=== PATIENT | male | born 1930 | race Two or more races ===

== ENCOUNTER → 2020-03-06 | Outpatient (REF) | payer MEDICARE, OTHER ==
[~2020-03-06] MED LIST: ALFU10TA3 PO; AMLO1TAB24 PO; ATOR1TAB21 PO; CLOP75TA2 PO; COQ1200C PO; DUTA1CAP2 PO; ECOT81TA5 PO; LISI40TA PO; METF10004 PO; METO37.5 PO; MONT5TAB2 PO; OMEP-221 PO
== END ==
LOC: M LAB REF 17:05
PROVIDERS: ATTEND Urology
DX: Z01.818 Encounter for other preprocedural examination (principal); N40.1 Benign prostatic hyperplasia with lower urinary tract symptoms; N39.0 Urinary tract infection, site not specified

== ENCOUNTER → 2020-03-07 | Outpatient (CLI) | payer OTHER, MEDICARE | LOC: M LABSMTC 09:56 | PROVIDERS: ATTEND Anesthesiology | DX: Z01.812 Encounter for preprocedural laboratory examination (principal); Z20.822 Contact with and (suspected) exposure to COVID-19 ==

== ENCOUNTER 2020-03-12 06:56 | Day surgery (SDC) | payer MEDICARE ==
[~2020-03-12] VITALS: Ht 160 cm; Wt 61.9 kg
[~2020-03-12 06:56] MED LIST changes: +LR 1,000 ML IV ONE; +ceFAZolin SOD 2 GM in IV 1 EA IV ONE
--- OUTSIDE RECORDS SUMMARY | 2020-03-12 07:02 | CCD ---
Author Author [facility] Organization [facility] Address Unknown Phone Unavailable Care Team Providers Care Tub Puller Name Role Phone ValerioJaein Unavailable PROBLEMS Type Condition ICD9-CM Code [id number] Code Onset Dates Condition S tatus SNOMED Code Notes Problem Microscopic hematuria 599.72 Active 545131175 Problem Hypertrophy (benign) of pros krueger without urinary obstruction and other lower urinary tract symptoms [LUTS] 600.00 Active 301163489 Problem Preop testing Z01.818 Active 806427590 Problem UTI (urinary tract infection) N39.0 Active 68 623002 Problem Elevated PSA (prostate specific antigen) 790.93 Active 799131538 Problem Elevated prostate specific antigen [PSA] R97.20 Active 351544115 Problem Benign prostatic hyperplasia without lower urina ry tract symptoms N40.0 Active 684361926 Problem 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 Active 036955215 ALLERGIES No Known Allergies ENCOUNTERS from 1930 to 2020-03-11 Encounter Location Date Provider Diagnosis [facility] Urology [address] [address] Feb Marlon Luo IMMUNIZATIONS Vaccine Route Administration Date Status Influenza (6mo & up) Fluzone Unknown July 18, 2014 Ref used SOCIAL HISTORY Sex Assigned At : Social History Observation Description Sex Assigned At Unknown REASON FOR REFERRAL No Information VITAL SIGNS No information MEDICATIONS Medication SIG (Take, Route, Frequency, Duration) Notes Start Da te End Date Status Dutasteride 0.5 MG 1 capsule Orally Once a day for 30 day(s) Active Aspir-81 81 MG 1 tablet Orally Once a day for 30 day(s) Active Lipitor 20 MG 1 tablet Orally Once a day for 30 day(s) Active CoQ-10 120 mg 1 tab(s) Orally daily Active Erythromycin 500 MG 1 tab Orally every 6 hours for 10 day(s) Feb, Active Lisinopril 30 MG 1 tablet Orally Once a day Active Plavix 75 MG 1 tablet Orally Once a day Active Cipro 250 MG 1 tablet Orally every 12 hrs for 10 day(s) Jan, Active Glucophage 1000 MG 1 tablet with meals Orally Twice a day Active Alfuzosin HCl Active Omeprazole 20 MG 1 capsule Orally Once a day Active Amoxicillin 500 MG 1 capsule Orally every 12 hrs for 10 day(s) Feb, Active Flomax 0.4 MG 1 capsule 30 minutes after t he same meal each day Orally Once a day for 90 day(s) Not-Taking Singulair 10 MG 1 tablet in the evening Orally Once a day for 30 day( s) Active PROCEDURES No Information RESULTS No Results REASON FOR VISIT adverse med MEDICAL (GENERAL) HISTORY Type Description Date Medical History high blood pressure Medical History high cholesterol Medical History GERD Medical History Microhematuria Medical History Disorder of prostate Medical History diverticular disease of colon Medical History psoriasis Medical History hernia of anterior abdominal wall 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 Medical History diabetes Surgical History cataract lens implanted, bilateral 2009 Surgical History colonoscopy 2005 Hospitalization History No Hospitalization history informati on Goals Section No Information Health Concerns No Information MEDICAL EQUIPMENT No Information MENTAL STATUS No Information FUNCTIONAL STATUS No Information ASSESSMENTS No Information PLAN OF TREATMENT Medication Medication Name Sig Start Date Stop Date Erythromycin 500 MG 1 tab Orally every 6 hours for 10 day(s) Feb, Amoxicillin 500 MG 1 capsule Orally every 12 hrs for 10 day(s) Feb, Next Appt Details Provider Name:Ruma Aparicio, 2020-02-29 8 08:30:00 AM, [address], [place], [address], Insurance Providers Payer Name Payer Address Payer Phone Insured Name Patient Relati onship to Insured Coverage Start Date Coverage End Date [employer]AN [address] [address] [place] [facility] [place] [phone] BRENDA HDZ [facility] [employer] [address] [address] [facility] [phone] BRENDA HDZ self
--- OUTSIDE RECORDS SUMMARY | 2020-03-12 07:02 | CCD ---
Author Author [facility] Organization [facility] Address Unknown Phone Unavailable Care Team Providers Care Mortgage Loan Officer Name Role Phone ValerioJaein Unavailable PROBLEMS Type Condition ICD9-CM Code [id number] Code Onset Dates Condition S tatus SNOMED Code Notes Problem Microscopic hematuria 599.72 Active 090702159 Problem Hypertrophy (benign) of pros krueger without urinary obstruction and other lower urinary tract symptoms [LUTS] 600.00 Active 920463365 Problem Preop testing Z01.818 Active 353978927 Problem UTI (urinary tract infection) N39.0 Active 68 921118 Problem Elevated PSA (prostate specific antigen) 790.93 Active 473979122 Problem Elevated prostate specific antigen [PSA] R97.20 Active 689462395 Problem Benign prostatic hyperplasia without lower urina ry tract symptoms N40.0 Active 245325372 Problem 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 Active 150048840 ALLERGIES No Known Allergies ENCOUNTERS from 1931 to 2020-03-10 Encounter Location Date Provider Diagnosis [facility] Urology [address] [place] [address] Feb Marlon Luo IMMUNIZATIONS Vaccine Route Administration [...] Information RESULTS No Results REASON FOR VISIT UTI MEDICAL (GENERAL) HISTORY Type Description Date Medical [...] Provider Name:Ruma Aparicio, 2020-02-29 8 08:30:00 AM, [address], [place], [address], Insurance Providers Payer Name Payer Address Payer Phone Insured Name Patient Relati onship to Insured Coverage Start Date Coverage End Date [facility] HEALTH PLANS [address] [address] [facility] [phone] BRENDA HDZ self [employer] INS[employer] PLAN [address] [address] [facility] [phone] BRENDA HDZ self
--- OUTSIDE RECORDS SUMMARY | 2020-03-12 07:02 | CCD ---
Author Author [facility] Organization [facility] Address Unknown Phone Unavailable Care Team Providers Care Application Dba Name Role Phone Marlon Luo Unavailable PROBLEMS Type Condition ICD9-CM Code [id number] Code Onset Dates Condition S tatus SNOMED Code Notes Problem Microscopic hematuria 599.72 Active 057983141 Problem Hypertrophy (benign) of pros krueger without urinary obstruction and other lower urinary tract symptoms [LUTS] 600.00 Active 685307453 Problem Preop testing Z01.818 Active 037001930 Problem UTI (urinary tract infection) N39.0 Active 68 620842 Problem Elevated PSA (prostate specific antigen) 790.93 Active 682603856 Problem Elevated prostate specific antigen [PSA] R97.20 Active 315297437 Problem Benign prostatic hyperplasia without lower urina ry tract symptoms N40.0 Active 265232681 Problem 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 Active 629978299 ALLERGIES No Known Allergies ENCOUNTERS from 1931 to 2020-03-07 Encounter Location Date Provider Diagnosis [facility] Urology [address] [place] [address] Feb Marlon Luo 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 IMMUNIZATIONS Vaccine Route Administration Date Status Influenza (6mo & up) Fluzone Unknown July 18, 2014 Ref used SOCIAL HISTORY Sex Assigned At : Social History Observation Description Sex Assigned At Unknown REASON FOR REFERRAL No Information VITAL SIGNS Weight 133 lbs Feb, Height 63 in Feb, BMI 23.56 kg/m2 Feb, Heart Rate 95 /min Feb, Respiratory Rate 18 /min Feb, Temperature 97.1 degrees Fahrenheit Feb, Oximetry 100% Feb, Blood pressure systolic 118 mm Hg Feb, Blood pressure diastolic 74 mm Hg Feb, MEDICATIONS Medication SIG (Take, Route, Frequency, Duration) Notes Start Da te End Date Status CoQ-10 120 mg 1 tab(s) Orally daily Active Lisinopril 30 MG 1 tablet Orally Once a day Active Glucophage 1000 MG 1 tablet with meals Orally Twice a day Active Omeprazole 20 MG 1 capsule Orally Once a day Active Alfuzosin HCl Active Flomax 0.4 MG 1 capsule 30 minutes after t he same meal each day Orally Once a day for 90 day(s) Not-Taking Plavix 75 MG 1 tablet Orally Once a day Active Aspir-81 81 MG 1 tablet Orally Once a day for 30 day(s) Active Singulair 10 MG 1 tablet in the evening Orally Once a day for 30 day( s) Active Lipitor 20 MG 1 tablet Orally Once a day for 30 day(s) Active Cipro 250 MG 1 tablet Orally every 12 hrs for 10 day(s) Jan, Active Dutasteride 0.5 MG 1 capsule Orally Once a day for 30 day(s) Active PROCEDURES from 1931 to 2020-03-07 Procedure Date Ordered Result Body Site Medication: Lidocaine HCl 2% Jelly 5mL Intravesically 2020-03-06 N/A Grigsby Catheter Coude Insertion 18F 2020-03-06 N/A RESULTS No Results REASON FOR VISIT Cath change w/ Urine culture MEDICAL (GENERAL) HISTORY Type Description Date Medical [...] No Information FUNCTIONAL STATUS No Information ASSESSMENTS Encounter Date Diagnosis Assessment Notes Treatment Notes Treatm ent Clinical Notes Feb, BPH (benign prostatic hypert rophy) with urinary retention (ICD-10 - N40.1) Feb, Other Caring for your grigsby cathet er material was printed PLAN OF TREATMENT Next Appt Details Provider Name:Ruma Aparicio, 2020-02-29 8 08:30:00 AM, [address], [place], [address], Insurance Providers Payer Name Payer Address Payer Phone Insured Name Patient Relati onship to Insured Coverage Start Date Coverage End Date [employer] PLAN [address] [address] [facility] [phone] BRENDA CARRINGTON [employer] [address] [address] [facility] [address] BRENDA CARRINGTON self
--- OUTSIDE RECORDS SUMMARY | 2020-03-12 07:02 | CCD ---
Author Author [facility] Organization [facility] Address Unknown Phone Unavailable Care Team Providers Care Publications Sales Representative Name Role Phone ValerioJaein Unavailable PROBLEMS Type Condition ICD9-CM Code [id number] Code Onset Dates Condition S tatus SNOMED Code Notes Problem Microscopic hematuria 599.72 Active 059312677 Problem Hypertrophy (benign) of pros krueger without urinary obstruction and other lower urinary tract symptoms [LUTS] 600.00 Active 823903242 Problem Preop testing Z01.818 Active 717992722 Problem UTI (urinary tract infection) N39.0 Active 68 265010 Problem Elevated PSA (prostate specific antigen) 790.93 Active 935101470 Problem Elevated prostate specific antigen [PSA] R97.20 Active 644968036 Problem Benign prostatic hyperplasia without lower urina ry tract symptoms N40.0 Active 852706839 Problem 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 Active 290050024 ALLERGIES No Known Allergies ENCOUNTERS from 1931 to 2020-03-07 Encounter Location Date Provider Diagnosis [facility] Urology [address] [place] [address] Feb Marlon Luo IMMUNIZATIONS Vaccine Route Administration [...] a day for 30 day(s) Active PROCEDURES No Information RESULTS No Results REASON FOR VISIT cath /urojey orders MEDICAL (GENERAL) HISTORY Type Description Date Medical [...] Information ASSESSMENTS No Information PLAN OF TREATMENT Next Appt Details Provider Name:Ruma Acevedo Alessandra, 2020-02-29 8 08:30:00 AM, [address], [place], [address], Insurance Providers Payer Name Payer Address Payer Phone Insured Name Patient Relati onship to Insured Coverage Start Date Coverage End Date [facility] PLANS [address] [address] [facility] [phone] BRENDA CARRINGTON self [employer] PLAN [address] [address] [facility] [phone] BRENDA CARRINGTON self
--- OUTSIDE RECORDS SUMMARY | 2020-03-12 07:03 | CCD ---
Author Author [facility] Organization [facility] Address Unknown Phone Unavailable Care Team Providers Care Assistant Superintendent For Curriculum Name Role Phone Recore, Ruma Unavailable PROBLEMS Type Condition ICD9-CM Code [id number] Code Onset Dates Condition S tatus SNOMED Code Notes Problem Elevated prostate specific antigen [PSA] R97.20 Active 755713415 Problem Benign prostatic hyperplasia without lower urina ry tract symptoms N40.0 Active 844449421 Problem Microscopic hematuria 599.72 Active 756415138 Problem Hypertrophy (benign) of pros krueger without urinary obstruction and other lower urinary tract symptoms [LUTS] 600.00 Active 992511790 Problem Elevated PSA (prostate specific antigen) 790.93 Active 671192170 ALLERGIES No Known Allergies ENCOUNTERS from 1930 to 2020-02-06 Encounter Location Date Provider Diagnosis [facility] Urology [address] [place] [address] [place] [address] Jan Ruma Aparicio Retention of urine, unspecified R33.9 IMMUNIZATIONS Vaccine Route Administration Date Status Influenza (6mo & up) Fluzone Unknown July 18, 2014 Ref used SOCIAL HISTORY Sex Assigned At : Social History Observation Description Sex Assigned At Unknown REASON FOR REFERRAL No Information VITAL SIGNS Weight 137 lbs Jan, Height 63 in Jan, BMI 24.27 kg/m2 Jan, Heart Rate 109 /min Jan, Respiratory Rate 18 /min Jan, Temperature 96.2 degrees Fahrenheit Jan, Oximetry 100% Jan, Blood pressure systolic 128 mm Hg Jan, Blood pressure diastolic 72 mm Hg Jan, MEDICATIONS Medication SIG (Take, Route, Frequency, Duration) Notes Start Da te End Date Status Singulair 10 MG 1 tablet in the evening Orally Once a day for 30 day( s) Active Lisinopril 30 MG 1 tablet Orally Once a day Active Plavix 75 MG 1 tablet Orally Once a day Active Cipro 250 MG 1 tablet Orally every 12 hrs for 10 day(s) Jan, Active Aspir-81 81 MG 1 tablet Orally Once a day for 30 day(s) Active Alfuzosin HCl Active Omeprazole 20 MG 1 capsule Orally Once a day Active Glucophage 1000 MG 1 tablet with meals Orally Twice a day Active Flomax 0.4 MG 1 capsule 30 minutes after t he same meal each day Orally Once a day for 90 day(s) Not-Taking Lipitor 20 MG 1 tablet Orally Once a day for 30 day(s) Active Dutasteride 0.5 MG 1 capsule Orally Once a day for 30 day(s) Active CoQ-10 120 mg 1 tab(s) Orally daily Active PROCEDURES from 1931 to 2020-02-06 Procedure Date Ordered Result Body Site Grigsby Catheter Insertion 16F 2020-02-04 N/A Medication: Lidocaine HCl 2% Jelly 5mL Intravesically 2020-02-04 N/A Voiding Trial 2020-02-04 N/A RESULTS No Results REASON FOR VISIT dora white grigsby in retention MEDICAL (GENERAL) HISTORY Type Description Date Medical [...] Surgical History colonoscopy 2005 Hospitalization History No know Hospitalization history Goals Section No Information Health Concerns No Information MEDICAL EQUIPMENT No Information MENTAL STATUS No Information FUNCTIONAL STATUS No Information ASSESSMENTS Encounter Date Diagnosis Assessment Notes Treatment Notes Treatm ent Clinical Notes Jan, Retention of urine, unspecified (ICD-10 - R33.9) Jan, Other Caring for your grigsby catheter material was printed Patient Educated with: Cystoscopy (In-Office) Procedure and Instructions.pdf (Cystoscopy (In-Office) Procedure and Instructions.pdf) PLAN OF TREATMENT Medication Medication Name Sig Start Date Stop Date Cipro 250 MG 1 tablet Orally every 12 hrs for 10 day(s) 2019 Next Appt Details cysto Reason: Provider Name:Marlon Luo, 09:00:00 AM, [address], [place], [address], Insurance Providers Payer Name Payer Address Payer Phone Insured Name Patient Relati onship to Insured Coverage Start Date Coverage End Date [facility] HEALTH PLANS [address] [address] [facility] [phone] BRENDA CARRINGTON [employer] PLAN [address] [address] [facility] [place] [phone] BRENDA CARRINGTON self
--- OUTSIDE RECORDS SUMMARY | 2020-03-12 07:03 | CCD | Continuity of Care Document ---
Author Author Saman SABA M.D. Organization Unknown Address [address] [place] [address] Phone [phone] Care Team Providers Care Stone Circular Sawyer Name Role Phone ProsperNitin Rambo AUTM [phone] Problems Active Problems Provider Date Malaise and fatigue Keven Saba M.D. Onset: 12/08/2017 Abnormal gait Keven Saba M.D. Onset: 12/08/2017 Carotid artery occlusion Keven Saba M.D. 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 Onset: 12/08/2017 Social History Type Date Description Comments Sex Unknown Tobacco Use Start: Unknown End: Unknown Patient is a former smoker Allergies, Adverse Reactions, Alerts Description No Known Drug Allergies Medications Active Medications SIG Qnty Indications Ordering Provide r Date Clopidogrel Bisulfate 75mg Tablets Take One Tablet By Mouth Every Day 30tabs Keven Saba M.D. 0 05/12/2018 Immunizations Description No Information Available Vital Signs Date Vital Result Comment 12/08/2017 9:22am BP Systolic 155 mmHg BP Diastolic 85 mmHg Heart Rate 70 /min Respiratory Rate 14 /min Height 62 inches 5'2" Weight 140.00 lb BMI (Body Mass Index) 25.6 kg/m2 [place] Body Weight 118 lb Results Description No Information Available Procedures Date Code Description Status 09/22/2019 49601 Magnetic Resonance Angiography N ankit W/O Contrast Materials Completed 09/22/2019 27057 Magnetic Resonance Angiography N ankit W/O Contrast Materials Completed 09/22/2019 24275 Magnetic Resonance Angiogtaphy H ead W/O Contrast Material(S) Completed 09/22/2019 45668 Magnetic Resonance Angiogtaphy H ead W/O Contrast Material(S) Completed Medical Devices Description No Information Available Encounters Description No Information Available Assessments Date Code Description Provider 09/22/2019 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 09/18/2019 R53.1 Weakness Keven Saba M.D. 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 09/18/2019 I65.23 Occlusion and stenosis of bilate ral carotid arteries Keven Saba M.D. Plan of Treatment No Information Available Functional Status Description No Information Available Mental Status Description No Information Available Referrals Description No Information Available
--- OUTSIDE RECORDS SUMMARY | 2020-03-12 07:03 | CCD ---
Author Author [facility] Organization [facility] Address Unknown Phone Unavailable Care Team Providers Care Press Assistant Name Role Phone Catrachore, Ruma Unavailable PROBLEMS Type Condition ICD9-CM Code [id number] Code Onset Dates Condition S tatus SNOMED Code Notes Problem Elevated prostate specific antigen [PSA] R97.20 Active 549209764 Problem Benign prostatic hyperplasia without lower urina ry tract symptoms N40.0 Active 165390897 Problem Microscopic hematuria 599.72 Active 866541637 Problem Hypertrophy (benign) of pros krueger without urinary obstruction and other lower urinary tract symptoms [LUTS] 600.00 Active 062718407 Problem Elevated PSA (prostate specific antigen) 790.93 Active 777737589 ALLERGIES No Known Allergies ENCOUNTERS from 1931 to 2020-02-07 Encounter Location Date Provider Diagnosis [facility] Urology [id number] [place] [address] [place] [address] Jan Ruma Aparicio Retention of urine, unspecified [...] mg 1 tab(s) Orally daily Active PROCEDURES No Information RESULTS No Results REASON FOR VISIT med clarification MEDICAL (GENERAL) HISTORY Type Description Date Medical [...] Retention of urine, unspecified (ICD-10 - R33.9) PLAN OF TREATMENT Medication Medication Name Sig Start Date Stop Date Cipro 250 MG 1 tablet Orally every 12 hrs for 10 day(s) 2019 Next Appt Details Provider Name:Marlon Luo, 09:00:00 AM, [address], [place], [address], Insurance Providers Payer Name Payer Address Payer Phone Insured Name Patient Relati onship to Insured Coverage Start Date Coverage End Date [employer] PLAN [address] [address] [place] [phone] BRENDA CARRINGTON self [employer] [address] [address] [facility] [phone] MOROMGIOVANNA,SHINTEROSETTEU self
--- OUTSIDE RECORDS SUMMARY | 2020-03-12 07:03 | CCD ---
Author Author [facility] Organization [facility] Address Unknown Phone Unavailable Care Team Providers Care Molding Utility Worker Name Role Phone Marlon Luo Unavailable PROBLEMS Type Condition ICD9-CM Code ZVZ29-LA Code Onset Dates Condition S tatus SNOMED Code Notes Problem Microscopic hematuria 599.72 Active 758733533 Problem Hypertrophy (benign) of pros [place] without urinary obstruction and other lower urinary tract symptoms [LUTS] 600.00 Active 991639774 Problem Preop testing Z01.818 Active 968569738 Problem UTI (urinary tract infection) N39.0 Active 68 626960 Problem Elevated PSA (prostate specific antigen) 790.93 Active 346206910 Problem Elevated prostate specific antigen [PSA] R97.20 Active 107606741 Problem Benign prostatic hyperplasia without lower urina ry tract symptoms N40.0 Active 798869816 Problem 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 Active 747281449 ALLERGIES No Known Allergies ENCOUNTERS from 1930 to 2020-02-14 Encounter Location Date Provider Diagnosis [facility] [address] [place] [address] Jan Marlon Valerio 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 ; Preop testing Z01.818 and UTI (urinary tract infection) N39.0 IMMUNIZATIONS Vaccine Route Administration Date Status Influenza (6mo & up) Fluzone Unknown July 18, 2014 Ref used SOCIAL HISTORY Sex Assigned At : Social History Observation Description Sex Assigned At Unknown REASON FOR REFERRAL No Information VITAL SIGNS Weight 136.5 lbs Jan, Height 63 in Jan, BMI 24.18 kg/m2 Jan, Heart Rate 91 /min Jan, Respiratory Rate 18 /min Jan, Temperature 97.1 degrees Fahrenheit Jan, Oximetry 98% Jan, Blood pressure systolic 145 mm Hg Jan, Blood pressure diastolic 78 mm Hg Jan, MEDICATIONS Medication SIG (Take, Route, Frequency, Duration) Notes Start Da te End Date Status Alfuzosin HCl Active Flomax 0.4 MG 1 capsule 30 minutes after t he same meal each day Orally Once a day for 90 day(s) Not-Taking Glucophage 1000 MG 1 tablet with meals Orally Twice a day Active Omeprazole 20 MG 1 capsule Orally Once a day Active Lipitor 20 MG 1 tablet Orally Once a day for 30 day(s) Active Lisinopril 30 MG 1 tablet Orally Once a day Active Aspir-81 81 MG 1 tablet Orally Once a day for 30 day(s) Active Dutasteride 0.5 MG 1 capsule Orally Once a day for 30 day(s) Active Singulair 10 MG 1 tablet in the evening Orally Once a day for 30 day( s) Active Cipro 250 MG 1 tablet Orally every 12 hrs for 10 day(s) Jan, Active Plavix 75 MG 1 tablet Orally Once a day Active CoQ-10 120 mg 1 tab(s) Orally daily Active PROCEDURES No Information RESULTS No Results REASON FOR VISIT retention MEDICAL (GENERAL) HISTORY Type Description Date [...] Treatment Notes Treatm ent Clinical Notes Jan, BPH (benign prostatic hypert rophy) with urinary retention (ICD-10 - N40.1) Transurethral resection of the prostate material was printed Jan, Preop testing (ICD-10 - Z01.818) Jan, UTI (urinary tract infection) (ICD-10 - N39.0) PLAN OF TREATMENT Treatment Notes Assessment Notes Clinical Notes BPH (benign prostatic hypertrophy) with urinary retent ion Transurethral resection of the prostate material was printed Treatment Notes Test Name Order Date Medication: Lidocaine HCl 2% Jelly 5mL Intravesically 2020-02-14 CBC - Complete Blood Count 2020-02-14 PT & APTT 2020-02-14 URINE CULTURE 2020-02-14 Basic Metabolic Profile (BMP) 2020-02-14 [facility] Chest, 2 view (PA\Lat) 2020-02-14 Electrocardiogram (EKG) 2020-02-14 De Guzman Catheter Coude Insertion 18F 2020-02-14 Next Appt Details surgery Reason: Insurance Providers Payer Name Payer Address Payer Phone Insured Name Patient Relati onship to Insured Coverage Start Date Coverage End Date [employer] [address] [address] [facility] [place] [phone] BRENDA CARRINGTON [employer] [address] [address] [facility] [address] BRENDA CARRINGTON self
--- OUTSIDE RECORDS SUMMARY | 2020-03-12 07:03 | CCD | Continuity of Care Document ---
Author Author Saman ARDON D.O. Organization Unknown Address 3 [facility] [address] [place] [address] Phone [phone] Care Team Providers Care Student Services Rep Name Role Phone Ramón Parr M.D. AUTM [phone] Problems Active Problems Provider Date Type 2 diabetes mellitus Nitin Ardon D.O., BENYFP Onset: 01/09/2001 Benign essential hypertension Nitin Ardon D.O., TEVIN O nset: 01/09/2001 Hyperlipidemia Nitin Ardon D.O., BENYFP Onset: 12/29 Hernia of anterior abdominal wall Nitin Ardon D.O., FAA FP Onset: 01/09/2001 Blood in urine Onset: 01/23/2001 Psoriasis Nitin Ardon D.O., BENYFP Onset: 02/2001 Allergic rhinitis Nitin Ardon D.O., BENYFP Onset: 10/30 Diverticular disease of colon Nitin Ardon D.O., FAAFP O nset: 10/11/2005 Disorder of prostate Nitin Ardon D.O., BENYFP Onset: Nonproliferative retinopathy due to diabetes mellitus Nitin Ardon D.O., FAAFP Onset: 05/06/2008 Nonexudative age-related macular degeneration Nitin marquez D.O., FAAFP Onset: 09/08/2016 Note: OU Proliferative diabetic retinopathy Nitin Ardon D.O., FA AFP Onset: 11/11/2017 Note: OU Decreased hearing Nitin Ardon D.O., [facility] Onset: 06/28 Note: BOTH EARS Type 2 diabetes mellitus Nitin Ardon D.O., [facility] Onset: 02/05/2020 Social History Type Date Description Comments Sex Unknown Tobacco Use Start: Unknown former cigarette smoker- quit in 1969. ETOH Use alcohol use: never used Tobacco Use Start: Unknown End: Unknown Patient is a former smoker Quit 08/03/69 Recreational Drug Use Never Used Drugs Smoking Status Reviewed: 01/22/20 Patient is a former smoker Qu it 08/03/69 Allergies, Adverse Reactions, Alerts Description No Known Drug Allergies Medications Active Medications SIG Qnty Indications Ordering Provide r Date Amlodipine Besylate 5mg Tablets Take One Tablet By Mouth Every Day 30tabs Nitin Ardon D.O., [facility] 06/14/2018 Lisinopril 40mg Tablets Take One Tablet By Mouth Every Day 30tabs Nitin Ardon D.O., [facility] 09/2018 Atorvastatin Calcium 20mg Tablets Take One Tablet By Mouth Every Day 90tabs Nitin Ardon D.O., [facility] 04/29/2018 Montelukast Sodium 10mg Tablets Take One Tablet By Mouth Every Day 30tabs Nitin Ardon D.O., [facility] 04/29/2018 Clopidogrel Bisulfate 75mg Tablets One Daily 90tabs Nitin Ardon D.O., [facility] Metformin HCL 1000mg Tablets Take One Tablet By Mouth Twice A Day 180tabs Yolanda Chatterjee, [facility] 03/10/2018 Complex B-50 Prolonged Release Tablets ER One PO qd 90tabs Nitin Ardon D.O., [facility] 08/05/2017 Metoprolol Succinate ER 25mg Tablets ER 24HR Take One Tablet By Mouth Every Day 90tabs Kacey Ardon D.O., [facility] 09/08/[address] Take One Capsule By Mouth Every Day 30caps Nitin Ardon D.O. , [facility] 05/28/2014 [facility] To Check Blood Sugar daily DX: DM 100units E11.9 Taz Sparks M.D. 10/12/19 08 Co Q-10 120mg Capsules 1 ever y day Unknown Aspirin Ec 81mg Tablets DR 0NE by mouth every day Unknown Ciprofloxacin HCL 250mg Tablets 1 by mouth twice a day x 10 days Unknown Immunizations CPT Code Status Date Vaccine Lot # [id number] Given 01/22/2020 Influenza Virus Vaccine, Quadrivalent, Slit Virus, Im Use 3Y & Up [id number] 67960 Given 12/22/2018 Influenza Virus Vaccine, Quadrivalent, Slit Virus, Im Use 3Y & Up [id number] 45896 Given 06/06/2018 Tdap Tetanus,Dip htheria Toxoids/Acellular Pertussis 7Yrs Or Older [id number] 26275 Given 11/11/2017 Influenza Virus Vaccine, Quadrivalent, Slit Virus, Im Use 3Y & Up [id number] 22939 Given 01/19/2017 Influenza Virus Vaccine, Quadrivalent, Slit Virus, Im Use 3Y & Up [id number] 83864 Given 12/05/2015 Influenza Virus Vaccine, Quadrivalent, Slit Virus, Im Use 3Y & Up [id number] 41507 Given 11/29/2014 Influenza Vaccin e (Fluzone) 3Yrs Of Age Or Older Medicare Plans [id number] Q2037 Given 11/07/2013 Influenza Vaccin e (Fluvirin) 3Yrs Of Age Or Older Medicare Plans [id number] 97127 Given 12/14/2011 Pneumococcal Immunization [id number] 86392 Given 11/24/2011 Influenza Vaccin e (Fluzone) 3Yrs Of Age Or Older Medicare Plans 77619 Given 11/24/2011 Influenza Virus Vac. Split Virus Individuals 3 Years And Above [id number] 95610 Given 01/11/2006 Pneumococcal Immunization 06 [id number] 55289 Given 01/11/2006 Influenza Virus Vac. Split Virus Individuals 3 Years And Above 78720 61353 Given 01/06/2005 Influenza Virus Vac. Split Virus Individuals 3 Years And Above 01121 Given 01/29/2004 Influenza Virus Vac. Split Virus Individuals 3 Years And Above 98484 Given 01/11/2001 Pneumococcal Immunization Vital Signs Date Vital Result Comment 02/27/2020 9:49am BP Systolic 140 mmHg BP Diastolic 80 mmHg Body Temperature 97.8 F Heart Rate 75 /min Respiratory Rate 18 /min Height 63.5 inches 5'3.50" Weight 134.00 lb [place] Body Weight 124 lb BMI (Body Mass Index) 23.4 kg/m2 O2 % BldC Oximetry 98 % 02/05/2020 2:08pm BP Systolic 138 mmHg BP Diastolic 62 mmHg Body Temperature 97.1 F Heart Rate 85 /min Height 63.5 inches 5'3.50" Weight 138.00 lb [place] Body Weight 124 lb BMI (Body Mass Index) 24.1 kg/m2 O2 % BldC Oximetry 98 % (AT Rest), (Room Air ) Results Test Acquired Date Facility Test Result H/L Range Note Urinalysis [address] [place], [place] [id number] [phone] Urinalysis (SEE NOTE) 1, 2 Source R Color yellow Normal: Yellow Clarity clear Normal: Clear Spec [place] 1.020 1.001 - 1.030 pH 5 5 - 9 Glucose NORM Normal: Negative Bilirubin NEG Normal: Negative Ketone 5 Abnormal Normal: Negative Protein 100 Abnormal Normal: Negative Nitrite NEG Normal: Negative Blood 250 Abnormal Normal: Negative Leuk Est 25 Normal: Negative Urobilinogen NOR less than 1.0 mg/dL Microscopic See Below WBC 1 - 3 Normal: None Seen RBC 20 - 30 Abnormal Normal: None Seen Epithelial FEW Normal: None Seen Laboratory test finding [address] [place] [id number] [phone] Culture Urine (SEE NOTE) 3, 4 Urinalysis 01/27/2020 [place] [id number] [phone] Urinalysis (SEE NOTE) 5, 6 Source R Color yellow Normal: Yellow Clarity Clear Normal: Clear Spec [place] 1.020 1.001 - 1.030 pH 5 5 - 9 Glucose NORM Normal: Negative Bilirubin NEG Normal: Negative Ketone NEG Normal: Negative Protein 15 Normal: Negative Nitrite NEG Normal: Negative Blood NEG Normal: Negative Leuk Est NEG Normal: Negative Urobilinogen NOR less than 1.0 mg/dL Microscopic See Below WBC 0 - 1 Normal: None Seen RBC 0 - 1 Normal: None Seen Epithelial FEW Normal: None Seen Bacteria Trace Normal: None Seen CBC 01/16/2020 [facility] WBC 6.0 10E3/uL 4.1 - 10.9 7 RBC 3.78 10E6/uL Low 4.20 - 6.30 HGB 12.4 g/dL 12.0 - 18.0 HCT 35.6 % Low 37.0 - 51.0 MCV 94.2 fL 80.0 - 97.0 MCH 32.8 pg High 26.0 - 32.0 MCHC 34.8 g/dL 31.0 - 36.0 PLT 346 10E3/uL 140 - 440 RDW-CV 14.2 % 11.5 - 14.5 Lym% 27.0 % 10.0 - 58.5 Neut% 66.6 % 37.0 - 92.0 MXD% 6.4 % 0.1 - 24.0 Lym# 1.6 10E3/uL 0.6 - 4.1 Neut# 4.0 % 2.0 - 7.8 MXD# 0.4 10E3/uL 0.0 - 1.8 MPV 8.0 fL Low 9.0 - 13.0 CMP 01/16/2020 [facility] Glu 130 mg/dL High 70 - 110 BUN 19 mg/dL 8 - 23 Creat 1.0 mg/dL 0.7 - 1.2 BUN/Creatinine Ratio 20.1 CALC Na 133 mmol/L Low 136 - 145 K 5.4 mmol/L High 3.5 - 5.1 CL 96.5 mmol/L Low 98.0 - 107.0 Co2 24.7 mmol/L 22.0 - 29.0 CA 10.2 mg/dL 8.6 - 10.2 TP 6.7 g/dL 6.6 - 8.7 Alb 4.6 g/dL 3.5 - 5.2 A/G Ratio 2.3 CALC Globulin 2.0 CALC Alp 68.1 U/L 40 - 129 Alt (SGPT) 16 U/L 0 - 41 Ast (Sgot) 18 U/L 0 - 40 Tbili 0.36 mg/dL 0.0 - 1.2 Osmolality-Calculated 269.6 CALC Anion Gap 17 mmol/L eGFR 77 # Calc 8 eGFR Non-Afr. Egyptian 66 # Calc 9 Lipid Panel 01/16/2020 [facility] Chol 146 mg/dL 0 - 200 Trig 181 mg/dL 35 - 200 HDL 47 mg/dL 35 - 55 LDL_C 63 Calc Low 75 - 129 Cho/HDL Ratio 3.1 CALC Laboratory test finding 01/16/2020 [facility] CK 62 U/L 39 - 308 Hemoglobin A1c 5.9 % 4.40 - 6.10 U/A DIP 01/16/2020 [facility] Color yellow QUAL Clarity clear QUAL Glucose-Ua Negative g/dL Negative Bilirubin,Urine Negative QUAL Negative Ketone Negative mg/dL Negative Blood - Ua Negative QUAL Negative pH 5.5 # 5.0 - 8.0 Protein Negative mg/dL Negative Urobilinogen 0.2 NA 0.2 - 1.0 Nitrite Negative QUAL Negative Leukocyte Negative QUAL Negative Microalb/Creat Ratio 01/16/2020 [facility] Alb 30 mg/L 1 - 30 Creatinine, Urine 100 mg/dL 10 - 300 A/C Ratio <30 mg/g % U/A DIP 10/09/2019 [facility] Color yellow QUAL Clarity clear QUAL Glucose-Ua Negative g/dL Negative Bilirubin,Urine Negative QUAL Negative Ketone Trace mg/dL Abnormal Negative Specific [place] >=1.030 # Abnormal 1.000 - 1.030 Blood - Ua Negative QUAL Negative pH 5.0 # 5.0 - 8.0 Protein Trace mg/dL Abnormal Negative Urobilinogen 0.2 NA 0.2 - 1.0 Nitrite Negative QUAL Negative Leukocyte Negative QUAL Negative CBC 10/09/2019 A/Inhouse WBC 5.7 10E3/uL 4.1 - 10.9 RBC 3.89 10E6/uL Low 4.20 - 6.30 HGB 12.8 g/dL 12.0 - 18.0 HCT 36.8 % Low 37.0 - 51.0 MCV 94.6 fL 80.0 - 97.0 MCH 32.9 pg High 26.0 - 32.0 MCHC 34.8 g/dL 31.0 - 36.0 PLT 367 10E3/uL 140 - 440 RDW-CV 13.9 % 11.5 - 14.5 Lym% 22.5 % 10.0 - 58.5 Neut% 68.3 % 37.0 - 92.0 MXD% 9.2 % 0.1 - 24.0 Lym# 1.3 10E3/uL 0.6 - 4.1 Neut# 3.9 % 2.0 - 7.8 MXD# 0.5 10E3/uL 0.0 - 1.8 MPV 8.1 fL Low 9.0 - 13.0 CMP 10/09/2019 [facility] Glu 143 mg/dL High 70 - 110 BUN 18 mg/dL 8 - 23 Creat 1.0 mg/dL 0.7 - 1.2 BUN/Creatinine Ratio 17.9 CALC Na 134 mmol/L Low 136 - 145 K 4.8 mmol/L 3.5 - 5.1 CL 99.1 mmol/L 98.0 - 107.0 Co2 26.3 mmol/L 22.0 - 29.0 CA 9.9 mg/dL 8.6 - 10.2 TP 6.8 g/dL 6.6 - 8.7 Alb 4.8 g/dL 3.5 - 5.2 A/G Ratio 2.3 CALC Globulin 2.0 CALC Alp 66.0 U/L 40 - 129 Alt (SGPT) 20 U/L 0 - 41 Ast (Sgot) 20 U/L 0 - 40 Tbili 0.49 mg/dL 0.0 - 1.2 Osmolality-Calculated 273.3 CALC Anion Gap 14 mmol/L eGFR 77 # Calc 10 eGFR Non-Afr. Egyptian 66 # Calc 11 Lipid Panel 10/09/2019 [facility] Chol 156 mg/dL 0 - 200 Trig 181 mg/dL 35 - 200 HDL 49 mg/dL 35 - 55 LDL_C 71 Calc Low 75 - 129 Cho/HDL Ratio 3.2 CALC Laboratory test finding 10/09/2019 [facility] CK 76 U/L 39 - 308 Hemoglobin A1c 6.5 % High 4.40 - 6.10 1 SOURCE: Clean Catch 2 URINALYSIS 3 SOURCE: Urine, Catheter 4 _CULTURE URINE_ ^$[id number] ^^[id number] $$[id number] ^^[id number] $$842809 $$932433 $$875407 $$936545 $$666620 $$945182 $$752994 $$097871 $$736383 $$481157 $$574053 $$073440 $$345133 $$508042 $$753734 $$089891 $$901934 $$941552 $$868579 $$828918 $$590803 $$342980 $$725441 ^^483687 $$460189 $$143428 $$[id number] -- Continued on next page -- Patient: CHARISSA GUTIERREZ Order: [id number] Page 2 Culture: CULTURE URINE Status: Final -- Continued on next page -- Patient: CHARISSA GUTIERREZ Order: [id number] Page 2 Culture: CULTURE URINE Status: Prelim $$[id number] $$[id number] REPORTED DATE/TIME: 02/04/2020 16:06 Culture: CULTURE URINE Status: Final Urine Culture,Comprehensive: P1 No growth in 36 - 48 hours. Previous result entered on 02/03/2020 06:45 ET No growth after 18-24 hours. P1 Test performed by: [facility] Fernando VERNON #: [id number] [address] [place] [address] [id number] [facility] [address] Chief Service Dispatcher : Omkar Park MD NPI #: Chaplain : 02/04/[email or web address] REF 02/05/[id number] REF 5 SOURCE: Clean Catch 6 URINALYSIS 7 NORMAL RANGES Age WBC RBC HGB HCT MCV PLT Adult M 4.1-10.9 4.20-6.30 12.0-18.0 37.0-51.0 80-97 140-440 Adult F 4.1-10.9 4.04-5.48 12.0-18.0 37.0-51.0 80-97 140-440 0 -1 Yr 5.0-20.0 3.9-5.9 15-18 MV: 44 MV: 91 MV: 277 2-9 Yr. 6.0-17.0 3.8-5.4 11-13 MV: 37 MV: 78 MV: 300 10 Yrs. 5.0-13.0 3.8-5.4 12-15 MV: 39 MV: 80 MV: 250 NOTE: * FOR ADULT BLACK MALES AND FEMALES, NORMAL WBC IS 2.9-7.7 K/ML * FOR ADULT BLACK MALES AND FEMALES, NORMAL RBC,HGB, AND HCT IS 5% LESS SOURCE FOR DATA: [employer] 1800 OPERATION MANUAL( AUTOMATED BLOOD COUNTS AND DIFF.) APPENDIX B-3 CHRONIC KIDNEY DISEASE STAGING PER NKF: MALE GFR INTERPRETATION: 20-49 YRS: >60 mL/min Normal 50-59 YRS: >56 mL/min Normal 60-69 YRS: >49 mL/min Normal 70-79 YRS: >42 mL/min Normal 80 and above >35 mL/min Normal FEMALE GRF INTERPRETATION: 20-39 YRS: >60 mL/min Normal 40-49 YRS: >58 mL/min Normal 50-59 YRS: >51 mL/min Normal 60-69 YRS: >45 mL/min Normal 70-79 YRS: >39 mL/min Normal 80 and above >32 mL/min NormalCLASSIFICATION CHOLESTEROL FOR ADULTS CHILDREN/ADOLESCENTS* DESIRABLE: <200 MG/DL <170 MG/DL BORDER-LINE HIGH RISK: 200-239 MG/DL 170-199 MG/DL HIGH RISK: >240 MG/DL >200 MG/DL CLASS. FOR PRIMARY LDL CHOL PREVENTION: LDL CHOL-CHILD/ADOLESCENTS* DESIRABLE: <130 MG/DL <110 MG/DL BORDERLINE-HIGH RISK: 130-159 MG/DL 110-129 MG/DL HIGH RISK: >160 MG/DL >130 MG/DL *CHILDREN AND ADOLESCENTS REPRESENTS INDIVIDUALA AGED 2-19 YEARS EXCLUSIVE. 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 E11.9 Type 2 diabetes mellitus wit hout complications E78.5 Hyperlipidemia, unspecified K21.9 Gastro-esophageal reflux dis ease without esophagitis I10 Essential (primary) hyperten jose Z23 Encounter for immunization Office Visit 10/22/2019 10:15a [facility] Yolanda Chatterjee, FAAFP 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 E11.9 Type 2 diabetes mellitus wit hout complications E78.5 Hyperlipidemia, unspecified I10 Essential (primary) hyperten jose K21.9 Gastro-esophageal reflux dis ease without esophagitis Assessments Date Code Description Provider 02/05/2020 R33.9 Retention of urine, unspecified Nitin Ardon D.O., FAAFP 01/22/2020 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 Nitin Ardon D.O., FAAFP 01/22/2020 E11.9 Type 2 diabetes mellitus without complications Nitin Ardon D.O., FAAFP 01/22/2020 E78.5 Hyperlipidemia, unspecified Jules Ardon D.O., FAAFP 01/22/2020 K21.9 Gastro-esophageal reflux disease without esophagitis Nitin Ardon D.O., FAAFP 01/22/2020 I10 Essential (primary) hypertension Nitin Ardon D.O., FAAFP 01/22/2020 Z23 Encounter for immunization John Ardon D.O., FAAFP 01/16/2020 E11.9 Type 2 diabetes mellitus without complications Nitin Ardon D.O., [facility] 01/16/2020 E78.5 Hyperlipidemia, unspecified Jules Ardon D.O., [facility] 01/16/2020 I10 Essential (primary) hypertension Nitin Ardon D.O., [facility] 10/22/2019 Z79.84 senior living (current) use of oral hypoglycemic drugs Nitin Ardon D.O., [facility] 10/22/2019 E11.9 Type 2 diabetes mellitus without complications [facility] 10/22/2019 E78.5 Hyperlipidemia, unspecified [facility] 10/22/2019 I10 Essential (primary) hypertension Nitin Ardon D.O., [facility] 10/22/2019 K21.9 Gastro-esophageal reflux disease without esophagitis Nitin Ardon D.O., [facility] 10/09/2019 E11.9 Type 2 diabetes mellitus without complications Nitin Ardon D.O., [facility] 10/09/2019 E78.5 Hyperlipidemia, unspecified Jules Ardon D.O., [facility] 10/09/2019 E87.1 Hypo-osmolality and hyponatremia Nitin Ardon D.O., FAAFP Plan of Treatment Future Appointment(s):* 04/21/2020 9:00 am - [place] Schedule at [facility] * 04/29/2020 10:30 am - Nitin Ardon D.O., FAAFP at [facility] Functional Status Description No Information Available Mental Status Description No Information Available Referrals Description No Information Available
--- OUTSIDE RECORDS SUMMARY | 2020-03-12 07:03 | CCD | Continuity of Care Document ---
Author Author Saman ARDON D.O. Organization Unknown Address 3 [facility] 3 [place] [address] Phone [phone] Care Team Providers Care Hospital Administrative Assistant Name Role Phone Ramón Parr M.D. AUTM [phone] Problems Active Problems Provider Date Type 2 [...] Note: OU Decreased hearing Nitin Ardon D.O., [facility] Onset: 06/28 Note: BOTH EARS Type 2 diabetes mellitus Nitin Ardon D.O., [facility] Onset: 02/05/2020 Social History Type Date Description [...] Mouth Every Day 30tabs Nitin Ardon D.O., [facility] 06/14/2018 Lisinopril 40mg Tablets Take One Tablet By Mouth Every Day 30tabs Nitin Ardon D.O., [facility] 09/2018 Atorvastatin Calcium 20mg Tablets Take One Tablet By Mouth Every Day 90tabs Nitin Ardon D.O., [facility] 04/29/2018 Montelukast Sodium 10mg Tablets Take One Tablet By Mouth Every Day 30tabs Nitin Ardon D.O., [facility] 04/29/2018 Clopidogrel Bisulfate 75mg Tablets One Daily 90tabs Nitin Ardon D.O., [facility] Metformin HCL 1000mg Tablets Take One Tablet By Mouth Twice A Day 180tabs Yolanda Chatterjee, [facility] 03/10/2018 Complex B-50 Prolonged Release Tablets ER One PO qd 90tabs Nitin Ardon D.O., [facility] 08/05/2017 Metoprolol Succinate ER 25mg Tablets ER 24HR Take One Tablet By Mouth Every Day 90tabs Kacey Ardon D.O., [facility] 09/08/[address] Take One Capsule By Mouth Every Day 30caps Nitin Ardon D.O. , [facility] 05/28/2014 [facility] To Check Blood Sugar daily DX: DM 100units E11.9 Taz Sparks M.D. 10/12/19 08 Co Q-10 120mg Capsules 1 ever y day Unknown Aspirin Ec 81mg Tablets DR 0NE by mouth every day Unknown Immunizations CPT Code Status Date Vaccine Lot # [id number] Given 01/22/2020 Influenza Virus Vaccine, Quadrivalent, Slit Virus, Im Use 3Y & Up [id number] 25102 Given 12/22/2018 Influenza Virus Vaccine, Quadrivalent, Slit Virus, Im Use 3Y & Up [id number] 23912 Given 06/06/2018 Tdap Tetanus,Dip htheria Toxoids/Acellular Pertussis 7Yrs Or Older [id number] 91880 Given 11/11/2017 Influenza Virus Vaccine, Quadrivalent, Slit Virus, Im Use 3Y & Up [id number] 19206 Given 01/19/2017 Influenza Virus Vaccine, Quadrivalent, Slit Virus, Im Use 3Y & Up [id number] 53704 Given 12/05/2015 Influenza Virus Vaccine, Quadrivalent, Slit Virus, Im Use 3Y & Up [id number] 14185 Given 11/29/2014 Influenza Vaccin e (Fluzone) 3Yrs Of Age Or Older Medicare Plans [id number] Q2037 Given 11/07/2013 Influenza Vaccin e (Fluvirin) 3Yrs Of Age Or Older Medicare Plans [id number] 37140 Given 12/14/2011 Pneumococcal Immunization 80586 25558 Given 11/24/2011 Influenza Vaccin e (Fluzone) 3Yrs Of Age Or Older Medicare Plans 22853 Given 11/24/2011 Influenza Virus Vac. Split Virus Individuals 3 Years And Above [id number] 78747 Given 01/11/2006 Pneumococcal Immunization 06 75F 15764 Given 01/11/2006 Influenza Virus Vac. Split Virus Individuals 3 Years And Above 32637 01462 Given 01/06/2005 Influenza Virus Vac. Split Virus Individuals 3 Years And Above 08302 Given 01/29/2004 Influenza Virus Vac. Split Virus Individuals 3 Years And Above 45477 Given 01/11/2001 Pneumococcal Immunization Vital Signs Date Vital Result Comment 02/27/2020 9:49am BP Systolic 140 mmHg BP Diastolic 80 mmHg Body Temperature 97.8 F Heart Rate 75 /min Respiratory Rate 18 /min Height 63.5 inches 5'3.50" Weight 134.00 lb [place] Body Weight 124 lb BMI (Body Mass Index) 23.4 kg/m2 O2 % BldC Oximetry 98 % 02/05/2020 2:08pm BP Systolic 138 mmHg BP Diastolic 62 mmHg Body Temperature 97.1 F Heart Rate 85 /min Height 63.5 inches 5'3.50" Weight 138.00 lb [place] Body Weight 124 lb BMI (Body Mass Index) 24.1 kg/m2 O2 % BldC Oximetry 98 % (AT Rest), (Room Air ) Results Test Acquired Date Facility Test Result H/L Range Note CBC 02/27/2020 [facility] WBC 5.8 10E3/uL 4.1 - 10.9 1 RBC 3.51 10E6/uL Low 4.20 - 6.30 HGB 11.6 g/dL Low 12.0 - 18.0 HCT 33.9 % Low 37.0 - 51.0 MCV 96.6 fL 80.0 - 97.0 MCH 33.0 pg High 26.0 - 32.0 MCHC 34.2 g/dL 31.0 - 36.0 PLT 374 10E3/uL 140 - 440 RDW-CV 14.8 % High 11.5 - 14.5 Lym% 18.9 % 10.0 - 58.5 Neut% 69.6 % 37.0 - 92.0 MXD% 11.5 % 0.1 - 24.0 Lym# 1.1 10E3/uL 0.6 - 4.1 Neut# 4.0 % 2.0 - 7.8 MXD# 0.7 10E3/uL 0.0 - 1.8 MPV 8.0 fL Low 9.0 - 13.0 Urinalysis 2020 [place] [address] [phone] Urinalysis (SEE NOTE) 2, 3 Source R Color yellow Normal: Yellow Clarity clear Normal: Clear Spec [place] 1.020 1.001 - 1.030 pH 5 5 [...] Normal: None Seen Laboratory test finding 2020 [facility] [address] [phone] Culture Urine (SEE NOTE) 4, 5 Urinalysis 01/27/2020 [facility] [address] [phone] Urinalysis (SEE NOTE) 6, 7 Source R Color yellow Normal: Yellow Clarity Clear Normal: Clear Spec [place] 1.020 1.001 - 1.030 pH 5 5 [...] None Seen Bacteria Trace Normal: None Seen Microalb/Creat Ratio 01/16/2020 [facility] Alb 30 mg/L 1 - 30 Creatinine, Urine 100 mg/dL 10 - 300 A/C Ratio <30 mg/g % U/A DIP 01/16/2020 [facility] Color yellow QUAL 8 Clarity clear QUAL Glucose-Ua Negative g/dL Negative Bilirubin,Urine Negative QUAL Negative Ketone Negative mg/dL Negative Blood - Ua Negative QUAL Negative pH 5.5 # 5.0 - 8.0 Protein Negative mg/dL Negative Urobilinogen 0.2 NA 0.2 - 1.0 Nitrite Negative QUAL Negative Leukocyte Negative QUAL Negative Laboratory test finding 01/16/2020 [facility] CK 62 U/L 39 - 308 Hemoglobin A1c 5.9 % 4.40 - 6.10 Lipid Panel 01/16/2020 [facility] Chol 146 mg/dL 0 - 200 Trig 181 mg/dL 35 - 200 HDL 47 mg/dL 35 - 55 LDL_C 63 Calc Low 75 - 129 Cho/HDL Ratio 3.1 CALC CMP 01/16/2020 [facility] Glu 130 mg/dL High [...] Gap 17 mmol/L eGFR 77 # Calc 9 eGFR Non-Afr. Polish 66 # Calc 10 CBC 01/16/2020 [facility] WBC 6.0 10E3/uL 4.1 - 10.9 RBC 3.78 10E6/uL Low 4.20 - 6.30 [...] MPV 8.0 fL Low 9.0 - 13.0 U/A DIP 10/09/2019 [facility] Color yellow QUAL Clarity clear QUAL Glucose-Ua Negative g/dL Negative Bilirubin,Urine Negative QUAL Negative Ketone Trace mg/dL Abnormal Negative Specific [place] >=1.030 # Abnormal 1.000 - 1.030 Blood - Ua Negative QUAL Negative pH 5.0 # 5.0 - 8.0 Protein Trace mg/dL Abnormal Negative Urobilinogen 0.2 NA 0.2 - 1.0 Nitrite Negative QUAL Negative Leukocyte Negative QUAL Negative CBC 10/09/2019 [facility] WBC 5.7 10E3/uL 4.1 - 10.9 RBC [...] Gap 14 mmol/L eGFR 77 # Calc 11 eGFR Non-Afr. Polish 66 # Calc 12 Lipid Panel 10/09/2019 [facility] Chol 156 mg/dL 0 - 200 Trig 181 mg/dL 35 - 200 HDL 49 mg/dL 35 - 55 LDL_C 71 Calc Low 75 - 129 Cho/HDL Ratio 3.2 CALC Laboratory test finding 10/09/2019 [facility] CK 76 U/L 39 - 308 Hemoglobin A1c 6.5 % High 4.40 - 6.10 1 NORMAL RANGES Age WBC RBC HGB HCT [...] HCT IS 5% LESS SOURCE FOR DATA: [employer] 1800 OPERATION MANUAL( AUTOMATED BLOOD COUNTS AND DIFF.) APPENDIX B-3 2 SOURCE: Clean Catch 3 URINALYSIS 4 SOURCE: Urine, Catheter 5 _CULTURE URINE_ ^$[id number] ^^[id number] $$[id number] ^^[id number] $$767810 $$829578 $$433286 $$154232 $$278434 $$954119 $$802705 $$727616 $$714276 $$659863 $$855483 $$923035 $$267412 $$401189 $$735312 $$188639 $$554329 $$994406 $$015792 $$853595 $$084260 $$125201 $$900815 ^^661811 $$459224 $$880830 $$227037 -- Continued on next page -- Patient: CHARISSA GUTIERREZ Order: [id number] Page 2 Culture: CULTURE URINE Status: Final -- Continued on next page -- Patient: CHARISSA GUTIERREZ Order: [id number] Page 2 Culture: CULTURE URINE Status: Prelim $$[id number] $$[id number] REPORTED DATE/TIME: 02/04/2020 16:06 Culture: CULTURE URINE Status: Final Urine Culture,Comprehensive: P1 No growth in 36 - 48 hours. Previous result entered on 02/03/2020 06:45 ET No growth after 18-24 hours. P1 Test performed by: [facility] Fernando VERNON #: [id number] [address] [place] [address] [id number] [facility] [id number] Baking Powder Mixer : Omkar Park MD NPI #: Manufacturing Engineering Professor : 02/04/20.0709.XMT.SENT REF 02/05/20.0735.XMT.SENT REF 6 SOURCE: Clean Catch 7 URINALYSIS 8 NORMAL RANGES Age WBC RBC HGB HCT [...] HCT IS 5% LESS SOURCE FOR DATA: [employer] 1800 OPERATION MANUAL( AUTOMATED BLOOD COUNTS AND [...] ADOLESCENTS REPRESENTS INDIVIDUALA AGED 2-19 YEARS EXCLUSIVE. 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) use of o ral hypoglycemic drugs I10 Essential (primary) hyperten jose R05 Cough Office Visit 02/05/2020 2:00p [facility] Nitin Ardon D.O ., FAAFP R33.9 Retention of urine, unspecified Office Visit 01/22/2020 10:30a [facility] Nitin Ardon D.O ., FAAFP Z79.84 insurance follow up specialist (current) use of oral hypoglyc emic drugs E11.9 Type 2 diabetes mellitus wit hout complications E78.5 Hyperlipidemia, unspecified K21.9 Gastro-esophageal reflux dis ease without esophagitis I10 Essential (primary) hyperten jose Z23 Encounter for immunization Office Visit 10/22/2019 10:15a [facility] Nitin Ardon D.O ., FAAFP Z79.84 senior care (current) use of oral hypoglyc emic drugs E11.9 Type 2 diabetes mellitus wit hout complications E78.5 Hyperlipidemia, unspecified I10 Essential (primary) hyperten jose K21.9 Gastro-esophageal reflux dis ease without esophagitis Assessments Date Code Description Provider 02/27/2020 Z01.818 Encounter for other preprocedura l examination Nitin Ardon D.O., [facility] 02/27/2020 E11.9 Type 2 diabetes mellitus without complications Nitin Ardon D.O., [facility] 02/27/2020 Z79.84 senior care (current) use of oral hypoglycemic drugs Nitin Ardon D.O., [facility] 02/27/2020 I10 Essential (primary) hypertension Nitin Ardon D.O., [facility] 02/27/2020 R05 Cough Nitin Ardon D.O., [facility] 02/05/2020 R33.9 Retention of urine, unspecified Nitin Ardon D.O., [facility] 01/22/2020 Z79.84 insurance follow up specialist (current) use of oral hypoglycemic drugs Nitin Ardon D.O., [facility] 01/22/2020 E11.9 Type 2 diabetes mellitus without complications Nitin Ardon D.O., [facility] 01/22/2020 E78.5 Hyperlipidemia, unspecified Jules Ardon D.O., [facility] 01/22/2020 K21.9 Gastro-esophageal reflux disease without esophagitis Nitin Ardon D.O., [facility] 01/22/2020 I10 Essential (primary) hypertension Nitin Ardon D.O., [facility] 01/22/2020 Z23 Encounter for immunization John Ardon D.O., [facility] 01/16/2020 E11.9 Type 2 diabetes mellitus without complications Nitin Ardon D.O., [facility] 01/16/2020 E78.5 Hyperlipidemia, unspecified Jules Ardon D.O., [facility] 01/16/2020 I10 Essential (primary) hypertension Nitin Ardon D.O., [facility] 10/22/2019 Z79.84 senior care (current) use of oral hypoglycemic drugs Nitin Ardon D.O., [facility] 10/22/2019 E11.9 Type 2 diabetes mellitus without complications Nitin Ardon D.O., [facility] 10/22/2019 E78.5 Hyperlipidemia, unspecified Jules Ardon D.O., [facility] 10/22/2019 I10 Essential (primary) hypertension Nitin Ardon D.O., [facility] 10/22/2019 K21.9 Gastro-esophageal reflux disease without esophagitis [facility]., [facility] 10/09/2019 E11.9 Type 2 diabetes mellitus without complications [facility].O., [facility] 10/09/2019 E78.5 Hyperlipidemia, unspecified Jules peyton Ardon D.O., [facility] 10/09/2019 E87.1 Hypo-osmolality and hyponatremia Nitin Ardon D.O., [facility] Plan of Treatment Future Appointment(s):* 03/03/2020 9:30 am - Nurses Schedule at [facility] * 04/21/2020 9:00 am - Laboratory [place] Schedule at [facility] * 04/29/2020 10:30 am - Nitin Ardon D.O., FAAFP at [facility] Functional Status Description No Information Available Mental Status Description No Information Available Referrals Description No Information Available
--- OUTSIDE RECORDS SUMMARY | 2020-03-12 07:03 | CCD | Continuity of Care Document ---
Author Author Saman ARDON D.O. Organization Unknown Address 3 [facility] 3 [place] [address] Phone [phone] Care Team Providers Care Rehabilitation Services Manager Name Role Phone Ramón Parr M.D. AUTM [phone] Problems Active Problems Provider Date Type 2 diabetes mellitus Nitin Ardon D.O., [facility] Onset: 01/09/2001 Benign essential hypertension Nitin Ardon D.O., TEVIN O nset: 01/09/2001 Hyperlipidemia Nitin Ardon D.O., B[facility]YFP Onset: 12/29 Hernia of anterior abdominal wall Nitin Ardon D.O., [facility] Onset: 01/09/2001 Blood in urine Onset: 01/23/2001 Psoriasis Nitin Adron D.O., [facility]YFP Onset: 02/2001 Allergic rhinitis Nitin [...] Note: OU Decreased hearing Nitin Ardon D.O., [facility] Onset: 06/28 Note: BOTH EARS Type 2 diabetes mellitus Nitin Ardon D.O., [facility] Onset: 02/05/2020 Social History Type Date [...] Mouth Every Day 30tabs Nitin Ardon D.O., [facility] 06/14/2018 Lisinopril 40mg Tablets Take One Tablet By Mouth Every Day 30tabs Nitin Ardon D.O., [facility] 09/2018 Atorvastatin Calcium 20mg Tablets Take One Tablet By Mouth Every Day 90tabs Nitin Ardon D.O., [facility] 04/29/2018 Montelukast Sodium 10mg Tablets Take One Tablet By Mouth Every Day 30tabs Nitin Ardon D.O., [facility] 04/29/2018 Clopidogrel Bisulfate 75mg Tablets One Daily 90tabs Nitin Ardon D.O., [facility] Metformin HCL 1000mg Tablets Take One Tablet By Mouth Twice A Day 180tabs Yolanda Chatterjee, [facility] 03/10/2018 Complex B-50 Prolonged Release Tablets ER One PO qd 90tabs Nitin Ardon D.O., [facility] 08/05/2017 Metoprolol Succinate ER 25mg Tablets ER 24HR Take One Tablet By Mouth Every Day 90tabs Kacey Ardon D.O., [facility] 09/08/[address] Take One Capsule By Mouth Every Day 30caps Nitin Ardon D.O. , [facility] 05/28/2014 [facility] To Check Blood Sugar daily DX: DM 100units E11.9 Taz Sparks M.D. 10/12/19 08 Co Q-10 120mg Capsules 1 ever y day Unknown Aspirin Ec 81mg Tablets DR 0NE by mouth every day Unknown Immunizations CPT Code Status Date Vaccine Lot # [id number] Given 01/22/2020 Influenza Virus Vaccine, Quadrivalent, Slit Virus, Im Use 3Y & Up [id number] 90000 Given 12/22/2018 Influenza Virus Vaccine, Quadrivalent, Slit Virus, Im Use 3Y & Up [id number] 88284 Given 06/06/2018 Tdap Tetanus,Dip htheria Toxoids/Acellular Pertussis 7Yrs Or Older [id number] 09125 Given 11/11/2017 Influenza Virus Vaccine, Quadrivalent, Slit Virus, Im Use 3Y & Up [id number] 95547 Given 01/19/2017 Influenza Virus Vaccine, Quadrivalent, Slit Virus, Im Use 3Y & Up [id number] 79912 Given 12/05/2015 Influenza Virus Vaccine, Quadrivalent, Slit Virus, Im Use 3Y & Up [id number] 10227 Given 11/29/2014 Influenza Vaccin e (Fluzone) 3Yrs Of Age Or Older Medicare Plans [id number] Q2037 Given 11/07/2013 Influenza Vaccin e (Fluvirin) 3Yrs Of Age Or Older Medicare Plans [id number] 28457 Given 12/14/2011 Pneumococcal Immunization 65022 74023 Given 11/24/2011 Influenza Vaccin e (Fluzone) 3Yrs Of Age Or Older Medicare Plans 08043 Given 11/24/2011 Influenza Virus Vac. Split Virus Individuals 3 Years And Above [id number] 89789 Given 01/11/2006 Pneumococcal Immunization 06 75F 01543 Given 01/11/2006 Influenza Virus Vac. Split Virus Individuals 3 Years And Above 12174 98909 Given 01/06/2005 Influenza Virus Vac. Split Virus Individuals 3 Years And Above 38906 Given 01/29/2004 Influenza Virus Vac. Split Virus Individuals 3 Years And Above 41856 Given 01/11/2001 Pneumococcal Immunization Vital Signs Date Vital Result Comment 02/27/2020 9:49am BP Systolic 140 mmHg BP Diastolic 80 mmHg Body Temperature 97.8 F Heart Rate 75 /min Respiratory Rate 18 /min Height 63.5 inches 5'3.50" Weight 134.00 lb [place] Body Weight 124 lb BMI (Body Mass Index) 23.4 kg/m2 O2 % BldC Oximetry 98 % 02/05/2020 2:08pm BP Systolic 138 mmHg BP Diastolic 62 mmHg Body Temperature 97.1 F Heart Rate 85 /min Height 63.5 inches 5'3.50" Weight 138.00 lb [place] Body Weight 124 lb BMI (Body Mass Index) 24.1 kg/m2 O2 % BldC Oximetry 98 % (AT Rest), (Room Air ) Results Test Acquired Date Facility Test Result H/L Range Note Urinalysis 2020 [place] [address] [phone] Urinalysis (SEE NOTE) 1, 2 Source R Color yellow Normal: Yellow Clarity clear Normal: Clear Spec [place] 1.020 1.001 - 1.030 pH 5 5 [...] Normal: None Seen Laboratory test finding 2020 [place], [place] [address] [phone] Culture Urine (SEE NOTE) 3, 4 Urinalysis 01/27/2020 [place] [id number] [phone] Urinalysis (SEE NOTE) 5, 6 Source R Color yellow Normal: Yellow Clarity Clear Normal: Clear Spec [place] 1.020 1.001 - 1.030 pH 5 5 [...] U/A DIP 01/16/2020 [facility] Color yellow QUAL 7 Clarity clear QUAL Glucose-Ua Negative g/dL Negative [...] eGFR 77 # Calc 8 eGFR Non-Afr. Bhutanese 66 # Calc 9 CBC 01/16/2020 [facility] WBC 6.0 10E3/uL 4.1 [...] Negative Ketone Trace mg/dL Abnormal Negative Specific [place] >=1.030 # Abnormal 1.000 - 1.030 Blood [...] eGFR 77 # Calc 10 eGFR Non-Afr. Bhutanese 66 # Calc 11 Lipid Panel 10/09/2019 [...] 3 SOURCE: Urine, Catheter 4 _CULTURE URINE_ ^$[id number] ^^930326 $$997863 ^^748386 $$129063 $$592018 $$257639 $$787998 $$999838 $$415722 $$704495 $$953934 $$825363 $$531471 $$977611 $$626222 $$628653 $$306361 $$665700 $$308582 $$105895 $$955075 $$537477 $$321797 $$101586 $$521469 $$190269 ^^417416 $$030358 $$385413 $$707418 -- Continued on next page -- Patient: CHARISSA GUTIERREZ Order: [id number] Page 2 Culture: CULTURE URINE Status: Final -- Continued on next page -- Patient: CHARISSA GUTIERREZ Order: [id number] Page 2 Culture: CULTURE URINE Status: Prelim $$[id number] $$[id number] REPORTED DATE/TIME: 02/04/2020 16:06 Culture: CULTURE URINE Status: Final Urine Culture,Comprehensive: P1 No growth in 36 - 48 hours. Previous result entered on 02/03/2020 06:45 ET No growth after 18-24 hours. P1 [facility] #: [id number] [address] [place] [address] [id number] [facility] [address] Solutions Developer : Omkar Park MD NPI #: Stock Clipper : 02/04/[email or web address].SENT REF 02/05/20.0735.XMT.SENT REF 5 SOURCE: [...] HCT IS 5% LESS SOURCE FOR DATA: [employer] 1800 OPERATION MANUAL( AUTOMATED BLOOD COUNTS AND [...] 9 CKD-EPI 10 CKD-EPI 11 CKD-EPI Procedures Date Code Description Status 02/27/2020 03675 Electrocardiogram Complete Compl eted Medical Devices Description No Information Available Encounters Type Date Location Provider Dx Diagnosis Office Visit 02/27/2020 10:00a [place] [facility] Yolanda Chatterjee, FAAFP Z01.818 Encounter for other preprocedural examin ation E11.9 Type 2 diabetes mellitus wit hout complications Z79.84 superintendent terminal (current) use of o ral hypoglycemic drugs I10 Essential (primary) hyperten jose R05 Cough Office Visit 02/05/2020 2:00p [place] [facility] Yolanda Chatterjee, FAAFP R33.9 Retention of urine, unspecified Office Visit 01/22/2020 10:30a [place] [facility] Yolanda Chatterjee, FAAFP Z79.84 superintendent terminal (current) use of oral hypoglyc emic drugs E11.9 Type 2 diabetes mellitus wit hout complications E78.5 Hyperlipidemia, unspecified K21.9 Gastro-esophageal reflux dis ease without esophagitis I10 Essential (primary) hyperten jose Z23 Encounter for immunization Office Visit 10/22/2019 10:15a [place] [facility] Yolanda Chatterjee, FAAFP Z79.84 nursing home (current) use of oral hypoglyc emic drugs E11.9 Type 2 diabetes mellitus wit hout complications E78.5 Hyperlipidemia, unspecified I10 Essential (primary) hyperten jose K21.9 Gastro-esophageal reflux dis ease without esophagitis Assessments Date Code Description Provider 02/27/2020 Z01.818 Encounter for other preprocedura l examination Nitin Ardon D.O., FAAFP 02/27/2020 E11.9 Type 2 diabetes mellitus without complications Nitin Ardon D.O., FAAFP 02/27/2020 Z79.84 nursing home (current) use of oral hypoglycemic drugs Nitin Ardon D.O., FAAFP 02/27/2020 I10 Essential (primary) hypertension Nitin Ardon D.O., FAAFP 02/27/2020 R05 Cough Nitin Ardon D.O., FAAFP 02/05/2020 R33.9 Retention of urine, unspecified Nitin Ardon D.O., FAAFP 01/22/2020 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 Nitin Ardon D.O., FAAFP 01/22/2020 E11.9 Type 2 diabetes mellitus without complications Nitin Ardon D.O., FAAFP 01/22/2020 E78.5 Hyperlipidemia, unspecified Jules Ardon D.O., FAAFP 01/22/2020 K21.9 Gastro-esophageal reflux disease without esophagitis Nitin Ardon D.O., FAAFP 01/22/2020 I10 Essential (primary) hypertension [facility]., [facility] 01/22/2020 Z23 Encounter for immunization John [facility]don D.O., [facility] 01/16/2020 E11.9 Type 2 diabetes mellitus without complications Nitin Ardon D.O., FAAFP 01/16/2020 E78.5 Hyperlipidemia, unspecified Jules Ardon D.O., FAAFP 01/16/2020 I10 Essential (primary) hypertension [facility]., [facility] 10/22/2019 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 Nitin Ardon D.O., FAAFP 10/22/2019 E11.9 Type 2 diabetes mellitus without complications Nitin Ardon D.O., FAAFP 10/22/2019 E78.5 Hyperlipidemia, unspecified Jules Ardon D.O., FAAFP 10/22/2019 I10 Essential (primary) hypertension Nitin Ardon D.O., FAAFP 10/22/2019 K21.9 Gastro-esophageal reflux disease without esophagitis Nitin Ardon D.O., FAAFP 10/09/2019 E11.9 Type 2 diabetes mellitus without complications Nitin Ardon D.O., [facility]FP 10/09/2019 E78.5 Hyperlipidemia, unspecified Jules Ardon D.O., [facility] 10/09/2019 E87.1 Hypo-osmolality and hyponatremia Nitin Ardon D.O., [facility] Plan of Treatment Future Appointment(s):* 04/21/2020 9:00 am - Laboratory [place] Schedule at [place] [facility] * 04/29/2020 10:30 am - Nitin Ardon D.O., TEVIN at [facility] Functional Status Description No Information Available Mental Status Description No Information Available Referrals Description No Information Available
--- OUTSIDE RECORDS SUMMARY | 2020-03-12 07:04 | CCD | Continuity of Care Document ---
Author Author Saman ARDON D.O. Organization Unknown Address 3 [facility] 3 [place] [address] Phone [phone] Care Team Providers Care Dermatology Nurse Practitioner Name Role Phone Ramón Parr M.D. AUTM [phone] Problems Active Problems Provider Date Type 2 [...] Note: OU Decreased hearing Nitin Ardon D.O., [facility] Onset: 06/28 Note: BOTH EARS Social History Type Date Description Comments Sex [...] Mouth Every Day 30tabs Nitin Ardon D.O., [facility] 06/14/2018 Lisinopril 40mg Tablets Take One Tablet By Mouth Every Day 30tabs Nitin Ardon D.O., [facility] 09/2018 Atorvastatin Calcium 20mg Tablets Take One Tablet By Mouth Every Day 90tabs Nitin Ardon D.O., [facility] 04/29/2018 Montelukast Sodium 10mg Tablets Take One Tablet By Mouth Every Day 30tabs Nitin Ardon D.O., [facility] 04/29/2018 Clopidogrel Bisulfate 75mg Tablets One Daily 90tabs Nitin Ardon D.O., [facility] Metformin HCL 1000mg Tablets Take One Tablet By Mouth Twice A Day 180tabs Yolanda Chatterjee, [facility] 03/10/2018 Complex B-50 Prolonged Release Tablets ER One PO qd 90tabs Nitin Ardon D.O., [facility] 08/05/2017 Metoprolol Succinate ER 25mg Tablets ER 24HR Take One Tablet By Mouth Every Day 90tabs Kacey Ardon D.O., [facility] 09/08/[address] Take One Capsule By Mouth Every Day 30caps Nitin Ardon D.O. , [facility] 05/28/2014 [facility] To Check Blood Sugar daily DX: DM 100units E11.9 Taz Sparks M.D. 10/12/19 08 Co Q-10 120mg Capsules 1 ever y day Unknown Aspirin Ec 81mg Tablets DR 0NE by mouth every day Unknown Immunizations CPT Code Status Date Vaccine Lot # [id number] Given 01/22/2020 Influenza Virus Vaccine, Quadrivalent, Slit Virus, Im Use 3Y & Up 27543 Given 12/22/2018 Influenza Virus Vaccine, Quadrivalent, Slit Virus, Im Use 3Y & Up [id number] 95394 Given 06/06/2018 Tdap Tetanus,Dip htheria Toxoids/Acellular Pertussis 7Yrs Or Older [id number] 34545 Given 11/11/2017 Influenza Virus Vaccine, Quadrivalent, Slit Virus, Im Use 3Y & Up [id number] 69178 Given 01/19/2017 Influenza Virus Vaccine, Quadrivalent, Slit Virus, Im Use 3Y & Up [id number] 37565 Given 12/05/2015 Influenza Virus Vaccine, Quadrivalent, Slit Virus, Im Use 3Y & Up [id number] 42216 Given 11/29/2014 Influenza Vaccin e (Fluzone) 3Yrs Of Age Or Older Medicare Plans [id number] Q2037 Given 11/07/2013 Influenza Vaccin e (Fluvirin) 3Yrs Of Age Or Older Medicare Plans [id number] 32903 Given 12/14/2011 Pneumococcal Immunization 59348 15137 Given 11/24/2011 Influenza Vaccin e (Fluzone) 3Yrs Of Age Or Older Medicare Plans 55461 Given 11/24/2011 Influenza Virus Vac. Split Virus Individuals 3 Years And Above [id number] 56619 Given 01/11/2006 Pneumococcal Immunization 06 [id number] 57832 Given 01/11/2006 Influenza Virus Vac. Split Virus Individuals 3 Years And Above 02960 84217 Given 01/06/2005 Influenza Virus Vac. Split Virus Individuals 3 Years And Above 63455 Given 01/29/2004 Influenza Virus Vac. Split Virus Individuals 3 Years And Above 39203 Given 01/11/2001 Pneumococcal Immunization Vital Signs Date Vital Result Comment 01/22/2020 10:31am BP Systolic 116 mmHg BP Diastolic 74 mmHg Body Temperature 97.9 F Heart Rate 58 /min Respiratory Rate 16 /min Height 63.5 inches 5'3.50" Weight 139.00 lb [place] Body Weight 124 lb BMI (Body Mass Index) 24.2 kg/m2 O2 % BldC Oximetry 98 % 10/22/2019 10:28am BP Systolic 108 mmHg BP Diastolic 78 mmHg Body Temperature 97.6 F Heart Rate 82 /min Respiratory Rate 16 /min Height 63.5 inches 5'3.50" Weight 141.00 lb [place] Body Weight 124 lb BMI (Body Mass Index) 24.6 kg/m2 O2 % BldC Oximetry 99 % Results Test Acquired Date Facility Test Result H/L Range Note CBC 01/16/2020 [facility] WBC 6.0 10E3/uL 4.1 - 10.9 1 RBC 3.78 10E6/uL Low 4.20 - 6.30 [...] Gap 17 mmol/L eGFR 77 # Calc 2 eGFR Non-Afr. Bangladeshi 66 # Calc 3 Lipid Panel 01/16/2020 [facility] Chol 146 mg/dL 0 - 200 Trig 181 mg/dL 35 - 200 HDL 47 mg/dL 35 - 55 LDL_C 63 Calc Low 75 - 129 Cho/HDL Ratio 3.1 CALC Laboratory test finding 01/16/2020 [facility] CK 62 U/L 39 - 308 Hemoglobin A1c 5.9 % 4.40 - 6.10 U/A DIP 01/16/2020 [facility] Color yellow QUAL Clarity clear QUAL Glucose-Ua Negative g/dL Negative Bilirubin,Urine Negative QUAL Negative Ketone Negative mg/dL Negative Blood - Ua Negative QUAL Negative pH 5.5 # 5.0 - 8.0 Protein Negative mg/dL Negative Urobilinogen 0.2 NA 0.2 - 1.0 Nitrite Negative QUAL Negative Leukocyte Negative QUAL Negative U/A DIP 10/09/2019 [facility] Color yellow QUAL Clarity clear QUAL Glucose-Ua Negative g/dL Negative Bilirubin,Urine Negative QUAL Negative Ketone Trace mg/dL Abnormal Negative Specific [place] >=1.030 # Abnormal 1.000 - 1.030 Blood - Ua Negative QUAL Negative pH 5.0 # 5.0 - 8.0 Protein Trace mg/dL Abnormal Negative Urobilinogen 0.2 NA 0.2 - 1.0 Nitrite Negative QUAL Negative Leukocyte Negative QUAL Negative CBC 10/09/2019 [facility] WBC 5.7 10E3/uL 4.1 - 10.9 RBC [...] Gap 14 mmol/L eGFR 77 # Calc 4 eGFR Non-Afr. Bangladeshi 66 # Calc 5 Lipid Panel 10/09/2019 [facility] Chol 156 mg/dL [...] HCT IS 5% LESS SOURCE FOR DATA: [employer] DYN 1800 OPERATION MANUAL( AUTOMATED BLOOD COUNTS AND [...] ADOLESCENTS REPRESENTS INDIVIDUALA AGED 2-19 YEARS EXCLUSIVE. 2 CKD-EPI 3 CKD-EPI 4 CKD-EPI 5 CKD-EPI Procedures Description No Information Available Medical Devices Description No Information Available Encounters Type Date Location Provider Dx Diagnosis Office Visit 10/22/2019 10:15a [place] [facility] Yolanda Chatterjee, [facility] Z79.84 senior living (current) use of oral hypoglyc emic drugs E11.9 Type 2 diabetes mellitus wit hout complications E78.5 Hyperlipidemia, unspecified I10 Essential (primary) hyperten jose K21.9 Gastro-esophageal reflux dis ease without esophagitis Assessments Date Code Description Provider 01/22/2020 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5 Hyperlipidemia, unspecified Jules Ardon D.O., [facility] 01/16/2020 I10 Essential (primary) hypertension Nitin Ardon D.O., [facility] 10/22/2019 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 [facility] 10/22/2019 E11.9 Type 2 diabetes mellitus without complications Nitin Ardon D.O., [facility] 10/22/2019 E78.5 Hyperlipidemia, unspecified [facility] 10/22/2019 I10 Essential (primary) hypertension Nitin Ardon D.O., [facility] 10/22/2019 K21.9 Gastro-esophageal reflux disease without esophagitis Nitin Ardon D.O., [facility] 10/09/2019 E11.9 Type 2 diabetes mellitus without complications Nitin Ardon D.O., [facility] 10/09/2019 E78.5 Hyperlipidemia, unspecified Jules Ardon D.O., [facility] 10/09/2019 E87.1 Hypo-osmolality and hyponatremia Nitin Ardon D.O., [facility] Plan of Treatment No Information Available Functional Status Description No Information Available Mental Status Description No Information Available Referrals Description No Information Available
--- OUTSIDE RECORDS SUMMARY | 2020-03-12 07:04 | CCD | Continuity of Care Document ---
Author Author Saman ARDON D.O. Organization Unknown Address 3 [facility] 3 [place] [address] Phone [phone] Care Team Providers Care Ranch Manager Name Role Phone Ramón Parr M.D. AUTM [phone] Problems Active Problems Provider Date Type 2 diabetes mellitus Nitin Ardon D.O., [facility] Onset: 01/09/2001 Benign essential hypertension Nitin Ardon D.O., [facility] O nset: 01/09/2001 Hyperlipidemia Nitin Ardon D.O., [facility] Onset: 12/29 Hernia of anterior abdominal wall Nitni Ardon D.O., [facility] Onset: 01/09/2001 Blood in urine Onset: 01/23/2001 Psoriasis Nitin Ardon D.O., [facility] Onset: 02/2001 Allergic rhinitis Nitin Ardon D.O., [facility] Onset: 10/30 Diverticular disease of colon Nitin Ardon D.O., [facility] O nset: 10/11/2005 Disorder of prostate Ntiin Ardon D.O., [facility] Onset: Nonproliferative retinopathy due to diabetes mellitus Nitin Ardon D.O., [facility] Onset: 05/06/2008 Nonexudative age-related macular degeneration Nitin marquez D.O., [facility] Onset: 09/08/2016 Note: OU Proliferative diabetic retinopathy Nitin Ardon D.O., [facility] Onset: 11/11/2017 Note: OU Decreased hearing Nitin Ardon D.O., [facility] Onset: 06/28 Note: BOTH EARS Social History Type Date Description Comments Sex Unknown Tobacco Use Start: Unknown former cigarette smoker- quit in 1969. ETOH Use alcohol use: never used Tobacco Use Start: Unknown End: Unknown Patient is a former smoker Quit 08/03/69 Recreational Drug Use Never Used Drugs Smoking Status Reviewed: 10/22/19 Patient is a former smoker Qu it 08/03/69 Allergies, Adverse Reactions, Alerts Description No Known Drug Allergies Medications Active Medications SIG Qnty Indications Ordering Provide r Date Amlodipine Besylate 5mg Tablets Take One Tablet By Mouth Every Day 30tabs Nitin Ardon D.O., [facility] 06/14/2018 Lisinopril 40mg Tablets Take One Tablet By Mouth Every Day 30tabs Nitin Ardon D.O., [facility] 09/2018 Atorvastatin Calcium 20mg Tablets Take One Tablet By Mouth Every Day 90tabs Nitin Ardon D.O., [facility] 04/29/2018 Montelukast Sodium 10mg Tablets Take One Tablet By Mouth Every Day 30tabs Nitin Ardon D.O., [facility] 04/29/2018 Clopidogrel Bisulfate 75mg Tablets One Daily 90tabs Nitin Ardon D.O., [facility] Metformin HCL 1000mg Tablets Take One Tablet By Mouth Twice A Day 180tabs Yolanda Chatterjee, [facility] 03/10/2018 Complex B-50 Prolonged Release Tablets ER One PO qd 90tabs Nitin Ardon D.O., [facility] 08/05/2017 Metoprolol Succinate ER 25mg Tablets ER 24HR Take One Tablet By Mouth Every Day 90tabs Kacey Ardon D.O., [facility] 09/08/[address] Take One Capsule By Mouth Every Day 30caps Nitin Ardon D.O. , [facility] Blood Sugar daily DX: DM 100units E11.9 Taz Sparks M.D. 10/12/19 08 Co Q-10 120mg Capsules 1 ever y day Unknown Aspirin Ec 81mg Tablets DR 0NE by mouth every day Unknown Immunizations CPT Code Status Date Vaccine Lot # [id number] Given 01/22/2020 Influenza Virus Vaccine, Quadrivalent, Slit Virus, Im Use 3Y & Up [id number] 71331 Given 12/22/2018 Influenza Virus Vaccine, Quadrivalent, Slit Virus, Im Use 3Y & Up [id number] 56356 Given 06/06/2018 Tdap Tetanus,Dip htheria Toxoids/Acellular Pertussis 7Yrs Or Older [id number] 21878 Given 11/11/2017 Influenza Virus Vaccine, Quadrivalent, Slit Virus, Im Use 3Y & Up [id number] 99803 Given 01/19/2017 Influenza Virus Vaccine, Quadrivalent, Slit Virus, Im Use 3Y & Up [id number] 24822 Given 12/05/2015 Influenza Virus Vaccine, Quadrivalent, Slit Virus, Im Use 3Y & Up [id number] 68380 Given 11/29/2014 Influenza Vaccin e (Fluzone) 3Yrs Of Age Or Older Medicare Plans [id number] Q2037 Given 11/07/2013 Influenza Vaccin e (Fluvirin) 3Yrs Of Age Or Older Medicare Plans [id number] 99420 Given 12/14/2011 Pneumococcal Immunization 35013 91303 Given 11/24/2011 Influenza Vaccin e (Fluzone) 3Yrs Of Age Or Older Medicare Plans 73737 Given 11/24/2011 Influenza Virus Vac. Split Virus Individuals 3 Years And Above [id number] 52434 Given 01/11/2006 Pneumococcal Immunization 06 [id number] 29875 Given 01/11/2006 Influenza Virus Vac. Split Virus Individuals 3 Years And Above 54849 79656 Given 01/06/2005 Influenza Virus Vac. Split Virus Individuals 3 Years And Above 29820 Given 01/29/2004 Influenza Virus Vac. Split Virus Individuals 3 Years And Above 49688 Given 01/11/2001 Pneumococcal Immunization Vital Signs Date Vital Result Comment 01/22/2020 10:31am BP Systolic 116 mmHg BP Diastolic 74 mmHg Body Temperature 97.9 F Heart Rate 58 /min Respiratory Rate 16 /min Height 63.5 inches 5'3.50" Weight 139.00 lb [place] Body Weight 124 lb BMI (Body Mass Index) 24.2 kg/m2 O2 % BldC Oximetry 98 % 10/22/2019 10:28am BP Systolic 108 mmHg BP Diastolic 78 mmHg Body Temperature 97.6 F Heart Rate 82 /min Respiratory Rate 16 /min Height 63.5 inches 5'3.50" Weight 141.00 lb [place] Body Weight 124 lb BMI (Body Mass Index) 24.6 kg/m2 O2 % BldC Oximetry 99 % Results Test Acquired Date Facility Test Result H/L Range Note Urinalysis 01/27/2020 [place] [address] [phone] Urinalysis (SEE NOTE) 1, 2 Source R Color yellow Normal: Yellow Clarity Clear Normal: Clear Spec [place] 1.020 1.001 - 1.030 pH 5 5 [...] [facility] WBC 6.0 10E3/uL 4.1 - 10.9 3 RBC 3.78 10E6/uL Low 4.20 - 6.30 [...] Gap 17 mmol/L eGFR 77 # Calc 4 eGFR Non-Afr. Togolese 66 # Calc 5 Lipid Panel 01/16/2020 [facility] Chol 146 mg/dL [...] Negative Ketone Trace mg/dL Abnormal Negative Specific [place] >=1.030 # Abnormal 1.000 - 1.030 Blood [...] Gap 14 mmol/L eGFR 77 # Calc 6 eGFR Non-Afr. Togolese 66 # Calc 7 Lipid Panel 10/09/2019 [facility] Chol 156 mg/dL 0 - 200 Trig 181 mg/dL 35 - 200 HDL 49 mg/dL 35 - 55 LDL_C 71 Calc Low 75 - 129 Cho/HDL Ratio 3.2 CALC Laboratory test finding 10/09/2019 [facility] CK 76 U/L 39 - 308 Hemoglobin A1c 6.5 % High 4.40 - 6.10 1 SOURCE: Clean Catch 2 URINALYSIS 3 NORMAL RANGES Age WBC RBC HGB HCT [...] HCT IS 5% LESS SOURCE FOR DATA: [employer] 1800 OPERATION MANUAL( AUTOMATED BLOOD COUNTS AND [...] ADOLESCENTS REPRESENTS INDIVIDUALA AGED 2-19 YEARS EXCLUSIVE. 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 E11.9 Type 2 diabetes mellitus wit hout complications E78.5 Hyperlipidemia, unspecified K21.9 Gastro-esophageal reflux dis ease without esophagitis I10 Essential (primary) hyperten jose Z23 Encounter for immunization Office Visit 10/22/2019 10:15a [place] [facility] Yolanda Chatterjee, [facility] Z79.84 [place] (current) use of oral hypoglyc emic drugs E11.9 Type 2 diabetes mellitus wit hout complications E78.5 Hyperlipidemia, unspecified I10 Essential (primary) hyperten jose K21.9 Gastro-esophageal reflux dis ease without esophagitis Assessments Date Code Description Provider 01/22/2020 Z79.84 [facility] (current) use of oral hypoglycemic drugs Nitin Ardon D.O., [facility] 01/22/2020 E11.9 Type 2 diabetes mellitus without complications [facility] 01/22/2020 E78.5 Hyperlipidemia, unspecified [facility] 01/22/2020 K21.9 Gastro-esophageal reflux disease without esophagitis Nitin Ardon D.O., [facility] 01/22/2020 I10 Essential (primary) hypertension Nitin Ardon D.O., [facility] 01/22/2020 Z23 Encounter for immunization John Ardon D.O., [facility] 01/16/2020 E11.9 Type 2 diabetes mellitus without complications Nitin Ardon D.O., [facility] 01/16/2020 E78.5 Hyperlipidemia, unspecified [facility] 01/16/2020 I10 Essential (primary) hypertension Nitin Ardon D.O., [facility] 10/22/2019 Z79.84 lob[place]erman (current) use of oral hypoglycemic drugs Nitin Ardon D.O., [facility] 10/22/2019 E11.9 Type 2 diabetes mellitus without complications Nitin Ardon D.O., [facility] 10/22/2019 E78.5 Hyperlipidemia, unspecified [facility]ules Arodn D.O., [facility] 10/22/2019 I10 Essential (primary) hypertension Nitin Ardon D.O., [facility] 10/22/2019 K21.9 Gastro-esophageal reflux disease without esophagitis [facility].O., [facility] 10/09/2019 E11.9 Type 2 diabetes mellitus without complications Nitin Ardon D.O., [facility] 10/09/2019 E78.5 Hyperlipidemia, unspecified [facility]., [facility] 10/09/2019 E87.1 Hypo-osmolality and hyponatremia Nitin Ardon D.O., [facility] Plan of Treatment Future Appointment(s):* 04/21/2020 9:00 am - Laboratory [place] Schedule at [place] [facility] * 04/29/2020 10:30 am - Nitin Ardon D.O., [facility] at [facility] Functional Status Description No Information Available Mental Status Description No Information Available Referrals Description No Information Available
--- OUTSIDE RECORDS SUMMARY | 2020-03-12 07:04 | CCD | Continuity of Care Document ---
Author Author Saman ARDON D.O. Organization Unknown Address 3 [facility] 3 [place] [address] Phone [phone] Care Team Providers Care Diamond Sizer Name Role Phone Ramón Parr M.D. AUTM [phone] Problems Active Problems Provider Date Type 2 [...] Note: OU Decreased hearing Nitin Ardon D.O., [facility] Onset: 06/28 Note: BOTH EARS Type 2 diabetes mellitus Nitin Ardon D.O., [facility] Onset: 02/05/2020 Social History Type Date Description [...] Mouth Every Day 30tabs Nitin Ardon D.O., [facility] 06/14/2018 Lisinopril 40mg Tablets Take One Tablet By Mouth Every Day 30tabs Nitin Ardon D.O., [facility] 09/2018 Atorvastatin Calcium 20mg Tablets Take One Tablet By Mouth Every Day 90tabs Nitin Ardon D.O., [facility] 04/29/2018 Montelukast Sodium 10mg Tablets Take One Tablet By Mouth Every Day 30tabs Nitin Ardon D.O., [facility] 04/29/2018 Clopidogrel Bisulfate 75mg Tablets One Daily 90tabs Nitin Ardon D.O., [facility] Metformin HCL 1000mg Tablets Take One Tablet By Mouth Twice A Day 180tabs Yolanda Chatterjee, [facility] 03/10/2018 Complex B-50 Prolonged Release Tablets ER One PO qd 90tabs Nitin Ardon D.O., [facility] 08/05/2017 Metoprolol Succinate ER 25mg Tablets ER 24HR Take One Tablet By Mouth Every Day 90tabs Kacey rAdon D.O., [facility] 09/08/[address] Take One Capsule By Mouth Every Day 30caps Nitin Ardon D.O. , [facility] 05/28/2014 [facility] To Check Blood Sugar daily DX: DM 100units E11.9 Taz Sparks M.D. 10/12/19 08 Co Q-10 120mg Capsules 1 ever y day Unknown Aspirin Ec 81mg Tablets DR 0NE by mouth every day Unknown Immunizations CPT Code Status Date Vaccine Lot # [id number] Given 01/22/2020 Influenza Virus Vaccine, Quadrivalent, Slit Virus, Im Use 3Y & Up [id number] 67933 Given 12/22/2018 Influenza Virus Vaccine, Quadrivalent, Slit Virus, Im Use 3Y & Up [id number] 49240 Given 06/06/2018 Tdap Tetanus,Dip htheria Toxoids/Acellular Pertussis 7Yrs Or Older [id number] 48424 Given 11/11/2017 Influenza Virus Vaccine, Quadrivalent, Slit Virus, Im Use 3Y & Up [id number] 20914 Given 01/19/2017 Influenza Virus Vaccine, Quadrivalent, Slit Virus, Im Use 3Y & Up [id number] 13259 Given 12/05/2015 Influenza Virus Vaccine, Quadrivalent, Slit Virus, Im Use 3Y & Up [id number] 02407 Given 11/29/2014 Influenza Vaccin e (Fluzone) 3Yrs Of Age Or Older Medicare Plans [id number] Q2037 Given 11/07/2013 Influenza Vaccin e (Fluvirin) 3Yrs Of Age Or Older Medicare Plans [id number] 70147 Given 12/14/2011 Pneumococcal Immunization 46484 54241 Given 11/24/2011 Influenza Vaccin e (Fluzone) 3Yrs Of Age Or Older Medicare Plans 76430 Given 11/24/2011 Influenza Virus Vac. Split Virus Individuals 3 Years And Above [id number] 51562 Given 01/11/2006 Pneumococcal Immunization 06 75F 50365 Given 01/11/2006 Influenza Virus Vac. Split Virus Individuals 3 Years And Above 92044 69718 Given 01/06/2005 Influenza Virus Vac. Split Virus Individuals 3 Years And Above 41212 Given 01/29/2004 Influenza Virus Vac. Split Virus Individuals 3 Years And Above 30038 Given 01/11/2001 Pneumococcal Immunization Vital Signs Date Vital Result Comment 02/05/2020 2:08pm BP Systolic 138 mmHg BP Diastolic 62 mmHg Body Temperature 97.1 F Heart Rate 85 /min Height 63.5 inches 5'3.50" Weight 138.00 lb [place] Body Weight 124 lb BMI (Body Mass Index) 24.1 kg/m2 O2 % BldC Oximetry 98 % (AT Rest), (Room Air ) 01/22/2020 10:31am BP Systolic 116 mmHg BP Diastolic 74 mmHg Body Temperature 97.9 F Heart Rate 58 /min Respiratory Rate 16 /min Height 63.5 inches 5'3.50" Weight 139.00 lb [place] Body Weight 124 lb BMI (Body Mass Index) 24.2 kg/m2 O2 % BldC Oximetry 98 % Results Test Acquired Date Facility Test Result H/L Range Note Urinalysis 2020 [place] [id number] [phone] Urinalysis (SEE NOTE) 1, 2 Source R Color yellow Normal: Yellow Clarity clear Normal: Clear Spec [place] 1.020 1.001 - 1.030 pH 5 5 [...] Normal: None Seen Laboratory test finding 2020 [place] [address] [phone] Culture Urine (SEE NOTE) 3, 4 Urinalysis 01/27/2020 [place], [place] [id number] [phone] Urinalysis (SEE NOTE) 5, 6 Source R Color yellow Normal: Yellow Clarity Clear Normal: Clear Spec [place] 1.020 1.001 - 1.030 pH 5 5 [...] eGFR 77 # Calc 8 eGFR Non-Afr. Romanian 66 # Calc 9 Lipid Panel 01/16/2020 [...] Negative Ketone Trace mg/dL Abnormal Negative Specific [place] >=1.030 # Abnormal 1.000 - 1.030 Blood [...] eGFR 77 # Calc 10 eGFR Non-Afr. [place] 66 # Calc 11 Lipid Panel 10/09/2019 [...] 3 SOURCE: Urine, Catheter 4 _CULTURE URINE_ ^$[id number] ^^[id number] $$217759 ^^113734 $$182576 $$784266 $$838962 $$589658 $$992457 $$385503 $$188796 $$664774 $$253011 $$642061 $$579706 $$275640 $$418727 $$423540 $$915334 $$530093 $$060677 $$973265 $$411787 $$836089 $$539725 $$472750 $$559741 ^^761012 $$554782 $$393309 $$002626 -- Continued on next page -- Patient: CHARISSA GUTIERREZ Order: [id number] Page 2 Culture: CULTURE URINE Status: Final -- Continued on next page -- Patient: CHARISSA GUTIERREZ Order: [id number] Page 2 Culture: CULTURE URINE Status: Prelim $$[id number] $$[id number] REPORTED DATE/TIME: 02/04/2020 16:06 Culture: CULTURE URINE Status: Final Urine Culture,Comprehensive: P1 No growth in 36 - 48 hours. Previous result entered on 02/03/2020 06:45 ET No growth after 18-24 hours. P1 [facility] #: [id number] [address] [place] [address] [id number] [facility] [id number] Statement Services Representative : Omkar Park MD NPI #: Chairman Emeritus : 02/04/[email or web address].SENT REF 02/05/[email or web address].SENT REF 5 SOURCE: [...] HCT IS 5% LESS SOURCE FOR DATA: [employer] 1800 OPERATION MANUAL( AUTOMATED BLOOD COUNTS AND [...] Provider Dx Diagnosis Office Visit 02/05/2020 2:00p [facility] Yolanda Chatterjee, FAAFP R33.9 Retention of urine, unspecified Office Visit 01/22/2020 10:30a [facility] Yolanda Chatterjee, FAAFP Z79.84 care home (current) use of oral hypoglyc emic drugs E11.9 Type 2 diabetes mellitus wit hout complications E78.5 Hyperlipidemia, unspecified K21.9 Gastro-esophageal reflux dis ease without esophagitis I10 Essential (primary) hyperten jose Z23 Encounter for immunization Office Visit 10/22/2019 10:15a [facility] Yolanda Chatterjee, FAAFP Z79.84 care home (current) use of oral hypoglyc emic drugs E11.9 Type 2 diabetes mellitus wit hout complications E78.5 Hyperlipidemia, unspecified I10 Essential (primary) hyperten jose K21.9 Gastro-esophageal reflux dis ease without esophagitis Assessments Date Code Description Provider 02/05/2020 R33.9 Retention of urine, unspecified Nitin Ardon D.O., FAAFP 01/22/2020 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 01/16/2020 I10 Essential (primary) hypertension Nitin [facility] D.O., [facility] 10/22/2019 Z79.84 [employer] (current) use of oral hypoglycemic drugs Nitin Ardon D.O., [facility] 10/22/2019 E11.9 Type 2 diabetes mellitus without complications Nitin Ardon D.O., [facility] 10/22/2019 E78.5 Hyperlipidemia, unspecified Jules Ardon D.O., [facility] 10/22/2019 I10 Essential (primary) hypertension Nitin Ardon D.O., [facility] 10/22/2019 K21.9 Gastro-esophageal reflux disease without esophagitis Nitin Ardon D.O., [facility] 10/09/2019 E11.9 Type 2 diabetes mellitus without complications Nitin [facility] D.O., [facility] 10/09/2019 E78.5 Hyperlipidemia, unspecified Jules Ardon D.O., [facility] 10/09/2019 E87.1 Hypo-osmolality and hyponatremia Nitin Ardon D.O., FAAFP Plan of Treatment Future Appointment(s):* 04/21/2020 9:00 am - Laboratory [place] Schedule at [facility] * 04/29/2020 10:30 am - Nitin Ardon D.O., [facility] at [facility] Functional Status Description No Information Available Mental Status Description No Information Available Referrals Description No Information Available
--- OUTSIDE RECORDS SUMMARY | 2020-03-12 07:04 | CCD | Continuity of Care Document ---
Author Author Saman ARDON D.O. Organization Unknown Address 3 [facility] 3 [place] [address] Phone [phone] Care Team Providers Care Emergency Generator Mechanic Name Role Phone Ramón Parr M.D. AUTM [phone] Problems Active Problems Provider Date Type 2 [...] OU Decreased hearing Nitin Ardon D.O., [facility] Onset: 06/28 Note: BOTH EARS Social History [...] Every Day 30tabs Nitin Ardon D.O., [facility] 06/14/2018 Lisinopril 40mg Tablets Take One Tablet By Mouth Every Day 30tabs Nitin Ardon D.O., [facility] 09/2018 Atorvastatin Calcium 20mg Tablets Take One Tablet By Mouth Every Day 90tabs Nitin Ardon D.O., [facility] 04/29/2018 Montelukast Sodium 10mg Tablets Take One Tablet By Mouth Every Day 30tabs iNtin Ardon D.O., [facility] 04/29/2018 Clopidogrel Bisulfate 75mg Tablets One Daily 90tabs Nitin Ardon D.O., [facility] Metformin HCL 1000mg Tablets Take One Tablet By Mouth Twice A Day 180tabs Yolanda Chatterjee, [facility] 03/10/2018 Complex B-50 Prolonged Release Tablets ER One PO qd 90tabs Nitin Ardon D.O., [facility] 08/05/2017 Metoprolol Succinate ER 25mg Tablets ER 24HR Take One Tablet By Mouth Every Day 90tabs Kacey Ardon D.O., [facility] 09/08/[address] Take One Capsule By Mouth Every Day 30caps Nitin Ardon D.O. , [facility]28[facility] Blood Sugar daily DX: DM 100units E11.9 Taz Sparks M.D. 10/12/19 08 Co Q-10 120mg Capsules 1 ever y day Unknown Aspirin Ec 81mg Tablets DR 0NE by mouth every day Unknown Immunizations CPT Code Status Date Vaccine Lot # [id number] Given 01/22/2020 Influenza Virus Vaccine, Quadrivalent, Slit Virus, Im Use 3Y & Up 97009 Given 12/22/2018 Influenza Virus Vaccine, Quadrivalent, Slit Virus, Im Use 3Y & Up [id number] 88333 Given 06/06/2018 Tdap Tetanus,Dip htheria Toxoids/Acellular Pertussis 7Yrs Or Older [id number] 25459 Given 11/11/2017 Influenza Virus Vaccine, Quadrivalent, Slit Virus, Im Use 3Y & Up [id number] 81351 Given 01/19/2017 Influenza Virus Vaccine, Quadrivalent, Slit Virus, Im Use 3Y & Up [id number] 01239 Given 12/05/2015 Influenza Virus Vaccine, Quadrivalent, Slit Virus, Im Use 3Y & Up [id number] 56206 Given 11/29/2014 Influenza Vaccin e (Fluzone) 3Yrs Of Age Or Older Medicare Plans [id number] Q2037 Given 11/07/2013 Influenza Vaccin e (Fluvirin) 3Yrs Of Age Or Older Medicare Plans 426556 39106 Given 12/14/2011 Pneumococcal Immunization 47185 25506 Given 11/24/2011 Influenza Vaccin e (Fluzone) 3Yrs Of Age Or Older Medicare Plans 53724 Given 11/24/2011 Influenza Virus Vac. Split Virus Individuals 3 Years And Above [id number] 97804 Given 01/11/2006 Pneumococcal Immunization 06 75F 22842 Given 01/11/2006 Influenza Virus Vac. Split Virus Individuals 3 Years And Above 42155 53114 Given 01/06/2005 Influenza Virus Vac. Split Virus Individuals 3 Years And Above 92770 Given 01/29/2004 Influenza Virus Vac. Split Virus Individuals 3 Years And Above 31292 Given 01/11/2001 Pneumococcal Immunization Vital Signs Date Vital Result Comment 01/22/2020 10:31am BP Systolic 116 mmHg BP Diastolic 74 mmHg Body Temperature 97.9 F Heart Rate 58 /min Respiratory Rate 16 /min Height 63.5 inches 5'3.50" Weight 139.00 lb [place] Body Weight 124 lb BMI (Body Mass Index) 24.2 kg/m2 O2 % BldC Oximetry 98 % 10/22/2019 10:28am BP Systolic 108 mmHg BP Diastolic 78 mmHg Body Temperature 97.6 F Heart Rate 82 /min Respiratory Rate 16 /min Height 63.5 inches 5'3.50" Weight 141.00 lb [place] Body Weight 124 lb BMI (Body Mass [...] eGFR 77 # Calc 2 eGFR Non-Afr. [place]ican 66 # Calc 3 Lipid Panel 01/16/[address] [facility] Chol 146 mg/dL 0 - 200 Trig 181 mg/dL 35 - 200 HDL 47 mg/dL 35 - 55 LDL_C 63 Calc Low 75 - 129 Cho/HDL Ratio 3.1 CALC Laboratory test finding 01/16/[address] [facility] CK 62 U/L 39 - 308 Hemoglobin A1c 5.9 % 4.40 - 6.10 U/A DIP 01/16/[address] [facility] Color yellow QUAL Clarity clear QUAL Glucose-Ua Negative g/dL Negative Bilirubin,Urine Negative QUAL Negative Ketone Negative mg/dL Negative Blood - Ua Negative QUAL Negative pH 5.5 # 5.0 - 8.0 Protein Negative mg/dL Negative Urobilinogen 0.2 NA 0.2 - 1.0 Nitrite Negative QUAL Negative Leukocyte Negative QUAL Negative U/A DIP 10/09/[address] [facility] Color yellow QUAL Clarity clear QUAL Glucose-Ua Negative g/dL Negative Bilirubin,Urine Negative QUAL Negative Ketone Trace mg/dL Abnormal Negative Specific [place] >=1.030 # Abnormal 1.000 - 1.030 Blood - Ua Negative QUAL Negative pH 5.0 # 5.0 - 8.0 Protein Trace mg/dL Abnormal Negative Urobilinogen 0.2 NA 0.2 - 1.0 Nitrite Negative QUAL Negative Leukocyte Negative QUAL Negative CBC 10/09/[address] [facility] WBC 5.7 10E3/uL 4.1 - 10.9 [...] eGFR 77 # Calc 4 eGFR Non-Afr. 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 01/22/2020 E11.9 Type 2 diabetes mellitus without complications Nitin Ardon D.O., [facility] 01/22/2020 E78.5 Hyperlipidemia, unspecified Jules Ardon D.O., [facility] 01/22/2020 K21.9 Gastro-esophageal reflux disease without esophagitis Nitin Ardon D.O., [facility] 01/22/2020 I10 Essential (primary) hypertension Nitin Ardon D.O., [facility] 01/16/2020 E11.9 Type 2 diabetes mellitus without complications Nitin Ardon D.O., [facility] 01/16/2020 E78.5 Hyperlipidemia, unspecified [facility] D.O., [facility] 01/16/2020 I10 Essential (primary) hypertension Nitin Ardon D.O., [facility] 10/22/2019 Z79.84 [facility] (current) use of oral hypoglycemic drugs Nitin Ardon D.O., [facility] 10/22/2019 E11.9 Type 2 diabetes mellitus without complications [facility] D.O., [facility] 10/22/2019 E78.5 Hyperlipidemia, unspecified Jules Ardon D.O., [facility] 10/22/2019 I10 Essential (primary) hypertension Nitin Ardon D.O., [facility] 10/22/2019 K21.9 Gastro-esophageal reflux disease without esophagitis Nitin Ardon D.O., [facility] 10/09/2019 E11.9 Type 2 diabetes mellitus without complications Nitin Ardon D.O., [facility] 10/09/2019 E78.5 Hyperlipidemia, unspecified [facility]ules [facility] D.O., [facility] 10/09/2019 E87.1 Hypo-osmolality and hyponatremia Nitin Ardon D.O., [facility] Plan of Treatment Future Appointment(s):* 04/21/2020 9:00 am - Laboratory [place] Schedule at [facility] * 04/29/2020 10:30 am - Nitin Ardon D.O., [facility] at [facility] Functional Status Description No Information Available Mental Status Description No Information Available Referrals Description No Information Available
--- OUTSIDE RECORDS SUMMARY | 2020-03-12 07:04 | CCD | Continuity of Care Document ---
Author Author Blank Lucia Saman Hartmann Organization Unknown Address 3 [facility] [address] [place] [address] Phone [phone] Care Team Providers Care Drafter Tool Design Name Role Phone Ramón Parr M.D. [facility] [phone] Problems Active Problems Provider Date Type 2 diabetes mellitus Nitin Cheng D.O., [facility] Onset: 01/09/2001 Benign essential hypertension Nitin Cheng D.O., [facility] O nset: 01/09/2001 Hyperlipidemia Nitin Cheng D.O., [facility] Onset: 12/29 Hernia of anterior abdominal wall Nitin Cheng D.O., [facility] Onset: 01/09/2001 Blood in urine Onset: 01/23/2001 Psoriasis Nitin Cheng D.O., [facility] Onset: 02/2001 Allergic rhinitis Nitin Cheng D.O., [facility] Onset: 10/30 Diverticular disease of colon Nitin Cheng D.O., [facility] O nset: 10/11/2005 Disorder of prostate Nitin Cheng D.O., [facility] Onset: Nonproliferative retinopathy due to diabetes mellitus Nitin Cheng D.O., [facility] Onset: 05/06/2008 Nonexudative age-related macular degeneration Nitin marquez D.O., [facility] Onset: 09/08/2016 Note: OU Proliferative diabetic retinopathy Nitin Cheng D.O., FA AFP Onset: 11/11/2017 Note: OU Decreased hearing Nitin Cheng D.O., [facility] Onset: 06/28 Note: BOTH EARS Social History [...] Tablet By Mouth Every Day 30tabs Nitin Cheng D.O., [facility] 06/14/2018 Lisinopril 40mg Tablets Take One Tablet By Mouth Every Day 30tabs Nitin Cheng D.O., [facility] 09/2018 Atorvastatin Calcium 20mg Tablets Take One Tablet By Mouth Every Day 90tabs Nitin Cheng D.O., [facility] 04/29/2018 Montelukast Sodium 10mg Tablets Take One Tablet By Mouth Every Day 30tabs Nitin Cheng D.O., [facility] 04/29/2018 Clopidogrel Bisulfate 75mg Tablets One Daily 90tabs Nitin Cheng D.O., [facility] Metformin HCL 1000mg Tablets Take One Tablet By Mouth Twice A Day 180tabs Yolanda Chatterjee, [facility] 03/10/2018 Complex B-50 Prolonged Release Tablets ER One PO qd 90tabs Nitin Cheng D.O., [facility] 08/05/2017 Metoprolol Succinate ER 25mg Tablets ER 24HR Take One Tablet By Mouth Every Day 90tabs Kacey Cheng D.O., [facility] 09/08/[address] Take One Capsule By Mouth Every Day 30caps Nitin Cheng D.O. , [facility] 05/28/2014 [facility] Blood Sugar daily DX: DM 100units E11.9 Taz Sparks M.D. 10/12/19 08 Co Q-10 120mg Capsules 1 ever y day Unknown Aspirin Ec 81mg Tablets DR 0NE by mouth every day Unknown Immunizations CPT Code Status Date Vaccine Lot # [id number] Given 12/22/2018 Influenza Virus Vaccine, Quadrivalent, Slit Virus, Im Use 3Y & Up [id number] 71166 Given 06/06/2018 Tdap Tetanus,Dip htheria Toxoids/Acellular Pertussis 7Yrs Or Older [id number] 18015 Given 11/11/2017 Influenza Virus Vaccine, Quadrivalent, Slit Virus, Im Use 3Y & Up [id number] 64260 Given 01/19/2017 Influenza Virus Vaccine, Quadrivalent, Slit Virus, Im Use 3Y & Up [id number] 28130 Given 12/05/2015 Influenza Virus Vaccine, Quadrivalent, Slit Virus, Im Use 3Y & Up [id number] 93387 Given 11/29/2014 Influenza Vaccin e (Fluzone) 3Yrs Of Age Or Older Medicare Plans [id number] Q2037 Given 11/07/2013 Influenza Vaccin e (Fluvirin) 3Yrs Of Age Or Older Medicare Plans 447686 52280 Given 12/14/2011 Pneumococcal Immunization 68901 94379 Given 11/24/2011 Influenza Vaccin e (Fluzone) 3Yrs Of Age Or Older Medicare Plans 63075 Given 11/24/2011 Influenza Virus Vac. Split Virus Individuals 3 Years And Above [id number] 17412 Given 01/11/2006 Pneumococcal Immunization 06 75F 42980 Given 01/11/2006 Influenza Virus Vac. Split Virus Individuals 3 Years And Above 42845 72643 Given 01/06/2005 Influenza Virus Vac. Split Virus Individuals 3 Years And Above 60533 Given 01/29/2004 Influenza Virus Vac. Split Virus Individuals 3 Years And Above 74926 Given 01/11/2001 Pneumococcal Immunization Vital Signs Date Vital Result Comment 10/22/2019 10:28am BP Systolic 108 mmHg BP Diastolic 78 mmHg Body Temperature 97.6 F Heart Rate 82 /min Respiratory Rate 16 /min Height 63.5 inches 5'3.50" Weight 141.00 lb [place] Body Weight 124 lb BMI (Body Mass Index) 24.6 kg/m2 O2 % BldC Oximetry 99 % 07/09/2019 9:18am BP Systolic 130 mmHg BP Diastolic 78 mmHg Body Temperature 97.1 F Heart Rate 93 /min Respiratory Rate 16 /min Height 63.5 inches 5'3.50" Weight 143.00 lb [place] Body Weight 124 lb BMI (Body Mass Index) 24.9 kg/m2 O2 % BldC Oximetry 98 % [...] eGFR 77 # Calc 2 eGFR Non-Afr. Dominican 66 # Calc 3 Lipid Panel 01/16/2020 [facility] Chol 146 mg/dL 0 - 200 Trig 181 mg/dL 35 - 200 HDL 47 mg/dL 35 - 55 LDL_C 63 Calc Low 75 - 129 Cho/HDL Ratio 3.1 CALC Laboratory test finding [facility] CK 62 U/L 39 - 308 Hemoglobin A1c 5.9 % 4.40 - 6.10 U/A DIP 01/16/2020 [facility] Color yellow QUAL Clarity clear QUAL Glucose-Ua Negative g/dL Negative Bilirubin,Urine Negative QUAL Negative Ketone Negative mg/dL Negative Blood - Ua Negative QUAL Negative pH 5.5 # 5.0 - 8.0 Protein Negative mg/dL Negative Urobilinogen 0.2 NA 0.2 - 1.0 Nitrite Negative QUAL Negative Leukocyte Negative QUAL Negative U/A DIP 10/09/2019 [facility] Color yellow QUAL Clarity clear QUAL Glucose-Ua Negative g/dL Negative Bilirubin,Urine Negative QUAL Negative Ketone Trace mg/dL Abnormal Negative Specific [place] >=1.030 # Abnormal 1.000 - 1.030 Blood - Ua Negative QUAL Negative pH 5.0 # 5.0 - 8.0 Protein Trace mg/dL Abnormal Negative Urobilinogen 0.2 NA 0.2 - 1.0 Nitrite Negative QUAL Negative Leukocyte Negative QUAL Negative CBC 10/09/2019 [facility]Inhouse WBC 5.7 10E3/uL 4.1 - 10.9 RBC [...] eGFR 77 # Calc 4 eGFR Non-Afr. Dominican 66 # Calc 5 Lipid Panel 10/09/2019 [...] HCT IS 5% LESS SOURCE FOR DATA: [address] 1800 OPERATION MANUAL( AUTOMATED BLOOD COUNTS AND [...] Provider Dx Diagnosis Office Visit 10/22/2019 10:15a [facility] (current) use of oral hypoglyc emic drugs E11.9 Type 2 diabetes mellitus wit hout complications E78.5 Hyperlipidemia, unspecified I10 Essential (primary) hyperten jose K21.9 Gastro-esophageal reflux dis ease without esophagitis Assessments Date Code Description Provider 01/16/2020 E11.9 Type 2 diabetes mellitus without complications [facility] 01/16/2020 E78.5 Hyperlipidemia, unspecified Jules Cheng D.O., [facility] 01/16/2020 I10 Essential (primary) hypertension [facility] 10/22/2019 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 Nitin Cheng D.O., [facility] 10/22/2019 E11.9 Type 2 diabetes mellitus without complications Nitin Cheng D.O., [facility] 10/22/2019 E78.5 Hyperlipidemia, unspecified Jules Cheng D.O., [facility] 10/22/2019 I10 Essential (primary) hypertension Nitin Cheng D.O., [facility] 10/22/2019 K21.9 Gastro-esophageal reflux disease without esophagitis Nitin Cheng D.O., [facility] 10/09/2019 E11.9 Type 2 diabetes mellitus without complications Nitin Cheng D.O., [facility] 10/09/2019 E78.5 Hyperlipidemia, unspecified Jules Cheng D.O., [facility] 10/09/2019 E87.1 Hypo-osmolality and hyponatremia Nitin Cheng D.O., [facility] Plan of Treatment Future Appointment(s):* 01/22/2020 10:30 am - Nitin Cheng D.O., FAAFP at [facility] Functional Status Description No Information Available Mental Status Description No Information Available Referrals Description No Information Available
--- OUTSIDE RECORDS SUMMARY | 2020-03-12 07:04 | CCD | Continuity of Care Document ---
Author Author Saman ARDON D.O. Organization Unknown Address 3 [facility] 3 [place] [address] Phone [phone] Care Team Providers Care Tunnel Kiln Firer Name Role Phone Ramón Parr M.D. AUTM [phone] Problems Active Problems Provider Date Type 2 [...] Note: OU Decreased hearing Nitin Ardon D.O., [facility] Onset: 06/28 Note: BOTH EARS Type 2 diabetes mellitus Nitin Ardon D.O., [facility] Onset: 02/05/2020 Social History Type Date [...] Mouth Every Day 30tabs Nitin Ardon D.O., [facility] 06/14/2018 Lisinopril 40mg Tablets Take One Tablet By Mouth Every Day 30tabs Nitin Ardon D.O., [facility] 09/2018 Atorvastatin Calcium 20mg Tablets Take One Tablet By Mouth Every Day 90tabs Nitin Ardon D.O., [facility] 04/29/2018 Montelukast Sodium 10mg Tablets Take One Tablet By Mouth Every Day 30tabs Nitin Ardon D.O., [facility] 04/29/2018 Clopidogrel Bisulfate 75mg Tablets One Daily 90tabs Nitin Ardon D.O., [facility] Metformin HCL 1000mg Tablets Take One Tablet By Mouth Twice A Day 180tabs Yolanda Chatterjee, [facility] 03/10/2018 Complex B-50 Prolonged Release Tablets ER One PO qd 90tabs Nitin Ardon D.O., [facility] 08/05/2017 Metoprolol Succinate ER 25mg Tablets ER 24HR Take One Tablet By Mouth Every Day 90tabs Kacey Ardon D.O., [facility] 09/08/[address] Take One Capsule By Mouth Every Day 30caps Nitin Ardon D.O. , [facility] 05/28/2014 [facility] To Check Blood Sugar daily DX: DM 100units E11.9 Taz Sparks M.D. 10/12/19 08 Co Q-10 120mg Capsules 1 ever y day Unknown Aspirin Ec 81mg Tablets DR 0NE by mouth every day Unknown Ciprofloxacin HCL 250mg Tablets 1 by mouth twice a day x 10 days Unknown Immunizations CPT Code Status Date Vaccine Lot # [id number] Given 01/22/2020 Influenza Virus Vaccine, Quadrivalent, Slit Virus, Im Use 3Y & Up [id number] 38898 Given 12/22/2018 Influenza Virus Vaccine, Quadrivalent, Slit Virus, Im Use 3Y & Up [id number] 68994 Given 06/06/2018 Tdap Tetanus,Dip htheria Toxoids/Acellular Pertussis 7Yrs Or Older [id number] 34453 Given 11/11/2017 Influenza Virus Vaccine, Quadrivalent, Slit Virus, Im Use 3Y & Up [id number] 10582 Given 01/19/2017 Influenza Virus Vaccine, Quadrivalent, Slit Virus, Im Use 3Y & Up [id number] 90753 Given 12/05/2015 Influenza Virus Vaccine, Quadrivalent, Slit Virus, Im Use 3Y & Up [id number] 89623 Given 11/29/2014 Influenza Vaccin e (Fluzone) 3Yrs Of Age Or Older Medicare Plans [id number] Q2037 Given 11/07/2013 Influenza Vaccin e (Fluvirin) 3Yrs Of Age Or Older Medicare Plans [id number] 43111 Given 12/14/2011 Pneumococcal Immunization [id number] 53017 Given 11/24/2011 Influenza Vaccin e (Fluzone) 3Yrs Of Age Or Older Medicare Plans 99777 Given 11/24/2011 Influenza Virus Vac. Split Virus Individuals 3 Years And Above [id number] 53795 Given 01/11/2006 Pneumococcal Immunization [id number] 07369 Given 01/11/2006 Influenza Virus Vac. Split Virus Individuals 3 Years And Above 28095 52950 Given 01/06/2005 Influenza Virus Vac. Split Virus Individuals 3 Years And Above 04704 Given 01/29/2004 Influenza Virus Vac. Split Virus Individuals 3 Years And Above 79600 Given 01/11/2001 Pneumococcal Immunization Vital Signs Date Vital Result Comment 02/05/2020 2:08pm BP Systolic 138 mmHg BP Diastolic 62 mmHg Body Temperature 97.1 F Heart Rate 85 /min Height 63.5 inches 5'3.50" Weight 138.00 lb [place] Body Weight 124 lb BMI (Body Mass Index) 24.1 kg/m2 O2 % BldC Oximetry 98 % (AT Rest), (Room Air ) 01/22/2020 10:31am BP Systolic 116 mmHg BP Diastolic 74 mmHg Body Temperature 97.9 F Heart Rate 58 /min Respiratory Rate 16 /min Height 63.5 inches 5'3.50" Weight 139.00 lb [place] Body Weight 124 lb BMI (Body Mass Index) 24.2 kg/m2 O2 % BldC Oximetry 98 % Results Test Acquired Date Facility Test Result H/L Range Note Urinalysis 2020 [place], [place] [id number] [phone] Urinalysis (SEE NOTE) 1, 2 Source R Color yellow Normal: Yellow Clarity clear Normal: Clear Spec [place] 1.020 1.001 - 1.030 pH 5 5 [...] Normal: None Seen Laboratory test finding 2020 [place] [id number] [phone] Culture Urine (SEE NOTE) 3, 4 Urinalysis 01/27/2020 [place] [id number] [phone] Urinalysis (SEE NOTE) 5, 6 Source R Color yellow Normal: Yellow Clarity Clear Normal: Clear Spec [place] 1.020 1.001 - 1.030 pH 5 5 [...] eGFR 77 # Calc 8 eGFR Non-Afr. Moldovan 66 # Calc 9 Lipid Panel 01/16/2020 [...] Negative Ketone Trace mg/dL Abnormal Negative Specific [place] >=1.030 # Abnormal 1.000 - 1.030 Blood [...] eGFR 77 # Calc 10 eGFR Non-Afr. [place] 66 # Calc 11 Lipid Panel 10/09/2019 [...] 3 SOURCE: Urine, Catheter 4 _CULTURE URINE_ ^$[id number] ^^[id number] $$941406 ^^334190 $$845527 $$441296 $$635156 $$066522 $$747593 $$249733 $$032052 $$720405 $$913785 $$333283 $$241646 $$437292 $$022936 $$892939 $$967378 $$812755 $$347729 $$313644 $$315957 $$988509 $$577796 $$197261 $$405079 ^^154669 $$357110 $$927880 $$035931 -- Continued on next page -- Patient: CHARISSA GUTIERREZ Order: [id number] Page 2 Culture: CULTURE URINE Status: Final -- Continued on next page -- Patient: CHARISSA GUTIERREZ Order: [id number] Page 2 Culture: CULTURE URINE Status: Prelim $$[id number] $$[id number] REPORTED DATE/TIME: 02/04/2020 16:06 Culture: CULTURE URINE Status: Final Urine Culture,Comprehensive: P1 No growth in 36 - 48 hours. Previous result entered on 02/03/2020 06:45 ET No growth after 18-24 hours. P1 Test performed by: [facility] Fernando VERNON #: [id number] [address] [place] [address] [id number] [facility] [address] Risk Specialist : Omkar Park MD NPI #: Phone Technician : 02/04/[email or web address] REF 02/05/[email or web address] REF 5 SOURCE: [...] HCT IS 5% LESS SOURCE FOR DATA: [employer] 1800 OPERATION MANUAL( AUTOMATED BLOOD COUNTS AND [...] Provider Dx Diagnosis Office Visit 02/05/2020 2:00p [facility] Yolanda Chatterjee, FAAFP R33.9 Retention of urine, unspecified Office Visit 01/22/2020 10:30a [facility] Yolanda Chatterjee, FAAFP Z79.84 [facility] (current) use of oral hypoglyc emic drugs E11.9 Type 2 diabetes mellitus wit hout complications E78.5 Hyperlipidemia, unspecified K21.9 Gastro-esophageal reflux dis ease without esophagitis I10 Essential (primary) hyperten jose Z23 Encounter for immunization Office Visit 10/22/2019 10:15a [facility] Yolanda Chatterjee, FAAFP Z79.84 [facility] (current) use of oral hypoglyc emic drugs E11.9 Type 2 diabetes mellitus wit hout complications E78.5 Hyperlipidemia, unspecified I10 Essential (primary) hyperten jose K21.9 Gastro-esophageal reflux dis ease without esophagitis Assessments Date Code Description Provider 02/05/2020 R33.9 Retention of urine, unspecified Nitin Ardon D.O., [facility] 01/22/2020 Z79.84 [facility] (current) use of oral hypoglycemic drugs Nitin [...] diabetes mellitus without complications Nitin Ardon D.O., [facility] 01/16/2020 E78.5 Hyperlipidemia, unspecified Jules Ardon D.O., [facility] 01/16/2020 I10 Essential (primary) hypertension Nitin Ardon D.O., [facility] 10/22/2019 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 Nitin Ardon D.O., [facility] 10/22/2019 E11.9 Type 2 diabetes mellitus without complications [facility] 10/22/2019 E78.5 Hyperlipidemia, unspecified [facility] 10/22/2019 I10 Essential (primary) hypertension Nitin Ardon D.O., [facility] 10/22/2019 K21.9 Gastro-esophageal reflux disease without esophagitis Nitin Ardon D.O., [facility] 10/09/2019 E11.9 Type 2 diabetes mellitus without complications Nitin Ardon D.O., [facility] 10/09/2019 E78.5 Hyperlipidemia, unspecified Jules Ardon D.O., [facility] 10/09/2019 E87.1 Hypo-osmolality and hyponatremia Nitin Ardon D.O., [facility] Plan of Treatment Future Appointment(s):* 04/21/2020 9:00 am - Laboratory [place] [facility] at [facility] * 04/29/2020 10:30 am - Nitin Ardon D.O., [facility] at [facility] Functional Status Description No Information Available Mental Status Description No Information Available Referrals Description No Information Available
--- OUTSIDE RECORDS SUMMARY | 2020-03-12 07:05 | CCD | Continuity of Care Document ---
Author Author Blank Lucia Saman Hartmann Organization Unknown Address 3 [facility] [address] [place] [address] Phone [phone] Care Team Providers Care Ios Programmer Name Role Phone Ramón Parr M.D. [facility] [phone] Problems Active Problems Provider Date Type 2 [...] Note: OU Decreased hearing Nitin Cheng D.O., [facility] Onset: 06/28 Note: BOTH EARS Social [...] Mouth Every Day 30tabs Nitin Cheng D.O., [facility] 06/14/2018 Lisinopril 40mg Tablets Take One Tablet By Mouth Every Day 30tabs Nitin Cheng D.O., [facility] 09/2018 Atorvastatin Calcium 20mg Tablets Take One Tablet By Mouth Every Day 90tabs Nitin Cheng D.O., [facility] 04/29/2018 Montelukast Sodium 10mg Tablets Take One Tablet By Mouth Every Day 30tabs Nitin Cheng D.O., [facility] 04/29/2018 Clopidogrel Bisulfate 75mg Tablets One Daily 90tabs Nitin Cheng D.O., [facility] Metformin HCL 1000mg Tablets Take One Tablet By Mouth Twice A Day 180tabs Yolanda Chatterjee, [facility] 03/10/2018 Complex B-50 Prolonged Release Tablets ER One PO qd 90tabs Nitin Cheng D.O., [facility] 08/05/2017 Metoprolol Succinate ER 25mg Tablets ER 24HR Take One Tablet By Mouth Every Day 90tabs Kacey Cheng D.O., [facility] 09/08/[address] Take One Capsule By Mouth Every Day 30caps Nitin Cheng D.O. , [facility] 05/28/2014 [facility] Sugar daily DX: DM 100units E11.9 Taz Sparks M.D. 10/12/19 08 Co Q-10 120mg Capsules 1 ever y day Unknown Aspirin Ec 81mg Tablets DR 0NE by mouth every day Unknown Immunizations CPT Code Status Date Vaccine Lot # [id number] Given 12/22/2018 Influenza Virus Vaccine, Quadrivalent, Slit Virus, Im Use 3Y & Up [id number] 93719 Given 06/06/2018 Tdap Tetanus,Dip htheria Toxoids/Acellular Pertussis 7Yrs Or Older [id number] 44568 Given 11/11/2017 Influenza Virus Vaccine, Quadrivalent, Slit Virus, Im Use 3Y & Up [id number] 93806 Given 01/19/2017 Influenza Virus Vaccine, Quadrivalent, Slit Virus, Im Use 3Y & Up [id number] 07044 Given 12/05/2015 Influenza Virus Vaccine, Quadrivalent, Slit Virus, Im Use 3Y & Up [id number] 99625 Given 11/29/2014 Influenza Vaccin e (Fluzone) 3Yrs Of Age Or Older Medicare Plans [id number] Q2037 Given 11/07/2013 Influenza Vaccin e (Fluvirin) 3Yrs Of Age Or Older Medicare Plans [id number] 08833 Given 12/14/2011 Pneumococcal Immunization [id number] 51568 Given 11/24/2011 Influenza Vaccin e (Fluzone) 3Yrs Of Age Or Older Medicare Plans 81988 Given 11/24/2011 Influenza Virus Vac. Split Virus Individuals 3 Years And Above [id number] 39801 Given 01/11/2006 Pneumococcal Immunization 06 [id number] 40582 Given 01/11/2006 Influenza Virus Vac. Split Virus Individuals 3 Years And Above 28642 72128 Given 01/06/2005 Influenza Virus Vac. Split Virus Individuals 3 Years And Above 54623 Given 01/29/2004 Influenza Virus Vac. Split Virus Individuals 3 Years And Above 26304 Given 01/11/2001 Pneumococcal Immunization Vital Signs Date Vital Result Comment 10/22/2019 10:28am BP Systolic 108 mmHg BP Diastolic 78 mmHg Body Temperature 97.6 F Heart Rate 82 /min Respiratory Rate 16 /min Height 63.5 inches 5'3.50" Weight 141.00 lb [place] Body Weight 124 lb BMI (Body Mass Index) 24.6 kg/m2 O2 % BldC Oximetry 99 % 07/09/2019 9:18am BP Systolic 130 mmHg BP Diastolic 78 mmHg Body Temperature 97.1 F Heart Rate 93 /min Respiratory Rate 16 /min Height 63.5 inches 5'3.50" Weight 143.00 lb [place] Body Weight 124 lb BMI (Body Mass Index) 24.9 kg/m2 O2 % BldC Oximetry 98 % (AT Rest), (Room Air ) Results Test Acquired Date Facility Test Result H/L Range Note Laboratory test finding 01/16/2020 [facility] CK <pending> 1 Hemoglobin A1c <pending> U/A DIP 10/09/2019 [facility] Color yellow QUAL Clarity clear QUAL Glucose-Ua Negative g/dL Negative Bilirubin,Urine Negative QUAL Negative Ketone Trace mg/dL Abnormal Negative Specific [place] >=1.030 # Abnormal 1.000 - 1.030 Blood [...] Gap 14 mmol/L eGFR 77 # Calc 2 eGFR Non-Afr. [place]ian 66 # Calc 3 Lipid Panel 10/09/2019 [facility] Chol 156 mg/dL [...] 140-440 Adult F 4.1-10.9 4.04-5.48 12.0-18.0 37.0-51.0 80- 140-440 0 -1 Yr 5.0-20.0 3.9-5.9 15-18 [...] HCT IS 5% LESS SOURCE FOR DATA: [employer] 1800 OPERATION MANUAL( AUTOMATED BLOOD COUNTS [...] 2-19 YEARS EXCLUSIVE. 2 CKD-EPI 3 CKD-EPI Procedures Description No Information Available Medical Devices Description No Information Available Encounters Type Date Location Provider Dx Diagnosis Office Visit 10/22/2019 10:15a [place] [facility] Yolanda Chatterjee, FAAFP Z79.84 skilled nursing (current) use of oral hypoglyc emic drugs E11.9 Type 2 diabetes mellitus wit hout complications E78.5 Hyperlipidemia, unspecified I10 Essential (primary) hyperten jose K21.9 Gastro-esophageal reflux dis ease without esophagitis Assessments Date Code Description Provider 10/22/2019 Z79.84 skilled nursing (current) use of oral hypoglycemic drugs Nitin Cheng D.O., [facility] 10/22/2019 E11.9 Type 2 diabetes mellitus without complications Nitin Cheng D.O., [facility] 10/22/2019 E78.5 Hyperlipidemia, unspecified Jules Cheng D.O., [facility] 10/22/2019 I10 Essential (primary) hypertension Nitin Cheng D.O., [facility] 10/22/2019 K21.9 Gastro-esophageal reflux disease without esophagitis Nitin Cheng D.O., [facility] 10/09/2019 E11.9 Type 2 diabetes mellitus without complications Nitin Cheng D.O., [facility] 10/09/2019 E78.5 Hyperlipidemia, unspecified Jules Cheng D.O., [facility] 10/09/2019 E87.1 Hypo-osmolality and hyponatremia Nitin Cheng D.O., [facility] Plan of Treatment Future Appointment(s):* 01/22/2020 10:30 am - Nitin Cheng D.O., [facility] at [facility] Functional Status Description No Information Available Mental Status Description No Information Available Referrals Description No Information Available
--- OUTSIDE RECORDS SUMMARY | 2020-03-12 07:06 | CCD ---
Author Author [facility] Organization [facility] Address Unknown Phone Unavailable Care Team Providers Care Sterile Processing Tech Name Role Phone Fish, J Nitin Unavailable Unavailable Fish, J Nitin Unavailable Unavailable Fish, J Nitin Unavailable Unavailable Fish, J Nitin Unavailable Unavailable Fish, J Nitin Unavailable Unavailable Fish, J Nitin Unavailable Unavailable Fish, J Nitin Unavailable Unavailable Fish, J Nitin Unavailable Unavailable Fish, J Nitin Unavailable Unavailable Fish, J Nitin Unavailable Unavailable Fish, J Nitin Unavailable Unavailable Fish, J Nitin Unavailable Unavailable Fish, J Nitin Unavailable Unavailable Fish, J Nitin Unavailable Unavailable Fish, J Nitin Unavailable Unavailable Fish, J Nitin Unavailable Unavailable Fish, J Nitin Unavailable Unavailable Fish, J Nitin Unavailable Unavailable Fish, J Nitin Unavailable Unavailable Fish, J Nitin Unavailable Unavailable Fish, J Nitin Unavailable Unavailable Fish, J Nitin Unavailable Unavailable Fish, J Nitin Unavailable Unavailable Fish, J Nitin Unavailable Unavailable Fish, J Nitin Unavailable Unavailable Fish, J Nitin Unavailable Unavailable Fish, J Nitin Unavailable Unavailable Fish, J Nitin Unavailable Unavailable Fish, J Nitin Unavailable Unavailable Fish, J Nitin Unavailable Unavailable Fish, J Nitin Unavailable Unavailable Fish, J Nitin Unavailable Unavailable Fish, J Nitin Unavailable Unavailable Fish, J Nitin Unavailable Unavailable Fish, J Nitin Unavailable Unavailable Fish, J Nitin Unavailable Unavailable Fish, J Nitin Unavailable Unavailable Fish, J Nitin Unavailable Unavailable Fish, J Nitin Unavailable Unavailable Fish, J Nitin Unavailable Unavailable Fish, J Nitin Unavailable Unavailable Fish, J Nitin Unavailable Unavailable Fish, J Nitin Unavailable Unavailable Fish, J Nitin Unavailable Unavailable Fish, J Nitin Unavailable Unavailable Fish, J Nitin Unavailable Unavailable Fish, J Nitin Unavailable Unavailable Fish, J Nitin Unavailable Unavailable Fish, J Nitin Unavailable Unavailable Fish, J Nitin Unavailable Unavailable Fish, J Nitin Unavailable Unavailable Fish, J Nitin Unavailable Unavailable Fish, J Nitin Unavailable Unavailable Fish, J Nitin Unavailable Unavailable Fish, J Nitin Unavailable Unavailable Fish, J Nitin Unavailable Unavailable Fish, J Nitin Unavailable Unavailable Fish, J Nitin Unavailable Unavailable Fish, J Nitin Unavailable Unavailable Fish, J Nitin Unavailable Unavailable Fish, J Nitin Unavailable Unavailable Fish, J Nitin Unavailable Unavailable Fish, J Nitin Unavailable Unavailable Fish, J Nitin Unavailable Unavailable Fish, J Nitin Unavailable Unavailable Fish, J Nitin Unavailable Unavailable Fish, J Nitin Unavailable Unavailable Fish, J Nitin Unavailable Unavailable Fish, J Nitin Unavailable Unavailable Fish, J Nitin Unavailable Unavailable Fish, J Nitin Unavailable Unavailable Fish, J Nitin Unavailable Unavailable Fish, J Nitin Unavailable Unavailable Fish, J Nitin Unavailable Unavailable Fish, J Nitin Unavailable Unavailable Fish, J Nitin Unavailable Unavailable Fish, J Nitin Unavailable Unavailable Fish, J Nitin Unavailable Unavailable Fish, J Nitin Unavailable Unavailable Fish, J Nitin Unavailable Unavailable Fish, J Nitin Unavailable Unavailable Fish, J Nitin Unavailable Unavailable Fish, J Nitin Unavailable Unavailable Fish, J Nitin Unavailable Unavailable NORRIS, F SHRUTHI DO Unavailable NORRIS, F SHRUTHI DO Unavailable NORRIS, F SHRUTHI DO Unavailable NORRIS, F SHRUTHI DO Unavailable NORRIS, F SHRUTHI DO Unavailable NORRIS, F SHRUTHI DO Unavailable NORRIS, F SHRUTHI DO Unavailable NORRIS, F SHRUTHI DO Unavailable NORRIS, F SHRUTHI DO Unavailable NORRIS, F SHRUTHI DO Unavailable NORRIS, F SHRUTHI DO Unavailable NORRIS, F SHRUTHI DO Unavailable NORRIS, F SHRUTHI DO Unavailable NORRIS, F SHRUTHI DO Unavailable NORRIS, F SHRUTHI DO Unavailable NORRIS, F SHRUTHI DO Unavailable NORRIS, F SHRUTHI DO Unavailable NORRIS, F SHRUTHI DO Unavailable NORRIS, F SHRUTHI DO Unavailable NORRIS, F SHRUTHI DO Unavailable NORRIS, F SHRUTHI DO Unavailable NORRIS, F SHRUTHI DO Unavailable NORRIS, F SHRUTHI DO Unavailable NORRIS, F SHRUTHI DO Unavailable NORRIS, F SHRUTHI DO Unavailable NORRIS, F SHRUTHI DO Unavailable NORRIS, F SHRUTHI DO Unavailable NORRIS, F SHRUTHI DO Unavailable NORRIS, F SHRUTHI DO Unavailable Fish, J Nitin Unavailable Unavailable Fish, J Nitin Unavailable Unavailable Fish, J Nitin Unavailable Unavailable Fish, J Nitin Unavailable Unavailable Fish, J Nitin Unavailable Unavailable Fish, J Nitin Unavailable Unavailable Fish, J Nitin Unavailable Unavailable Fish, J Nitin Unavailable Unavailable Fish, J Nitin Unavailable Unavailable Fish, J Nitin Unavailable Unavailable Fish, J Nitin Unavailable Unavailable Fish, J Nitin Unavailable Unavailable Fish, J Nitin Unavailable Unavailable Fish, J Nitin Unavailable Unavailable Fish, J Nitin Unavailable Unavailable Fish, J Nitin Unavailable Unavailable Fish, J Nitin Unavailable Unavailable Fish, J Nitin Unavailable Unavailable Fish, J Nitin Unavailable Unavailable Fish, J Nitin Unavailable Unavailable Fish, J Nitin Unavailable Unavailable Fish, J Nitin Unavailable Unavailable Fish, J Nitni Unavailable Unavailable Fish, J Nitin Unavailable Unavailable Fish, J Nitin Unavailable Unavailable Fish, J Nitin Unavailable Unavailable Fish, J Nitin Unavailable Unavailable Fish, J Nitin Unavailable Unavailable Fish, J Nitin Unavailable Unavailable Fish, J Nitin Unavailable Unavailable Fish, J Nitin Unavailable Unavailable Fish, J Nitin Unavailable Unavailable Fish, J Nitin Unavailable Unavailable Fish, J Nitin Unavailable Unavailable Fish, J Nitin Unavailable Unavailable Fish, J Nitin Unavailable Unavailable Fish, J Nitin Unavailable Unavailable Fish, J Nitin Unavailable Unavailable Fish, J Nitin Unavailable Unavailable Fish, J Nitin Unavailable Unavailable Fish, J Nitin Unavailable Unavailable Fish, J Nitin Unavailable Unavailable Fish, J Nitin Unavailable Unavailable Fish, J Nitin Unavailable Unavailable Fish, J Nitin Unavailable Unavailable Fish, J Nitin Unavailable Unavailable Fish, J Nitin Unavailable Unavailable Fish, J Nitin Unavailable Unavailable Fish, J Nitin Unavailable Unavailable Fish, J Nitin Unavailable Unavailable Fish, J Nitin Unavailable Unavailable Fish, J Nitin Unavailable Unavailable Fish, J Nitin Unavailable Unavailable Fish, J Nitin Unavailable Unavailable Fish, J Nitin Unavailable Unavailable Fish, J Nitin Unavailable Unavailable Fish, J Nitin Unavailable Unavailable Fish, J Nitin Unavailable Unavailable Fish, J Nitin Unavailable Unavailable Fish, J Nitin Unavailable Unavailable Fish, J Nitin Unavailable Unavailable Fish, J Nitin Unavailable Unavailable Fish, J Nitin Unavailable Unavailable Fish, J Nitin Unavailable Unavailable Fish, J Nitin Unavailable Unavailable Fish, J Nitin Unavailable Unavailable Fish, J Nitin Unavailable Unavailable Fish, J Nitin Unavailable Unavailable Fish, J Nitin Unavailable Unavailable Fish, J Nitin Unavailable Unavailable Fish, J Nitin Unavailable Unavailable Fish, J Nitin Unavailable Unavailable Fish, J Nitin Unavailable Unavailable Fish, J Nitin Unavailable Unavailable Fish, J Nitin Unavailable Unavailable Fish, J Nitin Unavailable Unavailable Fish, J Nitin Unavailable Unavailable Fish, J Nitin Unavailable Unavailable Fish, J Nitin Unavailable Unavailable Fish, J Nitin Unavailable Unavailable Fish, J Nitin Unavailable Unavailable Fish, J Nitin Unavailable Unavailable Fish, J Nitin Unavailable Unavailable Fish, J Nitin Unavailable Unavailable VENERUS, Jessica VALENCIA MD Unavailable Unavailable VENERUS, Jessica VALENCIA MD Unavailable Unavailable VENERUS, Jessica VALENCIA MD Unavailable Unavailable VENERUS, Jessica VALENCIA MD Unavailable Unavailable VENERUS, Jessica VALENCIA MD Unavailable Unavailable VENERUS, Jessica VALENCIA MD Unavailable Unavailable VENERUS, Jessica VALENCIA MD Unavailable Unavailable VENERUS, Jessica VALENCIA MD Unavailable Unavailable VENERUS, Jessica VALENCIA MD Unavailable Unavailable Re-disclosure Warning The records that you are about to access may contain information from federally-assisted alcohol or drug abuse programs. If such information is present, then the following federally mandated warning applies: This information has been disclosed to you from records protected by federal confidentiality rules (42 CFR part 2). The federal rules prohibit you from making any further disclosure of this information unless further disclosure is expressly permitted by the written consent of the person to whom it pertains or as otherwise permitted by 42 CFR part 2. A general authorization for the release of medical or other information is NOT sufficient for this purpose. The Federal rules restrict any use of the information to criminally investigate or prosecute any alcohol or drug abuse patient.The records that you are about to access may contain highly sensitive health information, the redisclosure of which is protected by Article 27-F of the [place] State Public Health law. If you continue you may have access to information: Regarding HIV / AIDS; Provided by facilities licensed or operated by the [facility] Office of Mental Health; or Provided by the [facility] Office for People With Developmental Disabilities. If such information is present, then the following [facility] mandated warning applies: This information has been disclosed to you from confidential records which are protected by state law. State law prohibits you from making any further disclosure of this information without the specific written consent of the person to whom it pertains, or as otherwise permitted by law. Any unauthorized further disclosure in violation of state law may result in a fine or mcfp sentence or both. A general authorization for the release of medical or other information is NOT sufficient authorization for further disc losure. Allergies and Adverse Reactions Type Description Substance Reaction Status Data Source(s ) No Known Allergies No Known Allergies [facility] Family History Family Member Name Family Member Gender Family Member Status Date o f Status Description Data Source(s) Unknown Male Problem [facility] ([facility] Encounters Encounter Providers Location Date Indications Data Source(s ) Unknown [address] [facility] [id number] 03/10/2020 12:00:00 AM EST eCW1 ([facility]) Unknown [address] [facility] [id number] 03/10/2020 12:00:00 AM EST eCW1 ([facility]) Outpatient [address] [facility] [id number] 03/06/2020 12:00:00 AM EST eCW1 ([facility]) Unknown [address] [facility] [id number] 03/05/2020 12:00:00 AM EST eCW1 ([facility]) Outpatient Attender: Nitin ChengConsultant: Nitin Cheng 03/03/2020 09:18:00 AM EST - 03/03/2020 10:18:00 AM EST [facility] Outpatient Attender: Nitin Cheng [place] [facility] 02/27/2020 09:00:0 0 AM EST [facility] ([facility] (Cysto1) Urology [address] [place] [address] 02/11/2020 12:00:00 AM EST eCW1 ([facility]) Outpatient Attender: Nitin Cheng [place] [facility] 02/05/2020 01:00:0 0 PM EST [facility] ([facility] Unknown [address] [facility] [id number] 02/05/2020 12:00:00 AM EST eCW1 ([facility]) [place] [address] [facility] [place] [id number] 02/04/2020 12:00:00 AM EST eCW1 ([facility]) Emergency Attender: SHAILESH LÓPEZ MDConsultant: Nitin sh 2020 09:37:00 PM EST - 2020 10:29:00 PM [facility] Patient discharged. Emergency Attender: SHRUTHI PISANO DOConsultant: Nitin Fis h 01/27/2020 06:37:00 AM EST - 01/27/2020 09:10:00 AM [facility] Patient discharged. Outpatient Attender: [facility] Office 01/22/2020 09:30:0 0 AM EST [facility] ([facility] Outpatient Attender: [facility] 10/22/2019 10:15:0 0 AM EDT [facility] ([facility] Unknown [address] [place] [id number] 09/12/2019 12:00:00 AM EDT eCW1 ([facility] 09:20:0 0 AM EDT [facility] ([facility] Outpatient Attender: [facility] 04/03/2019 08:00:0 0 AM EST [facility] ([facility] U[facility] Center [address] [place] [phone] 02/14/2019 12:00:00 AM EST eCW1 ([facility]) Immunizations Vaccine Date Status Description Data Source(s) New in 2012. IIV4 01/22/2020 09:37:00 AM EST completed [facility] ([facility] Medications Medication Brand Name Start Date Product Form Dose Route Admi nistrative Instructions Pharmacy Instructions Status Indications Reaction Description Data Source(s) Amoxicillin 500 MG Oral Capsule Amoxicillin 500 MG 03/10/2020 12:00 :00 AM EST 1.0 {capsule} active Amoxicillin 500 MG eCW1 ([facility]) Amoxicillin 500 MG Oral Capsule Amoxicillin 500 MG 03/10/2020 12:00 :00 AM EST 1.0 {capsule} active Amoxicillin 500 MG eCW1 ([facility]) Erythromycin 500 MG Delayed Release Oral Tablet Erythromycin 500 MG 03/10/2020 12:00:00 AM EST active Erythrom ycin 500 MG eCW1 ([facility]) 500 mg 03/10/2020 12:00:00 AM EST capsule 20 TAKE ONE CAPSULE BY MOUTH EVERY 12 HOURS FOR 10 DAYS TAKE ONE CAPSULE BY MOUTH EVERY 12 HOURS FOR 10 DAYS S OLD: 03/10/2020 [facility] Erythromycin 500 MG Delayed Release Oral Tablet Erythromycin 500 MG 03/10/2020 12:00:00 AM EST active Erythrom ycin 500 MG eCW1 ([facility]) Ciprofloxacin 250 MG Oral Tablet [Cipro] Cipro 250 MG Cipro 250 MG 02/04/2020 12:00:00 AM EST 1.0 {tablet} active Ci pro 250 MG eCW1 ([facility]) Ciprofloxacin 250 MG Oral Tablet [Cipro] Cipro 250 MG Cipro 250 MG 02/04/2020 12:00:00 AM EST 1.0 {tablet} active Ci pro 250 MG eCW1 ([facility]) Ciprofloxacin 250 MG Oral Tablet [Cipro] Cipro 250 MG Cipro 250 MG 02/04/2020 12:00:00 AM EST 1.0 {tablet} active Ci pro 250 MG eCW1 ([facility]) Ciprofloxacin 250 MG Oral Tablet [Cipro] Cipro 250 MG Cipro 250 MG 02/04/2020 12:00:00 AM EST 1.0 {tablet} active Ci pro 250 MG eCW1 ([facility]) Ciprofloxacin 250 MG Oral Tablet [Cipro] Cipro 250 MG Cipro 250 MG 02/04/2020 12:00:00 AM EST 1.0 {tablet} active Ci pro 250 MG eCW1 ([facility]) 250 mg 02/04/2020 12:00:00 AM EST tablet 20 TAKE ONE TABLET BY MOUTH EVERY 12 HOURS FOR 10 DAYS TAKE ONE TABLET BY MOUTH EVERY 12 HOURS FOR 10 DAYS SO LD: 02/04/2020 [facility] Ciprofloxacin 250 MG Oral Tablet [Cipro] Cipro 250 MG Cipro 250 MG 02/04/2020 12:00:00 AM EST 1.0 {tablet} active Ci pro 250 MG eCW1 ([facility]) Ciprofloxacin 250 MG Oral Tablet [Cipro] Cipro 250 MG Cipro 250 MG 02/04/2020 12:00:00 AM EST 1.0 {tablet} active Ci pro 250 MG eCW1 ([facility]) montelukast 10 MG Oral Tablet MONTELUKAST SODIUM 01/14/2020 12:0 0:00 AM EST tablet 30 TAKE ONE TABLET BY MOUTH EVERY D AY TAKE ONE TABLET BY MOUTH EVERY DAY SOLD: 02/13/2020 [facility] montelukast 10 MG Oral Tablet MONTELUKAST SODIUM 01/14/2020 12:0 0:00 AM EST tablet 30 TAKE ONE TABLET BY MOUTH EVERY D AY TAKE ONE TABLET BY MOUTH EVERY DAY SOLD: 01/19/2020 [facility] 40 mg 12/13/2019 12:00:00 AM EDT tablet 30 TAKE ONE TABLET BY MOUTH EVERY DAY TAKE ONE TABLET BY MOUTH EVERY DAY SOLD: 12/15/2019 [facility] 40 mg 12/13/2019 12:00:00 AM EDT tablet 30 TAKE ONE TABLET BY MOUTH EVERY DAY TAKE ONE TABLET BY MOUTH EVERY DAY SOLD: 02/13/2020 [facility] 25 mg 12/13/2019 12:00:00 AM EDT tablet extended release 24 hr 90 TAKE ONE TABLET BY MOUTH EVERY DAY TAKE ONE TABLET BY MOUTH EVERY DAY SOLD: 12/15/2019 [facility] 5 mg 12/13/2019 12:00:00 AM EDT tablet 30 TAKE ONE TABLET BY MOUTH EVERY DAY TAKE ONE TABLET BY MOUTH EVERY DAY SOLD: 01/19/2020 [facility] atorvastatin 20 MG Oral Tablet ATORVASTATIN CALCIUM 12/13/2019 1 2:00:00 AM EDT tablet 90 TAKE ONE TABLET BY MOUTH EVERY D AY TAKE ONE TABLET BY MOUTH EVERY DAY SOLD: 12/15/2019 [facility] 40 mg 12/13/2019 12:00:00 AM EDT tablet 30 TAKE ONE TABLET BY MOUTH EVERY DAY TAKE ONE TABLET BY MOUTH EVERY DAY SOLD: 01/19/2020 [facility] 5 mg 12/13/2019 12:00:00 AM EDT tablet 30 TAKE ONE TABLET BY MOUTH EVERY DAY TAKE ONE TABLET BY MOUTH EVERY DAY SOLD: 12/15/2019 [facility] 5 mg 12/13/2019 12:00:00 AM EDT tablet 30 TAKE ONE TABLET BY MOUTH EVERY DAY TAKE ONE TABLET BY MOUTH EVERY DAY SOLD: 02/13/2020 [facility] 40 mg 10/12/2019 12:00:00 AM EDT capsule,delayed release (DR/EC) 30 TAKE ONE CAPSULE BY MOUTH EVERY DAY TAKE ONE CAPSULE BY MOUTH EVERY DAY SOLD: 10/18/2019 [facility] 40 mg 10/12/2019 12:00:00 AM EDT capsule,delayed release (DR/EC) 30 TAKE ONE CAPSULE BY MOUTH EVERY DAY TAKE ONE CAPSULE BY MOUTH EVERY DAY SOLD: 01/19/2020 [facility] 0.4 mg 10/12/2019 12:00:00 AM EDT capsule 30 TAKE 1 CAPSULE BY MOUTH 30 MINUTES AFTER THE SAME MEAL ONCE DAILY TAKE 1 CAPSULE BY MOUTH 30 MINUTES AFTER THE SAME MEAL ONCE DAILY SOLD: 01/19/2020 [facility] montelukast 10 MG Oral Tablet MONTELUKAST SODIUM 10/12/2019 12:0 0:00 AM EDT tablet 30 TAKE ONE TABLET BY MOUTH EVERY D AY TAKE ONE TABLET BY MOUTH EVERY DAY SOLD: 11/16/2019 [facility] 0.4 mg 10/12/2019 12:00:00 AM EDT capsule 30 TAKE 1 CAPSULE BY MOUTH 30 MINUTES AFTER THE SAME MEAL ONCE DAILY TAKE 1 CAPSULE BY MOUTH 30 MINUTES AFTER THE SAME MEAL ONCE DAILY SOLD: 10/18/2019 [facility] montelukast 10 MG Oral Tablet MONTELUKAST SODIUM 10/12/2019 12:0 0:00 AM EDT tablet 30 TAKE ONE TABLET BY MOUTH EVERY D AY TAKE ONE TABLET BY MOUTH EVERY DAY SOLD: 12/15/2019 [facility] 40 mg 10/12/2019 12:00:00 AM EDT capsule,delayed release (DR/EC) 30 TAKE ONE CAPSULE BY MOUTH EVERY DAY TAKE ONE CAPSULE BY MOUTH EVERY DAY SOLD: 12/15/2019 [facility] 40 mg 10/12/2019 12:00:00 AM EDT capsule,delayed release (DR/EC) 30 TAKE ONE CAPSULE BY MOUTH EVERY DAY TAKE ONE CAPSULE BY MOUTH EVERY DAY SOLD: 02/13/2020 [facility] montelukast 10 MG Oral Tablet MONTELUKAST SODIUM 10/12/2019 12:0 0:00 AM EDT tablet 30 TAKE ONE TABLET BY MOUTH EVERY D AY TAKE ONE TABLET BY MOUTH EVERY DAY SOLD: 10/18/2019 [facility] 0.4 mg 10/12/2019 12:00:00 AM EDT capsule 30 TAKE 1 CAPSULE BY MOUTH 30 MINUTES AFTER THE SAME MEAL ONCE DAILY TAKE 1 CAPSULE BY MOUTH 30 MINUTES AFTER THE SAME MEAL ONCE DAILY SOLD: 12/15/2019 [facility] 0.4 mg 10/12/2019 12:00:00 AM EDT capsule 30 TAKE 1 CAPSULE BY MOUTH 30 MINUTES AFTER THE SAME MEAL ONCE DAILY TAKE 1 CAPSULE BY MOUTH 30 MINUTES AFTER THE SAME MEAL ONCE DAILY SOLD: 11/16/2019 [facility] 40 mg 10/12/2019 12:00:00 AM EDT capsule,delayed release (DR/EC) 30 TAKE ONE CAPSULE BY MOUTH EVERY DAY TAKE ONE CAPSULE BY MOUTH EVERY DAY SOLD: 11/16/2019 [facility] 10 mg 10/03/2019 12:00:00 AM EDT tablet extended release 24 hr 15 TAKE ONE TABLET BY MOUTH ONCE DAILY TAKE ONE TABLET BY MOUTH ONCE DAILY SOLD: 02/06/2020 [facility] 10 mg 10/03/2019 12:00:00 AM EDT tablet extended release 24 hr 90 TAKE ONE TABLET BY MOUTH ONCE DAILY TAKE ONE TABLET BY MOUTH ONCE DAILY SOLD: 10/04/2019 [facility] 10 mg 10/03/2019 12:00:00 AM EDT tablet extended release 24 hr 30 TAKE ONE TABLET BY MOUTH ONCE DAILY TAKE ONE TABLET BY MOUTH ONCE DAILY SOLD: 12/15/2019 [facility] 10 mg 10/03/2019 12:00:00 AM EDT tablet extended release 24 hr 32 TAKE ONE TABLET BY MOUTH ONCE DAILY TAKE ONE TABLET BY MOUTH ONCE DAILY SOLD: 02/17/2020 [facility] Metformin hydrochloride 1000 MG Oral Tablet 1,000 mg METFORM IN HCL 09/19/2019 12:00:00 AM EDT tablet 60 TAKE ONE TABLET BY MOUTH TWICE A DAY TAKE ONE TABLET BY MOUTH TWICE A DAY SOLD: 01/19/2020 [facility] 1,000 mg 09/19/2019 12:00:00 AM EDT tablet 60 TAKE ONE TABLET BY MOUTH TWICE A DAY TAKE ONE TABLET BY MOUTH TWICE A DAY SOLD: 10/18/2019 [facility] Metformin hydrochloride 1000 MG Oral Tablet 1,000 mg METFORM IN HCL 09/19/2019 12:00:00 AM EDT tablet 60 TAKE ONE TABLET BY MOUTH TWICE A DAY TAKE ONE TABLET BY MOUTH TWICE A DAY SOLD: 12/15/2019 [facility] Metformin hydrochloride 1000 MG Oral Tablet 1,000 mg METFORM IN HCL 09/19/2019 12:00:00 AM EDT tablet 60 TAKE ONE TABLET BY MOUTH TWICE A DAY TAKE ONE TABLET BY MOUTH TWICE A DAY SOLD: 02/13/2020 [facility] 1,000 mg 09/19/2019 12:00:00 AM EDT tablet 60 TAKE ONE TABLET BY MOUTH TWICE A DAY TAKE ONE TABLET BY MOUTH TWICE A DAY SOLD: 09/21/2019 [facility] Metformin hydrochloride 1000 MG Oral Tablet 1,000 mg METFORM IN HCL 09/19/2019 12:00:00 AM EDT tablet 60 TAKE ONE TABLET BY MOUTH TWICE A DAY TAKE ONE TABLET BY MOUTH TWICE A DAY SOLD: 11/16/2019 [facility] 75 mg 09/18/2019 12:00:00 AM EDT tablet 30 TAKE ONE TABLET BY MOUTH EVERY DAY TAKE ONE TABLET BY MOUTH EVERY DAY SOLD: 09/21/2019 [facility] 5 mg 09/18/2019 12:00:00 AM EDT tablet 30 TAKE ONE TABLET BY MOUTH EVERY DAY TAKE ONE TABLET BY MOUTH EVERY DAY SOLD: 09/21/2019 [facility] 5 mg 09/18/2019 12:00:00 AM EDT tablet 30 TAKE ONE TABLET BY MOUTH EVERY DAY TAKE ONE TABLET BY MOUTH EVERY DAY SOLD: 11/16/2019 [facility] 5 mg 09/18/2019 12:00:00 AM EDT tablet 30 TAKE ONE TABLET BY MOUTH EVERY DAY TAKE ONE TABLET BY MOUTH EVERY DAY SOLD: 10/18/2019 [facility] 75 mg 09/18/2019 12:00:00 AM EDT tablet 30 TAKE ONE TABLET BY MOUTH EVERY DAY TAKE ONE TABLET BY MOUTH EVERY DAY SOLD: 10/18/2019 [facility] 75 mg 09/18/2019 12:00:00 AM EDT tablet 30 TAKE ONE TABLET BY MOUTH EVERY DAY TAKE ONE TABLET BY MOUTH EVERY DAY SOLD: 11/16/2019 [facility] 75 mg 09/18/2019 12:00:00 AM EDT tablet 30 TAKE ONE TABLET BY MOUTH EVERY DAY TAKE ONE TABLET BY MOUTH EVERY DAY SOLD: 12/15/2019 [facility] 75 mg 09/18/2019 12:00:00 AM EDT tablet 30 TAKE ONE TABLET BY MOUTH EVERY DAY TAKE ONE TABLET BY MOUTH EVERY DAY SOLD: 02/13/2020 [facility] 75 mg 09/18/2019 12:00:00 AM EDT tablet 30 TAKE ONE TABLET BY MOUTH EVERY DAY TAKE ONE TABLET BY MOUTH EVERY DAY SOLD: 01/19/2020 [facility] 40 mg 09/17/2019 12:00:00 AM EDT tablet 30 TAKE ONE TABLET BY MOUTH EVERY DAY TAKE ONE TABLET BY MOUTH EVERY DAY SOLD: 11/16/2019 [facility] 40 mg 09/17/2019 12:00:00 AM EDT tablet 30 TAKE ONE TABLET BY MOUTH EVERY DAY TAKE ONE TABLET BY MOUTH EVERY DAY SOLD: 09/17/2019 [facility] 40 mg 09/17/2019 12:00:00 AM EDT tablet 30 TAKE ONE TABLET BY MOUTH EVERY DAY TAKE ONE TABLET BY MOUTH EVERY DAY SOLD: 10/18/2019 [facility] 0.5 mg 09/13/2019 12:00:00 AM EDT capsule 14 TAKE ONE CAPSULE BY MOUTH EVERY DAY TAKE ONE CAPSULE BY MOUTH EVERY DAY SOLD: 01/01/2020 [facility] 0.5 mg 09/13/2019 12:00:00 AM EDT capsule 90 TAKE ONE CAPSULE BY MOUTH EVERY DAY TAKE ONE CAPSULE BY MOUTH EVERY DAY SOLD: 09/16/2019 [facility] 0.5 mg 09/13/2019 12:00:00 AM EDT capsule 30 TAKE ONE CAPSULE BY MOUTH EVERY DAY TAKE ONE CAPSULE BY MOUTH EVERY DAY SOLD: 02/13/2020 [facility] 0.5 mg 09/13/2019 12:00:00 AM EDT capsule 27 TAKE ONE CAPSULE BY MOUTH EVERY DAY TAKE ONE CAPSULE BY MOUTH EVERY DAY SOLD: 01/19/2020 [facility] 0.5 mg 08/19/2019 12:00:00 AM EDT capsule 30 TAKE ONE CAPSULE BY MOUTH EVERY DAY TAKE ONE CAPSULE BY MOUTH EVERY DAY SOLD: 08/24/2019 [facility] montelukast 10 MG Oral Tablet MONTELUKAST SODIUM 07/21/2019 12:0 0:00 AM EDT tablet 30 TAKE ONE TABLET BY MOUTH EVERY D AY TAKE ONE TABLET BY MOUTH EVERY DAY SOLD: 08/24/2019 [facility] 0.5 mg 07/21/2019 12:00:00 AM EDT capsule 30 TAKE ONE CAPSULE BY MOUTH EVERY DAY TAKE ONE CAPSULE BY MOUTH EVERY DAY SOLD: 07/24/2019 [facility] montelukast 10 MG Oral Tablet MONTELUKAST SODIUM 07/21/2019 12:0 0:00 AM EDT tablet 30 TAKE ONE TABLET BY MOUTH EVERY D AY TAKE ONE TABLET BY MOUTH EVERY DAY SOLD: 07/24/2019 [facility] montelukast 10 MG Oral Tablet MONTELUKAST SODIUM 07/21/2019 12:0 0:00 AM EDT tablet 30 TAKE ONE TABLET BY MOUTH EVERY D AY TAKE ONE TABLET BY MOUTH EVERY DAY SOLD: 09/21/2019 [facility] 25 mg 06/24/2019 12:00:00 AM EDT tablet extended release 24 hr 30 TAKE ONE TABLET BY MOUTH EVERY DAY TAKE ONE TABLET BY MOUTH EVERY DAY SOLD: 11/16/2019 [facility] atorvastatin 20 MG Oral Tablet ATORVASTATIN CALCIUM 06/24/2019 1 2:00:00 AM EDT tablet 30 TAKE ONE TABLET BY MOUTH EVERY D AY TAKE ONE TABLET BY MOUTH EVERY DAY SOLD: 09/21/2019 [facility] atorvastatin 20 MG Oral Tablet ATORVASTATIN CALCIUM 06/24/2019 1 2:00:00 AM EDT tablet 30 TAKE ONE TABLET BY MOUTH EVERY D AY TAKE ONE TABLET BY MOUTH EVERY DAY SOLD: 07/24/2019 [facility] atorvastatin 20 MG Oral Tablet ATORVASTATIN CALCIUM 06/24/2019 1 2:00:00 AM EDT tablet 30 TAKE ONE TABLET BY MOUTH EVERY D AY TAKE ONE TABLET BY MOUTH EVERY DAY SOLD: 11/16/2019 [facility] 25 mg 06/24/2019 12:00:00 AM EDT tablet extended release 24 hr 30 TAKE ONE TABLET BY MOUTH EVERY DAY TAKE ONE TABLET BY MOUTH EVERY DAY SOLD: 09/21/2019 [facility] 25 mg 06/24/2019 12:00:00 AM EDT tablet extended release 24 hr 30 TAKE ONE TABLET BY MOUTH EVERY DAY TAKE ONE TABLET BY MOUTH EVERY DAY SOLD: 07/24/2019 [facility] 25 mg 06/24/2019 12:00:00 AM EDT tablet extended release 24 hr 30 TAKE ONE TABLET BY MOUTH EVERY DAY TAKE ONE TABLET BY MOUTH EVERY DAY SOLD: 06/28/2019 [facility] atorvastatin 20 MG Oral Tablet ATORVASTATIN CALCIUM 06/24/2019 1 2:00:00 AM EDT tablet 30 TAKE ONE TABLET BY MOUTH EVERY D AY TAKE ONE TABLET BY MOUTH EVERY DAY SOLD: 10/18/2019 [facility] atorvastatin 20 MG Oral Tablet ATORVASTATIN CALCIUM 06/24/2019 1 2:00:00 AM EDT tablet 30 TAKE ONE TABLET BY MOUTH EVERY D AY TAKE ONE TABLET BY MOUTH EVERY DAY SOLD: 08/24/2019 [facility] 25 mg 06/24/2019 12:00:00 AM EDT tablet extended release 24 hr 30 TAKE ONE TABLET BY MOUTH EVERY DAY TAKE ONE TABLET BY MOUTH EVERY DAY SOLD: 08/24/2019 [facility] atorvastatin 20 MG Oral Tablet ATORVASTATIN CALCIUM 06/24/2019 1 2:00:00 AM EDT tablet 30 TAKE ONE TABLET BY MOUTH EVERY D AY TAKE ONE TABLET BY MOUTH EVERY DAY SOLD: 06/28/2019 [facility] 25 mg 06/24/2019 12:00:00 AM EDT tablet extended release 24 hr 30 TAKE ONE TABLET BY MOUTH EVERY DAY TAKE ONE TABLET BY MOUTH EVERY DAY SOLD: 10/18/2019 [facility] 5 mg 05/24/2019 12:00:00 AM EDT tablet 30 TAKE ONE TABLET BY MOUTH EVERY DAY TAKE ONE TABLET BY MOUTH EVERY DAY SOLD: 06/28/2019 [facility] 5 mg 05/24/2019 12:00:00 AM EDT tablet 30 TAKE ONE TABLET BY MOUTH EVERY DAY TAKE ONE TABLET BY MOUTH EVERY DAY SOLD: 05/30/2019 [facility] 5 mg 05/24/2019 12:00:00 AM EDT tablet 30 TAKE ONE TABLET BY MOUTH EVERY DAY TAKE ONE TABLET BY MOUTH EVERY DAY SOLD: 07/24/2019 [facility] 40 mg 05/24/2019 12:00:00 AM EDT tablet 30 TAKE ONE TABLET BY MOUTH EVERY DAY TAKE ONE TABLET BY MOUTH EVERY DAY SOLD: 07/24/2019 [facility] 40 mg 05/24/2019 12:00:00 AM EDT tablet 30 TAKE ONE TABLET BY MOUTH EVERY DAY TAKE ONE TABLET BY MOUTH EVERY DAY SOLD: 05/30/2019 [facility] 40 mg 05/24/2019 12:00:00 AM EDT tablet 30 TAKE ONE TABLET BY MOUTH EVERY DAY TAKE ONE TABLET BY MOUTH EVERY DAY SOLD: 06/28/2019 [facility] montelukast 10 MG Oral Tablet MONTELUKAST SODIUM 04/23/2019 12:0 0:00 AM EST tablet 30 TAKE ONE TABLET BY MOUTH EVERY D AY TAKE ONE TABLET BY MOUTH EVERY DAY SOLD: 06/28/2019 [facility] montelukast 10 MG Oral Tablet MONTELUKAST SODIUM 04/23/2019 12:0 0:00 AM EST tablet 30 TAKE ONE TABLET BY MOUTH EVERY D AY TAKE ONE TABLET BY MOUTH EVERY DAY SOLD: 04/30/2019 [facility] 40 mg 04/23/2019 12:00:00 AM EST capsule,delayed release (DR/EC) 30 TAKE ONE CAPSULE BY MOUTH EVERY DAY TAKE ONE CAPSULE BY MOUTH EVERY DAY SOLD: 05/30/2019 [facility] 40 mg 04/23/2019 12:00:00 AM EST capsule,delayed release (DR/EC) 30 TAKE ONE CAPSULE BY MOUTH EVERY DAY TAKE ONE CAPSULE BY MOUTH EVERY DAY SOLD: 09/21/2019 [facility] 40 mg 04/23/2019 12:00:00 AM EST capsule,delayed release (DR/EC) 30 TAKE ONE CAPSULE BY MOUTH EVERY DAY TAKE ONE CAPSULE BY MOUTH EVERY DAY SOLD: 07/24/2019 [facility] 40 mg 04/23/2019 12:00:00 AM EST capsule,delayed release (DR/EC) 30 TAKE ONE CAPSULE BY MOUTH EVERY DAY TAKE ONE CAPSULE BY MOUTH EVERY DAY SOLD: 08/24/2019 [facility] 40 mg 04/23/2019 12:00:00 AM EST capsule,delayed release (DR/EC) 30 TAKE ONE CAPSULE BY MOUTH EVERY DAY TAKE ONE CAPSULE BY MOUTH EVERY DAY SOLD: 06/28/2019 [facility] montelukast 10 MG Oral Tablet MONTELUKAST SODIUM 04/23/2019 12:0 0:00 AM EST tablet 30 TAKE ONE TABLET BY MOUTH EVERY D AY TAKE ONE TABLET BY MOUTH EVERY DAY SOLD: 05/30/2019 [facility] 40 mg 04/23/2019 12:00:00 AM EST capsule,delayed release (DR/EC) 30 TAKE ONE CAPSULE BY MOUTH EVERY DAY TAKE ONE CAPSULE BY MOUTH EVERY DAY SOLD: 04/30/2019 [facility] 1,000 mg 03/29/2019 12:00:00 AM EST tablet 60 TAKE ONE TABLET BY MOUTH TWICE A DAY TAKE ONE TABLET BY MOUTH TWICE A DAY SOLD: 07/24/2019 [facility] 1,000 mg 03/29/2019 12:00:00 AM EST tablet 60 TAKE ONE TABLET BY MOUTH TWICE A DAY TAKE ONE TABLET BY MOUTH TWICE A DAY SOLD: 06/28/2019 [facility] 1,000 mg 03/29/2019 12:00:00 AM EST tablet 180 TAKE ONE TABLET BY MOUTH TWICE A DAY TAKE ONE TABLET BY MOUTH TWICE A DAY SOLD: 03/29/2019 [facility] 1,000 mg 03/29/2019 12:00:00 AM EST tablet 60 TAKE ONE TABLET BY MOUTH TWICE A DAY TAKE ONE TABLET BY MOUTH TWICE A DAY SOLD: 05/30/2019 [facility] 75 mg 03/27/2019 12:00:00 AM EST tablet 30 TAKE ONE TABLET BY MOUTH EVERY DAY TAKE ONE TABLET BY MOUTH EVERY DAY SOLD: 03/29/2019 [facility] 75 mg 03/27/2019 12:00:00 AM EST tablet 30 TAKE ONE TABLET BY MOUTH EVERY DAY TAKE ONE TABLET BY MOUTH EVERY DAY SOLD: 05/30/2019 [facility] 75 mg 03/27/2019 12:00:00 AM EST tablet 30 TAKE ONE TABLET BY MOUTH EVERY DAY TAKE ONE TABLET BY MOUTH EVERY DAY SOLD: 08/24/2019 [facility] 75 mg 03/27/2019 12:00:00 AM EST tablet 30 TAKE ONE TABLET BY MOUTH EVERY DAY TAKE ONE TABLET BY MOUTH EVERY DAY SOLD: 06/28/2019 [facility] 75 mg 03/27/2019 12:00:00 AM EST tablet 30 TAKE ONE TABLET BY MOUTH EVERY DAY TAKE ONE TABLET BY MOUTH EVERY DAY SOLD: 04/30/2019 [facility] 75 mg 03/27/2019 12:00:00 AM EST tablet 30 TAKE ONE TABLET BY MOUTH EVERY DAY TAKE ONE TABLET BY MOUTH EVERY DAY SOLD: 07/24/2019 [facility] 5 mg 02/26/2019 12:00:00 AM EST tablet 30 TAKE ONE TABLET BY MOUTH EVERY DAY TAKE ONE TABLET BY MOUTH EVERY DAY SOLD: 04/30/2019 [facility] 40 mg 02/26/2019 12:00:00 AM EST tablet 30 TAKE ONE TABLET BY MOUTH EVERY DAY TAKE ONE TABLET BY MOUTH EVERY DAY SOLD: 04/30/2019 [facility] 5 mg 02/26/2019 12:00:00 AM EST tablet 30 TAKE ONE TABLET BY MOUTH EVERY DAY TAKE ONE TABLET BY MOUTH EVERY DAY SOLD: 03/29/2019 [facility] 5 mg 02/26/2019 12:00:00 AM EST tablet 30 TAKE ONE TABLET BY MOUTH EVERY DAY TAKE ONE TABLET BY MOUTH EVERY DAY SOLD: 03/01/2019 [facility] 40 mg 02/26/2019 12:00:00 AM EST tablet 30 TAKE ONE TABLET BY MOUTH EVERY DAY TAKE ONE TABLET BY MOUTH EVERY DAY SOLD: 03/01/2019 [facility] 40 mg 02/26/2019 12:00:00 AM EST tablet 30 TAKE ONE TABLET BY MOUTH EVERY DAY TAKE ONE TABLET BY MOUTH EVERY DAY SOLD: 03/29/2019 [facility] montelukast 10 MG Oral Tablet MONTELUKAST SODIUM 02/06/2019 12:0 0:00 AM EST tablet 30 TAKE ONE TABLET BY MOUTH EVERY D AY TAKE ONE TABLET BY MOUTH EVERY DAY SOLD: 02/07/2019 [facility] montelukast 10 MG Oral Tablet MONTELUKAST SODIUM 02/06/2019 12:0 0:00 AM EST tablet 30 TAKE ONE TABLET BY MOUTH EVERY D AY TAKE ONE TABLET BY MOUTH EVERY DAY SOLD: 03/29/2019 [facility] montelukast 10 MG Oral Tablet MONTELUKAST SODIUM 02/06/2019 12:0 0:00 AM EST tablet 30 TAKE ONE TABLET BY MOUTH EVERY D AY TAKE ONE TABLET BY MOUTH EVERY DAY SOLD: 03/01/2019 [facility] 25 mg 01/04/2019 12:00:00 AM EST tablet extended release 24 hr 30 TAKE ONE TABLET BY MOUTH EVERY DAY TAKE ONE TABLET BY MOUTH EVERY DAY SOLD: 04/30/2019 [facility] 25 mg 01/04/2019 12:00:00 AM EST tablet extended release 24 hr 30 TAKE ONE TABLET BY MOUTH EVERY DAY TAKE ONE TABLET BY MOUTH EVERY DAY SOLD: 05/30/2019 [facility] 25 mg 01/04/2019 12:00:00 AM EST tablet extended release 24 hr 30 TAKE ONE TABLET BY MOUTH EVERY DAY TAKE ONE TABLET BY MOUTH EVERY DAY SOLD: 03/29/2019 [facility] atorvastatin 20 MG Oral Tablet ATORVASTATIN CALCIUM 01/04/2019 1 2:00:00 AM EST tablet 30 TAKE ONE TABLET BY MOUTH EVERY D AY TAKE ONE TABLET BY MOUTH EVERY DAY SOLD: 04/30/2019 [facility] atorvastatin 20 MG Oral Tablet ATORVASTATIN CALCIUM 01/04/2019 1 2:00:00 AM EST tablet 30 TAKE ONE TABLET BY MOUTH EVERY D AY TAKE ONE TABLET BY MOUTH EVERY DAY SOLD: 05/30/2019 [facility] 25 mg 01/04/2019 12:00:00 AM EST tablet extended release 24 hr 30 TAKE ONE TABLET BY MOUTH EVERY DAY TAKE ONE TABLET BY MOUTH EVERY DAY SOLD: 03/01/2019 [facility] atorvastatin 20 MG Oral Tablet ATORVASTATIN CALCIUM 01/04/2019 1 2:00:00 AM EST tablet 30 TAKE ONE TABLET BY MOUTH EVERY D AY TAKE ONE TABLET BY MOUTH EVERY DAY SOLD: 01/31/2019 [facility] atorvastatin 20 MG Oral Tablet ATORVASTATIN CALCIUM 01/04/2019 1 2:00:00 AM EST tablet 30 TAKE ONE TABLET BY MOUTH EVERY D AY TAKE ONE TABLET BY MOUTH EVERY DAY SOLD: 03/01/2019 [facility] atorvastatin 20 MG Oral Tablet ATORVASTATIN CALCIUM 01/04/2019 1 2:00:00 AM EST tablet 30 TAKE ONE TABLET BY MOUTH EVERY D AY TAKE ONE TABLET BY MOUTH EVERY DAY SOLD: 03/29/2019 [facility] 25 mg 01/04/2019 12:00:00 AM EST tablet extended release 24 hr 30 TAKE ONE TABLET BY MOUTH EVERY DAY TAKE ONE TABLET BY MOUTH EVERY DAY SOLD: 01/31/2019 [facility] 5 mg 11/25/2018 12:00:00 AM EDT tablet 30 TAKE ONE TABLET BY MOUTH EVERY DAY TAKE ONE TABLET BY MOUTH EVERY DAY SOLD: 01/31/2019 [facility] 40 mg 11/24/2018 12:00:00 AM EDT tablet 30 TAKE ONE TABLET BY MOUTH EVERY DAY TAKE ONE TABLET BY MOUTH EVERY DAY SOLD: 01/31/2019 [facility] 75 mg 11/23/2018 12:00:00 AM EDT tablet 30 TAKE ONE TABLET BY MOUTH EVERY DAY TAKE ONE TABLET BY MOUTH EVERY DAY SOLD: 03/15/2019 [facility] 75 mg 11/23/2018 12:00:00 AM EDT tablet 30 TAKE ONE TABLET BY MOUTH EVERY DAY TAKE ONE TABLET BY MOUTH EVERY DAY SOLD: 01/31/2019 [facility] 40 mg 10/24/2018 12:00:00 AM EDT capsule,delayed release (DR/EC) 30 TAKE ONE CAPSULE BY MOUTH EVERY DAY TAKE ONE CAPSULE BY MOUTH EVERY DAY SOLD: 03/29/2019 [facility] 40 mg 10/24/2018 12:00:00 AM EDT capsule,delayed release (DR/EC) 30 TAKE ONE CAPSULE BY MOUTH EVERY DAY TAKE ONE CAPSULE BY MOUTH EVERY DAY SOLD: 03/01/2019 [facility] 40 mg 10/24/2018 12:00:00 AM EDT capsule,delayed release (DR/EC) 30 TAKE ONE CAPSULE BY MOUTH EVERY DAY TAKE ONE CAPSULE BY MOUTH EVERY DAY SOLD: 01/31/2019 [facility] 0.4 mg 10/23/2018 12:00:00 AM EDT capsule 30 TAKE 1 CAPSULE BY MOUTH 30 MINUTES AFTER THE SAME MEAL EACH DAY TAKE 1 CAPSULE BY MOUTH 30 MINUTES AFTER THE SAME MEAL EACH DAY SOLD: 04/30/2019 [facility] 0.4 mg 10/23/2018 12:00:00 AM EDT capsule 30 TAKE 1 CAPSULE BY MOUTH 30 MINUTES AFTER THE SAME MEAL EACH DAY TAKE 1 CAPSULE BY MOUTH 30 MINUTES AFTER THE SAME MEAL EACH DAY SOLD: 03/01/2019 [facility] 0.4 mg 10/23/2018 12:00:00 AM EDT capsule 30 TAKE 1 CAPSULE BY MOUTH 30 MINUTES AFTER THE SAME MEAL EACH DAY TAKE 1 CAPSULE BY MOUTH 30 MINUTES AFTER THE SAME MEAL EACH DAY SOLD: 05/30/2019 [facility] 0.4 mg 10/23/2018 12:00:00 AM EDT capsule 30 TAKE 1 CAPSULE BY MOUTH 30 MINUTES AFTER THE SAME MEAL EACH DAY TAKE 1 CAPSULE BY MOUTH 30 MINUTES AFTER THE SAME MEAL EACH DAY SOLD: 06/28/2019 [facility] 0.4 mg 10/23/2018 12:00:00 AM EDT capsule 30 TAKE 1 CAPSULE BY MOUTH 30 MINUTES AFTER THE SAME MEAL EACH DAY TAKE 1 CAPSULE BY MOUTH 30 MINUTES AFTER THE SAME MEAL EACH DAY SOLD: 01/31/2019 [facility] 0.4 mg 10/23/2018 12:00:00 AM EDT capsule 30 TAKE 1 CAPSULE BY MOUTH 30 MINUTES AFTER THE SAME MEAL EACH DAY TAKE 1 CAPSULE BY MOUTH 30 MINUTES AFTER THE SAME MEAL EACH DAY SOLD: 03/29/2019 [facility] 1,000 mg 09/21/2018 12:00:00 AM EDT tablet 60 TAKE ONE TABLET BY MOUTH TWICE A DAY TAKE ONE TABLET BY MOUTH TWICE A DAY SOLD: 01/31/2019 [facility] 1,000 mg 09/21/2018 12:00:00 AM EDT tablet 60 TAKE ONE TABLET BY MOUTH TWICE A DAY TAKE ONE TABLET BY MOUTH TWICE A DAY SOLD: 03/01/2019 [facility] 0.1 % 07/27/2018 12:00:00 AM EDT cream 15 APPLY A SMALL AMOUNT TOPICALLY TO RASH ON ARM AND LOWER BACK TWO TIMES A DAY APPLY A SMALL AMOUNT TOPICALLY TO RASH ON ARM AND LOWER BACK TWO TIMES A DAY SOLD: 07/25/2019 [facility] 0.5 mg 07/25/2018 12:00:00 AM EDT capsule 30 TAKE ONE CAPSULE BY MOUTH EVERY DAY TAKE ONE CAPSULE BY MOUTH EVERY DAY SOLD: 06/28/2019 [facility] 0.5 mg 07/25/2018 12:00:00 AM EDT capsule 30 TAKE ONE CAPSULE BY MOUTH EVERY DAY TAKE ONE CAPSULE BY MOUTH EVERY DAY SOLD: 04/30/2019 [facility] 0.5 mg 07/25/2018 12:00:00 AM EDT capsule 30 TAKE ONE CAPSULE BY MOUTH EVERY DAY TAKE ONE CAPSULE BY MOUTH EVERY DAY SOLD: 01/31/2019 [facility] 0.5 mg 07/25/2018 12:00:00 AM EDT capsule 30 TAKE ONE CAPSULE BY MOUTH EVERY DAY TAKE ONE CAPSULE BY MOUTH EVERY DAY SOLD: 03/01/2019 [facility] 0.5 mg 07/25/2018 12:00:00 AM EDT capsule 30 TAKE ONE CAPSULE BY MOUTH EVERY DAY TAKE ONE CAPSULE BY MOUTH EVERY DAY SOLD: 03/29/2019 [facility] 0.5 mg 07/25/2018 12:00:00 AM EDT capsule 30 TAKE ONE CAPSULE BY MOUTH EVERY DAY TAKE ONE CAPSULE BY MOUTH EVERY DAY SOLD: 05/30/2019 [facility] 0.4 mg 07/25/2018 12:00:00 AM EDT capsule 90 TAKE 1 CAPSULE BY MOUTH 30 MINUTES AFTER THE SAME MEAL EACH DAY ONCE DAILY TAKE 1 CAPSULE BY MOUTH 30 MINUTES AFTER THE SAME MEAL EACH DAY ONCE DAILY SOLD: 07/24/2019 [facility] Insurance Providers Payer name Policy type / Coverage type Policy ID Covered alliance party ID Covered alliance party's relationship to reed Policy Reed Plan Information WELLCARE [id number] SP [id number] WELLCARE -O/P [id number] 18 [id number] WELLCARE [id number] SP [id number] TODAYS OPTIONSDO NOT USE [id number] SP [id number] [employer] INSURANCE PLAN [id number] SP [id number] MEDICARE PART A -O/P [id number] 18 [id number] Today's Options/Wellcare Commercial [id number] Self [id number] Today's Options/Wellcare Commercial [id number] Self [id number] Today's Options/Wellcare Commercial [id number] Self [id number] ANSI-Commercial [id number] ANS-Medicare Part B [id number] ANSI-Health Maintenance Organization ( O) [id number] ANSI-Medicare Part B [id number] ANSI-Commercial [id number] Today's Options Commercial [id number] Self [id number] Today's Options Commercial [id number] Self [id number] TODAYS OPTION -O/P [id number] 18 [id number] Today's Options Commercial [id number] Self [id number] ANSI-Medicare Part B [id number] ANSI-Commercial [id number] Today's Options Commercial [id number] Self [id number] Today's Options Commercial [id number] Self [id number] TODAYS OPTIONS [id number] SP [id number] MEDICARE [id number] SP [id number] A MEDICARE -O/P [id number] 18 [id number] MEDICARE -O/P [id number] 18 [id number] Problems, Conditions, and Diagnoses Code Display Name Description Problem Type Effective Dates Data Source(s) 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 ) [id number] Decreased hearing Decreased hearing Problem 07/08 12:00:00 AM EDT [facility] ([facility] 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 N401 Benign prostatic hyperplasia with lower urinary tract symptoms Benign prostatic hyperplasia with lower urinary tract symptoms Diagnosis 2020 09:37:00 PM [facility] R339 Retention of urine, unspecified Retention of urine, un specified Diagnosis 2020 09:37:00 PM [facility] Z7902 FDC (current) use of antithromboti cs/antiplatelets intermodal dispatcher (current) use of antithrombotics/antiplatelets Diagnosis 020 06:37:00 AM [facility] R338 Other retention of urine Other retention of urine Diag nosis 01/27/2020 06:37:00 AM EST [facility] Surgeries/Procedures Procedure Description Date Indications Data Source(s) Medication: Lidocaine HCl 2% Jelly 5mL Intravesically 03/06/2020 12:00:00 AM EST eCW1 ([facility]) Electrocardiogram Complete 02/27/2020 12:00:00 AM EST [facility] ([facility] Villalba Catheter Insertion 16F 02/04/2020 12:00:00 AM ES T eCW1 ([facility]) Magnetic Resonance Angiogtaphy Head W/O Contrast Material(S) 09/22/2019 12:00:00 AM EDT [facility] ([facility]) Magnetic Resonance Angiogtaphy Head W/O Contrast Material(S) 09/22/2019 12:00:00 AM EDT [facility] ([facility]) Magnetic Resonance Angiography Neck W/O Contrast Materials 09/22/2019 12:00:00 AM EDT [facility] ([facility]) Magnetic Resonance Angiography Neck W/O Contrast Materials 09/22/2019 12:00:00 AM EDT [facility] ([facility]) Results ID Date Data Source [id number] 03/07/2020 11:00:00 AM EST [facility] Name Value Range Interpretation Code Description Data Esperanza rce(s) Supporting Document(s) SARS coronavirus 2 RNA Not Detected [facility] [place] This lab was ordered by [facility] and reported by [facility]. ID Date Data Source [id number] 03/06/2020 10:42:00 [place] [address] PHONE: [phone] FAX: [phone] Name .................. : CHARISSA GUTIERREZ Acct Number.................. : [id number] ROOM. ................. : MR Number ................... : [id number] Stay type ............. : O/P Discharge Date......... ... : 03/03/20 Admit Date ......... : 03/03/20 Admit Phys .................... : REVA WRIGHT Date of ....... : 1930 Family Phys ................... : REVA WRIGHT Phone .................. : [phone] Age ................................ : 89 Film# .................. .:[id number] Sex ................................. : M Unsigned transcriptions are preliminary reports and do not represent a medical or legal document CHEST 2 VIEWS [id number] COMPLETE:03/03/20 09:31 BEM 1391 (REASON FOR CHEST: COUGH TWO VIEW CHEST, 03/03/20: INDICATION: Cough. Comparison is made to a prior study from 11/11/2017. FINDINGS: Lung gautam are clear. No focal infiltrate or consolidation is identified. Cardiac silhouette appears unremarkable. Osseous structures show degenerative changes. IMPRESSION: No acute pulmonary findings and no significant change. Examination dictated by ROBLES Gaona. Examination was reviewed with Deirdre Gold MD, radiologist at the time of this dictation. Electronically Reviewed and Signed By Deirdre Gold MD , 03/06/20 10:42, KGG Transcribe Initials: AREN, Transcribe Date: 03/03/20 11:21, Dictation Date: Copy for: REVA FISH via fax Copy for: [address] [place] [address] REC Page 1 of 1 Name Value Range Interpretation Code Description Data Esperanza rce(s) Supporting Document(s) ID Date Data Source [id number] 02/27/2020 10:42:00 AM EST [facility] ([facility] Name Value Range Interpretation Code Description Data Esperanza rce(s) Supporting Document(s) WBC 5.8 10E3/uL 4.1-10.9 [facility] ([facility] NORMAL RANGES Age WBC RBC HGB HCT [...] HCT IS 5% LESS SOURCE FOR DATA: BigTip 1800 OPERATION MANUAL( AUTOMATED BLOOD COUNTS AND DIFF.) APPENDIX B-3 RBC 3.51 10E6/uL 4.20-6.30 Below low normal [facility] ([facility] NORMAL RANGES Age WBC RBC HGB HCT [...] HCT IS 5% LESS SOURCE FOR DATA: [employer] 1800 OPERATION MANUAL( AUTOMATED BLOOD COUNTS AND DIFF.) APPENDIX B-3 MCV 96.6 fL 80.0-97.0 [facility] ([facility] NORMAL RANGES Age WBC RBC HGB HCT [...] HCT IS 5% LESS SOURCE FOR DATA: [employer] 1800 OPERATION MANUAL( AUTOMATED BLOOD COUNTS AND DIFF.) APPENDIX B-3 HCT 33.9 % 37.0-51.0 Below low normal [facility] ( [facility] NORMAL RANGES Age WBC RBC HGB HCT MCV PLT Adult M 4.1-10.9 4.20-6.30 12.0-18.0 37.0-51.0 80- 140-440 Adult F 4.1-10.9 4.04-5.48 12.0-18.0 37.0-51.0 80 140-440 0 -1 Yr 5.0-20.0 3.9-5.9 15-18 [...] HCT IS 5% LESS SOURCE FOR DATA: [employer]Tip 1800 OPERATION MANUAL( AUTOMATED BLOOD COUNTS AND DIFF.) APPENDIX B-3 HGB 11.6 g/dL 12.0-18.0 Below low normal [facility] ( [facility] NORMAL RANGES Age WBC RBC HGB HCT MCV PLT Adult M 4.1-10.9 4.20-6.30 12.0-18.0 37.0-51.0 80 140-440 Adult F 4.1-10.9 4.04-5.48 12.0-18.0 37.0-51.0 80 140-440 0 -1 Yr 5.0-20.0 3.9-5.9 15-18 [...] HCT IS 5% LESS SOURCE FOR DATA: [employer] 1800 OPERATION MANUAL( AUTOMATED BLOOD COUNTS AND DIFF.) APPENDIX B-3 MCH 33.0 pg 26.0-32.0 Above high normal [facility] ([facility] NORMAL RANGES Age WBC RBC HGB HCT [...] HCT IS 5% LESS SOURCE FOR DATA: YARI DYN 1800 OPERATION MANUAL( AUTOMATED BLOOD COUNTS AND DIFF.) APPENDIX B-3 PLT 374 10E3/uL 140-440 [facility] ([facility] NORMAL RANGES Age WBC RBC HGB HCT [...] HCT IS 5% LESS SOURCE FOR DATA: YARI DYN 1800 OPERATION MANUAL( AUTOMATED BLOOD COUNTS AND DIFF.) APPENDIX B-3 MCHC 34.2 g/dL 31.0-36.0 [facility] ([facility] NORMAL RANGES Age WBC RBC HGB HCT [...] HCT IS 5% LESS SOURCE FOR DATA: [employer]Tip 1800 OPERATION MANUAL( AUTOMATED BLOOD COUNTS AND DIFF.) APPENDIX B-3 Neut% 69.6 % 37.0-92.0 [facility] ([facility] NORMAL RANGES Age WBC RBC HGB HCT [...] HCT IS 5% LESS SOURCE FOR DATA: [employer]Tip 1800 OPERATION MANUAL( AUTOMATED BLOOD COUNTS AND DIFF.) APPENDIX B-3 Lym% 18.9 % 10.0-58.5 [facility] ([facility] NORMAL RANGES Age WBC RBC HGB HCT MCV PLT Adult M 4.1-10.9 4.20-6.30 12.0-18.0 37.0-51.0 80 140-440 Adult F 4.1-10.9 4.04-5.48 12.0-18.0 37.0-51.0 80 140-440 0 -1 Yr 5.0-20.0 3.9-5.9 15-18 [...] HCT IS 5% LESS SOURCE FOR DATA: [employer]Tip 1800 OPERATION MANUAL( AUTOMATED BLOOD COUNTS AND DIFF.) APPENDIX B-3 RDW-CV 14.8 % 11.5-14.5 Above high normal [facility] ([facility] NORMAL RANGES Age WBC RBC HGB HCT MCV PLT Adult M 4.1-10.9 4.20-6.30 12.0-18.0 37.0-51.0 80 140-440 Adult F 4.1-10.9 4.04-5.48 12.0-18.0 37.0-51.0 [...] HCT IS 5% LESS SOURCE FOR DATA: [employer] 1800 OPERATION MANUAL( AUTOMATED BLOOD COUNTS AND DIFF.) APPENDIX B-3 Lym# 1.1 10E3/uL 0.6-4.1 TOM ([facility] NORMAL RANGES Age WBC RBC HGB HCT [...] HCT IS 5% LESS SOURCE FOR DATA: [employer] DYN 1800 OPERATION MANUAL( AUTOMATED BLOOD COUNTS AND DIFF.) APPENDIX B-3 MXD% 11.5 % 0.1-24.0 [facility] [facility] ([facility] NORMAL RANGES Age WBC RBC HGB HCT [...] HCT IS 5% LESS SOURCE FOR DATA: YARI DYN 1800 OPERATION MANUAL( AUTOMATED BLOOD COUNTS AND DIFF.) APPENDIX B-3 Neut# 4.0 % 2.0-7.8 [facility] ([facility] NORMAL RANGES Age WBC RBC HGB HCT [...] HCT IS 5% LESS SOURCE FOR DATA: [employer] DYN 1800 OPERATION MANUAL( AUTOMATED BLOOD COUNTS AND DIFF.) APPENDIX B-3 MPV 8.0 fL 9.0-13.0 Below low normal [facility] ( [facility] NORMAL RANGES Age WBC RBC HGB HCT [...] HCT IS 5% LESS SOURCE FOR DATA: [employer] 1800 OPERATION MANUAL( AUTOMATED BLOOD COUNTS AND DIFF.) APPENDIX B-3 MXD# 0.7 10E3/uL 0.0-1.8 [facility] ([facility] NORMAL RANGES Age WBC RBC HGB HCT [...] HCT IS 5% LESS SOURCE FOR DATA: [employer] DYN 1800 OPERATION MANUAL( AUTOMATED BLOOD COUNTS AND DIFF.) APPENDIX B-3 ID Date Data Source [id number] 2020 09:37:00 PM EST [facility] 1 OrderSheet [facility] Emergency Department [address] [place] [address] Phone #: ext- [phone] 21:35 Patient: BRENDA CARRINGTON Sex: M : 1930 Age: 89yWEIGHT:62.5 kg (S) HEIGHT:62 inches (S) BMI:25.2ALLERGIES: No Known Drug AllergyCHIEF COMPLAINT: urinary retention, Villalba problemDIAGNOSIS: Retention of urineLAB ORDERSOrder Description Priority Entered Acknowledged InitialedUrinalysis (Clean STAT 21:45 2020 22:01 Lacey Camilo) Shailesh Mckeon R.N. Physician;Culture, Urine STAT 22:19 2020 22:20 Lacey Pace(Urine, Catheter) Shailesh Mckeon R.N. Physician;DIAGNOSTIC STUDY ORDERSOrder Description Priority Entered Acknowledged InitialedMEDICATION/IV/DRIP/FLUID ORDERSOrder Description Priority Entered Acknowledged InitialedGENERAL ORDERSOrder Description Priority Entered Acknowledged Initialed[Electronically signed by Lacey Ron R.N. (22:55 2020)][Electronically signed by Shailesh López Physician (01:16 01/31/2020)][Electronically locked by Lacey Ron R.N. (22:55 2020)] Name Value Range Interpretation Code Description Data Esperanza rce(s) Supporting Document(s) ID Date Data Source [id number] 2020 09:37:00 PM [facility] 1 Medication Reconciliation Report [facility] Emergency Department [address] [place] [address] Phone #: ext- [phone] 21:35 Patient: BRENDA CARRINGTON Sex: M : 1930 Age: 89yWeight: 62.5 kgHeight/Length: 62 in.BMI: 25.2ALLERGIES: No Known Drug AllergyThe patient's Home Medications are listed below:THE FOLLOWING MEDICATIONS NEED TO BE RECONCILED: Alfuzosin HCl ER Oral, daily amLODIPine Besylate Oral, daily Atorvastatin Calcium Oral (20 mg), daily Clopidogrel Bisulfate Oral, daily Lisinopril Oral, daily MetFORMIN HCl Oral (1000 mg) 1 tablet, 2x a day Metoprolol Succinate ER Oral dose unknown, daily Montelukast Sodium Oral 10 mg, daily Omeprazole Oral, daily Tamsulosin HCl Oral, dailyThe source(s) of the original Home Medication information:Not obtained.The following Medications were given to the patient in the Emergency Department:None.The following Medications were prescribed to the patient:None. 2 Medication Reconciliation Report [facility] Emergency Department [address] [place] [address] Phone #: ext [phone] 21:35 Patient: BRENDA CARRINGTON Sex: M : 1930 Age: 89y Name Value Range Interpretation Code Description Data Esperanza e(s) Supporting Document(s) ID Date Data Source [id number] 2020 09:37:00 PM [place] [address] Medication Administration Record [facility] Emergency Department [address] [place] [address] Phone #: ext [phone] 03/2019 21:35 Patient: BRENDA CARRINGTON Sex: M : 1930 Age: 89yWeight: 62.5 kgHeight/Length: 62 inBMI: 25.2ALLERGIES: No Known Drug AllergyDate/Time Medication Administered Medication Ordered Name Value Range Interpretation Code Description Data Esperanza rce(s) Supporting Document(s) ID Date Data Source [id number] 2020 09:37:00 PM [facility] 1 General Instructions [facility] Emergency Department [address] [place] [address] Phone #: ext [phone] 21:35 Patient: BRENDA CARRINGTON Sex: M : 1930 Age: 89yUrinary retention with enlarged prostate.INSTRUCTIONSDrink plenty of fluids.(Continue prostate meds.).Warnings: Further evaluation is necessary.GENERAL WARNINGS: Return or contact your physician immediately if your condition worsens orchanges unexpectedly, if not improving as expected, or if other problems arise.Follow-up:Follow up with a urologist [facility] Urology - . Call for an appointment. Reason for referral:evaluation, treatment and Urinary retention / Villalba placement.Understanding of the discharge instructions verbalized by patient.Follow-up with: Leonard Moseley M.D., Urology, , [address] [place] [address], [facility] Follow up if not better. Call for an appointment. Reason for referral: evaluation, treatment and Urinaryretention / villalba catheter placement. ADDITIONAL INFORMATIONUrinary Retention (Male)Urinary retention is the medical term for difficulty or inability to pass urine, even though your bladderis full.CausesThe most common cause of urinary retention in men is the bladder outlet being blocked. This can bedue to an enlarged prostate gland or a bladder infection. Certain medicines can also cause thisproblem. This condition is more likely to occur as men get older. 2 General Instructions [facility] Emergency Department [address] [place] [address] Phone #: ext- [phone] 21:35 Patient: BRENDA CARRINGTON Sex: M : 1930 Age: 89ySymptomsCommon symptoms of urinary retention include: Pain (not experienced by everyone) Frequent urination Feeling that the bladder is still full after urinating Incontinence (not being able to control the release of urine) Swollen abdomenTreatmentThis condition is treated by inserting a tube (catheter) into the bladder to drain the urine. Thisprovides immediate relief. The catheter may need to stay in place for a few days. The catheter has aballoon on the tip, which is inflated after insertion. This prevents the catheter from falling out.Home care If you were given antibiotics, take them until they are used up, or your healthcare provider tells you to stop. It is important to finish the antibiotics even though you feel better. This is to make sure your infection has cleared. If a catheter was left in place, it is important to keep bacteria from getting into the collection bag. Don't disconnect the catheter from the collection bag. Use a leg band to secure the drainage tube, so it does not pull on the catheter. Drain the collection bag when it becomes full using the drain spout at the bottom of the bag. 3 General Instructions [facility] Emergency Department [address] [place] [address] Phone #: ext- [phone] 21:35 Patient: BRENDA CARRINGTON Sex: M : 1930 Age: 89y Don't pull on or try to remove your catheter. This will injure your urethra. The catheter must be removed by a healthcare provider.Follow-up careFollow up with your healthcare provider, or as advised.If a catheter was left in place, it can usually be removed within 3 to 7 days. Some conditions requirethe catheter to stay in longer. Your healthcare provider will tell you when to return to have thecatheter removed.When to seek medical adviceCall your healthcare provider right away if any of these occur: Fever of 100.4F (38C) or higher, or as directed by your healthcare provider Bladder or lower-abdominal pain or fullness Abdominal swelling, nausea, vomiting, or back pain Blood or urine leakage around the catheter Bloody urine coming from the catheter (if a new symptom) Weakness, dizziness, or fainting Confusion or change in usual level of alertness If a catheter was left in place, return if: o Catheter falls out o Catheter stops draining for 6 hours [id number] [employer] [place] [address], [place] [address]. All rights reserved. This information is not intended as asubstitute for professional medical care. Always follow your healthcare professional's instructions.BPH (Enlarged Prostate)The prostate is a gland at the base of the bladder. As some men get older, the prostate may getbigger in size. This problem is called benign prostatic hyperplasia (BPH). BPH puts pressure on theurethra. This is the tube that carries urine from the bladder to the penis. It may interfere with the flowof urine. It may also keep the bladder from emptying fully. 4 General Instructions [facility] Emergency Department [address] [place] [address] Phone #: ext- [phone] 21:35 Patient: BRENDA CARRINGTON Sex: M : 1930 Age: 89ySymptoms of BPH include trouble starting urination and feeling as though the bladder isn't emptyingall the way. It also includes a weak urine stream, dribbling and leaking of urine, and frequent andurgent urination (especially at night). BPH can increase the risk of urinary infections. It can also blockoff urine flow completely. If this occurs, a thin tube (catheter) may be passed into the bladder to helpdrain urine.If symptoms are mild, no treatment may be needed right now. If symptoms are more severe,treatment is likely needed. The goal of treatment is to improve urine flow and reduce symptoms.Treatments can include medicine and procedures. Your healthcare provider will discuss treatmentoptions with you as needed.Home careThe following guidelines will help you care for yourself at home: Urinate as soon as you feel the urge. Don't try to hold your urine. Don't limit your fluid intake during the day. Drink 6 to 8 glasses of water or liquids a day. This prevents bacteria from building up in the bladder. 5 General Instructions [facility] Emergency Department [address] [place] [address] Phone #: ext- [phone] 21:35 Patient: BRENDA CARRINGTON Sex: M : 1930 Age: 89y Avoid drinking fluids after dinner to help reduce urination during the night. Avoid medicines that can worsen your symptoms. These include certain cold and allergy medicines and antidepressants. Diuretics used for high blood pressure can also worsen symptoms. Talk to your doctor about the medicines you take. Other choices may work better for you.Prostate cancer screeningBPH does not increase the risk of prostate cancer. But because prostate cancer is a common cancerin men, screening is sometimes recommended. This may help detect the cancer in its early stageswhen treatment is most effective. Factors that can increase the risk of prostate cancer include beingAfrican-Malagasy or having a father or brother who had prostate cancer. A high-fat diet may alsoincrease the risk of prostate cancer. Talk to your healthcare provider to see whether you should bescreened for prostate cancer.Follow-up careFollow up with your healthcare provider, or as advisedTo learn more, go to: National Kidney Urologic Diseases Information Clearinghouse kidney.niddk.nih.gov, 340-8704360Estg to seek medical adviceCall your healthcare provider right away if any of these occur: Fever of 100.4F (38.0C) or higher, or as advised Unable to pass urine for 8 hours Increasing pressure or pain in your bladder (lower abdomen) Blood in the urine Increasing low back pain, not related to injury Symptoms of urinary infection (increased urge to urinate, burning when passing urine, foul-smelling urine) 5611-8650 [employer]. [address] [place] [address], [place] [address]. All rights reserved. This information is not intended as asubstitute for professional medical care. Always follow your healthcare professional's instructions. You have been given the following additional information: 6 General Instructions [facility] Emergency Department [address] [place] [address] Phone #: ext- [phone] 21:35 Patient: BRENDA CARRINGTON Sex: M : 1930 Age: 89yUrinary Retention, MaleBPH (Enlarged Prostate)(Electronically signed by Shailesh López, Physician 01/31/2020 01:16) Name Value Range Interpretation Code Description Data Esperanza rce(s) Supporting Document(s) ID Date Data Source [id number] 2020 09:37:00 PM EST [facility] 1 Clinical Report - Nurses [facility] Emergency Department [address] [place] [address] Phone #: ext- [phone] 21:35 Patient: BRENDA CARRINGTON Sex: M : 1930 Age: 89yTRIAGEArrived by private vehicle. Historian: patient.Acuity: LEVEL 4.Chief Complaint: VILLALBA PROBLEM.This started today. ( Pt states he was seen here this past Tuesday for the same issues, he voices aleaking catheter, was given a referral to Dr Moseley but states he could not get in to see him, pt catheterbegan leaking tonight).Treatment UX DEVELOPER:None.SEPSIS SCREEN: SIRS Screen negative. Sepsis Screen negative. No suspected or confirmed signs ofinfection present.MARIA T COMA SCORE: 15- eyes open- spontaneous (4); best verbal response- oriented (5); bestmotor response- obeys commands (6). --21:44 01/30/20 Giovanny Monroy RN21:36 01/30/20. BP: 137/72. MAP: 93. HR: 107. RR: 16. O2 satu ration: 100%. Temp: 98 F. Pain levelnow: 0/10. --21:44 01/30/20 Giovanny Monroy RN.Weight: 62.5 kg stated. Height/Length: 62 inches Per Patient. BMI: 25.2. --21:36 01/30/20 Giovanny Monroy RN.MedicationsAlfuzosin HCl ER Oral, daily. amLODIPine Besylate Oral, daily. Atorvastatin Calcium Oral (Tablet 20 mg), daily. Clopidogrel Bisulfate Oral, daily. Lisinopril Oral, daily. MetFORMIN HCl Oral (Tablet 1000 mg) 1 tablet, 2x a day. Metoprolol Succinate ER Oral dose unknown, daily. Montelukast Sodium Oral 10 mg, daily. Omeprazole Oral, daily. Tamsulosin HCl Oral, daily. --21:43 01/30/20 Giovanny Monroy RN.AllergiesNo Known Drug Allergy. --21:43 01/30/20 Giovanny Monroy RN.ADDITIONAL SURGERIES: 2 Clinical Report - Nurses [facility] Emergency Department [address] [place] [address] Phone #: [phone]- [phone] 21:35 Patient: BRENDA CARRINGTON Sex: M : 1930 Age: 89y no known surgeries. History PAST MEDICAL HX: Immunizations: up-to-date. SOCIAL HX: Never smoker. No alcohol use or drug use. He was offered HIV testing but declined and hepatitis C testing but declined. He has not traveled outside the [place] Infectious disease exposure: No infectious disease exposure. The patient was not exposed to Coronavirus. SELF HARM ASSESSMENT: Self harm assessment was performed. The patient answered "no" to the question(s) "Have you recently felt down, depressed, or hopeless?", "Do you have thoughts of harming or killing yourself?", "Do you have a plan for harming or killing yourself?", "Have you recently had thoughts about harming or killing others?", "Do you have any dangerous items in your possession?", "Have you noticed less interest or pleasure in doing things?", "Are you here because you tried to hurt yourself?" and "Have you ever tried to hurt yourself before today?". ABUSE ASSESSMENT: No report of abuse. NUTRITIONAL RISK ASSESSMENT: The nutritional risk assessment revealed no deficiencies. FUNCTIONAL ASSESSMENT: Functional assessment: no impairments noted. LEARNING NEEDS ASSESSMENT: The learning needs assessment revealed no barriers. FALL RISK ASSESSMENT: Fall risk assessment completed. No risk factors identified. SKIN INTEGRITY ASSESSMENT: Skin integrity risk assessment completed. No skin integrity risk identified. --:44 01/30/20 Giovanny Monroy RN. Interventions To treatment room. --21:44 01/30/20 Giovanny Monroy RN.PHYSICAL [id number]:45 01/30/20. Ambulatory to room.GENERAL / NEURO / PSYCH: Alert. Oriented X 4. Appears in no acute distress.HEENT: Mucous membranes are pink.RESPIRATORY: Respirations not labored.CVS: Capillary refill less than 2 seconds.GI / : Abdomen soft and nontender. Normal genitalia. ( catheter in place, connected to leg bag. Noleaking noted. Urine sample obtained and sent to lab per order. Small quantity collected, lab aware.).SKIN: Skin is warm and dry. --22:19 01/30/20 Lacey Mckeon R.N.NURSING PROGRESS NOTES21:40 01/30/20. Patient gowned. Call light placed in reach. Side rails up x 1. Bed placed in lowestposition. Brakes of bed on. --22:28 01/30/20 Lacey Mcekon R.N. 3 Clinical Report - Nurses [facility] Emergency Department [address] [place] [address] Phone #: ext- [phone] 21:35 Patient: BRENDA CARRINGTON Sex: M : 1930 Age: 89yDISPOSITION / DISCHARGE Departure time: 22:28 2020. Condition at departure: stable. Follow up contact number Urology, Pt provided contact info for Both Dr Moseley and [facility] U[facility]. Patient verbalized understanding. Written instructions provided in Maldivian. The patient was discharged by the physician. He was discharged home. He left ambulatory and via private vehicle. --22:28 01/30/20 Lacey Mckeon R.N. 22:26 01/30/20. BP: 129/68. MAP: 88. HR: 99. RR: 16. O2 saturation: 97%. Temp: 98 F. Pain level now: 0/10. --22:28 01/30/20 Lacey Mckeon R.N.Locked/Released at 2020 22:55 by Lacey Mckeon R.N. Name Value Range Interpretation Code Description Data Esperanza rce(s) Supporting Document(s) ID Date Data Source [id number] 2020 09:37:00 PM [facility] 1 Clinical Report - Physicians/Mid Levels [facility] Emergency Department [address] [place] [address] Phone #: ext- [phone] 21:35 Patient: BRENDA CARRINGTON Sex: M : 1930 Age: 89y Time Seen: 21:38 2020. Arrived- By private vehicle. Historian- patient. RETURN VISIT: recently seen in this ED by another ED physician within past 72 hours. Seen now for the same problem as before (Leaking villalba cath / Urinary retention). Disposition decision: 22:14 2020.HISTORY OF PRESENT ILLNESS Chief Complaint: URINARY RETENTION and VILLALBA PROBLEM. This started 3 days ago and is still present. The problem is described as moderate. It was abru pt in onset. No penile discharge, discomfort with urination, urinary frequency, genital lesion or testicular pain. No urgency of urination or flank pain. He has been unable to void (Villalba placed 3 days ago), and voiding small amounts and had Villalba catheter problems (Leaking urine). Sexual history is noncontributory. Similar symptoms previously. Patient has had similar symptoms occasionally. Recent medical care: The patient was seen recently at this facility in the emergency department. ( Seen here in ED 3 days ago and villalba placed for urinary retention. Now villalba is leaking.).REVIEW OF SYSTEMSNo fever, chills, flank pain, hematuria or abdominal pain. No vomiting, diarrhea, black stools, headache orsore throat. No blurred vision, chest pain, difficulty breathing, cough or joint pain. No skin rash or backpain.PAST HISTORYPast history not negative. See nurses notes. Hypertension. Diabetes mellitus. Urinary retention. GIdisease. Other disease. ( HyperlipidemiaGERDBPH).SOCIAL HISTORYNever smoker. No alcohol use or drug use. No recent travel.ADDITIONAL NOTESThe nursing notes have been reviewed with agreement regarding the chief complaint, HPI, ROS, PMH andpatient medications and allergies.PHYSICAL EXAMVital Signs: 2020 21:36 BP: 137/72. MAP: 93. HR: 107. RR: 16. O2 saturation: 100%. Temp: 98 F.Pain level now: 0/10. Have been reviewed and appear to be correct. Hypertensive. Tachycardic.Respir atory rate normal. Temperature normal. Oxygen saturation normal.Appearance: Alert. Oriented X3. Anxious. Patient in mild distress. In distress.ENT: Normal external inspection. Pharynx normal. 2 Clinical Report - Physicians/Mid Levels [facility] Emergency Department [address] [place] [address] Phone #: ext- [phone] 21:35 Patient: BRENDA CARRINGTON [facility]#: [id number] Sex: M : 1930 Age: 89y Neck: Neck supple. CVS: Heart sounds normal. Respiratory: No respiratory distress. Painless inspiration. Breath sounds normal. Abdomen: Soft and nontender. Bowel sounds normal. No organomegaly. No mass. Back: Normal external inspection. : Villalba catheter returning normal appearing urine (Not leaking). Skin: Skin warm and dry. Normal skin color. No rash. Normal skin turgor. Extremities: Extremities exhibit normal ROM. No lower extremity edema. Neuro: Oriented X 3. No motor deficit. No sensory deficit.LABS, X-RAYS, AND EKGLaboratory Tests: Laboratory tests have been ordered, with results reviewed and considered in themedical decision making process. Urinalysis: (MARIETTA: 2020 21:58) ( MsgRcvd 2020 22:08) Final results Test Result Flag Units (Reference) URINALYSIS URINALYSIS SOURCE R COLOR yellow (NORMAL: Yello CLARITY clear (NORMAL: Clear SPEC GRAVITY 1.020 (1.001 - 1.030 pH 5 (5 - 9) GLUCOSE NORM (NORMAL: Negat BILIRUBIN NEG (NORMAL: Negat KETONE 5 A (NORMAL: Negat PROTEIN 100 A (NORMAL: Negat NITRITE NEG (NORMAL: Negat BLOOD 2 50 A (NORMAL: Negat LEUK EST 25 (NORMAL: Negat UROBILINOGEN NOR (less than 1.0 MICROSCOPIC See Below WBC 1 - 3 (MARSHA L: NONE RBC 20 - 30 A (NORMAL: NONE EPITHELIAL FEW (NORMAL: NONE.PROGRESS AND PROCEDURESCourse of Care: 22:12 2020. Patient is stable. Symptoms better. 22:13 2020. Villalba bag not leaking and was catheter not obviously leaking either. Will contin ue villalba in place. Disposition: Discharged home in good and improved condition (:14 2020). Condition: good.CLINICAL IMPRESSION Urinary retention with enlarged prostate. 3 Clinical Report - Physicians/Mid Levels [facility] Emergency Department [address] [place] [address] Phone #: ext- [phone] 21:35 Patient: BRENDA CARRINGTON Sex: M : 1930 Age: 89yINSTRUCTIONS Drink plenty of fluids. (Continue prostate meds.). Warnings: Fur ther evaluation is necessary. GENERAL WARNINGS: Return or contact your physician immediately if your condition worsens or changes unexpectedly, if not improving as expected, or if other problems arise. Follow-up: Follow up with a urologist [facility] U[facility] - . Call for an appointment. Reason for referral: evaluation, treatment and Urinary retention / Villalba placement. Understanding of the discharge instructions verbalized by patient. Follow-up with: Leonard Moseley M.D., Urology, , [address] [place] [address], [facility] Follow up if not better. Call for an appointment. Reason for referral: evaluation, treatment and Urinary retention / villalba catheter placement.(Electronically signed by Shailesh López, Physician 01/31/2020 01:16) Name Value Range Interpretation Code Description Data [facility](s) Supporting Document(s) ID Date Data Source [id number] 2020 09:58:00 PM EST [facility] ([facility] Name Value Range Interpretation Code Description Data [facility]) Supporting Document(s) Source Laboratory test result [facility] ([facility] SOURCE: Clean Catch Urinalysis Laboratory test result [facility] ([facility] SOURCE: Clean Catch Clarity Laboratory test result [facility] ([facility] SOURCE: Clean Catch Color Laboratory test result [facility] ([facility] SOURCE: Clean Catch Spec [place] 1.020 1.001-1.030 [facility] ([facility] SOURCE: Clean Catch Glucose Laboratory test result [facility] ([facility] SOURCE: Clean Catch pH 5 5-9 [facility] ([facility] SOURCE: Clean Catch Bilirubin Laboratory test result [place] [facility] ([facility] SOURCE: Clean Catch Protein 100 Abnormal (applies to non-numeric res ults) [facility] ([facility] SOURCE: Clean Catch Ketone 5 Abnormal (applies to non-numeric res ults) [facility] ([facility] SOURCE: Clean Catch Nitrite Laboratory test result [facility] ([facility] SOURCE: Clean Catch Leuk Est 25 [facility] ([facility] SOURCE: Clean Catch Urobilinogen Laboratory test result [facility] ([facility] SOURCE: Clean Catch Blood 250 Abnormal (applies to non-numeric res ults) [facility] ([facility] SOURCE: Clean Catch RBC Laboratory test result Abnormal (applies to non -numeric results) [facility] ([facility] SOURCE: Clean Catch Microscopic Laboratory test result M EDENT ([facility] SOURCE: Clean Catch WBC Laboratory test result [facility] ([facility] SOURCE: Clean Catch Epithelial Laboratory test result ME DENT ([facility] SOURCE: Clean Catch ID Date Data Source [id number] 2020 10:08:00 PM [facility] Name Value Range Interpretation Code Description Data Esperanza rce(s) Supporting Document(s) [facility] COL[facility] yellow NORMAL: Yellow [facility] CLARITY clear NORMAL: Clear [facility] Specific gravity of Urine by Test strip 1.020 1.001 - 1.030 [facility] pH 5 5 - 9 [facility] Glucose [Mass/volume] in Urine by Test strip NORM NORMAL: Negat jb [facility] Bilirubin.total [Presence] in Urine by Test strip NEG NORMAL: Negative [facility] Ketones [Presence] in Urine by Test strip 5 NORMAL: Negative A [facility] Protein [Mass/volume] in Urine by Test strip 100 NORMAL: Negat jb A [facility] Nitrite [Presence] in Urine by Test strip NEG NORMAL: Negative [facility] BLOOD 250 NORMAL: Negative [facility] Leukocyte esterase [Presence] in Urine by Test strip 25 MARSHA L: Negative [facility] Urobilinogen [Mass/volume] in Urine by Test strip NOR less steven n 1.0 mg/dL [facility] MICROSCOPIC See Below [facility] Hosp ital WBC 1 - 3 NORMAL: NONE SEEN [facility] Erythrocytes [#/volume] in Urine by Test strip 20 - 30 NORMAL: NON E SEEN A [facility] EPITHELIAL FEW NORMAL: NONE SEEN [facility] Hospital ID Date Data Source [id number] 2020 09:57:00 PM EST MEDENT ([facility] Name Value Range Interpretation Code Description Data Esperanza rce(s) Supporting Document(s) Bacteria identified in Urine by Culture Laboratory test result [facility] ([facility] SOURCE: Urine, Catheter ID Date Data Source [id number] 02/05/2020 07:35:00 AM EST [facility] Name Value Range Interpretation Code Description Data Esperanza rce(s) Supporting Document(s) CULTURE URINE [facility] _CULTURE URINE_$$[id number]$$[id number]$$[id number]$$097050$$[id number]$$086343$$154574$$570688$$076942$$ 790391$$798864$$725759$$920588$$144468$$280657$$506582$$232773$$723723$$202672$$ 922261$$970922$$775881$$683766$$606492$$452311$$[id number]$$[id number] -- Continued on next page --Patient: CHARISSA GUTIERREZ Order: [id number] Page 2Culture: CULTURE URINE Status: Final ==== -- Continued on next page --Patient: CHARISSA GUTIERREZ Order: [id number] Page 2Culture: CULTURE URINE Status: Prelim =====$$[id number] DATE/TIME: 02/04/2020 16:06Culture: CULTURE URINE Status: FinalUrine Culture,Comprehensive: P1No growth in 36 - 48 hours. Previous result entered on 02/03/2020 06:45 ET No growth after 18-24 hours.P1 Test performed by: [facility] JANEEN #: [id number] [address] [place] [address] [id number] [facility] [address]Medical Director : Omkar Park MD NPI #:Lab Nancy sameera : 02/04/20.0709.XMT.SENT REF 02/05/20.0735.XMT.SENT REF ID Date Data Source [id number] 2020 09:39:00 [place] [address] PHONE: [phone] FAX: [phone] Name .................. : CHARISSA GUTIERREZ Acct Number.................. : [id number] ROOM. ................. : TR-06 MR Number ................... : [id number] Stay type ............. : E/R Discharge Date......... ... : 01/27/20 Admit Date ......... : 01/27/20 Admit Phys .................... : NORRIS ARBOLEDA Date of ....... : 1930 Family Phys ................... : REVA WRGIHT Phone .................. : [phone] Age ................................ : 89 Film# .................. .:[id number] Sex ................................. : M Unsigned transcriptions are preliminary reports and do not represent a medical or legal document RENAL COMPLETE [id number] COMPLETE:01/27/20 08:38 [facility] [id number] Reason(s): urinary retention COMPLETE RENAL ULTRASOUND: HISTORY: Urinary retention. FINDINGS: The right kidney measures 10 cm. There is no evidence of hydronephrosis or nephrolithiasis. There is mild left-sided hydronephrosis noted. The left kidney measures 9.7 cm. The pre-void volume of the bladder is 880 mL. The post void volume of the bladder 787 mL. The right ureteral jet is visualized. The left ureteral jet is not visualized. IMPRESSION: Mild left- sided hydronephrosis. Nonvisualization of the left ureteral jet. Axial imaging may be performed for further evaluation. Electronically Reviewed and Signed By Darell Valdivia MD , 01/30/20 09:39, S Transcribe Initials: CRESCENCIO , Transcribe Date: 01/27/20 10:27, Dictation Date: Copy for: REVA FISH via fax Copy for: 710 MED REC DISCHARGED Page 1 of 1 Name Value Range Interpretation Code Description Data Esperanza rce(s) Supporting Document(s) ID Date Data Source [id number] 01/27/2020 06:37:00 AM EST [facility] 1 OrderSheet [facility] Emergency Department [address] [place] [address] Phone #: [phone]- [phone] 01/27/2020 06:30 Patient: BRENDA CARRINGTON Sex: M : 1930 Age: 89yWEIGHT:62.5 kg (S) HEIGHT:62 inches (S) BMI:25.2ALLERGIES: No Known Drug AllergyCHIEF COMPLAINT: urinary retentionDIAGNOSIS: Benign prostatic hyperplasia, Retention of urineLAB ORDERSOrder Description Priority Entered Acknowledged InitialedUrinalysis (Clean STAT 07:27 01/27/2020 07:47 Nessa Prasad) Marsha Persaud MD; RNDIAGNOSTIC STUDY ORDERSOrder Description Priority Entered Acknowledged InitialedUS RENAL LIMITED STAT 07:54 01/27/2020 Initialed: 07:57 Marsha Persaud MD(Oxygen?(No)) Marsha Persaud MD; Cancelled: Physician Order 07:57 Hung,(IV?(No)) Marsha TOBIN Reason for Study: post residual void bladder scanUS RENAL STAT 07:58 01/27/2020 Ack'd: 08:30 08:30 DANNI Jackson Norma MD; Delphine Jackson R.N.(Oxygen?(No)) Delphine Reeves(IV?(No)) Reason for Study: urinary retentionMEDICATION/IV/DRIP/FLUID ORDERSOrder Description Priority Entered Acknowledged InitialedGENERAL ORDERSOrder Description Priority Entered Acknowledged InitialedBladder Scan 07:52 01/27/2020 Cancelled: Physician Order 07:57 Hung Prasad Norma MD; Debbie RN[Electronically signed by Debbie Prasad RN (09:20 01/27/2020)][Electronically signed by Marsha Persaud MD (01:59 01/28/2020)][Electronically locked by Debbie Prasad RN (09:20 01/27/2020)] Name Value Range Interpretation Code Description Data Esperanza rce(s) Supporting Document(s) ID Date Data Source [id number] 01/27/2020 06:37:00 AM EST [facility] 1 Medication Reconciliation Report [facility] Emergency Department [address] [place] [address] Phone #: ext- [phone] 01/27/2020 06:30 Patient: BRENDA CARRINGTON Sex: M : 1930 Age: 89yWeight: 62.5 kgHeight/Length: 62 in.BMI: 25.2ALLERGIES: No Known Drug AllergyThe patient's Home Medications are listed below:CONTINUE TAKING THE FOLLOWING MEDICATIONS: Alfuzosin HCl ER Oral, daily amLODIPine Besylate Oral, daily Atorvastatin Calcium Oral (20 mg), daily Clopidogrel Bisulfate Oral, daily Lisinopril Oral, daily MetFORMIN HCl Oral (1000 mg) 1 tablet, 2x a day Metoprolol Succinate ER Oral dose unknown, daily Montelukast Sodium Oral 10 mg, daily Omeprazole Oral, daily Tamsulosin HCl Oral, dailyThe source(s) of the original Home Medication information:Not obtained.The following Medications were given to the patient in the Emergency Department:None.The following Medications were prescribed to the patient:None. 2 Medication Reconciliation Report [facility] Emergency Department [address] [place] [address] Phone #: ext- [phone] 01/27/2020 06:30 Patient: BRENDA CARRINGTON Sex: M : 1930 Age: 89y Name Value Range Interpretation Code Description Data Esperanza rce(s) Supporting Document(s) ID Date Data Source [id number] 01/27/2020 06:37:00 AM [facility] 1 Medication Administration Record [facility] Emergency Department [address] [place] [address] Phone #: ext- [phone] 06:30 Patient: BRENDA CARRINGTON Sex: M : 1930 Age: 89yWeight: 62.5 kgHeight/Length: 62 inBMI: 25.2ALLERGIES: No Known Drug AllergyDate/Time Medication Administered Medication Ordered Name Value Range Interpretation Code Description Data Esperanza rce(s) Supporting Document(s) ID Date Data Source [id number] 01/27/2020 06:37:00 AM [facility] 1 General Instructions [facility] Emergency Department [address] [place] [address] Phone #: ext [phone] 01/27/2020 06:30 Patient: BRENDA CARRINGTON Sex: M : 1930 Age: 89yUrinary retention with enlarged prostate.Benign prostatic hypertrophy with urinary retention. No prostatism.INSTRUCTIONS(Please call Dr. Moseley's office Tuesday morning for a f/u appt this week. Please be VERY CAREFUL withthe villalba. If it is pulled out accidentally, it will cause a lot of bleeding. please be careful. return if worseor any new problems. Take all medications as previously instructed.).Warnings: Further evaluation is necessary.GENERAL WARNINGS: Return or contact your physician immediately if your condition worsens orchanges unexpectedly, if not improving as expected, or if other problems arise.Your Current Medications: Your current home medications have been reviewed.CONTINUE TAKING THE FOLLOWING MEDICATIONS:Alfuzosin HCl ER Oral : daily.amLODIPine Besylate Oral : daily.Atorvastatin Calcium Oral : Tablet 20 mg, daily.Clopidogrel Bisulfate Oral : daily.Lisinopril Oral : daily.MetFORMIN HCl Oral : Tablet 1000 mg, 1 tablet 2x a day.Metoprolol Succinate ER Oral : dose unknown daily.Montelukast Sodium Oral : 10 mg daily.Omeprazole Oral : suleman y.Tamsulosin HCl Oral : daily.Follow-up:Follow up with your doctor Tuesday even if well. Call for an appointment. Reason for referral: evaluation.Summary of care provided to patient via paper.Understanding of the discharge instructions verbalized by patient.Follow-up with: Leonard Moseley M.D., Urology, , [address] [place] [address], [facility] Follow up Tuesday even if well. Call for an appointment. Reason for referral: evaluation. Summary ofcare provided to patient via paper. ADDITIONAL INFORMATION 2 General Instructions [facility] Emergency Department [address] [place] [address] Phone #: ext- [phone] 01/27/2020 06:30 Patient: BRENDA CARRINGTON Sex: M : 1930 Age: 89yUrinary Retention (Male)Urinary retention is the medical term for difficulty or inability to pass urine, even though your bladderis full.CausesThe most common cause of urinary retention in men is the bladder outlet being blocked. This can bedue to an enlarged prostate gland or a bladder infection. Certain medicines can also cause thisproblem. This condition is more likely to occur as men get older.SymptomsCommon symptoms of urinary retention include: Pain (not experienced by everyone) Frequent urination Feeling that the bladder is still full after urinating Incontinence (not being able to control the release of urine) Swollen abdomenTreatmentThis condition is treated by inserting a tube (catheter) into the bladder to drain the urine. Thisprovides immediate relief. The catheter may need to stay in place for a few days. The catheter has aballoon on the tip, which is inflated after insertion. This prevents the catheter from falling out. 3 General Instructions [facility] Emergency Department [address] [place] [address] Phone #: ext- [phone] 01/27/2020 06:30 Patient: BRENDA CARRINGTON Sex: M : 1930 Age: 89yHome care If you were given antibiotics, take them until they are used up, or your healthcare provider tells you to stop. It is important to finish the antibiotics even though you feel better. This is to make sure your infection has cleared. If a catheter was left in place, it is important to keep bacteria from getting into the collection bag. Don't disconnect the catheter from the collection bag. Use a leg band to secure the drainage tube, so it does not pull on the catheter. Drain the collection bag when it becomes full using the drain spout at the bottom of the bag. Don't pull on or try to remove your catheter. This will injure your urethra. The catheter must be removed by a healthcare provider.Follow-up careFollow up with your healthcare provider, or as advised.If a catheter was left in place, it can usually be removed within 3 to 7 days. Some conditions requirethe catheter to stay in longer. Your healthcare provider will tell you when to return to have thecatheter removed.When to seek medical adviceCall your healthcare provider right away if any of these occur: Fever of 100.4F (38C) or higher, or as directed by your healthcare provider Bladder or lower-abdominal pain or fullness Abdominal swelling, nausea, vomiting, or back pain Blood or urine leakage around the catheter Bloody urine coming from the catheter (if a new symptom) Weakness, dizziness, or fainting Confusion or change in usual level of alertness If a catheter was left in place, return if: o Catheter falls out o Catheter stops draining for 6 hours 5681-7775 [employer]. [address] [place] [address]. All rights reserved. 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 Always follow your healthcare professional's instructions.BPH (Enlarged Prostate)The prostate is a gland at the base of the bladder. As some men get older, the prostate may getbigger in size. This problem is called benign prostatic hyperplasia (BPH). BPH puts pressure on theurethra. This is the tube that carries urine from the bladder to the penis. It may interfere with the flowof urine. It may also keep the bladder from emptying fully.Symptoms of BPH include trouble starting urination and feeling as though the bladder isn't emptyingall the way. It also includes a weak urine stream, dribbling and leaking of urine, and frequent andurgent urination (especially at night). BPH can increase the risk of urinary infections. It can also blockoff urine flow completely. If this occurs, a thin tube (catheter) may be passed into the bladder to helpdrain urine.If symptoms are mild, no treatment may be needed right now. If symptoms are more severe,treatment is likely needed. The goal of treatment is to improve urine flow and reduce symptoms.Treatments can include medicine and procedures. Your healthcare provider will discuss treatment 5 General Instructions [facility] Emergency Department [address] [place] [address] Phone #: ext- [phone] 01/27/2020 06:30 Patient: BRENDA CARRINGTON Sex: M : 1930 Age: 89yoptions with you as needed.Home careThe following guidelines will help you care for yourself at home: Urinate as soon as you feel the urge. Don't try to hold your urine. Don't limit your fluid intake during the day. Drink 6 to 8 glasses of water or liquids a day. This prevents bacteria from building up in the bladder. Avoid drinking fluids after dinner to help reduce urination during the night. Avoid medicines that can worsen your symptoms. These include certain cold and allergy medicines and antidepressants. Diuretics used for high blood pressure can also worsen symptoms. Talk to your doctor about the medicines you take. Other choices may work better for you.Prostate cancer screeningBPH does not increase the risk of prostate cancer. But because prostate cancer is a common cancerin men, screening is sometimes recommended. This may help detect the cancer in its early stageswhen treatment is most effective. Factors that can increase the risk of prostate cancer include beingAfrican-Malagasy or having a father or brother who had prostate cancer. A high-fat diet may alsoincrease the risk of prostate cancer. Talk to your healthcare provider to see whether you should bescreened for prostate cancer.Follow-up careFollow up with your healthcare provider, or as advisedTo learn more, go to: National Kidney Urologic Diseases Information Clearinghouse kidney.niddk.nih.gov, 952-3090644When to seek medical a dviceCall your healthcare provider right away if any of these occur: Fever of 100.4F (38.0C) or higher, or as advised Unable to pass urine for 8 hours Increasing pressure or pain in your bladder (lower abdomen) Blood in the urine 6 General Instructions [facility] Emergency Department [address] [place] [address] Phone #: ext- [phone] 01/27/2020 06:30 Patient: BRENDA CARRINGTON Sex: M : 1930 Age: 89y Increasing low back pain, not related to injury Symptoms of urinary infection (increased urge to urinate, burning when passing urine, foul-smelling urine) [phone] [employer]. [address] [place] [address], [place] [address]. All rights reserved. This information is not intended as asubstitute for professional medical care. Always follow your healthcare professional's instructions. You have been given the following additional information: Urinary Retention, Male BPH (Enlarged Prostate)(El ectronically signed by Marsha Persaud MD 01/28/2020 01:59) Name Value Range Interpretation Code Description Data Esperanza rce(s) Supporting Document(s) ID Date Data Source [id number] 01/27/2020 06:37:00 AM EST [facility] 1 Clinical Report - Nurses [facility] Emergency Department [address] [place] [address] Phone #: ext- [phone] 01/27/2020 06:30 Patient: BERNDA CARRINGTON Sex: M : 1930 Age: 89yTRIAGEArrived by private vehicle. Historian: patient.Triage time: 06:34 01/27/2020. Acuity: LEVEL 4.Chief Complaint: (unable to control urine).This started yesterday. ( States has been dribbling urine since yesterday and has been wearing a diaperor using paper towel).Treatment UX DEVELOPER:None.SEPSIS SCREEN: SIRS Screen negative. Sepsis Screen negative. No suspected or confirmed signs ofinfection present. --06:42 01/27/20 Joseph Mckeon RN06:34 01/27/20. BP: 178/79. MAP: 112. HR: 116 (regular and tachycardic). RR: 18 (regular, unlaboredand normal). O2 saturation: 99%. Temp: 97.2 F (oral). Pain level now: 0/10. --06:42 01/27/20 TONY Givens.Weight: 62.5 kg stated. Height/Length: 62 inches Per Patient. BMI: 25.2. --06:38 01/27/20 Joseph Mckeon RN.MedicationsAtorvastatin Calcium Oral (Tablet 20 mg), daily. MetFORMIN HCl Oral (Tablet 1000 mg) 1 tablet, 2x a day. --07:14 01/27/20 Delphine Jackson R.N. Tamsulosin HCl Oral, daily. --07:14 01/27/20 Delphine Jackson R.N. Omeprazole Oral, daily. --07:15 01/27/20 Delphine Jackson R.N. Montelukast Sodium Oral 10 mg, daily. --07:15 01/27/20 Delphine Jackson R.N. Metoprolol Succinate ER Oral dose unknown, daily. --07:15 01/27/20 Delphine Jackson R.N. Lisinopril Oral, daily. --07:16 01/27/20 Delphine Jackson R.N. amLODIPine Besylate Oral, daily. --07:16 01/27/20 Delphine Jackson R.N. Alfuzosin HCl ER Oral, daily. --07:17 01/27/20 Delphine Jackson R.N. Clopidogrel Bisulfate Oral, daily. --07:17 01/27/20 Delphine Jackson R.N.The following entry was struck by Delphine Jackson R.N., 07:14 (01/27/20) Reason - other. Unable to Obtain. --06:44 01/27/20 Joseph Mckeon RN .AllergiesNo Known Drug Allergy. --06:44 01/27/20 Joseph Mckeon RN.PROBLEMS: 2 Clinical Report - Nurses [facility] Emergency Department [address] [place] [address] Phone #: ext- [phone] 01/27/2020 06:30 Patient: BRENDA CARRINGTON Sex: M : 1930 Age: 89y Enlarged prostate. --06:38 01/27/20 Joseph Mckeon RN. History SOCIAL HX: Never smoker. No alcohol use or drug use. The patient was offered HIV testing but declined and hepatitis C testing but declined. The patient has not traveled outside the [place] Infectious disease exposure: No infectious disease exposure. SELF HARM ASSESSMENT: Self harm assessment was performed. The patient answered "no" to the question(s) "Have you recently felt down, depressed, or hopeless?", "Do you have thoughts of harming or killing yourself?", "Do you have a plan for harming or killing yourself?", "Have you recently had thoughts about harming or killing others?", "Do you have any dangerous items in your possession?", "Have you noticed less interest or pleasure in doing things?", "Are you here because you tried to hurt yourself?" and "Have you ever tried to hurt yourself before today?". ABUSE ASSESSMENT: No report of abuse. FALL RISK ASSESSMENT: Fall risk assessment completed. No risk factors identified. --06:42 01/27/20 Joseph Mckeon RN PAST MEDICAL HX: Immunizations: up-to-date. ( Patient states he takes" quite a bit of medications and doesn't know them and doesn't have a list. Unable to state medical problems). --06:47 01/27/20 Joseph Mckeon RN. Assessment The patient states feels the same. --06:42 01/27/20 Joseph Mckeon RN.PHYSICAL ASSESSMENTAmbulatory to room.GENERAL / NEURO / PSYCH: Alert. Oriented X 4. Appears in no acute distress.HEENT: Mucous membranes are pink.RESPIRATORY: Respirations not labored. Breath sounds within normal limits.CVS: Capillary refill less than 2 seconds.GI / : Abdomen soft and nontender. Bowel sounds within normal limits. The patient has hadfrequency of urination.SKIN: Skin is warm and dry. --06:43 01/27/20 Joseph Mckeon RN.NURSING PROGRESS NOTESPatient gowned. Reassurance given to the patient. Call light placed in reach of patient. Bed placed inlowest position. Brakes of bed on. Patient ready for evaluation- ED physician notified. --06:43 01/27/20leigh Mckeon RN 08:32 01/27/20. Reassurance given to the patient. ( us at bedside). --08:32 01/27/20 Delphine Jackson R.N. 3 Clinical Report - Nurses [facility] Emergency Department [address] [place] [address] Phone #: ext- [phone] 01/27/2020 06:30 Patient: BRENDA CARRINGTON Sex: M : 1930 Age: 89y 08:35 01/27/20. Two patient identifiers checked. Patient ID band checked for patient name and birthdate: patient confirmed. Side rails up x 1. Bed placed in lowest position. Brakes of bed on. ( us tech reports pt has 800 ml in bladder post void, provider made aware). --08:35 01/27/20 Delphine Jackson R.N. 08:33 01/27/20. BP: 166/89. MAP: 114. HR: 100. RR: 18. O2 saturation: 99%. Temp: 98.3 F (oral). Pain level now: 0/10. --08:35 01/27/20 Delphine Jackson R.N. 08:40 01/27/20. Patient transported to sonogram by wheelchair with echocardiography radiology technologist. --09:12 01/27/20 Debbie Prasad RN Charted On Wrong Patient --09:13 01/27/20 Debbie Prasad RN 08:45 01/27/20. 16 fr villalba catheter placed in ED. Reason for indwelling catheter: retention. During procedure hand hygiene observed and sterile equipment and aseptic technique used. Return of 1000 mL bucky-colored clear urine; attached to bedside drainage bag positioned below the bladder and secured with stabilization device. He tolerated procedure well. Patient returned from sonogram by wheelchair with echocardiography radiology technologist. --09:14 01/27/20 Debbie Prasad RN 09:00 01/27/20. ( MD aware of villalba output. after it drained, leg bag applied to R leg, instructions given to pt. verbalizes understanding.). --09:16 01/27/20 Debbie Prasad RN.DISPOSITION / DISCHARGE Departure time: 09:01/27/2020. --09:11 01/27/20 Debbie Prasad RN Condition at departure: improved and stable. Discharge instructions provided and reviewed with the patient. Reviewed catheter care instructions (reviewed villalba care). Reviewed referral to a urologist. Patient verbalized understanding. Written instructions provided in Maldivian. The patient was discharged by the physician. He was discharged home and unaccompanied at time of discharge. He left ambulatory and via private vehicle. Patient driving. --09:19 01/27/20 Debbie Prasad RN 09:00 01/27/20. BP: 155/89. MAP: 111. HR: 89. RR: 16. O2 saturation: 99%. Temp: 98.5 F. Pain level now: 0. --09:20 01/27/20 Debbie Prasad RN.Locked/Released at 01/27/2020 09:20 by Debbie Prasad RN Name Value Range Interpretation Code Description Data Esperanza rce(s) Supporting Document(s) ID Date Data Source [id number] 01/27/2020 06:37:00 AM [facility] 1 Clinical Report - Physicians/Mid Levels [facility] Emergency Department [address] [place] [address] Phone #: [phone]- [phone] 01/27/2020 06:30 Patient: BRENDA CARRINGTON Sex: M : 1930 Age: 89y Arrived- By private vehicle. Historian- patient. Disposition decision: 08:54 01/27/2020.HISTORY OF PRESENT ILLNESS Chief Complaint: URINARY RETENTION. This started yesterday and is still present. The problem is described as mild. No penile discharge, discomfort with urination, genital lesion, testicular pain or flank pain. No inguinal swelling or problem with the foreskin. The patient has had urinary frequency. The patient has had urgency of urination and Villalba catheter problems (n/a), and been voiding small amounts. Able to void. Sexual history is noncontributory. (his started yesterday. ( States has been dribbling urine since yesterday and has been wearing a diaper or using paper towel. pt states he use to see a urologist but it has been over 5 years. he denies any abdominal pain, n/v/diarreha/f/chills.). Similar symptoms previously. (long time ago). Recent medical care: Not recently seen/assessed.REVIEW OF SYSTEMSNo fever, chills, flank pain or hematuria. No abdominal pain or pain, vomiting, diarrhea or black stools.No bloody stools, headache, sore throat or throat or blurred vision. No chest pain or pain, difficultybreathing, cough or joint pain. No back pain or pain, chills, fever or double vision. No ear pain, epistaxis,cough, difficulty breathing or constipation. No diarrhea, nausea, vomiting, skin rash or headache. Noeasy bruising. The patient has had urinary hesitancy.PAST HISTORYSee nurses notes. Problems: Diabetes Mellitus. Hypercholesterolemia. Weakness. Hypertension. Enlarged prostate. Medications: Clopidogrel Bisulfate Oral, daily. Alfuzosin HCl ER Oral, daily. amLODIPine Besylate Oral, daily. Lisinopril Oral, daily. Metoprolol Succinate ER Oral dose unknown, daily. 2 Clinical Report - Physicians/Mid Levels [facility] Emergency Department [address] [place] [address] Phone #: [phone] 01/27/2020 06:30 Patient: BRENDA CARRINGTON Sex: M : 1930 Age: 89y Montelukast Sodium Oral 10 mg, daily. Omeprazole Oral, daily. Tamsulosin HCl Oral, daily. Atorvastatin Calcium Oral (Tablet 20 mg), daily. MetFORMIN HCl Oral (Tablet 1000 mg) 1 tablet, 2x a day. Allergies: No Known Drug Allergy.SOCIAL HISTORYNo drug use.ADDITIONAL NOTESThe nursing notes have been reviewed.PHYSICAL EXAMVital Signs: 01/27/2020 09:00 BP: 155/89. MAP: 111. HR: 89. RR: 16. O2 saturation: 99%. Temp: 98.5 F.Pain level now: 0/10.01/27/2020 08:33 BP: 166/89. MAP: 114. HR: 100. RR: 18. O2 saturation: 99%. Temp: 98.3 F. Pain levelnow: 0/10.01/27/2020 06:34 BP: 178/79. MAP: 112. HR: 116. RR: 18. O2 saturation: 99%. Temp: 97.2 F. Pain levelnow: 0/10. Have been reviewed and appear to be correct. Hypertensive. Mean arterial pressure- high.Heart rate normal. Respiratory rate normal. Temperature normal. Oxygen satu ration normal.Appearance: Alert. Oriented X3. No acute distress.ENT: Normal external inspection. Pharynx normal.Neck: Neck supple.CVS: Heart sounds normal.Respiratory: No respiratory distress. Painless inspiration. Breath sounds normal.Abdomen: Soft and nontender. Bowel sounds normal.Back: Normal external inspection.: Normal genitalia. Testes descended. No scrotal swelling.Skin: Skin warm and dry. Normal skin color. No rash. Normal skin turgor.Extremities: Extremities exhibit normal ROM. No lower extremity edema.Neuro: Oriented X 3.LABS, X-RAYS, AND EKGLaboratory Tests: US RENAL COMPLETE: (MARIETTA: 01/27/2020 07:58) ( MsgRcvd 01/27/2020 08:38) In Progress US RENAL COMPLETE Reason(s): urinary retention TRANSPORTATION: IV? IV?(No) O2? Oxygen?(No) Kayla US RENAL LIMITED: ([place]: 01/27/2020 07:54) ( MsgRcvd 01/27/2020 07:58) Canceled Reason(s): post residual void bladder scan Reason(s): post residual void bladder scan 3 Clinical Report - Physicians/Mid Levels [facility] Emergency Department [address] [place] [address] Phone #: [phone] 01/27/2020 06:30 Patient: BRENDA CARRINGTON Sex: M : 1930 Age: 89y TRANSPORTATION: IV? IV?(No) O2? Oxygen?(No) Kayla Urinalysis: ([place]: 01/27/2020 07:10) ( MsgRcvd 01/27/2020 07:43) Final results Test Result Flag Units (Reference) URINALYSIS URINALYSIS SOURCE R COLOR yellow (NORMAL: Yello CLARITY Clear (NORMAL: Clear SPEC GRAVITY 1.020 (1.001 - 1.030 pH 5 (5 - 9) GLUCOSE NORM (NORMAL: Negat BILIRUBIN NEG (NORMAL: Negat KETONE NEG (NORMAL: Negat PROTEIN 15 (NORMAL: Negat NITRITE NEG (NORMAL: Negat BLOOD NEG (NORMAL: Negat LEUK EST NEG (NORMAL: Negat UROBILINOGEN NOR (less than 1.0 MICROSCOPIC See Below WBC 0 - 1 (NORMAL: NONE RBC 0 - 1 (NORMAL: NONE EPITHELIAL FEW (NORMAL: NONE BACTERIA Trace (NORMAL: NONE.PROGRESS AND PROCEDURESCourse of Care: pt is a 89 year old male who presents for evaluation of his urinary retention. his urineshows no evidence of a uti. an us showed significant post void residual. a villalba was placed and he hadapprox 800cc come out in the villalba. I gave pt a referral to Dr. Moseley's office. I instructed him to return ifany concerns, problems. pt voiced understanding of all instructions. Patient/family counseled. Disposition: Discharged. Condition: good and stable.CLINICAL IMPRESSION Urinary retention with enlarged prostate. Benign prostatic hypertrophy with urinary retention. No prostatism.INSTRUCTIONS (Please call Dr. Moseley's office Tuesday morning for a f/u appt this week. Please be VERY CAREFUL with the villalba. If it is pulled out accidentally, it will cause a lot of bleeding. please be careful. return if worse or any new problems. Take all medications as previously instructed.). 4 Clinical Report - Physicians/Mid [facility] Emergency Department [address] [place] [address] Phone #: [phone]- [phone] 01/27/2020 06:30 Patient: BRENDA CARRINGTON Sex: M : 1930 Age: 89y Warnings: Further evaluation is necessary. GENERAL WARNINGS: Return or contact your physician immediately if your condition worsens or changes unexpectedly, if not improving as expected, or if other problems arise. Your Current Medications: Your current home medications have been reviewed. CONTINUE TAKING THE FOLLOWING MEDICATIONS: Alfuzosin HCl ER Oral : daily. amLODIPine Besylate Oral : daily. Atorvastatin Calcium Oral : Tablet 20 mg, daily. Clopidogrel Bisulfate Oral : daily. Lisinopril Oral : daily. MetFORMIN HCl Oral : Tablet 1000 mg, 1 tablet 2x a day. Metoprolol Succinate ER Oral : dose unknown daily. Montelukast Sodium Oral : 10 mg daily. Omeprazole Oral : daily. Tamsulosin HCl Oral : daily. Follow-up: Follow up with your doctor Tuesday even if well. Call for an appointment. Reason for referral: evaluation. Summary of care provided to patient via paper. Understanding of the discharge instructions verbalized by patient. Follow-up with: Leonard Moseley M.D., Urology, , [address] [place] [address], [phone] Follow up Tuesday even if well. Call for an appointment. Reason for referral: evaluation. Summary of care provided to patient via paper.(Electronically signed by Marsha Persaud MD 01/28/2020 01:59) Name Value Range Interpretation Code Description Data Esperanza rce(s) Supporting Document(s) ID Date Data Source [id number] 01/27/2020 07:10:00 AM EST [facility] ([facility] Name Value Range Interpretation Code Description Data Esperanza rce(s) Supporting Document(s) Source Laboratory test result [facility] ([facility] SOURCE: Clean Catch Urinalysis Laboratory test result [place] [facility] ([facility] SOURCE: Clean Catch Spec [place] 1.020 1.001-1.030 [facility] ([facility] SOURCE: Clean Catch Color Laboratory test result [facility] ([facility] SOURCE: Clean Catch Clarity Laboratory test result [facility] ([facility] SOURCE: Clean Catch pH 5 5-9 [facility] ([facility] SOURCE: Clean Catch Bilirubin Laboratory test result [place] [facility] ([facility] SOURCE: Clean Catch Glucose Laboratory test result [facility] ([facility] SOURCE: Clean Catch Ketone Laboratory test result [facility] ([facility] SOURCE: Clean Catch Protein 15 [facility] ([facility] SOURCE: Clean Catch Nitrite Laboratory test result [facility] ([facility] SOURCE: Clean Catch Leuk Est Laboratory test result [facility] ([facility] SOURCE: Clean Catch Blood Laboratory test result [facility] ([facility] SOURCE: Clean Catch Urobilinogen Laboratory test result [facility] ([facility] SOURCE: Clean Catch Microscopic Laboratory test result M [facility] ([facility] SOURCE: Clean Catch WBC Laboratory test result [facility] ([facility] SOURCE: Clean Catch RBC Laboratory test result [facility] ([facility] SOURCE: Clean Catch Epithelial Laboratory test result [place] ([facility] SOURCE: Clean Catch Bacteria Laboratory test result [facility] ([facility] SOURCE: Clean Catch ID Date Data Source [id number] 01/27/2020 07:42:00 AM EST [facility] Name Value Range Interpretation Code Description Data Esperanza rce(s) Supporting Document(s) [facility] COL[facility] yellow NORMAL: Yellow [facility] CLARITY Clear NORMAL: Clear [facility] Specific gravity of Urine by Test strip 1.020 1.001 - 1.030 [facility] pH 5 5 - 9 [facility] Glucose [Mass/volume] in Urine by Test strip NORM NORMAL: Negat [facility] Bilirubin.total [Presence] in Urine by Test strip NEG NORMAL: Negative [facility] Ketones [Presence] in Urine by Test strip NEG NORMAL: Negative [facility] Protein [Mass/volume] in Urine by Test strip 15 NORMAL: Negat [facility] Nitrite [Presence] in Urine by Test strip NEG NORMAL: Negative [facility] BLOOD NEG NORMAL: Negative [facility] Leukocyte esterase [Presence] in Urine by Test strip NEG MARSHA L: Negative [facility] Urobilinogen [Mass/volume] in Urine by Test strip NOR less steven n 1.0 mg/dL [facility] MICROSCOPIC See Below [facility] ital WBC 0 - 1 NORMAL: NONE SEEN [facility] Erythrocytes [#/volume] in Urine by Test strip 0 - 1 NORMAL: NON E SEEN [facility] EPITHELIAL FEW NORMAL: NONE SEEN [facility] Bacteria [Presence] in Urine sediment by Light microscopy Tr mora NORMAL: NONE SEEN [facility] ID Date Data Source [id number] 01/16/2020 08:43:00 AM EST [facility] ([facility] Name Value Range Interpretation Code Description Data Esperanza rce(s) Supporting Document(s) WBC 6.0 10E3/uL 4.1-10.9 [facility] NORMAL RANGES Age WBC RBC HGB HCT [...] HCT IS 5% LESS SOURCE FOR DATA: BigTip 1800 OPERATION MANUAL( AUTOMATED BLOOD COUNTS AND [...] DESIRABLE: <130 MG/DL <110 MG/DL BORDERLINE-HIGH RISK: 130- 159 MG/DL 110-129 MG/DL HIGH RISK: >160 MG/DL >130 MG/DL *CHILDREN AND ADOLESCENTS REPRESENTS INDIVIDUALA AGED 2-19 YEARS EXCLUSIVE. HCT 35.6 % 37.0-51.0 Below low normal [facility] ( [facility] NORMAL RANGES Age WBC RBC HGB HCT [...] HCT IS 5% LESS SOURCE FOR DATA: [employer]Tip 1800 OPERATION MANUAL( AUTOMATED BLOOD COUNTS AND [...] DESIRABLE: <130 MG/DL <110 MG/DL BORDERLINE-HIGH RISK: 130- 159 MG/DL 110-129 MG/DL HIGH RISK: >160 MG/DL >130 MG/DL *CHILDREN AND ADOLESCENTS REPRESENTS INDIVIDUALA AGED 2-19 YEARS EXCLUSIVE. RBC 3.78 10E6/uL 4.20-6.30 Below low normal [facility] ([facility] NORMAL RANGES Age WBC RBC HGB HCT [...] HCT IS 5% LESS SOURCE FOR DATA: [employer]Tip 1800 OPERATION MANUAL( AUTOMATED BLOOD COUNTS AND [...] DESIRABLE: <130 MG/DL <110 MG/DL BORDERLINE-HIGH RISK: 130- 159 MG/DL 110-129 MG/DL HIGH RISK: >160 MG/DL >130 MG/DL *CHILDREN AND ADOLESCENTS REPRESENTS INDIVIDUALA AGED 2-19 YEARS EXCLUSIVE. HGB 12.4 g/dL 12.0-18.0 [facility] ([facility] NORMAL RANGES Age WBC RBC HGB HCT [...] HCT IS 5% LESS SOURCE FOR DATA: YARI Helpa 1800 OPERATION MANUAL( AUTOMATED BLOOD COUNTS AND [...] DESIRABLE: <130 MG/DL <110 MG/DL BORDERLINE-HIGH RISK: 130- 159 MG/DL 110-129 MG/DL HIGH RISK: >160 MG/DL >130 MG/DL *CHILDREN AND ADOLESCENTS REPRESENTS INDIVIDUALA AGED 2-19 YEARS EXCLUSIVE. MCHC 34.8 g/dL 31.0-36.0 [facility] ([facility] NORMAL RANGES Age WBC RBC HGB HCT [...] HCT IS 5% LESS SOURCE FOR DATA: [employer]Tip 1800 OPERATION MANUAL( AUTOMATED BLOOD COUNTS AND [...] DESIRABLE: <130 MG/DL <110 MG/DL BORDERLINE-HIGH RISK: 130- 159 MG/DL 110-129 MG/DL HIGH RISK: >160 MG/DL >130 MG/DL *CHILDREN AND ADOLESCENTS REPRESENTS INDIVIDUALA AGED 2-19 YEARS EXCLUSIVE. MCH 32.8 pg 26.0-32.0 Above high normal [facility] ([facility] NORMAL RANGES Age WBC RBC HGB HCT [...] HCT IS 5% LESS SOURCE FOR DATA: [employer]Tip 1800 OPERATION MANUAL( AUTOMATED BLOOD COUNTS AND [...] DESIRABLE: <130 MG/DL <110 MG/DL BORDERLINE-HIGH RISK: 130- 159 MG/DL 110-129 MG/DL HIGH RISK: >160 MG/DL >130 MG/DL *CHILDREN AND ADOLESCENTS REPRESENTS INDIVIDUALA AGED 2-19 YEARS EXCLUSIVE. MCV 94.2 fL 80.0-97.0 [facility] ([facility] NORMAL RANGES Age WBC RBC HGB HCT [...] HCT IS 5% LESS SOURCE FOR DATA: YARI DYN 1800 OPERATION MANUAL( AUTOMATED BLOOD COUNTS [...] DESIRABLE: <130 MG/DL <110 MG/DL BORDERLINE-HIGH RISK: 130- 159 MG/DL 110-129 MG/DL HIGH RISK: >160 MG/DL >130 MG/DL *CHILDREN AND ADOLESCENTS REPRESENTS INDIVIDUALA AGED 2-19 YEARS EXCLUSIVE. Lym% 27.0 % 10.0-58.5 [facility] ([facility] NORMAL RANGES Age WBC RBC HGB HCT [...] HCT IS 5% LESS SOURCE FOR DATA: BigTip 1800 OPERATION MANUAL( AUTOMATED BLOOD COUNTS AND [...] DESIRABLE: <130 MG/DL <110 MG/DL BORDERLINE-HIGH RISK: 130- 159 MG/DL 110-129 MG/DL HIGH RISK: >160 MG/DL >130 MG/DL *CHILDREN AND ADOLESCENTS REPRESENTS INDIVIDUALA AGED 2-19 YEARS EXCLUSIVE. PLT 346 10E3/uL 140-440 [facility] ([facility] NORMAL RANGES Age WBC RBC HGB HCT [...] HCT IS 5% LESS SOURCE FOR DATA: BigTip 1800 OPERATION MANUAL( AUTOMATED BLOOD COUNTS AND [...] DESIRABLE: <130 MG/DL <110 MG/DL BORDERLINE-HIGH RISK: 130- 159 MG/DL 110-129 MG/DL HIGH RISK: >160 MG/DL >130 MG/DL *CHILDREN AND ADOLESCENTS REPRESENTS INDIVIDUALA AGED 2-19 YEARS EXCLUSIVE. RDW-CV 14.2 % 11.5-14.5 [facility] ([facility] NORMAL RANGES Age WBC RBC HGB HCT [...] HCT IS 5% LESS SOURCE FOR DATA: [employer] DYN 1800 OPERATION MANUAL( AUTOMATED BLOOD COUNTS [...] DESIRABLE: <130 MG/DL <110 MG/DL BORDERLINE-HIGH RISK: 130- 159 MG/DL 110-129 MG/DL HIGH RISK: >160 MG/DL >130 MG/DL *CHILDREN AND ADOLESCENTS REPRESENTS INDIVIDUALA AGED 2-19 YEARS EXCLUSIVE. Neut% 66.6 % 37.0-92.0 [facility] ([facility] NORMAL RANGES Age WBC RBC HGB HCT [...] HCT IS 5% LESS SOURCE FOR DATA: BigTip 1800 OPERATION MANUAL( AUTOMATED BLOOD COUNTS AND [...] DESIRABLE: <130 MG/DL <110 MG/DL BORDERLINE-HIGH RISK: 130- 159 MG/DL 110-129 MG/DL HIGH RISK: >160 MG/DL >130 MG/DL *CHILDREN AND ADOLESCENTS REPRESENTS INDIVIDUALA AGED 2-19 YEARS EXCLUSIVE. MXD% 6.4 % 0.1-24.0 [facility] ([facility] NORMAL RANGES Age WBC RBC HGB HCT [...] HCT IS 5% LESS SOURCE FOR DATA: [employer]Tip 1800 OPERATION MANUAL( AUTOMATED BLOOD COUNTS AND [...] DESIRABLE: <130 MG/DL <110 MG/DL BORDERLINE-HIGH RISK: 130- 159 MG/DL 110-129 MG/DL HIGH RISK: >160 MG/DL >130 MG/DL *CHILDREN AND ADOLESCENTS REPRESENTS INDIVIDUALA AGED 2-19 YEARS EXCLUSIVE. Lym# 1.6 10E3/uL 0.6-4.1 [facility] ([facility] NORMAL RANGES Age WBC RBC HGB HCT [...] HCT IS 5% LESS SOURCE FOR DATA: [employer]Tip 1800 OPERATION MANUAL( AUTOMATED BLOOD COUNTS AND [...] DESIRABLE: <130 MG/DL <110 MG/DL BORDERLINE-HIGH RISK: 130- 159 MG/DL 110-129 MG/DL HIGH RISK: >160 MG/DL >130 MG/DL *CHILDREN AND ADOLESCENTS REPRESENTS INDIVIDUALA AGED 2-19 YEARS EXCLUSIVE. Neut# 4.0 % 2.0-7.8 [facility] ([facility] NORMAL RANGES Age WBC RBC HGB HCT [...] HCT IS 5% LESS SOURCE FOR DATA: [employer]Tip 1800 OPERATION MANUAL( AUTOMATED BLOOD COUNTS AND [...] DESIRABLE: <130 MG/DL <110 MG/DL BORDERLINE-HIGH RISK: 130- 159 MG/DL 110-129 MG/DL HIGH RISK: >160 MG/DL >130 MG/DL *CHILDREN AND ADOLESCENTS REPRESENTS INDIVIDUALA AGED 2-19 YEARS EXCLUSIVE. MXD# 0.4 10E3/uL 0.0-1.8 [facility] ([facility] NORMAL RANGES Age WBC RBC HGB HCT [...] HCT IS 5% LESS SOURCE FOR DATA: [employer]Tip 1800 OPERATION MANUAL( AUTOMATED BLOOD COUNTS AND [...] DESIRABLE: <130 MG/DL <110 MG/DL BORDERLINE-HIGH RISK: 130- 159 MG/DL 110-129 MG/DL HIGH RISK: >160 MG/DL >130 MG/DL *CHILDREN AND ADOLESCENTS REPRESENTS INDIVIDUALA AGED 2-19 YEARS EXCLUSIVE. MPV 8.0 fL 9.0-13.0 Below low normal [facility] ( [facility] NORMAL RANGES Age WBC RBC HGB HCT [...] HCT IS 5% LESS SOURCE FOR DATA: [employer]Tip 1800 OPERATION MANUAL( AUTOMATED BLOOD COUNTS AND [...] DESIRABLE: <130 MG/DL <110 MG/DL BORDERLINE-HIGH RISK: 130- 159 MG/DL 110-129 MG/DL HIGH RISK: >160 MG/DL >130 MG/DL *CHILDREN AND ADOLESCENTS REPRESENTS INDIVIDUALA AGED 2-19 YEARS EXCLUSIVE. ID Date Data Source [id number] 01/16/2020 08:43:00 AM EST [facility] ([facility] Name Value Range Interpretation Code Description Data Esperanza rce(s) Supporting Document(s) Glu 130 mg/dL 70-110 Above high normal [facility] ([facility] NORMAL RANGES Age WBC RBC HGB HCT [...] HCT IS 5% LESS SOURCE FOR DATA: [employer]Tip 1800 OPERATION MANUAL( AUTOMATED BLOOD COUNTS AND [...] DESIRABLE: <130 MG/DL <110 MG/DL BORDERLINE-HIGH RISK: 130- 159 MG/DL 110-129 MG/DL HIGH RISK: >160 MG/DL >130 MG/DL *CHILDREN AND ADOLESCENTS REPRESENTS INDIVIDUALA AGED 2-19 YEARS EXCLUSIVE. BUN 19 mg/dL 8-23 [facility] ([facility] NORMAL RANGES Age WBC RBC HGB HCT [...] HCT IS 5% LESS SOURCE FOR DATA: [employer]Tip 1800 OPERATION MANUAL( AUTOMATED BLOOD COUNTS AND [...] DESIRABLE: <130 MG/DL <110 MG/DL BORDERLINE-HIGH RISK: 130- 159 MG/DL 110-129 MG/DL HIGH RISK: >160 MG/DL >130 MG/DL *CHILDREN AND ADOLESCENTS REPRESENTS INDIVIDUALA AGED 2-19 YEARS EXCLUSIVE. Na 133 mmol/L 136-145 Below low normal [facility] ( [facility] NORMAL RANGES Age WBC RBC HGB HCT [...] HCT IS 5% LESS SOURCE FOR DATA: [employer]Tip 1800 OPERATION MANUAL( AUTOMATED BLOOD COUNTS AND [...] DESIRABLE: <130 MG/DL <110 MG/DL BORDERLINE-HIGH RISK: 130- 159 MG/DL 110-129 MG/DL HIGH RISK: >160 MG/DL >130 MG/DL *CHILDREN AND ADOLESCENTS REPRESENTS INDIVIDUALA AGED 2-19 YEARS EXCLUSIVE. Creat 1.0 mg/dL 0.7-1.2 [facility] ([facility] NORMAL RANGES Age WBC RBC HGB HCT [...] HCT IS 5% LESS SOURCE FOR DATA: [employer]Tip 1800 OPERATION MANUAL( AUTOMATED BLOOD COUNTS AND [...] DESIRABLE: <130 MG/DL <110 MG/DL BORDERLINE-HIGH RISK: 130- 159 MG/DL 110-129 MG/DL HIGH RISK: >160 MG/DL >130 MG/DL *CHILDREN AND ADOLESCENTS REPRESENTS INDIVIDUALA AGED 2-19 YEARS EXCLUSIVE. BUN/Creatinine Ratio 20.1 CALC [facility] ([facility] NORMAL RANGES Age WBC RBC HGB HCT [...] HCT IS 5% LESS SOURCE FOR DATA: [employer] DYN 1800 OPERATION MANUAL( AUTOMATED BLOOD COUNTS [...] DESIRABLE: <130 MG/DL <110 MG/DL BORDERLINE-HIGH RISK: 130- 159 MG/DL 110-129 MG/DL HIGH RISK: >160 MG/DL >130 MG/DL *CHILDREN AND ADOLESCENTS REPRESENTS INDIVIDUALA AGED 2-19 YEARS EXCLUSIVE. CA 10.2 mg/dL 8.6-10.2 [facility] ([facility] NORMAL RANGES Age WBC RBC HGB HCT [...] HCT IS 5% LESS SOURCE FOR DATA: [employer]Tip 1800 OPERATION MANUAL( AUTOMATED BLOOD COUNTS AND [...] DESIRABLE: <130 MG/DL <110 MG/DL BORDERLINE-HIGH RISK: 130- 159 MG/DL 110-129 MG/DL HIGH RISK: >160 MG/DL >130 MG/DL *CHILDREN AND ADOLESCENTS REPRESENTS INDIVIDUALA AGED 2-19 YEARS EXCLUSIVE. K 5.4 mmol/L 3.5-5.1 Above high normal [facility] ([facility] NORMAL RANGES Age WBC RBC HGB HCT [...] HCT IS 5% LESS SOURCE FOR DATA: [employer]Tip 1800 OPERATION MANUAL( AUTOMATED BLOOD COUNTS AND [...] DESIRABLE: <130 MG/DL <110 MG/DL BORDERLINE-HIGH RISK: 130- 159 MG/DL 110-129 MG/DL HIGH RISK: >160 MG/DL >130 MG/DL *CHILDREN AND ADOLESCENTS REPRESENTS INDIVIDUALA AGED 2-19 YEARS EXCLUSIVE. Co2 24.7 mmol/L 22.0-29.0 [place] ([facility] NORMAL RANGES Age WBC RBC HGB HCT [...] HCT IS 5% LESS SOURCE FOR DATA: [employer] DYN 1800 OPERATION MANUAL( AUTOMATED BLOOD COUNTS [...] DESIRABLE: <130 MG/DL <110 MG/DL BORDERLINE-HIGH RISK: 130- 159 MG/DL 110-129 MG/DL HIGH RISK: >160 MG/DL >130 MG/DL *CHILDREN AND ADOLESCENTS REPRESENTS INDIVIDUALA AGED 2-19 YEARS EXCLUSIVE. CL 96.5 mmol/L 98.0-107.0 Below low normal [facility] ([facility] NORMAL RANGES Age WBC RBC HGB HCT [...] HCT IS 5% LESS SOURCE FOR DATA: [employer]Tip 1800 OPERATION MANUAL( AUTOMATED BLOOD COUNTS AND [...] DESIRABLE: <130 MG/DL <110 MG/DL BORDERLINE-HIGH RISK: 130- 159 MG/DL 110-129 MG/DL HIGH RISK: >160 MG/DL >130 MG/DL *CHILDREN AND ADOLESCENTS REPRESENTS INDIVIDUALA AGED 2-19 YEARS EXCLUSIVE. TP 6.7 g/dL 6.6-8.7 [facility] ([facility] NORMAL RANGES Age WBC RBC HGB HCT [...] HCT IS 5% LESS SOURCE FOR DATA: [employer]Tip 1800 OPERATION MANUAL( AUTOMATED BLOOD COUNTS AND [...] DESIRABLE: <130 MG/DL <110 MG/DL BORDERLINE-HIGH RISK: 130- 159 MG/DL 110-129 MG/DL HIGH RISK: >160 MG/DL >130 MG/DL *CHILDREN AND ADOLESCENTS REPRESENTS INDIVIDUALA AGED 2-19 YEARS EXCLUSIVE. A/G Ratio 2.3 CALC [place] ([facility] NORMAL RANGES Age WBC RBC HGB HCT [...] HCT IS 5% LESS SOURCE FOR DATA: [employer]Tip 1800 OPERATION MANUAL( AUTOMATED BLOOD COUNTS AND [...] DESIRABLE: <130 MG/DL <110 MG/DL BORDERLINE-HIGH RISK: 130- 159 MG/DL 110-129 MG/DL HIGH RISK: >160 MG/DL >130 MG/DL *CHILDREN AND ADOLESCENTS REPRESENTS INDIVIDUALA AGED 2-19 YEARS EXCLUSIVE. Alb 4.6 g/dL 3.5-5.2 [facility] ([facility] NORMAL RANGES Age WBC RBC HGB HCT [...] HCT IS 5% LESS SOURCE FOR DATA: [employer]Tip 1800 OPERATION MANUAL( AUTOMATED BLOOD COUNTS AND [...] DESIRABLE: <130 MG/DL <110 MG/DL BORDERLINE-HIGH RISK: 130- 159 MG/DL 110-129 MG/DL HIGH RISK: >160 MG/DL >130 MG/DL *CHILDREN AND ADOLESCENTS REPRESENTS INDIVIDUALA AGED 2-19 YEARS EXCLUSIVE. Globulin 2.0 CALC [facility] ([facility] NORMAL RANGES Age WBC RBC HGB HCT [...] HCT IS 5% LESS SOURCE FOR DATA: BigTip 1800 OPERATION MANUAL( AUTOMATED BLOOD COUNTS AND [...] DESIRABLE: <130 MG/DL <110 MG/DL BORDERLINE-HIGH RISK: 130- 159 MG/DL 110-129 MG/DL HIGH RISK: >160 MG/DL >130 MG/DL *CHILDREN AND ADOLESCENTS REPRESENTS INDIVIDUALA AGED 2-19 YEARS EXCLUSIVE. Alt (SGPT) 16 U/L 0-41 [facility] ([facility] NORMAL RANGES Age WBC RBC HGB HCT [...] HCT IS 5% LESS SOURCE FOR DATA: [employer] DYN 1800 OPERATION MANUAL( AUTOMATED BLOOD COUNTS [...] DESIRABLE: <130 MG/DL <110 MG/DL BORDERLINE-HIGH RISK: 130- 159 MG/DL 110-129 MG/DL HIGH RISK: >160 MG/DL >130 MG/DL *CHILDREN AND ADOLESCENTS REPRESENTS INDIVIDUALA AGED 2-19 YEARS EXCLUSIVE. Alp 68.1 U/L 40-129 [facility] ([facility] NORMAL RANGES Age WBC RBC HGB HCT [...] HCT IS 5% LESS SOURCE FOR DATA: BigTip 1800 OPERATION MANUAL( AUTOMATED BLOOD COUNTS AND [...] DESIRABLE: <130 MG/DL <110 MG/DL BORDERLINE-HIGH RISK: 130- 159 MG/DL 110-129 MG/DL HIGH RISK: >160 MG/DL >130 MG/DL *CHILDREN AND ADOLESCENTS REPRESENTS INDIVIDUALA AGED 2-19 YEARS EXCLUSIVE. Ast (Sgot) 18 U/L 0-40 [facility] ([facility] NORMAL RANGES Age WBC RBC HGB HCT [...] HCT IS 5% LESS SOURCE FOR DATA: BigTip 1800 OPERATION MANUAL( AUTOMATED BLOOD COUNTS AND [...] DESIRABLE: <130 MG/DL <110 MG/DL BORDERLINE-HIGH RISK: 130- 159 MG/DL 110-129 MG/DL HIGH RISK: >160 MG/DL >130 MG/DL *CHILDREN AND ADOLESCENTS REPRESENTS INDIVIDUALA AGED 2-19 YEARS EXCLUSIVE. Tbili 0.36 mg/dL 0.0-1.2 [facility] ([facility] NORMAL RANGES Age WBC RBC HGB HCT [...] HCT IS 5% LESS SOURCE FOR DATA: [employer] DYN 1800 OPERATION MANUAL( AUTOMATED BLOOD COUNTS [...] DESIRABLE: <130 MG/DL <110 MG/DL BORDERLINE-HIGH RISK: 130- 159 MG/DL 110-129 MG/DL HIGH RISK: >160 MG/DL >130 MG/DL *CHILDREN AND ADOLESCENTS REPRESENTS INDIVIDUALA AGED 2-19 YEARS EXCLUSIVE. Osmolality-Calculated 269.6 CALC [facility] ([facility] NORMAL RANGES Age WBC RBC HGB HCT [...] HCT IS 5% LESS SOURCE FOR DATA: BigTip 1800 OPERATION MANUAL( AUTOMATED BLOOD COUNTS AND [...] DESIRABLE: <130 MG/DL <110 MG/DL BORDERLINE-HIGH RISK: 130- 159 MG/DL 110-129 MG/DL HIGH RISK: >160 MG/DL >130 MG/DL *CHILDREN AND ADOLESCENTS REPRESENTS INDIVIDUALA AGED 2-19 YEARS EXCLUSIVE. eGFR 77 # [facility] ( [facility] NORMAL RANGES Age WBC RBC HGB HCT [...] HCT IS 5% LESS SOURCE FOR DATA: BigTip 1800 OPERATION MANUAL( AUTOMATED BLOOD COUNTS AND [...] DESIRABLE: <130 MG/DL <110 MG/DL BORDERLINE-HIGH RISK: 130- 159 MG/DL 110-129 MG/DL HIGH RISK: >160 MG/DL >130 MG/DL *CHILDREN AND ADOLESCENTS REPRESENTS INDIVIDUALA AGED 2-19 YEARS EXCLUSIVE. eGFR Non-Afr. Malagasy 66 # [facility] ([facility] NORMAL RANGES Age WBC RBC HGB HCT [...] HCT IS 5% LESS SOURCE FOR DATA: [employer]Tip 1800 OPERATION MANUAL( AUTOMATED BLOOD COUNTS AND [...] DESIRABLE: <130 MG/DL <110 MG/DL BORDERLINE-HIGH RISK: 130- 159 MG/DL 110-129 MG/DL HIGH RISK: >160 MG/DL >130 MG/DL *CHILDREN AND ADOLESCENTS REPRESENTS INDIVIDUALA AGED 2-19 YEARS EXCLUSIVE. Anion Gap 17 mmol/L [facility] ([facility] NORMAL RANGES Age WBC RBC HGB HCT [...] HCT IS 5% LESS SOURCE FOR DATA: BigTip 1800 OPERATION MANUAL( AUTOMATED BLOOD COUNTS AND [...] DESIRABLE: <130 MG/DL <110 MG/DL BORDERLINE-HIGH RISK: 130- 159 MG/DL 110-129 MG/DL HIGH RISK: >160 MG/DL >130 MG/DL *CHILDREN AND ADOLESCENTS REPRESENTS INDIVIDUALA AGED 2-19 YEARS EXCLUSIVE. ID Date Data Source [id number] 01/16/2020 08:43:00 AM EST [facility] ([facility] Name Value Range Interpretation Code Description Data Esperanza rce(s) Supporting Document(s) Trig 181 mg/dL 35-200 [facility] ([facility] NORMAL RANGES Age WBC RBC HGB HCT [...] HCT IS 5% LESS SOURCE FOR DATA: [employer] DYN 1800 OPERATION MANUAL( AUTOMATED BLOOD COUNTS [...] DESIRABLE: <130 MG/DL <110 MG/DL BORDERLINE-HIGH RISK: 130- 159 MG/DL 110-129 MG/DL HIGH RISK: >160 MG/DL >130 MG/DL *CHILDREN AND ADOLESCENTS REPRESENTS INDIVIDUALA AGED 2-19 YEARS EXCLUSIVE. Chol 146 mg/dL 0-200 [facility] ([facility] NORMAL RANGES Age WBC RBC HGB HCT [...] HCT IS 5% LESS SOURCE FOR DATA: BigTip 1800 OPERATION MANUAL( AUTOMATED BLOOD COUNTS AND [...] DESIRABLE: <130 MG/DL <110 MG/DL BORDERLINE-HIGH RISK: 130- 159 MG/DL 110-129 MG/DL HIGH RISK: >160 MG/DL >130 MG/DL *CHILDREN AND ADOLESCENTS REPRESENTS INDIVIDUALA AGED 2-19 YEARS EXCLUSIVE. LDL_C 63 Calc 75-129 Below low normal [facility] ( [facility] NORMAL RANGES Age WBC RBC HGB HCT [...] HCT IS 5% LESS SOURCE FOR DATA: BigTip 1800 OPERATION MANUAL( AUTOMATED BLOOD COUNTS AND [...] DESIRABLE: <130 MG/DL <110 MG/DL BORDERLINE-HIGH RISK: 130- 159 MG/DL 110-129 MG/DL HIGH RISK: >160 MG/DL >130 MG/DL *CHILDREN AND ADOLESCENTS REPRESENTS INDIVIDUALA AGED 2-19 YEARS EXCLUSIVE. Cho/HDL Ratio 3.1 CALC [place] ([facility] NORMAL RANGES Age WBC RBC HGB HCT [...] HCT IS 5% LESS SOURCE FOR DATA: [employer] DYN 1800 OPERATION MANUAL( AUTOMATED BLOOD COUNTS [...] DESIRABLE: <130 MG/DL <110 MG/DL BORDERLINE-HIGH RISK: 130- 159 MG/DL 110-129 MG/DL HIGH RISK: >160 MG/DL >130 MG/DL *CHILDREN AND ADOLESCENTS REPRESENTS INDIVIDUALA AGED 2-19 YEARS EXCLUSIVE. Cholesterol in HDL [Mass/volume] in Serum or Plasma 47 mg/dL 35-55 [facility] ([facility] NORMAL RANGES Age WBC RBC HGB HCT [...] HCT IS 5% LESS SOURCE FOR DATA: BigTip 1800 OPERATION MANUAL( AUTOMATED BLOOD COUNTS AND [...] DESIRABLE: <130 MG/DL <110 MG/DL BORDERLINE-HIGH RISK: 130- 159 MG/DL 110-129 MG/DL HIGH RISK: >160 MG/DL >130 MG/DL *CHILDREN AND ADOLESCENTS REPRESENTS INDIVIDUALA AGED 2-19 YEARS EXCLUSIVE. ID Date Data Source [id number] 01/16/2020 08:43:00 AM EST TOM ([facility] Name Value Range Interpretation Code Description Data Esperanza rce(s) Supporting Document(s) Creatine kinase [Enzymatic activity/volume] in Serum or Plasma 62 U /L 39-308 [facility] ([facility] NORMAL RANGES Age WBC RBC HGB HCT [...] HCT IS 5% LESS SOURCE FOR DATA: BigTip 1800 OPERATION MANUAL( AUTOMATED BLOOD COUNTS AND [...] ADOLESCENTS REPRESENTS INDIVIDUALA AGED 2-19 YEARS EXCLUSIVE. Hemoglobin A1c/Hemoglobin.total in Blood 5.9 % 4.40-6.10 [facility] NORMAL RANGES Age WBC RBC HGB HCT [...] HCT IS 5% LESS SOURCE FOR DATA: BigTip 1800 OPERATION MANUAL( AUTOMATED BLOOD COUNTS AND [...] ADOLESCENTS REPRESENTS INDIVIDUALA AGED 2-19 YEARS EXCLUSIVE. ID Date Data Source [id number] 01/16/2020 08:43:00 AM EST [facility]MANFRED ([facility] Name Value Range Interpretation Code Description Data Esperanza rce(s) Supporting Document(s) Color Laboratory test result [facility]MANFRED ([facility] NORMAL RANGES Age WBC RBC HGB HCT [...] HCT IS 5% LESS SOURCE FOR DATA: BigTip 1800 OPERATION MANUAL( AUTOMATED BLOOD COUNTS AND [...] ADOLESCENTS REPRESENTS INDIVIDUALA AGED 2-19 YEARS EXCLUSIVE. Clarity Laboratory test result [facility] ([facility] NORMAL RANGES Age WBC RBC HGB HCT [...] HCT IS 5% LESS SOURCE FOR DATA: [employer] DYN 1800 OPERATION MANUAL( AUTOMATED BLOOD COUNTS [...] ADOLESCENTS REPRESENTS INDIVIDUALA AGED 2-19 YEARS EXCLUSIVE. Glucose-Ua Laboratory test result [place] ([facility] NORMAL RANGES Age WBC RBC HGB HCT [...] HCT IS 5% LESS SOURCE FOR DATA: BigTip 1800 OPERATION MANUAL( AUTOMATED BLOOD COUNTS AND [...] ADOLESCENTS REPRESENTS INDIVIDUALA AGED 2-19 YEARS EXCLUSIVE. Bilirubin,Urine Laboratory test result [facility] ([facility] NORMAL RANGES Age WBC RBC HGB HCT [...] HCT IS 5% LESS SOURCE FOR DATA: BigTip 1800 OPERATION MANUAL( AUTOMATED BLOOD COUNTS AND [...] ADOLESCENTS REPRESENTS INDIVIDUALA AGED 2-19 YEARS EXCLUSIVE. pH 5.5 # 5.0-8.0 [facility] ([facility] NORMAL RANGES Age WBC RBC HGB HCT [...] HCT IS 5% LESS SOURCE FOR DATA: [employer]AR[employer] DYN 1800 OPERATION MANUAL( AUTOMATED BLOOD COUNTS [...] ADOLESCENTS REPRESENTS INDIVIDUALA AGED 2-19 YEARS EXCLUSIVE. Blood - Ua Laboratory test result [facility] [place] ([facility] NORMAL RANGES Age WBC RBC HGB HCT [...] HCT IS 5% LESS SOURCE FOR DATA: BigTip 1800 OPERATION MANUAL( AUTOMATED BLOOD COUNTS AND [...] ADOLESCENTS REPRESENTS INDIVIDUALA AGED 2-19 YEARS EXCLUSIVE. Ketone Laboratory test result [facility] ([facility] NORMAL RANGES Age WBC RBC HGB HCT [...] HCT IS 5% LESS SOURCE FOR DATA: BigTip 1800 OPERATION MANUAL( AUTOMATED BLOOD COUNTS AND [...] ADOLESCENTS REPRESENTS INDIVIDUALA AGED 2-19 YEARS EXCLUSIVE. Urobilinogen 0.2 NA 0.2-1.0 [facility] NORMAL RANGES Age WBC RBC HGB HCT [...] HCT IS 5% LESS SOURCE FOR DATA: BigTip 1800 OPERATION MANUAL( AUTOMATED BLOOD COUNTS AND [...] ADOLESCENTS REPRESENTS INDIVIDUALA AGED 2-19 YEARS EXCLUSIVE. Protein Laboratory test result [facility] ([facility] NORMAL RANGES Age WBC RBC HGB HCT [...] HCT IS 5% LESS SOURCE FOR DATA: BigTip 1800 OPERATION MANUAL( AUTOMATED BLOOD COUNTS AND [...] ADOLESCENTS REPRESENTS INDIVIDUALA AGED 2-19 YEARS EXCLUSIVE. Nitrite Laboratory test result [facility] ([facility] NORMAL RANGES Age WBC RBC HGB HCT [...] HCT IS 5% LESS SOURCE FOR DATA: BigTip 1800 OPERATION MANUAL( AUTOMATED BLOOD COUNTS AND [...] ADOLESCENTS REPRESENTS INDIVIDUALA AGED 2-19 YEARS EXCLUSIVE. Leukocyte Laboratory test result [place] ([facility] NORMAL RANGES Age WBC RBC HGB HCT [...] HCT IS 5% LESS SOURCE FOR DATA: [employer] DYN 1800 OPERATION MANUAL( AUTOMATED BLOOD COUNTS [...] ADOLESCENTS REPRESENTS INDIVIDUALA AGED 2-19 YEARS EXCLUSIVE. ID Date Data Source [id number] 01/16/2020 08:43:00 AM EST [facility] ([facility] Name Value Range Interpretation Code Description Data Esperanza rce(s) Supporting Document(s) Alb 30 mg/L 1-30 [facility] ([facility] A/C Ratio Laboratory test result [facility] ([facility] Creatinine, Urine 100 mg/dL 10-300 [facility] ([facility] ID Date Data Source [id number] 10/09/2019 10:53:00 AM EDT [facility] ([facility] Name Value Range Interpretation Code Description Data Esperanza rce(s) Supporting Document(s) Color Laboratory test result [facility] ([facility] Glucose-Ua Laboratory test result [place] ([facility] Clarity Laboratory test result [facility] ([facility] Bilirubin,Urine Laboratory test result [facility] ([facility] Ketone Laboratory test result Abnormal (applies to non -numeric results) [facility] ([facility] Blood - Ua Laboratory test result [place] ([facility] Creatine kinase [Enzymatic activity/volume] in Serum o r Plasma Laboratory test result 1.000-1.030 Abnormal (applies to non-numeric results) [facility] ([facility] pH 5.0 # 5.0-8.0 [facility] ([facility] Urobilinogen 0.2 NA 0.2-1.0 [facility] ([facility] Nitrite Laboratory test result [facility] ([facility] Protein Laboratory test result Abnormal (applies to non -numeric results) [facility] ([facility] Leukocyte Laboratory test result [place] ([facility] ID Date Data Source [id number] 10/09/2019 08:41:00 AM EDT [facility] ([facility] Name Value Range Interpretation Code Description Data Esperanza rce(s) Supporting Document(s) Creatine kinase [Enzymatic activity/volume] in Serum or Plasma 76 U /L 39-308 [facility] ([facility] NORMAL RANGES Age WBC RBC HGB HCT [...] HCT IS 5% LESS SOURCE FOR DATA: BigTip 1800 OPERATION MANUAL( AUTOMATED BLOOD COUNTS AND [...] ADOLESCENTS REPRESENTS INDIVIDUALA AGED 2-19 YEARS EXCLUSIVE. Hemoglobin A1c/Hemoglobin.total in Blood 6.5 % 4.40-6.10 Above high normal [facility] ([facility] NORMAL RANGES Age WBC RBC HGB HCT [...] HCT IS 5% LESS SOURCE FOR DATA: [employer]Tip 1800 OPERATION MANUAL( AUTOMATED BLOOD COUNTS AND [...] ADOLESCENTS REPRESENTS INDIVIDUALA AGED 2-19 YEARS EXCLUSIVE. ID Date Data Source [id number] 10/09/2019 08:41:00 AM EDT [facility] ([facility] Name Value Range Interpretation Code Description Data Esperanza rce(s) Supporting Document(s) Trig 181 mg/dL 35-200 [facility] ([facility] NORMAL RANGES Age WBC RBC HGB HCT [...] HCT IS 5% LESS SOURCE FOR DATA: BigTip 1800 OPERATION MANUAL( AUTOMATED BLOOD COUNTS AND [...] ADOLESCENTS REPRESENTS INDIVIDUALA AGED 2-19 YEARS EXCLUSIVE. Chol 156 mg/dL 0-200 [facility] ([facility] NORMAL RANGES Age WBC RBC HGB HCT [...] HCT IS 5% LESS SOURCE FOR DATA: [employer] DYN 1800 OPERATION MANUAL( AUTOMATED BLOOD COUNTS [...] ADOLESCENTS REPRESENTS INDIVIDUALA AGED 2-19 YEARS EXCLUSIVE. Cholesterol in HDL [Mass/volume] in Serum or Plasma 49 mg/dL 35-55 [facility] ([facility] NORMAL RANGES Age WBC RBC HGB HCT [...] HCT IS 5% LESS SOURCE FOR DATA: [employer]Tip 1800 OPERATION MANUAL( AUTOMATED BLOOD COUNTS AND [...] DESIRABLE: <130 MG/DL <110 MG/DL BORDERLINE-HIGH RISK: 130- 159 MG/DL 110-129 MG/DL HIGH RISK: >160 MG/DL >130 MG/DL *CHILDREN AND ADOLESCENTS REPRESENTS INDIVIDUALA AGED 2-19 YEARS EXCLUSIVE. LDL_C 71 Calc 75-129 Below low normal [facility] ( [facility] NORMAL RANGES Age WBC RBC HGB HCT [...] HCT IS 5% LESS SOURCE FOR DATA: [employer]Tip 1800 OPERATION MANUAL( AUTOMATED BLOOD COUNTS AND [...] DESIRABLE: <130 MG/DL <110 MG/DL BORDERLINE-HIGH RISK: 130- 159 MG/DL 110-129 MG/DL HIGH RISK: >160 MG/DL >130 MG/DL *CHILDREN AND ADOLESCENTS REPRESENTS INDIVIDUALA AGED 2-19 YEARS EXCLUSIVE. Cho/HDL Ratio 3.2 CALC [facility] ([facility] NORMAL RANGES Age WBC RBC HGB HCT [...] HCT IS 5% LESS SOURCE FOR DATA: [employer]Tip 1800 OPERATION MANUAL( AUTOMATED BLOOD COUNTS AND [...] DESIRABLE: <130 MG/DL <110 MG/DL BORDERLINE-HIGH RISK: 130- 159 MG/DL 110-129 MG/DL HIGH RISK: >160 MG/DL >130 MG/DL *CHILDREN AND ADOLESCENTS REPRESENTS INDIVIDUALA AGED 2-19 YEARS EXCLUSIVE. ID Date Data Source [id number] 10/09/2019 08:41:00 AM EDT [facility] ([facility] Name Value Range Interpretation Code Description Data Esperanza rce(s) Supporting Document(s) Glu 143 mg/dL 70-110 Above high normal [facility] ([facility] NORMAL RANGES Age WBC RBC HGB HCT [...] HCT IS 5% LESS SOURCE FOR DATA: YARI DYN 1800 OPERATION MANUAL( AUTOMATED BLOOD COUNTS [...] DESIRABLE: <130 MG/DL <110 MG/DL BORDERLINE-HIGH RISK: 130- 159 MG/DL 110-129 MG/DL HIGH RISK: >160 MG/DL >130 MG/DL *CHILDREN AND ADOLESCENTS REPRESENTS INDIVIDUALA AGED 2-19 YEARS EXCLUSIVE. BUN 18 mg/dL 8-23 [facility] ([facility] NORMAL RANGES Age WBC RBC HGB HCT [...] HCT IS 5% LESS SOURCE FOR DATA: BigTip 1800 OPERATION MANUAL( AUTOMATED BLOOD COUNTS AND [...] DESIRABLE: <130 MG/DL <110 MG/DL BORDERLINE-HIGH RISK: 130- 159 MG/DL 110-129 MG/DL HIGH RISK: >160 MG/DL >130 MG/DL *CHILDREN AND ADOLESCENTS REPRESENTS INDIVIDUALA AGED 2-19 YEARS EXCLUSIVE. Creat 1.0 mg/dL 0.7-1.2 [facility] ([facility] NORMAL RANGES Age WBC RBC HGB HCT [...] HCT IS 5% LESS SOURCE FOR DATA: [employer]Tip 1800 OPERATION MANUAL( AUTOMATED BLOOD COUNTS AND [...] DESIRABLE: <130 MG/DL <110 MG/DL BORDERLINE-HIGH RISK: 130- 159 MG/DL 110-129 MG/DL HIGH RISK: >160 MG/DL >130 MG/DL *CHILDREN AND ADOLESCENTS REPRESENTS INDIVIDUALA AGED 2-19 YEARS EXCLUSIVE. BUN/Creatinine Ratio 17.9 CALC [facility] NORMAL RANGES Age WBC RBC HGB HCT [...] HCT IS 5% LESS SOURCE FOR DATA: [employer]Tip 1800 OPERATION MANUAL( AUTOMATED BLOOD COUNTS AND [...] DESIRABLE: <130 MG/DL <110 MG/DL BORDERLINE-HIGH RISK: 130- 159 MG/DL 110-129 MG/DL HIGH RISK: >160 MG/DL >130 MG/DL *CHILDREN AND ADOLESCENTS REPRESENTS INDIVIDUALA AGED 2-19 YEARS EXCLUSIVE. K 4.8 mmol/L 3.5-5.1 [facility] ([facility] NORMAL RANGES Age WBC RBC HGB HCT [...] HCT IS 5% LESS SOURCE FOR DATA: [employer]Tip 1800 OPERATION MANUAL( AUTOMATED BLOOD COUNTS AND [...] DESIRABLE: <130 MG/DL <110 MG/DL BORDERLINE-HIGH RISK: 130- 159 MG/DL 110-129 MG/DL HIGH RISK: >160 MG/DL >130 MG/DL *CHILDREN AND ADOLESCENTS REPRESENTS INDIVIDUALA AGED 2-19 YEARS EXCLUSIVE. Na 134 mmol/L 136-145 Below low normal [facility] ( [facility] NORMAL RANGES Age WBC RBC HGB HCT [...] HCT IS 5% LESS SOURCE FOR DATA: BigTip 1800 OPERATION MANUAL( AUTOMATED BLOOD COUNTS AND [...] DESIRABLE: <130 MG/DL <110 MG/DL BORDERLINE-HIGH RISK: 130- 159 MG/DL 110-129 MG/DL HIGH RISK: >160 MG/DL >130 MG/DL *CHILDREN AND ADOLESCENTS REPRESENTS INDIVIDUALA AGED 2-19 YEARS EXCLUSIVE. Co2 26.3 mmol/L 22.0-29.0 [facility] NORMAL RANGES Age WBC RBC HGB HCT [...] HCT IS 5% LESS SOURCE FOR DATA: [employer] DYN 1800 OPERATION MANUAL( AUTOMATED BLOOD COUNTS [...] DESIRABLE: <130 MG/DL <110 MG/DL BORDERLINE-HIGH RISK: 130- 159 MG/DL 110-129 MG/DL HIGH RISK: >160 MG/DL >130 MG/DL *CHILDREN AND ADOLESCENTS REPRESENTS INDIVIDUALA AGED 2-19 YEARS EXCLUSIVE. CL 99.1 mmol/L 98.0-107.0 [facility] ([facility] NORMAL RANGES Age WBC RBC HGB HCT [...] HCT IS 5% LESS SOURCE FOR DATA: BigTip 1800 OPERATION MANUAL( AUTOMATED BLOOD COUNTS AND [...] DESIRABLE: <130 MG/DL <110 MG/DL BORDERLINE-HIGH RISK: 130- 159 MG/DL 110-129 MG/DL HIGH RISK: >160 MG/DL >130 MG/DL *CHILDREN AND ADOLESCENTS REPRESENTS INDIVIDUALA AGED 2-19 YEARS EXCLUSIVE. TP 6.8 g/dL 6.6-8.7 [facility] NORMAL RANGES Age WBC RBC HGB HCT [...] HCT IS 5% LESS SOURCE FOR DATA: [employer]Tip 1800 OPERATION MANUAL( AUTOMATED BLOOD COUNTS AND [...] DESIRABLE: <130 MG/DL <110 MG/DL BORDERLINE-HIGH RISK: 130- 159 MG/DL 110-129 MG/DL HIGH RISK: >160 MG/DL >130 MG/DL *CHILDREN AND ADOLESCENTS REPRESENTS INDIVIDUALA AGED 2-19 YEARS EXCLUSIVE. CA 9.9 mg/dL 8.6-10.2 [facility] ([facility] NORMAL RANGES Age WBC RBC HGB HCT [...] HCT IS 5% LESS SOURCE FOR DATA: [employer]Tip 1800 OPERATION MANUAL( AUTOMATED BLOOD COUNTS AND [...] DESIRABLE: <130 MG/DL <110 MG/DL BORDERLINE-HIGH RISK: 130- 159 MG/DL 110-129 MG/DL HIGH RISK: >160 MG/DL >130 MG/DL *CHILDREN AND ADOLESCENTS REPRESENTS INDIVIDUALA AGED 2-19 YEARS EXCLUSIVE. Alb 4.8 g/dL 3.5-5.2 [facility] ([facility] NORMAL RANGES Age WBC RBC HGB HCT [...] HCT IS 5% LESS SOURCE FOR DATA: [employer]Tip 1800 OPERATION MANUAL( AUTOMATED BLOOD COUNTS AND [...] DESIRABLE: <130 MG/DL <110 MG/DL BORDERLINE-HIGH RISK: 130- 159 MG/DL 110-129 MG/DL HIGH RISK: >160 MG/DL >130 MG/DL *CHILDREN AND ADOLESCENTS REPRESENTS INDIVIDUALA AGED 2-19 YEARS EXCLUSIVE. A/G Ratio 2.3 CALC TOM ([facility] NORMAL RANGES Age WBC RBC HGB HCT [...] HCT IS 5% LESS SOURCE FOR DATA: BigTip 1800 OPERATION MANUAL( AUTOMATED BLOOD COUNTS AND [...] DESIRABLE: <130 MG/DL <110 MG/DL BORDERLINE-HIGH RISK: 130- 159 MG/DL 110-129 MG/DL HIGH RISK: >160 MG/DL >130 MG/DL *CHILDREN AND ADOLESCENTS REPRESENTS INDIVIDUALA AGED 2-19 YEARS EXCLUSIVE. Globulin 2.0 CALC [facility] ([facility] NORMAL RANGES Age WBC RBC HGB HCT [...] HCT IS 5% LESS SOURCE FOR DATA: [employer] DYN 1800 OPERATION MANUAL( AUTOMATED BLOOD COUNTS [...] DESIRABLE: <130 MG/DL <110 MG/DL BORDERLINE-HIGH RISK: 130- 159 MG/DL 110-129 MG/DL HIGH RISK: >160 MG/DL >130 MG/DL *CHILDREN AND ADOLESCENTS REPRESENTS INDIVIDUALA AGED 2-19 YEARS EXCLUSIVE. Alp 66.0 U/L 40-129 [facility] ([facility] NORMAL RANGES Age WBC RBC HGB HCT [...] HCT IS 5% LESS SOURCE FOR DATA: [employer]Tip 1800 OPERATION MANUAL( AUTOMATED BLOOD COUNTS AND [...] DESIRABLE: <130 MG/DL <110 MG/DL BORDERLINE-HIGH RISK: 130- 159 MG/DL 110-129 MG/DL HIGH RISK: >160 MG/DL >130 MG/DL *CHILDREN AND ADOLESCENTS REPRESENTS INDIVIDUALA AGED 2-19 YEARS EXCLUSIVE. Ast (Sgot) 20 U/L 0-40 [facility] ([facility] NORMAL RANGES Age WBC RBC HGB HCT [...] HCT IS 5% LESS SOURCE FOR DATA: [employer]Tip 1800 OPERATION MANUAL( AUTOMATED BLOOD COUNTS AND [...] DESIRABLE: <130 MG/DL <110 MG/DL BORDERLINE-HIGH RISK: 130- 159 MG/DL 110-129 MG/DL HIGH RISK: >160 MG/DL >130 MG/DL *CHILDREN AND ADOLESCENTS REPRESENTS INDIVIDUALA AGED 2-19 YEARS EXCLUSIVE. Alt (SGPT) 20 U/L 0-41 [facility] ([facility] NORMAL RANGES Age WBC RBC HGB HCT [...] HCT IS 5% LESS SOURCE FOR DATA: [employer]Tip 1800 OPERATION MANUAL( AUTOMATED BLOOD COUNTS AND [...] DESIRABLE: <130 MG/DL <110 MG/DL BORDERLINE-HIGH RISK: 130- 159 MG/DL 110-129 MG/DL HIGH RISK: >160 MG/DL >130 MG/DL *CHILDREN AND ADOLESCENTS REPRESENTS INDIVIDUALA AGED 2-19 YEARS EXCLUSIVE. Tbili 0.49 mg/dL 0.0-1.2 [facility] ([facility] NORMAL RANGES Age WBC RBC HGB HCT [...] HCT IS 5% LESS SOURCE FOR DATA: BigTip 1800 OPERATION MANUAL( AUTOMATED BLOOD COUNTS AND [...] DESIRABLE: <130 MG/DL <110 MG/DL BORDERLINE-HIGH RISK: 130- 159 MG/DL 110-129 MG/DL HIGH RISK: >160 MG/DL >130 MG/DL *CHILDREN AND ADOLESCENTS REPRESENTS INDIVIDUALA AGED 2-19 YEARS EXCLUSIVE. Osmolality-Calculated 273.3 CALC [facility] ([facility] NORMAL RANGES Age WBC RBC HGB HCT [...] HCT IS 5% LESS SOURCE FOR DATA: [employer] DYN 1800 OPERATION MANUAL( AUTOMATED BLOOD COUNTS [...] DESIRABLE: <130 MG/DL <110 MG/DL BORDERLINE-HIGH RISK: 130- 159 MG/DL 110-129 MG/DL HIGH RISK: >160 MG/DL >130 MG/DL *CHILDREN AND ADOLESCENTS REPRESENTS INDIVIDUALA AGED 2-19 YEARS EXCLUSIVE. eGFR 77 # [facility] ( [facility] CKD-EPI Anion Gap 14 mmol/L [facility] ([facility] NORMAL RANGES Age WBC RBC HGB HCT [...] HCT IS 5% LESS SOURCE FOR DATA: [employer] 1800 OPERATION MANUAL( AUTOMATED BLOOD COUNTS AND [...] DESIRABLE: <130 MG/DL <110 MG/DL BORDERLINE-HIGH RISK: 130- 159 MG/DL 110-129 MG/DL HIGH RISK: >160 MG/DL >130 MG/DL *CHILDREN AND ADOLESCENTS REPRESENTS INDIVIDUALA AGED 2-19 YEARS EXCLUSIVE. eGFR Non-Afr. Malagasy 66 # TOM ([facility] CKD-EPI ID Date Data Source [id number] 10/09/2019 08:41:00 AM EDT TOM ([facility] Name Value Range Interpretation Code Description Data Esperanza rce(s) Supporting Document(s) WBC 5.7 10E3/uL 4.1-10.9 IV[facility]AN[facility]ED ([facility] NORMAL RANGES Age WBC RBC HGB HCT [...] HCT IS 5% LESS SOURCE FOR DATA: BigTip 1800 OPERATION MANUAL( AUTOMATED BLOOD COUNTS AND [...] DESIRABLE: <130 MG/DL <110 MG/DL BORDERLINE-HIGH RISK: 130- 159 MG/DL 110-129 MG/DL HIGH RISK: >160 MG/DL >130 MG/DL *CHILDREN AND ADOLESCENTS REPRESENTS INDIVIDUALA AGED 2-19 YEARS EXCLUSIVE. HGB 12.8 g/dL 12.0-18.0 [facility] NORMAL RANGES Age WBC RBC HGB HCT [...] HCT IS 5% LESS SOURCE FOR DATA: BigTip 1800 OPERATION MANUAL( AUTOMATED BLOOD COUNTS AND [...] DESIRABLE: <130 MG/DL <110 MG/DL BORDERLINE-HIGH RISK: 130- 159 MG/DL 110-129 MG/DL HIGH RISK: >160 MG/DL >130 MG/DL *CHILDREN AND ADOLESCENTS REPRESENTS INDIVIDUALA AGED 2-19 YEARS EXCLUSIVE. RBC 3.89 10E6/uL 4.20-6.30 Below low normal [facility] ([facility] NORMAL RANGES Age WBC RBC HGB HCT [...] HCT IS 5% LESS SOURCE FOR DATA: BigTip 1800 OPERATION MANUAL( AUTOMATED BLOOD COUNTS AND [...] DESIRABLE: <130 MG/DL <110 MG/DL BORDERLINE-HIGH RISK: 130- 159 MG/DL 110-129 MG/DL HIGH RISK: >160 MG/DL >130 MG/DL *CHILDREN AND ADOLESCENTS REPRESENTS INDIVIDUALA AGED 2-19 YEARS EXCLUSIVE. HCT 36.8 % 37.0-51.0 Below low normal [facility] ( [facility] NORMAL RANGES Age WBC RBC HGB HCT [...] HCT IS 5% LESS SOURCE FOR DATA: BigTip 1800 OPERATION MANUAL( AUTOMATED BLOOD COUNTS AND [...] DESIRABLE: <130 MG/DL <110 MG/DL BORDERLINE-HIGH RISK: 130- 159 MG/DL 110-129 MG/DL HIGH RISK: >160 MG/DL >130 MG/DL *CHILDREN AND ADOLESCENTS REPRESENTS INDIVIDUALA AGED 2-19 YEARS EXCLUSIVE. MCV 94.6 fL 80.0-97.0 [facility] ([facility] NORMAL RANGES Age WBC RBC HGB HCT [...] HCT IS 5% LESS SOURCE FOR DATA: BigTip 1800 OPERATION MANUAL( AUTOMATED BLOOD COUNTS AND [...] DESIRABLE: <130 MG/DL <110 MG/DL BORDERLINE-HIGH RISK: 130- 159 MG/DL 110-129 MG/DL HIGH RISK: >160 MG/DL >130 MG/DL *CHILDREN AND ADOLESCENTS REPRESENTS INDIVIDUALA AGED 2-19 YEARS EXCLUSIVE. MCHC 34.8 g/dL 31.0-36.0 [facility] ([facility] NORMAL RANGES Age WBC RBC HGB HCT [...] HCT IS 5% LESS SOURCE FOR DATA: BigTip 1800 OPERATION MANUAL( AUTOMATED BLOOD COUNTS AND [...] DESIRABLE: <130 MG/DL <110 MG/DL BORDERLINE-HIGH RISK: 130- 159 MG/DL 110-129 MG/DL HIGH RISK: >160 MG/DL >130 MG/DL *CHILDREN AND ADOLESCENTS REPRESENTS INDIVIDUALA AGED 2-19 YEARS EXCLUSIVE. MCH 32.9 pg 26.0-32.0 Above high normal [facility] ([facility] NORMAL RANGES Age WBC RBC HGB HCT [...] HCT IS 5% LESS SOURCE FOR DATA: BigTip 1800 OPERATION MANUAL( AUTOMATED BLOOD COUNTS AND [...] DESIRABLE: <130 MG/DL <110 MG/DL BORDERLINE-HIGH RISK: 130- 159 MG/DL 110-129 MG/DL HIGH RISK: >160 MG/DL >130 MG/DL *CHILDREN AND ADOLESCENTS REPRESENTS INDIVIDUALA AGED 2-19 YEARS EXCLUSIVE. PLT 367 10E3/uL 140-440 [facility] ([facility] NORMAL RANGES Age WBC RBC HGB HCT [...] HCT IS 5% LESS SOURCE FOR DATA: BigTip 1800 OPERATION MANUAL( AUTOMATED BLOOD COUNTS AND [...] DESIRABLE: <130 MG/DL <110 MG/DL BORDERLINE-HIGH RISK: 130- 159 MG/DL 110-129 MG/DL HIGH RISK: >160 MG/DL >130 MG/DL *CHILDREN AND ADOLESCENTS REPRESENTS INDIVIDUALA AGED 2-19 YEARS EXCLUSIVE. RDW-CV 13.9 % 11.5-14.5 [facility]MAN[facility] ([facility] NORMAL RANGES Age WBC RBC HGB HCT [...] HCT IS 5% LESS SOURCE FOR DATA: BigTip 1800 OPERATION MANUAL( AUTOMATED BLOOD COUNTS AND [...] DESIRABLE: <130 MG/DL <110 MG/DL BORDERLINE-HIGH RISK: 130- 159 MG/DL 110-129 MG/DL HIGH RISK: >160 MG/DL >130 MG/DL *CHILDREN AND ADOLESCENTS REPRESENTS INDIVIDUALA AGED 2-19 YEARS EXCLUSIVE. Lym% 22.5 % 10.0-58.5 [facility] ([facility] NORMAL RANGES Age WBC RBC HGB HCT [...] HCT IS 5% LESS SOURCE FOR DATA: YARI DYN 1800 OPERATION MANUAL( AUTOMATED BLOOD COUNTS [...] DESIRABLE: <130 MG/DL <110 MG/DL BORDERLINE-HIGH RISK: 130- 159 MG/DL 110-129 MG/DL HIGH RISK: >160 MG/DL >130 MG/DL *CHILDREN AND ADOLESCENTS REPRESENTS INDIVIDUALA AGED 2-19 YEARS EXCLUSIVE. Neut% 68.3 % 37.0-92.0 [facility] ([facility] NORMAL RANGES Age WBC RBC HGB HCT [...] HCT IS 5% LESS SOURCE FOR DATA: BigTip 1800 OPERATION MANUAL( AUTOMATED BLOOD COUNTS AND [...] DESIRABLE: <130 MG/DL <110 MG/DL BORDERLINE-HIGH RISK: 130- 159 MG/DL 110-129 MG/DL HIGH RISK: >160 MG/DL >130 MG/DL *CHILDREN AND ADOLESCENTS REPRESENTS INDIVIDUALA AGED 2-19 YEARS EXCLUSIVE. Lym# 1.3 10E3/uL 0.6-4.1 [facility] ([facility] NORMAL RANGES Age WBC RBC HGB HCT [...] HCT IS 5% LESS SOURCE FOR DATA: BigTip 1800 OPERATION MANUAL( AUTOMATED BLOOD COUNTS AND [...] DESIRABLE: <130 MG/DL <110 MG/DL BORDERLINE-HIGH RISK: 130- 159 MG/DL 110-129 MG/DL HIGH RISK: >160 MG/DL >130 MG/DL *CHILDREN AND ADOLESCENTS REPRESENTS INDIVIDUALA AGED 2-19 YEARS EXCLUSIVE. MXD% 9.2 % 0.1-24.0 [facility] ([facility] NORMAL RANGES Age WBC RBC HGB HCT [...] HCT IS 5% LESS SOURCE FOR DATA: BigTip 1800 OPERATION MANUAL( AUTOMATED BLOOD COUNTS AND [...] DESIRABLE: <130 MG/DL <110 MG/DL BORDERLINE-HIGH RISK: 130- 159 MG/DL 110-129 MG/DL HIGH RISK: >160 MG/DL >130 MG/DL *CHILDREN AND ADOLESCENTS REPRESENTS INDIVIDUALA AGED 2-19 YEARS EXCLUSIVE. Neut# 3.9 % 2.0-7.8 [facility] ([facility] NORMAL RANGES Age WBC RBC HGB HCT [...] HCT IS 5% LESS SOURCE FOR DATA: BigTip 1800 OPERATION MANUAL( AUTOMATED BLOOD COUNTS AND [...] DESIRABLE: <130 MG/DL <110 MG/DL BORDERLINE-HIGH RISK: 130- 159 MG/DL 110-129 MG/DL HIGH RISK: >160 MG/DL >130 MG/DL *CHILDREN AND ADOLESCENTS REPRESENTS INDIVIDUALA AGED 2-19 YEARS EXCLUSIVE. MXD# 0.5 10E3/uL 0.0-1.8 [facility] ([facility] NORMAL RANGES Age WBC RBC HGB HCT [...] HCT IS 5% LESS SOURCE FOR DATA: BigTip 1800 OPERATION MANUAL( AUTOMATED BLOOD COUNTS AND [...] DESIRABLE: <130 MG/DL <110 MG/DL BORDERLINE-HIGH RISK: 130- 159 MG/DL 110-129 MG/DL HIGH RISK: >160 MG/DL >130 MG/DL *CHILDREN AND ADOLESCENTS REPRESENTS INDIVIDUALA AGED 2-19 YEARS EXCLUSIVE. MPV 8.1 fL 9.0-13.0 Below low normal [facility] ( [facility] NORMAL RANGES Age WBC RBC HGB HCT [...] HCT IS 5% LESS SOURCE FOR DATA: BigTip 1800 OPERATION MANUAL( AUTOMATED BLOOD COUNTS AND [...] DESIRABLE: <130 MG/DL <110 MG/DL BORDERLINE-HIGH RISK: 130- 159 MG/DL 110-129 MG/DL HIGH RISK: >160 MG/DL >130 MG/DL *CHILDREN AND ADOLESCENTS REPRESENTS INDIVIDUALA AGED 2-19 YEARS EXCLUSIVE. ID Date Data Source [id number] 07/02/2019 08:54:00 AM EDT [facility] ([facility] Name Value Range Interpretation Code Description Data Esperanza rce(s) Supporting Document(s) Creatinine, Urine 200 mg/dL 10-300 [facility] ([facility] Alb 80 mg/L [facility] ([facility] A/C Ratio Laboratory test result Abnormal (applies to non -numeric results) [facility] ([facility] ID Date Data Source [id number] 07/02/2019 08:54:00 AM EDT [facility] ([facility] Name Value Range Interpretation Code Description Data Esperanza rce(s) Supporting Document(s) Creatine kinase [Enzymatic activity/volume] in Serum o r Plasma Laboratory test result TOM ([facility]) NORMAL RANGES Age WBC RBC HGB HCT [...] HCT IS 5% LESS SOURCE FOR DATA: BigTip 1800 OPERATION MANUAL( AUTOMATED BLOOD COUNTS AND [...] ADOLESCENTS REPRESENTS INDIVIDUALA AGED 2-19 YEARS EXCLUSIVE. Clarity Laboratory test result [facility] ([facility] NORMAL RANGES Age WBC RBC HGB HCT [...] HCT IS 5% LESS SOURCE FOR DATA: BigTip 1800 OPERATION MANUAL( AUTOMATED BLOOD COUNTS AND [...] ADOLESCENTS REPRESENTS INDIVIDUALA AGED 2-19 YEARS EXCLUSIVE. Color Laboratory test result [facility] ([facility] NORMAL RANGES Age WBC RBC HGB HCT [...] HCT IS 5% LESS SOURCE FOR DATA: BigTip 1800 OPERATION MANUAL( AUTOMATED BLOOD COUNTS AND [...] ADOLESCENTS REPRESENTS INDIVIDUALA AGED 2-19 YEARS EXCLUSIVE. Ketone Laboratory test result Abnormal (applies to non -numeric results) TOM ([facility] NORMAL RANGES Age WBC RBC HGB HCT [...] HCT IS 5% LESS SOURCE FOR DATA: BigTip 1800 OPERATION MANUAL( AUTOMATED BLOOD COUNTS AND [...] ADOLESCENTS REPRESENTS INDIVIDUALA AGED 2-19 YEARS EXCLUSIVE. Bilirubin,Urine Laboratory test result [facility] ([facility] NORMAL RANGES Age WBC RBC HGB HCT [...] HCT IS 5% LESS SOURCE FOR DATA: [employer] DYN 1800 OPERATION MANUAL( AUTOMATED BLOOD COUNTS [...] ADOLESCENTS REPRESENTS INDIVIDUALA AGED 2-19 YEARS EXCLUSIVE. Glucose-Ua Laboratory test result ME DICKINSON ([facility] NORMAL RANGES Age WBC RBC HGB HCT [...] HCT IS 5% LESS SOURCE FOR DATA: BigTip 1800 OPERATION MANUAL( AUTOMATED BLOOD COUNTS AND [...] ADOLESCENTS REPRESENTS INDIVIDUALA AGED 2-19 YEARS EXCLUSIVE. Blood - Ua Laboratory test result ME DICK[facility]SON ([facility] NORMAL RANGES Age WBC RBC HGB HCT [...] HCT IS 5% LESS SOURCE FOR DATA: BigTip 1800 OPERATION MANUAL( AUTOMATED BLOOD COUNTS AND [...] ADOLESCENTS REPRESENTS INDIVIDUALA AGED 2-19 YEARS EXCLUSIVE. pH 6.5 # 5.0-8.0 [facility] ([facility] NORMAL RANGES Age WBC RBC HGB HCT [...] HCT IS 5% LESS SOURCE FOR DATA: BigTip 1800 OPERATION MANUAL( AUTOMATED BLOOD COUNTS AND [...] ADOLESCENTS REPRESENTS INDIVIDUALA AGED 2-19 YEARS EXCLUSIVE. Protein 30 mg/dL Abnormal (applies to non-numeric res ults) [facility] ([facility] NORMAL RANGES Age WBC RBC HGB HCT [...] HCT IS 5% LESS SOURCE FOR DATA: BigTip 1800 OPERATION MANUAL( AUTOMATED BLOOD COUNTS AND [...] ADOLESCENTS REPRESENTS INDIVIDUALA AGED 2-19 YEARS EXCLUSIVE. Urobilinogen 0.2 NA 0.2-1.0 [facility] ([facility] NORMAL RANGES Age WBC RBC HGB HCT [...] HCT IS 5% LESS SOURCE FOR DATA: BigTip 1800 OPERATION MANUAL( AUTOMATED BLOOD COUNTS AND [...] ADOLESCENTS REPRESENTS INDIVIDUALA AGED 2-19 YEARS EXCLUSIVE. Nitrite Laboratory test result [facility] ([facility] NORMAL RANGES Age WBC RBC HGB HCT [...] HCT IS 5% LESS SOURCE FOR DATA: BigTip 1800 OPERATION MANUAL( AUTOMATED BLOOD COUNTS AND [...] ADOLESCENTS REPRESENTS INDIVIDUALA AGED 2-19 YEARS EXCLUSIVE. Leukocyte Laboratory test result ME DICKINSON ([facility] NORMAL RANGES Age WBC RBC HGB HCT [...] HCT IS 5% LESS SOURCE FOR DATA: BigTip 1800 OPERATION MANUAL( AUTOMATED BLOOD COUNTS AND [...] ADOLESCENTS REPRESENTS INDIVIDUALA AGED 2-19 YEARS EXCLUSIVE. ID Date Data Source [id number] 07/02/2019 08:54:00 AM EDT [facility] ([facility] Name Value Range Interpretation Code Description Data Esperanza rce(s) Supporting Document(s) Creatine kinase [Enzymatic activity/volume] in Serum or Plasma 77 U /L 39-308 [facility] ([facility] NORMAL RANGES Age WBC RBC HGB HCT [...] HCT IS 5% LESS SOURCE FOR DATA: [employer] DYN 1800 OPERATION MANUAL( AUTOMATED BLOOD COUNTS [...] ADOLESCENTS REPRESENTS INDIVIDUALA AGED 2-19 YEARS EXCLUSIVE. Hemoglobin A1c/Hemoglobin.total in Blood 6.6 % 4.40-6.10 Above high normal [facility] ([facility] NORMAL RANGES Age WBC RBC HGB HCT [...] HCT IS 5% LESS SOURCE FOR DATA: BigTip 1800 OPERATION MANUAL( AUTOMATED BLOOD COUNTS AND [...] ADOLESCENTS REPRESENTS INDIVIDUALA AGED 2-19 YEARS EXCLUSIVE. ID Date Data Source [id number] 07/02/2019 08:54:00 AM EDT MEDMANFRED ([facility] Name Value Range Interpretation Code Description Data Esperanza rce(s) Supporting Document(s) Trig 254 mg/dL 35-200 Above high normal [facility] ([facility] NORMAL RANGES Age WBC RBC HGB HCT [...] HCT IS 5% LESS SOURCE FOR DATA: BigTip 1800 OPERATION MANUAL( AUTOMATED BLOOD COUNTS AND [...] ADOLESCENTS REPRESENTS INDIVIDUALA AGED 2-19 YEARS EXCLUSIVE. Chol 178 mg/dL 0-200 [facility] ([facility] NORMAL RANGES Age WBC RBC HGB HCT [...] HCT IS 5% LESS SOURCE FOR DATA: BigTip 1800 OPERATION MANUAL( AUTOMATED BLOOD COUNTS AND [...] ADOLESCENTS REPRESENTS INDIVIDUALA AGED 2-19 YEARS EXCLUSIVE. Cholesterol in HDL [Mass/volume] in Serum or Plasma 48 mg/dL 35-55 [facility] ([facility] NORMAL RANGES Age WBC RBC HGB HCT [...] HCT IS 5% LESS SOURCE FOR DATA: BigTip 1800 OPERATION MANUAL( AUTOMATED BLOOD COUNTS AND [...] DESIRABLE: <130 MG/DL <110 MG/DL BORDERLINE-HIGH RISK: 130- 159 MG/DL 110-129 MG/DL HIGH RISK: >160 MG/DL >130 MG/DL *CHILDREN AND ADOLESCENTS REPRESENTS INDIVIDUALA AGED 2-19 YEARS EXCLUSIVE. Cho/HDL Ratio 3.7 CALC TOM ([facility] NORMAL RANGES Age WBC RBC HGB HCT [...] HCT IS 5% LESS SOURCE FOR DATA: BigTip 1800 OPERATION MANUAL( AUTOMATED BLOOD COUNTS AND [...] DESIRABLE: <130 MG/DL <110 MG/DL BORDERLINE-HIGH RISK: 130- 159 MG/DL 110-129 MG/DL HIGH RISK: >160 MG/DL >130 MG/DL *CHILDREN AND ADOLESCENTS REPRESENTS INDIVIDUALA AGED 2-19 YEARS EXCLUSIVE. LDL_C 79 Calc 75-129 [facility] ([facility] NORMAL RANGES Age WBC RBC HGB HCT [...] HCT IS 5% LESS SOURCE FOR DATA: BigTip 1800 OPERATION MANUAL( AUTOMATED BLOOD COUNTS AND [...] DESIRABLE: <130 MG/DL <110 MG/DL BORDERLINE-HIGH RISK: 130- 159 MG/DL 110-129 MG/DL HIGH RISK: >160 MG/DL >130 MG/DL *CHILDREN AND ADOLESCENTS REPRESENTS INDIVIDUALA AGED 2-19 YEARS EXCLUSIVE. ID Date Data Source [id number] 07/02/2019 08:54:00 AM EDT [facility] ([facility] Name Value Range Interpretation Code Description Data Esperanza rce(s) Supporting Document(s) Glu 149 mg/dL 70-110 Above high normal [facility] ([facility] NORMAL RANGES Age WBC RBC HGB HCT [...] HCT IS 5% LESS SOURCE FOR DATA: BigTip 1800 OPERATION MANUAL( AUTOMATED BLOOD COUNTS AND [...] DESIRABLE: <130 MG/DL <110 MG/DL BORDERLINE-HIGH RISK: 130- 159 MG/DL 110-129 MG/DL HIGH RISK: >160 MG/DL >130 MG/DL *CHILDREN AND ADOLESCENTS REPRESENTS INDIVIDUALA AGED 2-19 YEARS EXCLUSIVE. BUN 14 mg/dL 8-23 [facility] ([facility] NORMAL RANGES Age WBC RBC HGB HCT [...] HCT IS 5% LESS SOURCE FOR DATA: [employer] DYN 1800 OPERATION MANUAL( AUTOMATED BLOOD COUNTS [...] DESIRABLE: <130 MG/DL <110 MG/DL BORDERLINE-HIGH RISK: 130- 159 MG/DL 110-129 MG/DL HIGH RISK: >160 MG/DL >130 MG/DL *CHILDREN AND ADOLESCENTS REPRESENTS INDIVIDUALA AGED 2-19 YEARS EXCLUSIVE. BUN/Creatinine Ratio 15.5 Calc [facility] ([facility] NORMAL RANGES Age WBC RBC HGB HCT [...] HCT IS 5% LESS SOURCE FOR DATA: BigTip 1800 OPERATION MANUAL( AUTOMATED BLOOD COUNTS AND [...] DESIRABLE: <130 MG/DL <110 MG/DL BORDERLINE-HIGH RISK: 130- 159 MG/DL 110-129 MG/DL HIGH RISK: >160 MG/DL >130 MG/DL *CHILDREN AND ADOLESCENTS REPRESENTS INDIVIDUALA AGED 2-19 YEARS EXCLUSIVE. Creat 0.9 mg/dL 0.7-1.2 [facility] ([facility] NORMAL RANGES Age WBC RBC HGB HCT [...] HCT IS 5% LESS SOURCE FOR DATA: BigTip 1800 OPERATION MANUAL( AUTOMATED BLOOD COUNTS AND [...] DESIRABLE: <130 MG/DL <110 MG/DL BORDERLINE-HIGH RISK: 130- 159 MG/DL 110-129 MG/DL HIGH RISK: >160 MG/DL >130 MG/DL *CHILDREN AND ADOLESCENTS REPRESENTS INDIVIDUALA AGED 2-19 YEARS EXCLUSIVE. K 4.8 mmol/L 3.5-5.1 [facility] ([facility] NORMAL RANGES Age WBC RBC HGB HCT [...] HCT IS 5% LESS SOURCE FOR DATA: [employer] DYN 1800 OPERATION MANUAL( AUTOMATED BLOOD COUNTS [...] DESIRABLE: <130 MG/DL <110 MG/DL BORDERLINE-HIGH RISK: 130- 159 MG/DL 110-129 MG/DL HIGH RISK: >160 MG/DL >130 MG/DL *CHILDREN AND ADOLESCENTS REPRESENTS INDIVIDUALA AGED 2-19 YEARS EXCLUSIVE. CL 94.6 mmol/L 98.0-107.0 Below low normal [facility] ([facility] NORMAL RANGES Age WBC RBC HGB HCT [...] HCT IS 5% LESS SOURCE FOR DATA: BigTip 1800 OPERATION MANUAL( AUTOMATED BLOOD COUNTS AND [...] DESIRABLE: <130 MG/DL <110 MG/DL BORDERLINE-HIGH RISK: 130- 159 MG/DL 110-129 MG/DL HIGH RISK: >160 MG/DL >130 MG/DL *CHILDREN AND ADOLESCENTS REPRESENTS INDIVIDUALA AGED 2-19 YEARS EXCLUSIVE. Na 132 mmol/L 136-145 Below low normal [facility] ( [facility] NORMAL RANGES Age WBC RBC HGB HCT [...] HCT IS 5% LESS SOURCE FOR DATA: BigTip 1800 OPERATION MANUAL( AUTOMATED BLOOD COUNTS AND [...] DESIRABLE: <130 MG/DL <110 MG/DL BORDERLINE-HIGH RISK: 130- 159 MG/DL 110-129 MG/DL HIGH RISK: >160 MG/DL >130 MG/DL *CHILDREN AND ADOLESCENTS REPRESENTS INDIVIDUALA AGED 2-19 YEARS EXCLUSIVE. CA 9.7 mg/dL 8.6-10.2 [facility] ([facility] NORMAL RANGES Age WBC RBC HGB HCT [...] HCT IS 5% LESS SOURCE FOR DATA: [employer] DYN 1800 OPERATION MANUAL( AUTOMATED BLOOD COUNTS [...] DESIRABLE: <130 MG/DL <110 MG/DL BORDERLINE-HIGH RISK: 130- 159 MG/DL 110-129 MG/DL HIGH RISK: >160 MG/DL >130 MG/DL *CHILDREN AND ADOLESCENTS REPRESENTS INDIVIDUALA AGED 2-19 YEARS EXCLUSIVE. Co2 25.0 mmol/L 22.0-29.0 [facility] ([facility] NORMAL RANGES Age WBC RBC HGB HCT [...] HCT IS 5% LESS SOURCE FOR DATA: BigTip 1800 OPERATION MANUAL( AUTOMATED BLOOD COUNTS AND [...] DESIRABLE: <130 MG/DL <110 MG/DL BORDERLINE-HIGH RISK: 130- 159 MG/DL 110-129 MG/DL HIGH RISK: >160 MG/DL >130 MG/DL *CHILDREN AND ADOLESCENTS REPRESENTS INDIVIDUALA AGED 2-19 YEARS EXCLUSIVE. TP 6.6 g/dL 6.6-8.7 [facility] ([facility] NORMAL RANGES Age WBC RBC HGB HCT [...] HCT IS 5% LESS SOURCE FOR DATA: [employer]Tip 1800 OPERATION MANUAL( AUTOMATED BLOOD COUNTS AND [...] DESIRABLE: <130 MG/DL <110 MG/DL BORDERLINE-HIGH RISK: 130- 159 MG/DL 110-129 MG/DL HIGH RISK: >160 MG/DL >130 MG/DL *CHILDREN AND ADOLESCENTS REPRESENTS INDIVIDUALA AGED 2-19 YEARS EXCLUSIVE. Alb 4.6 g/dL 3.5-5.2 [facility] ([facility] NORMAL RANGES Age WBC RBC HGB HCT [...] HCT IS 5% LESS SOURCE FOR DATA: [employer] DYN 1800 OPERATION MANUAL( AUTOMATED BLOOD COUNTS [...] DESIRABLE: <130 MG/DL <110 MG/DL BORDERLINE-HIGH RISK: 130- 159 MG/DL 110-129 MG/DL HIGH RISK: >160 MG/DL >130 MG/DL *CHILDREN AND ADOLESCENTS REPRESENTS INDIVIDUALA AGED 2-19 YEARS EXCLUSIVE. Alp 67.1 U/L 40-129 [facility] ([facility] NORMAL RANGES Age WBC RBC HGB HCT [...] HCT IS 5% LESS SOURCE FOR DATA: [employer] 1800 OPERATION MANUAL( AUTOMATED BLOOD COUNTS AND [...] DESIRABLE: <130 MG/DL <110 MG/DL BORDERLINE-HIGH RISK: 130- 159 MG/DL 110-129 MG/DL HIGH RISK: >160 MG/DL >130 MG/DL *CHILDREN AND ADOLESCENTS REPRESENTS INDIVIDUALA AGED 2-19 YEARS EXCLUSIVE. Globulin 2.0 Calc [facility] ([facility] NORMAL RANGES Age WBC RBC HGB HCT [...] HCT IS 5% LESS SOURCE FOR DATA: [employer] 1800 OPERATION MANUAL( AUTOMATED BLOOD COUNTS AND [...] DESIRABLE: <130 MG/DL <110 MG/DL BORDERLINE-HIGH RISK: 130- 159 MG/DL 110-129 MG/DL HIGH RISK: >160 MG/DL >130 MG/DL *CHILDREN AND ADOLESCENTS REPRESENTS INDIVIDUALA AGED 2-19 YEARS EXCLUSIVE. A/G Ratio 2.3 Calc [facility] ([facility] NORMAL RANGES Age WBC RBC HGB HCT [...] HCT IS 5% LESS SOURCE FOR DATA: [employer] 1800 OPERATION MANUAL( AUTOMATED BLOOD COUNTS AND [...] DESIRABLE: <130 MG/DL <110 MG/DL BORDERLINE-HIGH RISK: 130- 159 MG/DL 110-129 MG/DL HIGH RISK: >160 MG/DL >130 MG/DL *CHILDREN AND ADOLESCENTS REPRESENTS INDIVIDUALA AGED 2-19 YEARS EXCLUSIVE. Ast (Sgot) 26 U/L 0-40 [facility] ([facility] NORMAL RANGES Age WBC RBC HGB HCT [...] HCT IS 5% LESS SOURCE FOR DATA: [employer] 1800 OPERATION MANUAL( AUTOMATED BLOOD COUNTS AND [...] DESIRABLE: <130 MG/DL <110 MG/DL BORDERLINE-HIGH RISK: 130- 159 MG/DL 110-129 MG/DL HIGH RISK: >160 MG/DL >130 MG/DL *CHILDREN AND ADOLESCENTS REPRESENTS INDIVIDUALA AGED 2-19 YEARS EXCLUSIVE. Alt (SGPT) 28 U/L 0-41 [facility] ([facility] NORMAL RANGES Age WBC RBC HGB HCT [...] HCT IS 5% LESS SOURCE FOR DATA: [employer] 1800 OPERATION MANUAL( AUTOMATED BLOOD COUNTS AND [...] DESIRABLE: <130 MG/DL <110 MG/DL BORDERLINE-HIGH RISK: 130- 159 MG/DL 110-129 MG/DL HIGH RISK: >160 MG/DL >130 MG/DL *CHILDREN AND ADOLESCENTS REPRESENTS INDIVIDUALA AGED 2-19 YEARS EXCLUSIVE. Osmolality-Calculated 267.3 Calc [facility] ([facility] NORMAL RANGES Age WBC RBC HGB HCT [...] HCT IS 5% LESS SOURCE FOR DATA: [employer] 1800 OPERATION MANUAL( AUTOMATED BLOOD COUNTS AND [...] DESIRABLE: <130 MG/DL <110 MG/DL BORDERLINE-HIGH RISK: 130- 159 MG/DL 110-129 MG/DL HIGH RISK: >160 MG/DL >130 MG/DL *CHILDREN AND ADOLESCENTS REPRESENTS INDIVIDUALA AGED 2-19 YEARS EXCLUSIVE. Tbili 0.42 mg/dL 0.0-1.2 [facility] ([facility] NORMAL RANGES Age WBC RBC HGB HCT [...] HCT IS 5% LESS SOURCE FOR DATA: [employer] 1800 OPERATION MANUAL( AUTOMATED BLOOD COUNTS AND [...] DESIRABLE: <130 MG/DL <110 MG/DL BORDERLINE-HIGH RISK: 130- 159 MG/DL 110-129 MG/DL HIGH RISK: >160 MG/DL >130 MG/DL *CHILDREN AND ADOLESCENTS REPRESENTS INDIVIDUALA AGED 2-19 YEARS EXCLUSIVE. Anion Gap 17 mmol/L [facility] ([facility] NORMAL RANGES Age WBC RBC HGB HCT [...] HCT IS 5% LESS SOURCE FOR DATA: [employer] 1800 OPERATION MANUAL( AUTOMATED BLOOD COUNTS AND [...] DESIRABLE: <130 MG/DL <110 MG/DL BORDERLINE-HIGH RISK: 130- 159 MG/DL 110-129 MG/DL HIGH RISK: >160 MG/DL >130 MG/DL *CHILDREN AND ADOLESCENTS REPRESENTS INDIVIDUALA AGED 2-19 YEARS EXCLUSIVE. eGFR Non-Afr. Malagasy 75 # [facility] ([facility] CKD-EPI eGFR 87 # [facility] ( [facility] CKD-EPI ID Date Data Source [id number] 07/02/2019 08:54:00 AM EDT [facility] ([facility] Name Value Range Interpretation Code Description Data Esperanza rce(s) Supporting Document(s) RBC 3.94 10E6/uL 4.20-6.30 Below low normal [facility] ([facility] NORMAL RANGES Age WBC RBC HGB HCT [...] HCT IS 5% LESS SOURCE FOR DATA: [employer] 1800 OPERATION MANUAL( AUTOMATED BLOOD COUNTS AND [...] DESIRABLE: <130 MG/DL <110 MG/DL BORDERLINE-HIGH RISK: 130- 159 MG/DL 110-129 MG/DL HIGH RISK: >160 MG/DL >130 MG/DL *CHILDREN AND ADOLESCENTS REPRESENTS INDIVIDUALA AGED 2-19 YEARS EXCLUSIVE. WBC 5.9 10E3/uL 4.1-10.9 [facility] ([facility] NORMAL RANGES Age WBC RBC HGB HCT [...] HCT IS 5% LESS SOURCE FOR DATA: [employer]Tip 1800 OPERATION MANUAL( AUTOMATED BLOOD COUNTS AND [...] DESIRABLE: <130 MG/DL <110 MG/DL BORDERLINE-HIGH RISK: 130- 159 MG/DL 110-129 MG/DL HIGH RISK: >160 MG/DL >130 MG/DL *CHILDREN AND ADOLESCENTS REPRESENTS INDIVIDUALA AGED 2-19 YEARS EXCLUSIVE. HCT 37.5 % 37.0-51.0 [facility] ([facility] NORMAL RANGES Age WBC RBC HGB HCT [...] HCT IS 5% LESS SOURCE FOR DATA: [employer] DYN 1800 OPERATION MANUAL( AUTOMATED BLOOD COUNTS [...] DESIRABLE: <130 MG/DL <110 MG/DL BORDERLINE-HIGH RISK: 130- 159 MG/DL 110-129 MG/DL HIGH RISK: >160 MG/DL >130 MG/DL *CHILDREN AND ADOLESCENTS REPRESENTS INDIVIDUALA AGED 2-19 YEARS EXCLUSIVE. HGB 12.9 g/dL 12.0-18.0 [facility] ([facility] NORMAL RANGES Age WBC RBC HGB HCT [...] HCT IS 5% LESS SOURCE FOR DATA: [employer] 1800 OPERATION MANUAL( AUTOMATED BLOOD COUNTS AND [...] DESIRABLE: <130 MG/DL <110 MG/DL BORDERLINE-HIGH RISK: 130- 159 MG/DL 110-129 MG/DL HIGH RISK: >160 MG/DL >130 MG/DL *CHILDREN AND ADOLESCENTS REPRESENTS INDIVIDUALA AGED 2-19 YEARS EXCLUSIVE. MCV 95.2 fL 80.0-97.0 [facility] NORMAL RANGES Age WBC RBC HGB HCT [...] HCT IS 5% LESS SOURCE FOR DATA: [employer] 1800 OPERATION MANUAL( AUTOMATED BLOOD COUNTS AND [...] DESIRABLE: <130 MG/DL <110 MG/DL BORDERLINE-HIGH RISK: 130- 159 MG/DL 110-129 MG/DL HIGH RISK: >160 MG/DL >130 MG/DL *CHILDREN AND ADOLESCENTS REPRESENTS INDIVIDUALA AGED 2-19 YEARS EXCLUSIVE. MCH 32.7 pg 26.0-32.0 Above high normal [facility] ([facility] NORMAL RANGES Age WBC RBC HGB HCT [...] HCT IS 5% LESS SOURCE FOR DATA: [employer] 1800 OPERATION MANUAL( AUTOMATED BLOOD COUNTS AND [...] DESIRABLE: <130 MG/DL <110 MG/DL BORDERLINE-HIGH RISK: 130- 159 MG/DL 110-129 MG/DL HIGH RISK: >160 MG/DL >130 MG/DL *CHILDREN AND ADOLESCENTS REPRESENTS INDIVIDUALA AGED 2-19 YEARS EXCLUSIVE. RDW-CV 13.8 % 11.5-14.5 [facility] ([facility] NORMAL RANGES Age WBC RBC HGB HCT [...] HCT IS 5% LESS SOURCE FOR DATA: [employer] 1800 OPERATION MANUAL( AUTOMATED BLOOD COUNTS AND [...] DESIRABLE: <130 MG/DL <110 MG/DL BORDERLINE-HIGH RISK: 130- 159 MG/DL 110-129 MG/DL HIGH RISK: >160 MG/DL >130 MG/DL *CHILDREN AND ADOLESCENTS REPRESENTS INDIVIDUALA AGED 2-19 YEARS EXCLUSIVE. MCHC 34.4 g/dL 31.0-36.0 [facility] ([facility] NORMAL RANGES Age WBC RBC HGB HCT [...] HCT IS 5% LESS SOURCE FOR DATA: [employer] DYN 1800 OPERATION MANUAL( AUTOMATED BLOOD COUNTS [...] DESIRABLE: <130 MG/DL <110 MG/DL BORDERLINE-HIGH RISK: 130- 159 MG/DL 110-129 MG/DL HIGH RISK: >160 MG/DL >130 MG/DL *CHILDREN AND ADOLESCENTS REPRESENTS INDIVIDUALA AGED 2-19 YEARS EXCLUSIVE. PLT 362 10E3/uL 140-440 [facility] ([facility] NORMAL RANGES Age WBC RBC HGB HCT [...] HCT IS 5% LESS SOURCE FOR DATA: [employer] 1800 OPERATION MANUAL( AUTOMATED BLOOD COUNTS AND [...] DESIRABLE: <130 MG/DL <110 MG/DL BORDERLINE-HIGH RISK: 130- 159 MG/DL 110-129 MG/DL HIGH RISK: >160 MG/DL >130 MG/DL *CHILDREN AND ADOLESCENTS REPRESENTS INDIVIDUALA AGED 2-19 YEARS EXCLUSIVE. Lym% 22.1 % 10.0-58.5 [facility] ([facility] NORMAL RANGES Age WBC RBC HGB HCT [...] HCT IS 5% LESS SOURCE FOR DATA: [employer] 1800 OPERATION MANUAL( AUTOMATED BLOOD COUNTS AND [...] DESIRABLE: <130 MG/DL <110 MG/DL BORDERLINE-HIGH RISK: 130- 159 MG/DL 110-129 MG/DL HIGH RISK: >160 MG/DL >130 MG/DL *CHILDREN AND ADOLESCENTS REPRESENTS INDIVIDUALA AGED 2-19 YEARS EXCLUSIVE. Neut% 68.1 % 37.0-92.0 [facility] ([facility] NORMAL RANGES Age WBC RBC HGB HCT [...] HCT IS 5% LESS SOURCE FOR DATA: [employer] DYN 1800 OPERATION MANUAL( AUTOMATED BLOOD COUNTS [...] DESIRABLE: <130 MG/DL <110 MG/DL BORDERLINE-HIGH RISK: 130- 159 MG/DL 110-129 MG/DL HIGH RISK: >160 MG/DL >130 MG/DL *CHILDREN AND ADOLESCENTS REPRESENTS INDIVIDUALA AGED 2-19 YEARS EXCLUSIVE. MXD% 9.8 % 0.1-24.0 [facility] ([facility] NORMAL RANGES Age WBC RBC HGB HCT [...] HCT IS 5% LESS SOURCE FOR DATA: [employer] 1800 OPERATION MANUAL( AUTOMATED BLOOD COUNTS AND [...] DESIRABLE: <130 MG/DL <110 MG/DL BORDERLINE-HIGH RISK: 130- 159 MG/DL 110-129 MG/DL HIGH RISK: >160 MG/DL >130 MG/DL *CHILDREN AND ADOLESCENTS REPRESENTS INDIVIDUALA AGED 2-19 YEARS EXCLUSIVE. Neut# 4.0 % 2.0-7.8 [facility] ([facility] NORMAL RANGES Age WBC RBC HGB HCT [...] HCT IS 5% LESS SOURCE FOR DATA: [employer] 1800 OPERATION MANUAL( AUTOMATED BLOOD COUNTS AND [...] DESIRABLE: <130 MG/DL <110 MG/DL BORDERLINE-HIGH RISK: 130- 159 MG/DL 110-129 MG/DL HIGH RISK: >160 MG/DL >130 MG/DL *CHILDREN AND ADOLESCENTS REPRESENTS INDIVIDUALA AGED 2-19 YEARS EXCLUSIVE. Lym# 1.3 10E3/uL 0.6-4.1 [place] ([facility] NORMAL RANGES Age WBC RBC HGB HCT [...] HCT IS 5% LESS SOURCE FOR DATA: [employer] 1800 OPERATION MANUAL( AUTOMATED BLOOD COUNTS AND [...] DESIRABLE: <130 MG/DL <110 MG/DL BORDERLINE-HIGH RISK: 130- 159 MG/DL 110-129 MG/DL HIGH RISK: >160 MG/DL >130 MG/DL *CHILDREN AND ADOLESCENTS REPRESENTS INDIVIDUALA AGED 2-19 YEARS EXCLUSIVE. MPV 7.8 fL 9.0-13.0 Below low normal [facility] ( [facility] NORMAL RANGES Age WBC RBC HGB HCT [...] HCT IS 5% LESS SOURCE FOR DATA: [employer] 1800 OPERATION MANUAL( AUTOMATED BLOOD COUNTS AND [...] DESIRABLE: <130 MG/DL <110 MG/DL BORDERLINE-HIGH RISK: 130- 159 MG/DL 110-129 MG/DL HIGH RISK: >160 MG/DL >130 MG/DL *CHILDREN AND ADOLESCENTS REPRESENTS INDIVIDUALA AGED 2-19 YEARS EXCLUSIVE. MXD# 0.6 10E3/uL 0.0-1.8 [facility] ([facility] NORMAL RANGES Age WBC RBC HGB HCT [...] HCT IS 5% LESS SOURCE FOR DATA: [employer] 1800 OPERATION MANUAL( AUTOMATED BLOOD COUNTS AND [...] DESIRABLE: <130 MG/DL <110 MG/DL BORDERLINE-HIGH RISK: 130- 159 MG/DL 110-129 MG/DL HIGH RISK: >160 MG/DL >130 MG/DL *CHILDREN AND ADOLESCENTS REPRESENTS INDIVIDUALA AGED 2-19 YEARS EXCLUSIVE. ID Date Data Source [id number] 03/26/2019 09:05:00 AM EST [facility] ([facility] Name Value Range Interpretation Code Description Data Esperanza rce(s) Supporting Document(s) Clarity Laboratory test result [facility] ([facility] CLASSIFICATION CHOLESTEROL FO R ADULTS CHILDREN/ADOLESCENTS* DESIRABLE: <200 MG/DL <170 MG/DL BORDER-LINE HIGH RISK: 200-239 MG/DL 170-199 MG/DL HIGH RISK: >240 MG/DL >200 MG/DL CLASS. FOR PRIMARY LDL CHOL PREVENTION: LDL CHOL-CHILD/ADOLESCENTS* DESIRABLE: <130 MG/DL <110 MG/DL BORDERLINE-HIGH RISK: 130-159 MG/DL 110-129 MG/DL HIGH RISK: >160 MG/DL >130 MG/DL *CHILDREN AND ADOLESCENTS REPRESENTS INDIVIDUALA AGED 2-19 YEARS EXCLUSIVE. CHRONIC KIDNEY DISEASE STAGING PER NKF: MALE [...] mL/min Normal 80 and above >32 mL/min NormalNORMAL RANGES Age WBC RBC HGB HCT MCV PLT Adult M 4.1-10.9 4.20-6.30 12.0-18.0 37.0-51.0 80-97 140-440 Adult F 4.1-10.9 4.04-5.48 12.0-18.0 37.0-51.0 80-97 140-440 0- 1 Yr 5.0-20.0 3.9-5.9 15-18 MV: 44 MV: 91 MV: 277 2-9 Yr. 6.0-17.0 3.8-5.4 11-13 MV: 37 MV: 78 MV: 300 10 Yrs. 5.0-13.0 3.8-5.4 12-15 MV: 39 MV: 80 MV: 250 NOTE: * FOR ADULT BLACK MALES AND FEMALES, NORMAL WBC IS 2.9-7.7 K/ML * FOR ADULT BLACK MALES AND FEMALES, NORMAL RBC,HGB, AND HCT IS 5% LESS SOURCE FOR DATA: [employer] DYN 1800 OPERATION MANUAL( AUTOMATED BLOOD COUNTS AND DIFF.) APPENDIX B-3 Color Laboratory test result [facility] ([facility] CLASSIFICATION CHOLESTEROL FO R ADULTS CHILDREN/ADOLESCENTS* DESIRABLE: <200 MG/DL <170 MG/DL BORDER-LINE HIGH RISK: 200-239 MG/DL 170-199 MG/DL HIGH RISK: >240 MG/DL >200 MG/DL CLASS. FOR PRIMARY LDL CHOL PREVENTION: LDL CHOL-CHILD/ADOLESCENTS* DESIRABLE: <130 MG/DL <110 MG/DL BORDERLINE-HIGH RISK: 130-159 MG/DL 110-129 MG/DL HIGH RISK: >160 MG/DL >130 MG/DL *CHILDREN AND ADOLESCENTS REPRESENTS INDIVIDUALA AGED 2-19 YEARS EXCLUSIVE. CHRONIC KIDNEY DISEASE STAGING PER NKF: MALE [...] mL/min Normal 80 and above >32 mL/min NormalNORMAL RANGES Age WBC RBC HGB HCT MCV PLT Adult M 4.1-10.9 4.20-6.30 12.0-18.0 37.0-51.0 80-97 140-440 Adult F 4.1-10.9 4.04-5.48 12.0-18.0 37.0-51.0 80-97 140-440 0- 1 Yr 5.0-20.0 3.9-5.9 15-18 MV: 44 MV: 91 MV: 277 2-9 Yr. 6.0-17.0 3.8-5.4 11-13 MV: 37 MV: 78 MV: 300 10 Yrs. 5.0-13.0 3.8-5.4 12-15 MV: 39 MV: 80 MV: 250 NOTE: * FOR ADULT BLACK MALES AND FEMALES, NORMAL WBC IS 2.9-7.7 K/ML * FOR ADULT BLACK MALES AND FEMALES, NORMAL RBC,HGB, AND HCT IS 5% LESS SOURCE FOR DATA: [employer] DYN 1800 OPERATION MANUAL( AUTOMATED BLOOD COUNTS AND DIFF.) APPENDIX B-3 Glucose-Ua Laboratory test result [facility] ([facility] CLASSIFICATION CHOLESTEROL FO R ADULTS CHILDREN/ADOLESCENTS* DESIRABLE: <200 MG/DL <170 MG/DL BORDER-LINE HIGH RISK: 200-239 MG/DL 170-199 MG/DL HIGH RISK: >240 MG/DL >200 MG/DL CLASS. FOR PRIMARY LDL CHOL PREVENTION: LDL CHOL-CHILD/ADOLESCENTS* DESIRABLE: <130 MG/DL <110 MG/DL BORDERLINE-HIGH RISK: 130-159 MG/DL 110-129 MG/DL HIGH RISK: >160 MG/DL >130 MG/DL *CHILDREN AND ADOLESCENTS REPRESENTS INDIVIDUALA AGED 2-19 YEARS EXCLUSIVE. CHRONIC KIDNEY DISEASE STAGING PER NKF: MALE [...] mL/min Normal 80 and above >32 mL/min NormalNORMAL RANGES Age WBC RBC HGB HCT MCV PLT Adult M 4.1-10.9 4.20-6.30 12.0-18.0 37.0-51.0 80-97 140-440 Adult F 4.1-10.9 4.04-5.48 12.0-18.0 37.0-51.0 80-97 140-440 0- 1 Yr 5.0-20.0 3.9-5.9 15-18 MV: 44 MV: 91 MV: 277 2-9 Yr. 6.0-17.0 3.8-5.4 11-13 MV: 37 MV: 78 MV: 300 10 Yrs. 5.0-13.0 3.8-5.4 12-15 MV: 39 MV: 80 MV: 250 NOTE: * FOR ADULT BLACK MALES AND FEMALES, NORMAL WBC IS 2.9-7.7 K/ML * FOR ADULT BLACK MALES AND FEMALES, NORMAL RBC,HGB, AND HCT IS 5% LESS SOURCE FOR DATA: [employer] DYN 1800 OPERATION MANUAL( AUTOMATED BLOOD COUNTS AND DIFF.) APPENDIX B-3 Ketone Laboratory test result [facility] ([facility] CLASSIFICATION CHOLESTEROL FO R ADULTS CHILDREN/ADOLESCENTS* DESIRABLE: <200 MG/DL <170 MG/DL BORDER-LINE HIGH RISK: 200-239 MG/DL 170-199 MG/DL HIGH RISK: >240 MG/DL >200 MG/DL CLASS. FOR PRIMARY LDL CHOL PREVENTION: LDL CHOL-CHILD/ADOLESCENTS* DESIRABLE: <130 MG/DL <110 MG/DL BORDERLINE-HIGH RISK: 130-159 MG/DL 110-129 MG/DL HIGH RISK: >160 MG/DL >130 MG/DL *CHILDREN AND ADOLESCENTS REPRESENTS INDIVIDUALA AGED 2-19 YEARS EXCLUSIVE. CHRONIC KIDNEY DISEASE STAGING PER NKF: MALE [...] mL/min Normal 80 and above >32 mL/min NormalNORMAL RANGES Age WBC RBC HGB HCT MCV PLT Adult M 4.1-10.9 4.20-6.30 12.0-18.0 37.0-51.0 80-97 140-440 Adult F 4.1-10.9 4.04-5.48 12.0-18.0 37.0-51.0 80-97 140-440 0- 1 Yr 5.0-20.0 3.9-5.9 15-18 MV: 44 MV: 91 MV: 277 2-9 Yr. 6.0-17.0 3.8-5.4 11-13 MV: 37 MV: 78 MV: 300 10 Yrs. 5.0-13.0 3.8-5.4 12-15 MV: 39 MV: 80 MV: 250 NOTE: * FOR ADULT BLACK MALES AND FEMALES, NORMAL WBC IS 2.9-7.7 K/ML * FOR ADULT BLACK MALES AND FEMALES, NORMAL RBC,HGB, AND HCT IS 5% LESS SOURCE FOR DATA: [employer] DYN 1800 OPERATION MANUAL( AUTOMATED BLOOD COUNTS AND DIFF.) APPENDIX B-3 Blood - Ua Laboratory test result [facility] ([facility] CLASSIFICATION CHOLESTEROL FO R ADULTS CHILDREN/ADOLESCENTS* DESIRABLE: <200 MG/DL <170 MG/DL BORDER-LINE HIGH RISK: 200-239 MG/DL 170-199 MG/DL HIGH RISK: >240 MG/DL >200 MG/DL CLASS. FOR PRIMARY LDL CHOL PREVENTION: LDL CHOL-CHILD/ADOLESCENTS* DESIRABLE: <130 MG/DL <110 MG/DL BORDERLINE-HIGH RISK: 130-159 MG/DL 110-129 MG/DL HIGH RISK: >160 MG/DL >130 MG/DL *CHILDREN AND ADOLESCENTS REPRESENTS INDIVIDUALA AGED 2-19 YEARS EXCLUSIVE. CHRONIC KIDNEY DISEASE STAGING PER NKF: MALE [...] mL/min Normal 80 and above >32 mL/min NormalNORMAL RANGES Age WBC RBC HGB HCT MCV PLT Adult M 4.1-10.9 4.20-6.30 12.0-18.0 37.0-51.0 80-97 140-440 Adult F 4.1-10.9 4.04-5.48 12.0-18.0 37.0-51.0 80-97 140-440 0- 1 Yr 5.0-20.0 3.9-5.9 15-18 MV: 44 MV: 91 MV: 277 2-9 Yr. 6.0-17.0 3.8-5.4 11-13 MV: 37 MV: 78 MV: 300 10 Yrs. 5.0-13.0 3.8-5.4 12-15 MV: 39 MV: 80 MV: 250 NOTE: * FOR ADULT BLACK MALES AND FEMALES, NORMAL WBC IS 2.9-7.7 K/ML * FOR ADULT BLACK MALES AND FEMALES, NORMAL RBC,HGB, AND HCT IS 5% LESS SOURCE FOR DATA: [employer] DYN 1800 OPERATION MANUAL( AUTOMATED BLOOD COUNTS AND DIFF.) APPENDIX B-3 Bilirubin,Urine Laboratory test result [facility] ([facility] CLASSIFICATION CHOLESTEROL FO R ADULTS CHILDREN/ADOLESCENTS* DESIRABLE: <200 MG/DL <170 MG/DL BORDER-LINE HIGH RISK: 200-239 MG/DL 170-199 MG/DL HIGH RISK: >240 MG/DL >200 MG/DL CLASS. FOR PRIMARY LDL CHOL PREVENTION: LDL CHOL-CHILD/ADOLESCENTS* DESIRABLE: <130 MG/DL <110 MG/DL BORDERLINE-HIGH RISK: 130-159 MG/DL 110-129 MG/DL HIGH RISK: >160 MG/DL >130 MG/DL *CHILDREN AND ADOLESCENTS REPRESENTS INDIVIDUALA AGED 2-19 YEARS EXCLUSIVE. CHRONIC KIDNEY DISEASE STAGING PER NKF: MALE [...] mL/min Normal 80 and above >32 mL/min NormalNORMAL RANGES Age WBC RBC HGB HCT MCV PLT Adult M 4.1-10.9 4.20-6.30 12.0-18.0 37.0-51.0 80-97 140-440 Adult F 4.1-10.9 4.04-5.48 12.0-18.0 37.0-51.0 80-97 140-440 0- 1 Yr 5.0-20.0 3.9-5.9 15-18 MV: 44 MV: 91 MV: 277 2-9 Yr. 6.0-17.0 3.8-5.4 11-13 MV: 37 MV: 78 MV: 300 10 Yrs. 5.0-13.0 3.8-5.4 12-15 MV: 39 MV: 80 MV: 250 NOTE: * FOR ADULT BLACK MALES AND FEMALES, NORMAL WBC IS 2.9-7.7 K/ML * FOR ADULT BLACK MALES AND FEMALES, NORMAL RBC,HGB, AND HCT IS 5% LESS SOURCE FOR DATA: [employer] 1800 OPERATION MANUAL( AUTOMATED BLOOD COUNTS AND DIFF.) APPENDIX B-3 pH 5.5 # 5.0-8.0 [facility] ([facility] CLASSIFICATION CHOLESTEROL FO R ADULTS CHILDREN/ADOLESCENTS* DESIRABLE: <200 MG/DL <170 MG/DL BORDER-LINE HIGH RISK: 200-239 MG/DL 170-199 MG/DL HIGH RISK: >240 MG/DL >200 MG/DL CLASS. FOR PRIMARY LDL CHOL PREVENTION: LDL CHOL-CHILD/ADOLESCENTS* DESIRABLE: <130 MG/DL <110 MG/DL BORDERLINE-HIGH RISK: 130-159 MG/DL 110-129 MG/DL HIGH RISK: >160 MG/DL >130 MG/DL *CHILDREN AND ADOLESCENTS REPRESENTS INDIVIDUALA AGED 2-19 YEARS EXCLUSIVE. CHRONIC KIDNEY DISEASE STAGING PER NKF: MALE [...] mL/min Normal 80 and above >32 mL/min NormalNORMAL RANGES Age WBC RBC HGB HCT MCV PLT Adult M 4.1-10.9 4.20-6.30 12.0-18.0 37.0-51.0 80-97 140-440 Adult F 4.1-10.9 4.04-5.48 12.0-18.0 37.0-51.0 80-97 140-440 0- 1 Yr 5.0-20.0 3.9-5.9 15-18 MV: 44 MV: 91 MV: 277 2-9 Yr. 6.0-17.0 3.8-5.4 11-13 MV: 37 MV: 78 MV: 300 10 Yrs. 5.0-13.0 3.8-5.4 12-15 MV: 39 MV: 80 MV: 250 NOTE: * FOR ADULT BLACK MALES AND FEMALES, NORMAL WBC IS 2.9-7.7 K/ML * FOR ADULT BLACK MALES AND FEMALES, NORMAL RBC,HGB, AND HCT IS 5% LESS SOURCE FOR DATA: [employer] DYN 1800 OPERATION MANUAL( AUTOMATED BLOOD COUNTS AND DIFF.) APPENDIX B-3 Protein 30 mg/dL Abnormal (applies to non-numeric res ults) [facility] ([facility] CLASSIFICATION CHOLESTEROL FO R ADULTS CHILDREN/ADOLESCENTS* DESIRABLE: <200 MG/DL <170 MG/DL BORDER-LINE HIGH RISK: 200-239 MG/DL 170-199 MG/DL HIGH RISK: >240 MG/DL >200 MG/DL CLASS. FOR PRIMARY LDL CHOL PREVENTION: LDL CHOL-CHILD/ADOLESCENTS* DESIRABLE: <130 MG/DL <110 MG/DL BORDERLINE-HIGH RISK: 130-159 MG/DL 110-129 MG/DL HIGH RISK: >160 MG/DL >130 MG/DL *CHILDREN AND ADOLESCENTS REPRESENTS INDIVIDUALA AGED 2-19 YEARS EXCLUSIVE. CHRONIC KIDNEY DISEASE STAGING PER NKF: MALE [...] mL/min Normal 80 and above >32 mL/min NormalNORMAL RANGES Age WBC RBC HGB HCT MCV PLT Adult M 4.1-10.9 4.20-6.30 12.0-18.0 37.0-51.0 80-97 140-440 Adult F 4.1-10.9 4.04-5.48 12.0-18.0 37.0-51.0 80-97 140-440 0- 1 Yr 5.0-20.0 3.9-5.9 15-18 MV: 44 MV: 91 MV: 277 2-9 Yr. 6.0-17.0 3.8-5.4 11-13 MV: 37 MV: 78 MV: 300 10 Yrs. 5.0-13.0 3.8-5.4 12-15 MV: 39 MV: 80 MV: 250 NOTE: * FOR ADULT BLACK MALES AND FEMALES, NORMAL WBC IS 2.9-7.7 K/ML * FOR ADULT BLACK MALES AND FEMALES, NORMAL RBC,HGB, AND HCT IS 5% LESS SOURCE FOR DATA: [employer] DYN 1800 OPERATION MANUAL( AUTOMATED BLOOD COUNTS AND DIFF.) APPENDIX B-3 Urobilinogen 0.2 NA 0.2-1.0 [facility] ([facility] CLASSIFICATION CHOLESTEROL FO R ADULTS CHILDREN/ADOLESCENTS* DESIRABLE: <200 MG/DL <170 MG/DL BORDER-LINE HIGH RISK: 200-239 MG/DL 170-199 MG/DL HIGH RISK: >240 MG/DL >200 MG/DL CLASS. FOR PRIMARY LDL CHOL PREVENTION: LDL CHOL-CHILD/ADOLESCENTS* DESIRABLE: <130 MG/DL <110 MG/DL BORDERLINE-HIGH RISK: 130-159 MG/DL 110-129 MG/DL HIGH RISK: >160 MG/DL >130 MG/DL *CHILDREN AND ADOLESCENTS REPRESENTS INDIVIDUALA AGED 2-19 YEARS EXCLUSIVE. CHRONIC KIDNEY DISEASE STAGING PER NKF: MALE [...] mL/min Normal 80 and above >32 mL/min NormalNORMAL RANGES Age WBC RBC HGB HCT MCV PLT Adult M 4.1-10.9 4.20-6.30 12.0-18.0 37.0-51.0 80-97 140-440 Adult F 4.1-10.9 4.04-5.48 12.0-18.0 37.0-51.0 80-97 140-440 0- 1 Yr 5.0-20.0 3.9-5.9 15-18 MV: 44 MV: 91 MV: 277 2-9 Yr. 6.0-17.0 3.8-5.4 11-13 MV: 37 MV: 78 MV: 300 10 Yrs. 5.0-13.0 3.8-5.4 12-15 MV: 39 MV: 80 MV: 250 NOTE: * FOR ADULT BLACK MALES AND FEMALES, NORMAL WBC IS 2.9-7.7 K/ML * FOR ADULT BLACK MALES AND FEMALES, NORMAL RBC,HGB, AND HCT IS 5% LESS SOURCE FOR DATA: [employer] DYN 1800 OPERATION MANUAL( AUTOMATED BLOOD COUNTS AND DIFF.) APPENDIX B-3 Nitrite Laboratory test result [facility] ([facility] CLASSIFICATION CHOLESTEROL FO R ADULTS CHILDREN/ADOLESCENTS* DESIRABLE: <200 MG/DL <170 MG/DL BORDER-LINE HIGH RISK: 200-239 MG/DL 170-199 MG/DL HIGH RISK: >240 MG/DL >200 MG/DL CLASS. FOR PRIMARY LDL CHOL PREVENTION: LDL CHOL-CHILD/ADOLESCENTS* DESIRABLE: <130 MG/DL <110 MG/DL BORDERLINE-HIGH RISK: 130-159 MG/DL 110-129 MG/DL HIGH RISK: >160 MG/DL >130 MG/DL *CHILDREN AND ADOLESCENTS REPRESENTS INDIVIDUALA AGED 2-19 YEARS EXCLUSIVE. CHRONIC KIDNEY DISEASE STAGING PER NKF: MALE [...] mL/min Normal 80 and above >32 mL/min NormalNORMAL RANGES Age WBC RBC HGB HCT MCV PLT Adult M 4.1-10.9 4.20-6.30 12.0-18.0 37.0-51.0 80-97 140-440 Adult F 4.1-10.9 4.04-5.48 12.0-18.0 37.0-51.0 80-97 140-440 0- 1 Yr 5.0-20.0 3.9-5.9 15-18 MV: 44 MV: 91 MV: 277 2-9 Yr. 6.0-17.0 3.8-5.4 11-13 MV: 37 MV: 78 MV: 300 10 Yrs. 5.0-13.0 3.8-5.4 12-15 MV: 39 MV: 80 MV: 250 NOTE: * FOR ADULT BLACK MALES AND FEMALES, NORMAL WBC IS 2.9-7.7 K/ML * FOR ADULT BLACK MALES AND FEMALES, NORMAL RBC,HGB, AND HCT IS 5% LESS SOURCE FOR DATA: [employer] DYN 1800 OPERATION MANUAL( AUTOMATED BLOOD COUNTS AND DIFF.) APPENDIX B-3 Leukocyte Laboratory test result [facility] ([facility] CLASSIFICATION CHOLESTEROL FO R ADULTS CHILDREN/ADOLESCENTS* DESIRABLE: <200 MG/DL <170 MG/DL BORDER-LINE HIGH RISK: 200-239 MG/DL 170-199 MG/DL HIGH RISK: >240 MG/DL >200 MG/DL CLASS. FOR PRIMARY LDL CHOL PREVENTION: LDL CHOL-CHILD/ADOLESCENTS* DESIRABLE: <130 MG/DL <110 MG/DL BORDERLINE-HIGH RISK: 130-159 MG/DL 110-129 MG/DL HIGH RISK: >160 MG/DL >130 MG/DL *CHILDREN AND ADOLESCENTS REPRESENTS INDIVIDUALA AGED 2-19 YEARS EXCLUSIVE. CHRONIC KIDNEY DISEASE STAGING PER NKF: MALE [...] mL/min Normal 80 and above >32 mL/min NormalNORMAL RANGES Age WBC RBC HGB HCT MCV PLT Adult M 4.1-10.9 4.20-6.30 12.0-18.0 37.0-51.0 80-97 140-440 Adult F 4.1-10.9 4.04-5.48 12.0-18.0 37.0-51.0 80-97 140-440 0- 1 Yr 5.0-20.0 3.9-5.9 15-18 MV: 44 MV: 91 MV: 277 2-9 Yr. 6.0-17.0 3.8-5.4 11-13 MV: 37 MV: 78 MV: 300 10 Yrs. 5.0-13.0 3.8-5.4 12-15 MV: 39 MV: 80 MV: 250 NOTE: * FOR ADULT BLACK MALES AND FEMALES, NORMAL WBC IS 2.9-7.7 K/ML * FOR ADULT BLACK MALES AND FEMALES, NORMAL RBC,HGB, AND HCT IS 5% LESS SOURCE FOR DATA: [employer] DYN 1800 OPERATION MANUAL( AUTOMATED BLOOD COUNTS AND DIFF.) APPENDIX B-3 ID Date Data Source [id number] 03/26/2019 09:05:00 AM EST [facility] ([facility] Name Value Range Interpretation Code Description Data Esperanza rce(s) Supporting Document(s) Hemoglobin A1c/Hemoglobin.total in Blood 6.1 % 4.40-6.10 [facility] ([facility] CLASSIFICATION CHOLESTEROL FO R ADULTS CHILDREN/ADOLESCENTS* DESIRABLE: <200 MG/DL <170 MG/DL BORDER-LINE HIGH RISK: 200-239 MG/DL 170-199 MG/DL HIGH RISK: >240 MG/DL >200 MG/DL CLASS. FOR PRIMARY LDL CHOL PREVENTION: LDL CHOL-CHILD/ADOLESCENTS* DESIRABLE: <130 MG/DL <110 MG/DL BORDERLINE-HIGH RISK: 130-159 MG/DL 110-129 MG/DL HIGH RISK: >160 MG/DL >130 MG/DL *CHILDREN AND ADOLESCENTS REPRESENTS INDIVIDUALA AGED 2-19 YEARS EXCLUSIVE. CHRONIC KIDNEY DISEASE STAGING PER NKF: MALE [...] mL/min Normal 80 and above >32 mL/min NormalNORMAL RANGES Age WBC RBC HGB HCT MCV PLT Adult M 4.1-10.9 4.20-6.30 12.0-18.0 37.0-51.0 80-97 140-440 Adult F 4.1-10.9 4.04-5.48 12.0-18.0 37.0-51.0 80-97 140-440 0- 1 Yr 5.0-20.0 3.9-5.9 15-18 MV: 44 MV: 91 MV: 277 2-9 Yr. 6.0-17.0 3.8-5.4 11-13 MV: 37 MV: 78 MV: 300 10 Yrs. 5.0-13.0 3.8-5.4 12-15 MV: 39 MV: 80 MV: 250 NOTE: * FOR ADULT BLACK MALES AND FEMALES, NORMAL WBC IS 2.9-7.7 K/ML * FOR ADULT BLACK MALES AND FEMALES, NORMAL RBC,HGB, AND HCT IS 5% LESS SOURCE FOR DATA: [employer] 1800 OPERATION MANUAL( AUTOMATED BLOOD COUNTS AND DIFF.) APPENDIX B-3 Creatine kinase [Enzymatic activity/volume] in Serum or Plasma 61 U /L 39-308 [facility] ([facility] CLASSIFICATION CHOLESTEROL FO R ADULTS CHILDREN/ADOLESCENTS* DESIRABLE: <200 MG/DL <170 MG/DL BORDER-LINE HIGH RISK: 200-239 MG/DL 170-199 MG/DL HIGH RISK: >240 MG/DL >200 MG/DL CLASS. FOR PRIMARY LDL CHOL PREVENTION: LDL CHOL-CHILD/ADOLESCENTS* DESIRABLE: <130 MG/DL <110 MG/DL BORDERLINE-HIGH RISK: 130-159 MG/DL 110-129 MG/DL HIGH RISK: >160 MG/DL >130 MG/DL *CHILDREN AND ADOLESCENTS REPRESENTS INDIVIDUALA AGED 2-19 YEARS EXCLUSIVE. CHRONIC KIDNEY DISEASE STAGING PER NKF: MALE [...] mL/min Normal 80 and above >32 mL/min NormalNORMAL RANGES Age WBC RBC HGB HCT MCV PLT Adult M 4.1-10.9 4.20-6.30 12.0-18.0 37.0-51.0 80-97 140-440 Adult F 4.1-10.9 4.04-5.48 12.0-18.0 37.0-51.0 80-97 140-440 0- 1 Yr 5.0-20.0 3.9-5.9 15-18 MV: 44 MV: 91 MV: 277 2-9 Yr. 6.0-17.0 3.8-5.4 11-13 MV: 37 MV: 78 MV: 300 10 Yrs. 5.0-13.0 3.8-5.4 12-15 MV: 39 MV: 80 MV: 250 NOTE: * FOR ADULT BLACK MALES AND FEMALES, NORMAL WBC IS 2.9-7.7 K/ML * FOR ADULT BLACK MALES AND FEMALES, NORMAL RBC,HGB, AND HCT IS 5% LESS SOURCE FOR DATA: [employer] DYN 1800 OPERATION MANUAL( AUTOMATED BLOOD COUNTS AND DIFF.) APPENDIX B-3 ID Date Data Source [id number] 03/26/2019 09:05:00 AM EST [facility] ([facility] Name Value Range Interpretation Code Description Data Esperanza rce(s) Supporting Document(s) Trig 203 mg/dL 35-200 Above high normal [facility] ([facility] CLASSIFICATION CHOLESTEROL FO R ADULTS CHILDREN/ADOLESCENTS* DESIRABLE: <200 MG/DL <170 MG/DL BORDER-LINE HIGH RISK: 200-239 MG/DL 170-199 MG/DL HIGH RISK: >240 MG/DL >200 MG/DL CLASS. FOR PRIMARY LDL CHOL PREVENTION: LDL CHOL-CHILD/ADOLESCENTS* DESIRABLE: <130 MG/DL <110 MG/DL BORDERLINE-HIGH RISK: 130-159 MG/DL 110-129 MG/DL HIGH RISK: >160 MG/DL >130 MG/DL *CHILDREN AND ADOLESCENTS REPRESENTS INDIVIDUALA AGED 2-19 YEARS EXCLUSIVE. CHRONIC KIDNEY DISEASE STAGING PER NKF: MALE [...] mL/min Normal 80 and above >32 mL/min NormalNORMAL RANGES Age WBC RBC HGB HCT MCV PLT Adult M 4.1-10.9 4.20-6.30 12.0-18.0 37.0-51.0 80-97 140-440 Adult F 4.1-10.9 4.04-5.48 12.0-18.0 37.0-51.0 80-97 140-440 0- 1 Yr 5.0-20.0 3.9-5.9 15-18 MV: 44 MV: 91 MV: 277 2-9 Yr. 6.0-17.0 3.8-5.4 11-13 MV: 37 MV: 78 MV: 300 10 Yrs. 5.0-13.0 3.8-5.4 12-15 MV: 39 MV: 80 MV: 250 NOTE: * FOR ADULT BLACK MALES AND FEMALES, NORMAL WBC IS 2.9-7.7 K/ML * FOR ADULT BLACK MALES AND FEMALES, NORMAL RBC,HGB, AND HCT IS 5% LESS SOURCE FOR DATA: [employer] DYN 1800 OPERATION MANUAL( AUTOMATED BLOOD COUNTS AND DIFF.) APPENDIX B-3 Chol 192 mg/dL 0-200 [facility] ([facility] CLASSIFICATION CHOLESTEROL FO R ADULTS CHILDREN/ADOLESCENTS* DESIRABLE: <200 MG/DL <170 MG/DL BORDER-LINE HIGH RISK: 200-239 MG/DL 170-199 MG/DL HIGH RISK: >240 MG/DL >200 MG/DL CLASS. FOR PRIMARY LDL CHOL PREVENTION: LDL CHOL-CHILD/ADOLESCENTS* DESIRABLE: <130 MG/DL <110 MG/DL BORDERLINE-HIGH RISK: 130-159 MG/DL 110-129 MG/DL HIGH RISK: >160 MG/DL >130 MG/DL *CHILDREN AND ADOLESCENTS REPRESENTS INDIVIDUALA AGED 2-19 YEARS EXCLUSIVE. CHRONIC KIDNEY DISEASE STAGING PER NKF: MALE [...] mL/min Normal 80 and above >32 mL/min NormalNORMAL RANGES Age WBC RBC HGB HCT MCV PLT Adult M 4.1-10.9 4.20-6.30 12.0-18.0 37.0-51.0 80-97 140-440 Adult F 4.1-10.9 4.04-5.48 12.0-18.0 37.0-51.0 80-97 140-440 0- 1 Yr 5.0-20.0 3.9-5.9 15-18 MV: 44 MV: 91 MV: 277 2-9 Yr. 6.0-17.0 3.8-5.4 11-13 MV: 37 MV: 78 MV: 300 10 Yrs. 5.0-13.0 3.8-5.4 12-15 MV: 39 MV: 80 MV: 250 NOTE: * FOR ADULT BLACK MALES AND FEMALES, NORMAL WBC IS 2.9-7.7 K/ML * FOR ADULT BLACK MALES AND FEMALES, NORMAL RBC,HGB, AND HCT IS 5% LESS SOURCE FOR DATA: [employer] DYN 1800 OPERATION MANUAL( AUTOMATED BLOOD COUNTS AND DIFF.) APPENDIX B-3 Prostate specific Ag [Mass/volume] in Serum or Plasma 55 mg/dL 35-5 5 [facility] ([facility] CLASSIFICATION CHOLESTEROL FO R ADULTS CHILDREN/ADOLESCENTS* DESIRABLE: <200 MG/DL <170 MG/DL BORDER-LINE HIGH RISK: 200-239 MG/DL 170-199 MG/DL HIGH RISK: >240 MG/DL >200 MG/DL CLASS. FOR PRIMARY LDL CHOL PREVENTION: LDL CHOL-CHILD/ADOLESCENTS* DESIRABLE: <130 MG/DL <110 MG/DL BORDERLINE-HIGH RISK: 130-159 MG/DL 110-129 MG/DL HIGH RISK: >160 MG/DL >130 MG/DL *CHILDREN AND ADOLESCENTS REPRESENTS INDIVIDUALA AGED 2-19 YEARS EXCLUSIVE. CHRONIC KIDNEY DISEASE STAGING PER NKF: MALE [...] mL/min Normal 80 and above >32 mL/min NormalNORMAL RANGES Age WBC RBC HGB HCT MCV PLT Adult M 4.1-10.9 4.20-6.30 12.0-18.0 37.0-51.0 80-97 140-440 Adult F 4.1-10.9 4.04-5.48 12.0-18.0 37.0-51.0 80-97 140-440 0- 1 Yr 5.0-20.0 3.9-5.9 15-18 MV: 44 MV: 91 MV: 277 2-9 Yr. 6.0-17.0 3.8-5.4 11-13 MV: 37 MV: 78 MV: 300 10 Yrs. 5.0-13.0 3.8-5.4 12-15 MV: 39 MV: 80 MV: 250 NOTE: * FOR ADULT BLACK MALES AND FEMALES, NORMAL WBC IS 2.9-7.7 K/ML * FOR ADULT BLACK MALES AND FEMALES, NORMAL RBC,HGB, AND HCT IS 5% LESS SOURCE FOR DATA: [employer] DYN 1800 OPERATION MANUAL( AUTOMATED BLOOD COUNTS AND DIFF.) APPENDIX B-3 LDL_C 96 Calc 75-129 [facility] ([facility] CLASSIFICATION CHOLESTEROL FO R ADULTS CHILDREN/ADOLESCENTS* DESIRABLE: <200 MG/DL <170 MG/DL BORDER-LINE HIGH RISK: 200-239 MG/DL 170-199 MG/DL HIGH RISK: >240 MG/DL >200 MG/DL CLASS. FOR PRIMARY LDL CHOL PREVENTION: LDL CHOL-CHILD/ADOLESCENTS* DESIRABLE: <130 MG/DL <110 MG/DL BORDERLINE-HIGH RISK: 130-159 MG/DL 110-129 MG/DL HIGH RISK: >160 MG/DL >130 MG/DL *CHILDREN AND ADOLESCENTS REPRESENTS INDIVIDUALA AGED 2-19 YEARS EXCLUSIVE. CHRONIC KIDNEY DISEASE STAGING PER NKF: MALE [...] mL/min Normal 80 and above >32 mL/min NormalNORMAL RANGES Age WBC RBC HGB HCT MCV PLT Adult M 4.1-10.9 4.20-6.30 12.0-18.0 37.0-51.0 80-97 140-440 Adult F 4.1-10.9 4.04-5.48 12.0-18.0 37.0-51.0 80-97 140-440 0- 1 Yr 5.0-20.0 3.9-5.9 15-18 MV: 44 MV: 91 MV: 277 2-9 Yr. 6.0-17.0 3.8-5.4 11-13 MV: 37 MV: 78 MV: 300 10 Yrs. 5.0-13.0 3.8-5.4 12-15 MV: 39 MV: 80 MV: 250 NOTE: * FOR ADULT BLACK MALES AND FEMALES, NORMAL WBC IS 2.9-7.7 K/ML * FOR ADULT BLACK MALES AND FEMALES, NORMAL RBC,HGB, AND HCT IS 5% LESS SOURCE FOR DATA: [employer] 1800 OPERATION MANUAL( AUTOMATED BLOOD COUNTS AND DIFF.) APPENDIX B-3 Cho/HDL Ratio 3.5 CALC [facility] ([facility] CLASSIFICATION CHOLESTEROL FO R ADULTS CHILDREN/ADOLESCENTS* DESIRABLE: <200 MG/DL <170 MG/DL BORDER-LINE HIGH RISK: 200-239 MG/DL 170-199 MG/DL HIGH RISK: >240 MG/DL >200 MG/DL CLASS. FOR PRIMARY LDL CHOL PREVENTION: LDL CHOL-CHILD/ADOLESCENTS* DESIRABLE: <130 MG/DL <110 MG/DL BORDERLINE-HIGH RISK: 130-159 MG/DL 110-129 MG/DL HIGH RISK: >160 MG/DL >130 MG/DL *CHILDREN AND ADOLESCENTS REPRESENTS INDIVIDUALA AGED 2-19 YEARS EXCLUSIVE. CHRONIC KIDNEY DISEASE STAGING PER NKF: MALE [...] mL/min Normal 80 and above >32 mL/min NormalNORMAL RANGES Age WBC RBC HGB HCT MCV PLT Adult M 4.1-10.9 4.20-6.30 12.0-18.0 37.0-51.0 80-97 140-440 Adult F 4.1-10.9 4.04-5.48 12.0-18.0 37.0-51.0 80-97 140-440 0- 1 Yr 5.0-20.0 3.9-5.9 15-18 MV: 44 MV: 91 MV: 277 2-9 Yr. 6.0-17.0 3.8-5.4 11-13 MV: 37 MV: 78 MV: 300 10 Yrs. 5.0-13.0 3.8-5.4 12-15 MV: 39 MV: 80 MV: 250 NOTE: * FOR ADULT BLACK MALES AND FEMALES, NORMAL WBC IS 2.9-7.7 K/ML * FOR ADULT BLACK MALES AND FEMALES, NORMAL RBC,HGB, AND HCT IS 5% LESS SOURCE FOR DATA: [employer] DYN 1800 OPERATION MANUAL( AUTOMATED BLOOD COUNTS AND DIFF.) APPENDIX B-3 ID Date Data Source [id number] 03/26/2019 09:05:00 AM EST T[facility] ([facility] Name Value Range Interpretation Code Description Data Esperanza rce(s) Supporting Document(s) Glu 142 mg/dL 70-110 Above high normal [facility] ([facility] CLASSIFICATION CHOLESTEROL FO R ADULTS CHILDREN/ADOLESCENTS* DESIRABLE: <200 MG/DL <170 MG/DL BORDER-LINE HIGH RISK: 200-239 MG/DL 170-199 MG/DL HIGH RISK: >240 MG/DL >200 MG/DL CLASS. FOR PRIMARY LDL CHOL PREVENTION: LDL CHOL-CHILD/ADOLESCENTS* DESIRABLE: <130 MG/DL <110 MG/DL BORDERLINE-HIGH RISK: 130-159 MG/DL 110-129 MG/DL HIGH RISK: >160 MG/DL >130 MG/DL *CHILDREN AND ADOLESCENTS REPRESENTS INDIVIDUALA AGED 2-19 YEARS EXCLUSIVE. CHRONIC KIDNEY DISEASE STAGING PER NKF: MALE [...] mL/min Normal 80 and above >32 mL/min NormalNORMAL RANGES Age WBC RBC HGB HCT MCV PLT Adult M 4.1-10.9 4.20-6.30 12.0-18.0 37.0-51.0 80-97 140-440 Adult F 4.1-10.9 4.04-5.48 12.0-18.0 37.0-51.0 80-97 140-440 0- 1 Yr 5.0-20.0 3.9-5.9 15-18 MV: 44 MV: 91 MV: 277 2-9 Yr. 6.0-17.0 3.8-5.4 11-13 MV: 37 MV: 78 MV: 300 10 Yrs. 5.0-13.0 3.8-5.4 12-15 MV: 39 MV: 80 MV: 250 NOTE: * FOR ADULT BLACK MALES AND FEMALES, NORMAL WBC IS 2.9-7.7 K/ML * FOR ADULT BLACK MALES AND FEMALES, NORMAL RBC,HGB, AND HCT IS 5% LESS SOURCE FOR DATA: [employer] 1800 OPERATION MANUAL( AUTOMATED BLOOD COUNTS AND DIFF.) APPENDIX B-3 BUN 19 mg/dL 10-20 [facility] ([facility] CLASSIFICATION CHOLESTEROL FO R ADULTS CHILDREN/ADOLESCENTS* DESIRABLE: <200 MG/DL <170 MG/DL BORDER-LINE HIGH RISK: 200-239 MG/DL 170-199 MG/DL HIGH RISK: >240 MG/DL >200 MG/DL CLASS. FOR PRIMARY LDL CHOL PREVENTION: LDL CHOL-CHILD/ADOLESCENTS* DESIRABLE: <130 MG/DL <110 MG/DL BORDERLINE-HIGH RISK: 130-159 MG/DL 110-129 MG/DL HIGH RISK: >160 MG/DL >130 MG/DL *CHILDREN AND ADOLESCENTS REPRESENTS INDIVIDUALA AGED 2-19 YEARS EXCLUSIVE. CHRONIC KIDNEY DISEASE STAGING PER NKF: MALE [...] mL/min Normal 80 and above >32 mL/min NormalNORMAL RANGES Age WBC RBC HGB HCT MCV PLT Adult M 4.1-10.9 4.20-6.30 12.0-18.0 37.0-51.0 80-97 140-440 Adult F 4.1-10.9 4.04-5.48 12.0-18.0 37.0-51.0 80-97 140-440 0- 1 Yr 5.0-20.0 3.9-5.9 15-18 MV: 44 MV: 91 MV: 277 2-9 Yr. 6.0-17.0 3.8-5.4 11-13 MV: 37 MV: 78 MV: 300 10 Yrs. 5.0-13.0 3.8-5.4 12-15 MV: 39 MV: 80 MV: 250 NOTE: * FOR ADULT BLACK MALES AND FEMALES, NORMAL WBC IS 2.9-7.7 K/ML * FOR ADULT BLACK MALES AND FEMALES, NORMAL RBC,HGB, AND HCT IS 5% LESS SOURCE FOR DATA: [employer] DYN 1800 OPERATION MANUAL( AUTOMATED BLOOD COUNTS AND DIFF.) APPENDIX B-3 Creat 1.0 mg/dL 0.7-1.2 [facility] ([facility] CLASSIFICATION CHOLESTEROL FO R ADULTS CHILDREN/ADOLESCENTS* DESIRABLE: <200 MG/DL <170 MG/DL BORDER-LINE HIGH RISK: 200-239 MG/DL 170-199 MG/DL HIGH RISK: >240 MG/DL >200 MG/DL CLASS. FOR PRIMARY LDL CHOL PREVENTION: LDL CHOL-CHILD/ADOLESCENTS* DESIRABLE: <130 MG/DL <110 MG/DL BORDERLINE-HIGH RISK: 130-159 MG/DL 110-129 MG/DL HIGH RISK: >160 MG/DL >130 MG/DL *CHILDREN AND ADOLESCENTS REPRESENTS INDIVIDUALA AGED 2-19 YEARS EXCLUSIVE. CHRONIC KIDNEY DISEASE STAGING PER NKF: MALE [...] mL/min Normal 80 and above >32 mL/min NormalNORMAL RANGES Age WBC RBC HGB HCT MCV PLT Adult M 4.1-10.9 4.20-6.30 12.0-18.0 37.0-51.0 80-97 140-440 Adult F 4.1-10.9 4.04-5.48 12.0-18.0 37.0-51.0 80-97 140-440 0- 1 Yr 5.0-20.0 3.9-5.9 15-18 MV: 44 MV: 91 MV: 277 2-9 Yr. 6.0-17.0 3.8-5.4 11-13 MV: 37 MV: 78 MV: 300 10 Yrs. 5.0-13.0 3.8-5.4 12-15 MV: 39 MV: 80 MV: 250 NOTE: * FOR ADULT BLACK MALES AND FEMALES, NORMAL WBC IS 2.9-7.7 K/ML * FOR ADULT BLACK MALES AND FEMALES, NORMAL RBC,HGB, AND HCT IS 5% LESS SOURCE FOR DATA: [employer] DYN 1800 OPERATION MANUAL( AUTOMATED BLOOD COUNTS AND DIFF.) APPENDIX B-3 Na 134 mmol/L 136-145 Below low normal [facility] ( [facility] CLASSIFICATION CHOLESTEROL FO R ADULTS CHILDREN/ADOLESCENTS* DESIRABLE: <200 MG/DL <170 MG/DL BORDER-LINE HIGH RISK: 200-239 MG/DL 170-199 MG/DL HIGH RISK: >240 MG/DL >200 MG/DL CLASS. FOR PRIMARY LDL CHOL PREVENTION: LDL CHOL-CHILD/ADOLESCENTS* DESIRABLE: <130 MG/DL <110 MG/DL BORDERLINE-HIGH RISK: 130-159 MG/DL 110-129 MG/DL HIGH RISK: >160 MG/DL >130 MG/DL *CHILDREN AND ADOLESCENTS REPRESENTS INDIVIDUALA AGED 2-19 YEARS EXCLUSIVE. CHRONIC KIDNEY DISEASE STAGING PER NKF: MALE [...] mL/min Normal 80 and above >32 mL/min NormalNORMAL RANGES Age WBC RBC HGB HCT MCV PLT Adult M 4.1-10.9 4.20-6.30 12.0-18.0 37.0-51.0 80-97 140-440 Adult F 4.1-10.9 4.04-5.48 12.0-18.0 37.0-51.0 80-97 140-440 0- 1 Yr 5.0-20.0 3.9-5.9 15-18 MV: 44 MV: 91 MV: 277 2-9 Yr. 6.0-17.0 3.8-5.4 11-13 MV: 37 MV: 78 MV: 300 10 Yrs. 5.0-13.0 3.8-5.4 12-15 MV: 39 MV: 80 MV: 250 NOTE: * FOR ADULT BLACK MALES AND FEMALES, NORMAL WBC IS 2.9-7.7 K/ML * FOR ADULT BLACK MALES AND FEMALES, NORMAL RBC,HGB, AND HCT IS 5% LESS SOURCE FOR DATA: [employer] 1800 OPERATION MANUAL( AUTOMATED BLOOD COUNTS AND DIFF.) APPENDIX B-3 BUN/Creatinine Ratio 18.9 CALC [facility] ([facility] CLASSIFICATION CHOLESTEROL FO R ADULTS CHILDREN/ADOLESCENTS* DESIRABLE: <200 MG/DL <170 MG/DL BORDER-LINE HIGH RISK: 200-239 MG/DL 170-199 MG/DL HIGH RISK: >240 MG/DL >200 MG/DL CLASS. FOR PRIMARY LDL CHOL PREVENTION: LDL CHOL-CHILD/ADOLESCENTS* DESIRABLE: <130 MG/DL <110 MG/DL BORDERLINE-HIGH RISK: 130-159 MG/DL 110-129 MG/DL HIGH RISK: >160 MG/DL >130 MG/DL *CHILDREN AND ADOLESCENTS REPRESENTS INDIVIDUALA AGED 2-19 YEARS EXCLUSIVE. CHRONIC KIDNEY DISEASE STAGING PER NKF: MALE [...] mL/min Normal 80 and above >32 mL/min NormalNORMAL RANGES Age WBC RBC HGB HCT MCV PLT Adult M 4.1-10.9 4.20-6.30 12.0-18.0 37.0-51.0 80-97 140-440 Adult F 4.1-10.9 4.04-5.48 12.0-18.0 37.0-51.0 80-97 140-440 0- 1 Yr 5.0-20.0 3.9-5.9 15-18 MV: 44 MV: 91 MV: 277 2-9 Yr. 6.0-17.0 3.8-5.4 11-13 MV: 37 MV: 78 MV: 300 10 Yrs. 5.0-13.0 3.8-5.4 12-15 MV: 39 MV: 80 MV: 250 NOTE: * FOR ADULT BLACK MALES AND FEMALES, NORMAL WBC IS 2.9-7.7 K/ML * FOR ADULT BLACK MALES AND FEMALES, NORMAL RBC,HGB, AND HCT IS 5% LESS SOURCE FOR DATA: [employer] 1800 OPERATION MANUAL( AUTOMATED BLOOD COUNTS AND DIFF.) APPENDIX B-3 K 5.1 mmol/L 3.5-5.1 [facility] ([facility] CLASSIFICATION CHOLESTEROL FO R ADULTS CHILDREN/ADOLESCENTS* DESIRABLE: <200 MG/DL <170 MG/DL BORDER-LINE HIGH RISK: 200-239 MG/DL 170-199 MG/DL HIGH RISK: >240 MG/DL >200 MG/DL CLASS. FOR PRIMARY LDL CHOL PREVENTION: LDL CHOL-CHILD/ADOLESCENTS* DESIRABLE: <130 MG/DL <110 MG/DL BORDERLINE-HIGH RISK: 130-159 MG/DL 110-129 MG/DL HIGH RISK: >160 MG/DL >130 MG/DL *CHILDREN AND ADOLESCENTS REPRESENTS INDIVIDUALA AGED 2-19 YEARS EXCLUSIVE. CHRONIC KIDNEY DISEASE STAGING PER NKF: MALE [...] mL/min Normal 80 and above >32 mL/min NormalNORMAL RANGES Age WBC RBC HGB HCT MCV PLT Adult M 4.1-10.9 4.20-6.30 12.0-18.0 37.0-51.0 80-97 140-440 Adult F 4.1-10.9 4.04-5.48 12.0-18.0 37.0-51.0 80-97 140-440 0- 1 Yr 5.0-20.0 3.9-5.9 15-18 MV: 44 MV: 91 MV: 277 2-9 Yr. 6.0-17.0 3.8-5.4 11-13 MV: 37 MV: 78 MV: 300 10 Yrs. 5.0-13.0 3.8-5.4 12-15 MV: 39 MV: 80 MV: 250 NOTE: * FOR ADULT BLACK MALES AND FEMALES, NORMAL WBC IS 2.9-7.7 K/ML * FOR ADULT BLACK MALES AND FEMALES, NORMAL RBC,HGB, AND HCT IS 5% LESS SOURCE FOR DATA: [employer] DYN 1800 OPERATION MANUAL( AUTOMATED BLOOD COUNTS AND DIFF.) APPENDIX B-3 Co2 25.2 mmol/L 22.0-29.0 [facility] ([facility] CLASSIFICATION CHOLESTEROL FO R ADULTS CHILDREN/ADOLESCENTS* DESIRABLE: <200 MG/DL <170 MG/DL BORDER-LINE HIGH RISK: 200-239 MG/DL 170-199 MG/DL HIGH RISK: >240 MG/DL >200 MG/DL CLASS. FOR PRIMARY LDL CHOL PREVENTION: LDL CHOL-CHILD/ADOLESCENTS* DESIRABLE: <130 MG/DL <110 MG/DL BORDERLINE-HIGH RISK: 130-159 MG/DL 110-129 MG/DL HIGH RISK: >160 MG/DL >130 MG/DL *CHILDREN AND ADOLESCENTS REPRESENTS INDIVIDUALA AGED 2-19 YEARS EXCLUSIVE. CHRONIC KIDNEY DISEASE STAGING PER NKF: MALE [...] mL/min Normal 80 and above >32 mL/min NormalNORMAL RANGES Age WBC RBC HGB HCT MCV PLT Adult M 4.1-10.9 4.20-6.30 12.0-18.0 37.0-51.0 80-97 140-440 Adult F 4.1-10.9 4.04-5.48 12.0-18.0 37.0-51.0 80-97 140-440 0- 1 Yr 5.0-20.0 3.9-5.9 15-18 MV: 44 MV: 91 MV: 277 2-9 Yr. 6.0-17.0 3.8-5.4 11-13 MV: 37 MV: 78 MV: 300 10 Yrs. 5.0-13.0 3.8-5.4 12-15 MV: 39 MV: 80 MV: 250 NOTE: * FOR ADULT BLACK MALES AND FEMALES, NORMAL WBC IS 2.9-7.7 K/ML * FOR ADULT BLACK MALES AND FEMALES, NORMAL RBC,HGB, AND HCT IS 5% LESS SOURCE FOR DATA: [employer] 1800 OPERATION MANUAL( AUTOMATED BLOOD COUNTS AND DIFF.) APPENDIX B-3 CL 96.9 mmol/L 98.0-107.0 Below low normal [facility] ([facility] CLASSIFICATION CHOLESTEROL FO R ADULTS CHILDREN/ADOLESCENTS* DESIRABLE: <200 MG/DL <170 MG/DL BORDER-LINE HIGH RISK: 200-239 MG/DL 170-199 MG/DL HIGH RISK: >240 MG/DL >200 MG/DL CLASS. FOR PRIMARY LDL CHOL PREVENTION: LDL CHOL-CHILD/ADOLESCENTS* DESIRABLE: <130 MG/DL <110 MG/DL BORDERLINE-HIGH RISK: 130-159 MG/DL 110-129 MG/DL HIGH RISK: >160 MG/DL >130 MG/DL *CHILDREN AND ADOLESCENTS REPRESENTS INDIVIDUALA AGED 2-19 YEARS EXCLUSIVE. CHRONIC KIDNEY DISEASE STAGING PER NKF: MALE [...] mL/min Normal 80 and above >32 mL/min NormalNORMAL RANGES Age WBC RBC HGB HCT MCV PLT Adult M 4.1-10.9 4.20-6.30 12.0-18.0 37.0-51.0 80-97 140-440 Adult F 4.1-10.9 4.04-5.48 12.0-18.0 37.0-51.0 80-97 140-440 0- 1 Yr 5.0-20.0 3.9-5.9 15-18 MV: 44 MV: 91 MV: 277 2-9 Yr. 6.0-17.0 3.8-5.4 11-13 MV: 37 MV: 78 MV: 300 10 Yrs. 5.0-13.0 3.8-5.4 12-15 MV: 39 MV: 80 MV: 250 NOTE: * FOR ADULT BLACK MALES AND FEMALES, NORMAL WBC IS 2.9-7.7 K/ML * FOR ADULT BLACK MALES AND FEMALES, NORMAL RBC,HGB, AND HCT IS 5% LESS SOURCE FOR DATA: [employer] DYN 1800 OPERATION MANUAL( AUTOMATED BLOOD COUNTS AND DIFF.) APPENDIX B-3 CA 9.9 mg/dL 8.6-10.2 [facility] ([facility] CLASSIFICATION CHOLESTEROL FO R ADULTS CHILDREN/ADOLESCENTS* DESIRABLE: <200 MG/DL <170 MG/DL BORDER-LINE HIGH RISK: 200-239 MG/DL 170-199 MG/DL HIGH RISK: >240 MG/DL >200 MG/DL CLASS. FOR PRIMARY LDL CHOL PREVENTION: LDL CHOL-CHILD/ADOLESCENTS* DESIRABLE: <130 MG/DL <110 MG/DL BORDERLINE-HIGH RISK: 130-159 MG/DL 110-129 MG/DL HIGH RISK: >160 MG/DL >130 MG/DL *CHILDREN AND ADOLESCENTS REPRESENTS INDIVIDUALA AGED 2-19 YEARS EXCLUSIVE. CHRONIC KIDNEY DISEASE STAGING PER NKF: MALE [...] mL/min Normal 80 and above >32 mL/min NormalNORMAL RANGES Age WBC RBC HGB HCT MCV PLT Adult M 4.1-10.9 4.20-6.30 12.0-18.0 37.0-51.0 80-97 140-440 Adult F 4.1-10.9 4.04-5.48 12.0-18.0 37.0-51.0 80-97 140-440 0- 1 Yr 5.0-20.0 3.9-5.9 15-18 MV: 44 MV: 91 MV: 277 2-9 Yr. 6.0-17.0 3.8-5.4 11-13 MV: 37 MV: 78 MV: 300 10 Yrs. 5.0-13.0 3.8-5.4 12-15 MV: 39 MV: 80 MV: 250 NOTE: * FOR ADULT BLACK MALES AND FEMALES, NORMAL WBC IS 2.9-7.7 K/ML * FOR ADULT BLACK MALES AND FEMALES, NORMAL RBC,HGB, AND HCT IS 5% LESS SOURCE FOR DATA: [employer] DYN 1800 OPERATION MANUAL( AUTOMATED BLOOD COUNTS AND DIFF.) APPENDIX B-3 A/G Ratio 2.1 CALC [facility] ([facility] CLASSIFICATION CHOLESTEROL FO R ADULTS CHILDREN/ADOLESCENTS* DESIRABLE: <200 MG/DL <170 MG/DL BORDER-LINE HIGH RISK: 200-239 MG/DL 170-199 MG/DL HIGH RISK: >240 MG/DL >200 MG/DL CLASS. FOR PRIMARY LDL CHOL PREVENTION: LDL CHOL-CHILD/ADOLESCENTS* DESIRABLE: <130 MG/DL <110 MG/DL BORDERLINE-HIGH RISK: 130-159 MG/DL 110-129 MG/DL HIGH RISK: >160 MG/DL >130 MG/DL *CHILDREN AND ADOLESCENTS REPRESENTS INDIVIDUALA AGED 2-19 YEARS EXCLUSIVE. CHRONIC KIDNEY DISEASE STAGING PER NKF: MALE [...] mL/min Normal 80 and above >32 mL/min NormalNORMAL RANGES Age WBC RBC HGB HCT MCV PLT Adult M 4.1-10.9 4.20-6.30 12.0-18.0 37.0-51.0 80-97 140-440 Adult F 4.1-10.9 4.04-5.48 12.0-18.0 37.0-51.0 80-97 140-440 0- 1 Yr 5.0-20.0 3.9-5.9 15-18 MV: 44 MV: 91 MV: 277 2-9 Yr. 6.0-17.0 3.8-5.4 11-13 MV: 37 MV: 78 MV: 300 10 Yrs. 5.0-13.0 3.8-5.4 12-15 MV: 39 MV: 80 MV: 250 NOTE: * FOR ADULT BLACK MALES AND FEMALES, NORMAL WBC IS 2.9-7.7 K/ML * FOR ADULT BLACK MALES AND FEMALES, NORMAL RBC,HGB, AND HCT IS 5% LESS SOURCE FOR DATA: [employer] 1800 OPERATION MANUAL( AUTOMATED BLOOD COUNTS AND DIFF.) APPENDIX B-3 TP 7.0 g/dL 6.6-8.7 [facility] ([facility] CLASSIFICATION CHOLESTEROL FO R ADULTS CHILDREN/ADOLESCENTS* DESIRABLE: <200 MG/DL <170 MG/DL BORDER-LINE HIGH RISK: 200-239 MG/DL 170-199 MG/DL HIGH RISK: >240 MG/DL >200 MG/DL CLASS. FOR PRIMARY LDL CHOL PREVENTION: LDL CHOL-CHILD/ADOLESCENTS* DESIRABLE: <130 MG/DL <110 MG/DL BORDERLINE-HIGH RISK: 130-159 MG/DL 110-129 MG/DL HIGH RISK: >160 MG/DL >130 MG/DL *CHILDREN AND ADOLESCENTS REPRESENTS INDIVIDUALA AGED 2-19 YEARS EXCLUSIVE. CHRONIC KIDNEY DISEASE STAGING PER NKF: MALE [...] mL/min Normal 80 and above >32 mL/min NormalNORMAL RANGES Age WBC RBC HGB HCT MCV PLT Adult M 4.1-10.9 4.20-6.30 12.0-18.0 37.0-51.0 80-97 140-440 Adult F 4.1-10.9 4.04-5.48 12.0-18.0 37.0-51.0 80-97 140-440 0- 1 Yr 5.0-20.0 3.9-5.9 15-18 MV: 44 MV: 91 MV: 277 2-9 Yr. 6.0-17.0 3.8-5.4 11-13 MV: 37 MV: 78 MV: 300 10 Yrs. 5.0-13.0 3.8-5.4 12-15 MV: 39 MV: 80 MV: 250 NOTE: * FOR ADULT BLACK MALES AND FEMALES, NORMAL WBC IS 2.9-7.7 K/ML * FOR ADULT BLACK MALES AND FEMALES, NORMAL RBC,HGB, AND HCT IS 5% LESS SOURCE FOR DATA: [employer] 1800 OPERATION MANUAL( AUTOMATED BLOOD COUNTS AND DIFF.) APPENDIX B-3 Alb 4.7 g/dL 3.5-5.2 [facility] ([facility] CLASSIFICATION CHOLESTEROL FO R ADULTS CHILDREN/ADOLESCENTS* DESIRABLE: <200 MG/DL <170 MG/DL BORDER-LINE HIGH RISK: 200-239 MG/DL 170-199 MG/DL HIGH RISK: >240 MG/DL >200 MG/DL CLASS. FOR PRIMARY LDL CHOL PREVENTION: LDL CHOL-CHILD/ADOLESCENTS* DESIRABLE: <130 MG/DL <110 MG/DL BORDERLINE-HIGH RISK: 130-159 MG/DL 110-129 MG/DL HIGH RISK: >160 MG/DL >130 MG/DL *CHILDREN AND ADOLESCENTS REPRESENTS INDIVIDUALA AGED 2-19 YEARS EXCLUSIVE. CHRONIC KIDNEY DISEASE STAGING PER NKF: MALE [...] mL/min Normal 80 and above >32 mL/min NormalNORMAL RANGES Age WBC RBC HGB HCT MCV PLT Adult M 4.1-10.9 4.20-6.30 12.0-18.0 37.0-51.0 80-97 140-440 Adult F 4.1-10.9 4.04-5.48 12.0-18.0 37.0-51.0 80-97 140-440 0- 1 Yr 5.0-20.0 3.9-5.9 15-18 MV: 44 MV: 91 MV: 277 2-9 Yr. 6.0-17.0 3.8-5.4 11-13 MV: 37 MV: 78 MV: 300 10 Yrs. 5.0-13.0 3.8-5.4 12-15 MV: 39 MV: 80 MV: 250 NOTE: * FOR ADULT BLACK MALES AND FEMALES, NORMAL WBC IS 2.9-7.7 K/ML * FOR ADULT BLACK MALES AND FEMALES, NORMAL RBC,HGB, AND HCT IS 5% LESS SOURCE FOR DATA: [employer] DYN 1800 OPERATION MANUAL( AUTOMATED BLOOD COUNTS AND DIFF.) APPENDIX B-3 Globulin 2.3 CALC [facility] ([facility] CLASSIFICATION CHOLESTEROL FO R ADULTS CHILDREN/ADOLESCENTS* DESIRABLE: <200 MG/DL <170 MG/DL BORDER-LINE HIGH RISK: 200-239 MG/DL 170-199 MG/DL HIGH RISK: >240 MG/DL >200 MG/DL CLASS. FOR PRIMARY LDL CHOL PREVENTION: LDL CHOL-CHILD/ADOLESCENTS* DESIRABLE: <130 MG/DL <110 MG/DL BORDERLINE-HIGH RISK: 130-159 MG/DL 110-129 MG/DL HIGH RISK: >160 MG/DL >130 MG/DL *CHILDREN AND ADOLESCENTS REPRESENTS INDIVIDUALA AGED 2-19 YEARS EXCLUSIVE. CHRONIC KIDNEY DISEASE STAGING PER NKF: MALE [...] mL/min Normal 80 and above >32 mL/min NormalNORMAL RANGES Age WBC RBC HGB HCT MCV PLT Adult M 4.1-10.9 4.20-6.30 12.0-18.0 37.0-51.0 80-97 140-440 Adult F 4.1-10.9 4.04-5.48 12.0-18.0 37.0-51.0 80-97 140-440 0- 1 Yr 5.0-20.0 3.9-5.9 15-18 MV: 44 MV: 91 MV: 277 2-9 Yr. 6.0-17.0 3.8-5.4 11-13 MV: 37 MV: 78 MV: 300 10 Yrs. 5.0-13.0 3.8-5.4 12-15 MV: 39 MV: 80 MV: 250 NOTE: * FOR ADULT BLACK MALES AND FEMALES, NORMAL WBC IS 2.9-7.7 K/ML * FOR ADULT BLACK MALES AND FEMALES, NORMAL RBC,HGB, AND HCT IS 5% LESS SOURCE FOR DATA: [employer] DYN 1800 OPERATION MANUAL( AUTOMATED BLOOD COUNTS AND DIFF.) APPENDIX B-3 Alt (SGPT) 18 U/L 0-41 [facility] ([facility] CLASSIFICATION CHOLESTEROL FO R ADULTS CHILDREN/ADOLESCENTS* DESIRABLE: <200 MG/DL <170 MG/DL BORDER-LINE HIGH RISK: 200-239 MG/DL 170-199 MG/DL HIGH RISK: >240 MG/DL >200 MG/DL CLASS. FOR PRIMARY LDL CHOL PREVENTION: LDL CHOL-CHILD/ADOLESCENTS* DESIRABLE: <130 MG/DL <110 MG/DL BORDERLINE-HIGH RISK: 130-159 MG/DL 110-129 MG/DL HIGH RISK: >160 MG/DL >130 MG/DL *CHILDREN AND ADOLESCENTS REPRESENTS INDIVIDUALA AGED 2-19 YEARS EXCLUSIVE. CHRONIC KIDNEY DISEASE STAGING PER NKF: MALE [...] mL/min Normal 80 and above >32 mL/min NormalNORMAL RANGES Age WBC RBC HGB HCT MCV PLT Adult M 4.1-10.9 4.20-6.30 12.0-18.0 37.0-51.0 80-97 140-440 Adult F 4.1-10.9 4.04-5.48 12.0-18.0 37.0-51.0 80-97 140-440 0- 1 Yr 5.0-20.0 3.9-5.9 15-18 MV: 44 MV: 91 MV: 277 2-9 Yr. 6.0-17.0 3.8-5.4 11-13 MV: 37 MV: 78 MV: 300 10 Yrs. 5.0-13.0 3.8-5.4 12-15 MV: 39 MV: 80 MV: 250 NOTE: * FOR ADULT BLACK MALES AND FEMALES, NORMAL WBC IS 2.9-7.7 K/ML * FOR ADULT BLACK MALES AND FEMALES, NORMAL RBC,HGB, AND HCT IS 5% LESS SOURCE FOR DATA: [employer] DYN 1800 OPERATION MANUAL( AUTOMATED BLOOD COUNTS AND DIFF.) APPENDIX B-3 Alp 64.1 U/L 40-129 [facility] CLASSIFICATION CHOLESTEROL FO R ADULTS CHILDREN/ADOLESCENTS* DESIRABLE: <200 MG/DL <170 MG/DL BORDER-LINE HIGH RISK: 200-239 MG/DL 170-199 MG/DL HIGH RISK: >240 MG/DL >200 MG/DL CLASS. FOR PRIMARY LDL CHOL PREVENTION: LDL CHOL-CHILD/ADOLESCENTS* DESIRABLE: <130 MG/DL <110 MG/DL BORDERLINE-HIGH RISK: 130-159 MG/DL 110-129 MG/DL HIGH RISK: >160 MG/DL >130 MG/DL *CHILDREN AND ADOLESCENTS REPRESENTS INDIVIDUALA AGED 2-19 YEARS EXCLUSIVE. CHRONIC KIDNEY DISEASE STAGING PER NKF: MALE [...] mL/min Normal 80 and above >32 mL/min NormalNORMAL RANGES Age WBC RBC HGB HCT MCV PLT Adult M 4.1-10.9 4.20-6.30 12.0-18.0 37.0-51.0 80-97 140-440 Adult F 4.1-10.9 4.04-5.48 12.0-18.0 37.0-51.0 80-97 140-440 0- 1 Yr 5.0-20.0 3.9-5.9 15-18 MV: 44 MV: 91 MV: 277 2-9 Yr. 6.0-17.0 3.8-5.4 11-13 MV: 37 MV: 78 MV: 300 10 Yrs. 5.0-13.0 3.8-5.4 12-15 MV: 39 MV: 80 MV: 250 NOTE: * FOR ADULT BLACK MALES AND FEMALES, NORMAL WBC IS 2.9-7.7 K/ML * FOR ADULT BLACK MALES AND FEMALES, NORMAL RBC,HGB, AND HCT IS 5% LESS SOURCE FOR DATA: [employer] DYN 1800 OPERATION MANUAL( AUTOMATED BLOOD COUNTS AND DIFF.) APPENDIX B-3 Osmolality-Calculated 272.9 CALC MED [facility] ([facility] CLASSIFICATION CHOLESTEROL FO R ADULTS CHILDREN/ADOLESCENTS* DESIRABLE: <200 MG/DL <170 MG/DL BORDER-LINE HIGH RISK: 200-239 MG/DL 170-199 MG/DL HIGH RISK: >240 MG/DL >200 MG/DL CLASS. FOR PRIMARY LDL CHOL PREVENTION: LDL CHOL-CHILD/ADOLESCENTS* DESIRABLE: <130 MG/DL <110 MG/DL BORDERLINE-HIGH RISK: 130-159 MG/DL 110-129 MG/DL HIGH RISK: >160 MG/DL >130 MG/DL *CHILDREN AND ADOLESCENTS REPRESENTS INDIVIDUALA AGED 2-19 YEARS EXCLUSIVE. CHRONIC KIDNEY DISEASE STAGING PER NKF: MALE [...] mL/min Normal 80 and above >32 mL/min NormalNORMAL RANGES Age WBC RBC HGB HCT MCV PLT Adult M 4.1-10.9 4.20-6.30 12.0-18.0 37.0-51.0 80-97 140-440 Adult F 4.1-10.9 4.04-5.48 12.0-18.0 37.0-51.0 80-97 140-440 0- 1 Yr 5.0-20.0 3.9-5.9 15-18 MV: 44 MV: 91 MV: 277 2-9 Yr. 6.0-17.0 3.8-5.4 11-13 MV: 37 MV: 78 MV: 300 10 Yrs. 5.0-13.0 3.8-5.4 12-15 MV: 39 MV: 80 MV: 250 NOTE: * FOR ADULT BLACK MALES AND FEMALES, NORMAL WBC IS 2.9-7.7 K/ML * FOR ADULT BLACK MALES AND FEMALES, NORMAL RBC,HGB, AND HCT IS 5% LESS SOURCE FOR DATA: BigTip 1800 OPERATION MANUAL( AUTOMATED BLOOD COUNTS AND DIFF.) APPENDIX B-3 Tbili 0.33 mg/dL 0.0-1.2 [facility] ([facility] CLASSIFICATION CHOLESTEROL FO R ADULTS CHILDREN/ADOLESCENTS* DESIRABLE: <200 MG/DL <170 MG/DL BORDER-LINE HIGH RISK: 200-239 MG/DL 170-199 MG/DL HIGH RISK: >240 MG/DL >200 MG/DL CLASS. FOR PRIMARY LDL CHOL PREVENTION: LDL CHOL-CHILD/ADOLESCENTS* DESIRABLE: <130 MG/DL <110 MG/DL BORDERLINE-HIGH RISK: 130-159 MG/DL 110-129 MG/DL HIGH RISK: >160 MG/DL >130 MG/DL *CHILDREN AND ADOLESCENTS REPRESENTS INDIVIDUALA AGED 2-19 YEARS EXCLUSIVE. CHRONIC KIDNEY DISEASE STAGING PER NKF: MALE [...] mL/min Normal 80 and above >32 mL/min NormalNORMAL RANGES Age WBC RBC HGB HCT MCV PLT Adult M 4.1-10.9 4.20-6.30 12.0-18.0 37.0-51.0 80-97 140-440 Adult F 4.1-10.9 4.04-5.48 12.0-18.0 37.0-51.0 80-97 140-440 0- 1 Yr 5.0-20.0 3.9-5.9 15-18 MV: 44 MV: 91 MV: 277 2-9 Yr. 6.0-17.0 3.8-5.4 11-13 MV: 37 MV: 78 MV: 300 10 Yrs. 5.0-13.0 3.8-5.4 12-15 MV: 39 MV: 80 MV: 250 NOTE: * FOR ADULT BLACK MALES AND FEMALES, NORMAL WBC IS 2.9-7.7 K/ML * FOR ADULT BLACK MALES AND FEMALES, NORMAL RBC,HGB, AND HCT IS 5% LESS SOURCE FOR DATA: [employer]ARI DYN 1800 OPERATION MANUAL( AUTOMATED BLOOD COUNTS AND DIFF.) APPENDIX B-3 Ast (Sgot) 20 U/L 0-40 [facility] ([facility] CLASSIFICATION CHOLESTEROL FO R ADULTS CHILDREN/ADOLESCENTS* DESIRABLE: <200 MG/DL <170 MG/DL BORDER-LINE HIGH RISK: 200-239 MG/DL 170-199 MG/DL HIGH RISK: >240 MG/DL >200 MG/DL CLASS. FOR PRIMARY LDL CHOL PREVENTION: LDL CHOL-CHILD/ADOLESCENTS* DESIRABLE: <130 MG/DL <110 MG/DL BORDERLINE-HIGH RISK: 130-159 MG/DL 110-129 MG/DL HIGH RISK: >160 MG/DL >130 MG/DL *CHILDREN AND ADOLESCENTS REPRESENTS INDIVIDUALA AGED 2-19 YEARS EXCLUSIVE. CHRONIC KIDNEY DISEASE STAGING PER NKF: MALE [...] mL/min Normal 80 and above >32 mL/min NormalNORMAL RANGES Age WBC RBC HGB HCT MCV PLT Adult M 4.1-10.9 4.20-6.30 12.0-18.0 37.0-51.0 80-97 140-440 Adult F 4.1-10.9 4.04-5.48 12.0-18.0 37.0-51.0 80-97 140-440 0- 1 Yr 5.0-20.0 3.9-5.9 15-18 MV: 44 MV: 91 MV: 277 2-9 Yr. 6.0-17.0 3.8-5.4 11-13 MV: 37 MV: 78 MV: 300 10 Yrs. 5.0-13.0 3.8-5.4 12-15 MV: 39 MV: 80 MV: 250 NOTE: * FOR ADULT BLACK MALES AND FEMALES, NORMAL WBC IS 2.9-7.7 K/ML * FOR ADULT BLACK MALES AND FEMALES, NORMAL RBC,HGB, AND HCT IS 5% LESS SOURCE FOR DATA: BigTip 1800 OPERATION MANUAL( AUTOMATED BLOOD COUNTS AND DIFF.) APPENDIX B-3 eGFR Non-Afr. Malagasy 66 # [facility] ([facility] CLASSIFICATION CHOLESTEROL FO R ADULTS CHILDREN/ADOLESCENTS* DESIRABLE: <200 MG/DL <170 MG/DL BORDER-LINE HIGH RISK: 200-239 MG/DL 170-199 MG/DL HIGH RISK: >240 MG/DL >200 MG/DL CLASS. FOR PRIMARY LDL CHOL PREVENTION: LDL CHOL-CHILD/ADOLESCENTS* DESIRABLE: <130 MG/DL <110 MG/DL BORDERLINE-HIGH RISK: 130-159 MG/DL 110-129 MG/DL HIGH RISK: >160 MG/DL >130 MG/DL *CHILDREN AND ADOLESCENTS REPRESENTS INDIVIDUALA AGED 2-19 YEARS EXCLUSIVE. CHRONIC KIDNEY DISEASE STAGING PER NKF: MALE [...] mL/min Normal 80 and above >32 mL/min NormalNORMAL RANGES Age WBC RBC HGB HCT MCV PLT Adult M 4.1-10.9 4.20-6.30 12.0-18.0 37.0-51.0 80-97 140-440 Adult F 4.1-10.9 4.04-5.48 12.0-18.0 37.0-51.0 80-97 140-440 0- 1 Yr 5.0-20.0 3.9-5.9 15-18 MV: 44 MV: 91 MV: 277 2-9 Yr. 6.0-17.0 3.8-5.4 11-13 MV: 37 MV: 78 MV: 300 10 Yrs. 5.0-13.0 3.8-5.4 12-15 MV: 39 MV: 80 MV: 250 NOTE: * FOR ADULT BLACK MALES AND FEMALES, NORMAL WBC IS 2.9-7.7 K/ML * FOR ADULT BLACK MALES AND FEMALES, NORMAL RBC,HGB, AND HCT IS 5% LESS SOURCE FOR DATA: YARI DYN 1800 OPERATION MANUAL( AUTOMATED BLOOD COUNTS AND DIFF.) APPENDIX B-3 Anion Gap 17 mmol/L [facility] ([facility] CLASSIFICATION CHOLESTEROL FO R ADULTS CHILDREN/ADOLESCENTS* DESIRABLE: <200 MG/DL <170 MG/DL BORDER-LINE HIGH RISK: 200-239 MG/DL 170-199 MG/DL HIGH RISK: >240 MG/DL >200 MG/DL CLASS. FOR PRIMARY LDL CHOL PREVENTION: LDL CHOL-CHILD/ADOLESCENTS* DESIRABLE: <130 MG/DL <110 MG/DL BORDERLINE-HIGH RISK: 130-159 MG/DL 110-129 MG/DL HIGH RISK: >160 MG/DL >130 MG/DL *CHILDREN AND ADOLESCENTS REPRESENTS INDIVIDUALA AGED 2-19 YEARS EXCLUSIVE. CHRONIC KIDNEY DISEASE STAGING PER NKF: MALE [...] mL/min Normal 80 and above >32 mL/min NormalNORMAL RANGES Age WBC RBC HGB HCT MCV PLT Adult M 4.1-10.9 4.20-6.30 12.0-18.0 37.0-51.0 80-97 140-440 Adult F 4.1-10.9 4.04-5.48 12.0-18.0 37.0-51.0 80-97 140-440 0- 1 Yr 5.0-20.0 3.9-5.9 15-18 MV: 44 MV: 91 MV: 277 2-9 Yr. 6.0-17.0 3.8-5.4 11-13 MV: 37 MV: 78 MV: 300 10 Yrs. 5.0-13.0 3.8-5.4 12-15 MV: 39 MV: 80 MV: 250 NOTE: * FOR ADULT BLACK MALES AND FEMALES, NORMAL WBC IS 2.9-7.7 K/ML * FOR ADULT BLACK MALES AND FEMALES, NORMAL RBC,HGB, AND HCT IS 5% LESS SOURCE FOR DATA: BigTip 1800 OPERATION MANUAL( AUTOMATED BLOOD COUNTS AND DIFF.) APPENDIX B-3 eGFR 77 # [facility] ( [facility] CLASSIFICATION CHOLESTEROL FO R ADULTS CHILDREN/ADOLESCENTS* DESIRABLE: <200 MG/DL <170 MG/DL BORDER-LINE HIGH RISK: 200-239 MG/DL 170-199 MG/DL HIGH RISK: >240 MG/DL >200 MG/DL CLASS. FOR PRIMARY LDL CHOL PREVENTION: LDL CHOL-CHILD/ADOLESCENTS* DESIRABLE: <130 MG/DL <110 MG/DL BORDERLINE-HIGH RISK: 130-159 MG/DL 110-129 MG/DL HIGH RISK: >160 MG/DL >130 MG/DL *CHILDREN AND ADOLESCENTS REPRESENTS INDIVIDUALA AGED 2-19 YEARS EXCLUSIVE. CHRONIC KIDNEY DISEASE STAGING PER NKF: MALE [...] mL/min Normal 80 and above >32 mL/min NormalNORMAL RANGES Age WBC RBC HGB HCT MCV PLT Adult M 4.1-10.9 4.20-6.30 12.0-18.0 37.0-51.0 80-97 140-440 Adult F 4.1-10.9 4.04-5.48 12.0-18.0 37.0-51.0 80-97 140-440 0- 1 Yr 5.0-20.0 3.9-5.9 15-18 MV: 44 MV: 91 MV: 277 2-9 Yr. 6.0-17.0 3.8-5.4 11-13 MV: 37 MV: 78 MV: 300 10 Yrs. 5.0-13.0 3.8-5.4 12-15 MV: 39 MV: 80 MV: 250 NOTE: * FOR ADULT BLACK MALES AND FEMALES, NORMAL WBC IS 2.9-7.7 K/ML * FOR ADULT BLACK MALES AND FEMALES, NORMAL RBC,HGB, AND HCT IS 5% LESS SOURCE FOR DATA: BigTip 1800 OPERATION MANUAL( AUTOMATED BLOOD COUNTS AND DIFF.) APPENDIX B-3 ID Date Data Source [id number] 03/26/2019 09:05:00 AM EST [facility] ([facility] Name Value Range Interpretation Code Description Data Esperanza rce(s) Supporting Document(s) WBC 5.5 10E3/uL 4.1-10.9 [facility] ([facility] CLASSIFICATION CHOLESTEROL FO R ADULTS CHILDREN/ADOLESCENTS* DESIRABLE: <200 MG/DL <170 MG/DL BORDER-LINE HIGH RISK: 200-239 MG/DL 170-199 MG/DL HIGH RISK: >240 MG/DL >200 MG/DL CLASS. FOR PRIMARY LDL CHOL PREVENTION: LDL CHOL-CHILD/ADOLESCENTS* DESIRABLE: <130 MG/DL <110 MG/DL BORDERLINE-HIGH RISK: 130-159 MG/DL 110-129 MG/DL HIGH RISK: >160 MG/DL >130 MG/DL *CHILDREN AND ADOLESCENTS REPRESENTS INDIVIDUALA AGED 2-19 YEARS EXCLUSIVE. CHRONIC KIDNEY DISEASE STAGING PER NKF: MALE [...] mL/min Normal 80 and above >32 mL/min NormalNORMAL RANGES Age WBC RBC HGB HCT MCV PLT Adult M 4.1-10.9 4.20-6.30 12.0-18.0 37.0-51.0 80-97 140-440 Adult F 4.1-10.9 4.04-5.48 12.0-18.0 37.0-51.0 80-97 140-440 0- 1 Yr 5.0-20.0 3.9-5.9 15-18 MV: 44 MV: 91 MV: 277 2-9 Yr. 6.0-17.0 3.8-5.4 11-13 MV: 37 MV: 78 MV: 300 10 Yrs. 5.0-13.0 3.8-5.4 12-15 MV: 39 MV: 80 MV: 250 NOTE: * FOR ADULT BLACK MALES AND FEMALES, NORMAL WBC IS 2.9-7.7 K/ML * FOR ADULT BLACK MALES AND FEMALES, NORMAL RBC,HGB, AND HCT IS 5% LESS SOURCE FOR DATA: YARI DYN 1800 OPERATION MANUAL( AUTOMATED BLOOD COUNTS AND DIFF.) APPENDIX B-3 RBC 3.86 10E6/uL 4.20-6.30 Below low normal [facility] ([facility] CLASSIFICATION CHOLESTEROL FO R ADULTS CHILDREN/ADOLESCENTS* DESIRABLE: <200 MG/DL <170 MG/DL BORDER-LINE HIGH RISK: 200-239 MG/DL 170-199 MG/DL HIGH RISK: >240 MG/DL >200 MG/DL CLASS. FOR PRIMARY LDL CHOL PREVENTION: LDL CHOL-CHILD/ADOLESCENTS* DESIRABLE: <130 MG/DL <110 MG/DL BORDERLINE-HIGH RISK: 130-159 MG/DL 110-129 MG/DL HIGH RISK: >160 MG/DL >130 MG/DL *CHILDREN AND ADOLESCENTS REPRESENTS INDIVIDUALA AGED 2-19 YEARS EXCLUSIVE. CHRONIC KIDNEY DISEASE STAGING PER NKF: MALE [...] mL/min Normal 80 and above >32 mL/min NormalNORMAL RANGES Age WBC RBC HGB HCT MCV PLT Adult M 4.1-10.9 4.20-6.30 12.0-18.0 37.0-51.0 80-97 140-440 Adult F 4.1-10.9 4.04-5.48 12.0-18.0 37.0-51.0 80-97 140-440 0- 1 Yr 5.0-20.0 3.9-5.9 15-18 MV: 44 MV: 91 MV: 277 2-9 Yr. 6.0-17.0 3.8-5.4 11-13 MV: 37 MV: 78 MV: 300 10 Yrs. 5.0-13.0 3.8-5.4 12-15 MV: 39 MV: 80 MV: 250 NOTE: * FOR ADULT BLACK MALES AND FEMALES, NORMAL WBC IS 2.9-7.7 K/ML * FOR ADULT BLACK MALES AND FEMALES, NORMAL RBC,HGB, AND HCT IS 5% LESS SOURCE FOR DATA: YARI DYN 1800 OPERATION MANUAL( AUTOMATED BLOOD COUNTS AND DIFF.) APPENDIX B-3 HGB 12.8 g/dL 12.0-18.0 [facility] ([facility] CLASSIFICATION CHOLESTEROL FO R ADULTS CHILDREN/ADOLESCENTS* DESIRABLE: <200 MG/DL <170 MG/DL BORDER-LINE HIGH RISK: 200-239 MG/DL 170-199 MG/DL HIGH RISK: >240 MG/DL >200 MG/DL CLASS. FOR PRIMARY LDL CHOL PREVENTION: LDL CHOL-CHILD/ADOLESCENTS* DESIRABLE: <130 MG/DL <110 MG/DL BORDERLINE-HIGH RISK: 130-159 MG/DL 110-129 MG/DL HIGH RISK: >160 MG/DL >130 MG/DL *CHILDREN AND ADOLESCENTS REPRESENTS INDIVIDUALA AGED 2-19 YEARS EXCLUSIVE. CHRONIC KIDNEY DISEASE STAGING PER NKF: MALE [...] mL/min Normal 80 and above >32 mL/min NormalNORMAL RANGES Age WBC RBC HGB HCT MCV PLT Adult M 4.1-10.9 4.20-6.30 12.0-18.0 37.0-51.0 80-97 140-440 Adult F 4.1-10.9 4.04-5.48 12.0-18.0 37.0-51.0 80-97 140-440 0- 1 Yr 5.0-20.0 3.9-5.9 15-18 MV: 44 MV: 91 MV: 277 2-9 Yr. 6.0-17.0 3.8-5.4 11-13 MV: 37 MV: 78 MV: 300 10 Yrs. 5.0-13.0 3.8-5.4 12-15 MV: 39 MV: 80 MV: 250 NOTE: * FOR ADULT BLACK MALES AND FEMALES, NORMAL WBC IS 2.9-7.7 K/ML * FOR ADULT BLACK MALES AND FEMALES, NORMAL RBC,HGB, AND HCT IS 5% LESS SOURCE FOR DATA: [employer] DYN 1800 OPERATION MANUAL( AUTOMATED BLOOD COUNTS AND DIFF.) APPENDIX B-3 HCT 37.4 % 37.0-51.0 [facility] ([facility] CLASSIFICATION CHOLESTEROL FO R ADULTS CHILDREN/ADOLESCENTS* DESIRABLE: <200 MG/DL <170 MG/DL BORDER-LINE HIGH RISK: 200-239 MG/DL 170-199 MG/DL HIGH RISK: >240 MG/DL >200 MG/DL CLASS. FOR PRIMARY LDL CHOL PREVENTION: LDL CHOL-CHILD/ADOLESCENTS* DESIRABLE: <130 MG/DL <110 MG/DL BORDERLINE-HIGH RISK: 130-159 MG/DL 110-129 MG/DL HIGH RISK: >160 MG/DL >130 MG/DL *CHILDREN AND ADOLESCENTS REPRESENTS INDIVIDUALA AGED 2-19 YEARS EXCLUSIVE. CHRONIC KIDNEY DISEASE STAGING PER NKF: MALE [...] mL/min Normal 80 and above >32 mL/min NormalNORMAL RANGES Age WBC RBC HGB HCT MCV PLT Adult M 4.1-10.9 4.20-6.30 12.0-18.0 37.0-51.0 80-97 140-440 Adult F 4.1-10.9 4.04-5.48 12.0-18.0 37.0-51.0 80-97 140-440 0- 1 Yr 5.0-20.0 3.9-5.9 15-18 MV: 44 MV: 91 MV: 277 2-9 Yr. 6.0-17.0 3.8-5.4 11-13 MV: 37 MV: 78 MV: 300 10 Yrs. 5.0-13.0 3.8-5.4 12-15 MV: 39 MV: 80 MV: 250 NOTE: * FOR ADULT BLACK MALES AND FEMALES, NORMAL WBC IS 2.9-7.7 K/ML * FOR ADULT BLACK MALES AND FEMALES, NORMAL RBC,HGB, AND HCT IS 5% LESS SOURCE FOR DATA: [employer]Tip 1800 OPERATION MANUAL( AUTOMATED BLOOD COUNTS AND DIFF.) APPENDIX B-3 MCV 96.9 fL 80.0-97.0 [facility] ([facility] CLASSIFICATION CHOLESTEROL FO R ADULTS CHILDREN/ADOLESCENTS* DESIRABLE: <200 MG/DL <170 MG/DL BORDER-LINE HIGH RISK: 200-239 MG/DL 170-199 MG/DL HIGH RISK: >240 MG/DL >200 MG/DL CLASS. FOR PRIMARY LDL CHOL PREVENTION: LDL CHOL-CHILD/ADOLESCENTS* DESIRABLE: <130 MG/DL <110 MG/DL BORDERLINE-HIGH RISK: 130-159 MG/DL 110-129 MG/DL HIGH RISK: >160 MG/DL >130 MG/DL *CHILDREN AND ADOLESCENTS REPRESENTS INDIVIDUALA AGED 2-19 YEARS EXCLUSIVE. CHRONIC KIDNEY DISEASE STAGING PER NKF: MALE [...] mL/min Normal 80 and above >32 mL/min NormalNORMAL RANGES Age WBC RBC HGB HCT MCV PLT Adult M 4.1-10.9 4.20-6.30 12.0-18.0 37.0-51.0 80-97 140-440 Adult F 4.1-10.9 4.04-5.48 12.0-18.0 37.0-51.0 80-97 140-440 0- 1 Yr 5.0-20.0 3.9-5.9 15-18 MV: 44 MV: 91 MV: 277 2-9 Yr. 6.0-17.0 3.8-5.4 11-13 MV: 37 MV: 78 MV: 300 10 Yrs. 5.0-13.0 3.8-5.4 12-15 MV: 39 MV: 80 MV: 250 NOTE: * FOR ADULT BLACK MALES AND FEMALES, NORMAL WBC IS 2.9-7.7 K/ML * FOR ADULT BLACK MALES AND FEMALES, NORMAL RBC,HGB, AND HCT IS 5% LESS SOURCE FOR DATA: [employer]Tip 1800 OPERATION MANUAL( AUTOMATED BLOOD COUNTS AND DIFF.) APPENDIX B-3 MCH 33.2 pg 26.0-32.0 Above high normal [facility] ([facility] CLASSIFICATION CHOLESTEROL FO R ADULTS CHILDREN/ADOLESCENTS* DESIRABLE: <200 MG/DL <170 MG/DL BORDER-LINE HIGH RISK: 200-239 MG/DL 170-199 MG/DL HIGH RISK: >240 MG/DL >200 MG/DL CLASS. FOR PRIMARY LDL CHOL PREVENTION: LDL CHOL-CHILD/ADOLESCENTS* DESIRABLE: <130 MG/DL <110 MG/DL BORDERLINE-HIGH RISK: 130-159 MG/DL 110-129 MG/DL HIGH RISK: >160 MG/DL >130 MG/DL *CHILDREN AND ADOLESCENTS REPRESENTS INDIVIDUALA AGED 2-19 YEARS EXCLUSIVE. CHRONIC KIDNEY DISEASE STAGING PER NKF: MALE [...] mL/min Normal 80 and above >32 mL/min NormalNORMAL RANGES Age WBC RBC HGB HCT MCV PLT Adult M 4.1-10.9 4.20-6.30 12.0-18.0 37.0-51.0 80-97 140-440 Adult F 4.1-10.9 4.04-5.48 12.0-18.0 37.0-51.0 80-97 140-440 0- 1 Yr 5.0-20.0 3.9-5.9 15-18 MV: 44 MV: 91 MV: 277 2-9 Yr. 6.0-17.0 3.8-5.4 11-13 MV: 37 MV: 78 MV: 300 10 Yrs. 5.0-13.0 3.8-5.4 12-15 MV: 39 MV: 80 MV: 250 NOTE: * FOR ADULT BLACK MALES AND FEMALES, NORMAL WBC IS 2.9-7.7 K/ML * FOR ADULT BLACK MALES AND FEMALES, NORMAL RBC,HGB, AND HCT IS 5% LESS SOURCE FOR DATA: [employer] DYN 1800 OPERATION MANUAL( AUTOMATED BLOOD COUNTS AND DIFF.) APPENDIX B-3 MCHC 34.2 g/dL 31.0-36.0 [facility] ([facility] CLASSIFICATION CHOLESTEROL FO R ADULTS CHILDREN/ADOLESCENTS* DESIRABLE: <200 MG/DL <170 MG/DL BORDER-LINE HIGH RISK: 200-239 MG/DL 170-199 MG/DL HIGH RISK: >240 MG/DL >200 MG/DL CLASS. FOR PRIMARY LDL CHOL PREVENTION: LDL CHOL-CHILD/ADOLESCENTS* DESIRABLE: <130 MG/DL <110 MG/DL BORDERLINE-HIGH RISK: 130-159 MG/DL 110-129 MG/DL HIGH RISK: >160 MG/DL >130 MG/DL *CHILDREN AND ADOLESCENTS REPRESENTS INDIVIDUALA AGED 2-19 YEARS EXCLUSIVE. CHRONIC KIDNEY DISEASE STAGING PER NKF: MALE [...] mL/min Normal 80 and above >32 mL/min NormalNORMAL RANGES Age WBC RBC HGB HCT MCV PLT Adult M 4.1-10.9 4.20-6.30 12.0-18.0 37.0-51.0 80-97 140-440 Adult F 4.1-10.9 4.04-5.48 12.0-18.0 37.0-51.0 80-97 140-440 0- 1 Yr 5.0-20.0 3.9-5.9 15-18 MV: 44 MV: 91 MV: 277 2-9 Yr. 6.0-17.0 3.8-5.4 11-13 MV: 37 MV: 78 MV: 300 10 Yrs. 5.0-13.0 3.8-5.4 12-15 MV: 39 MV: 80 MV: 250 NOTE: * FOR ADULT BLACK MALES AND FEMALES, NORMAL WBC IS 2.9-7.7 K/ML * FOR ADULT BLACK MALES AND FEMALES, NORMAL RBC,HGB, AND HCT IS 5% LESS SOURCE FOR DATA: [employer] DYN 1800 OPERATION MANUAL( AUTOMATED BLOOD COUNTS AND DIFF.) APPENDIX B-3 PLT 384 10E3/uL 140-440 [facility] ([facility] CLASSIFICATION CHOLESTEROL FO R ADULTS CHILDREN/ADOLESCENTS* DESIRABLE: <200 MG/DL <170 MG/DL BORDER-LINE HIGH RISK: 200-239 MG/DL 170-199 MG/DL HIGH RISK: >240 MG/DL >200 MG/DL CLASS. FOR PRIMARY LDL CHOL PREVENTION: LDL CHOL-CHILD/ADOLESCENTS* DESIRABLE: <130 MG/DL <110 MG/DL BORDERLINE-HIGH RISK: 130-159 MG/DL 110-129 MG/DL HIGH RISK: >160 MG/DL >130 MG/DL *CHILDREN AND ADOLESCENTS REPRESENTS INDIVIDUALA AGED 2-19 YEARS EXCLUSIVE. CHRONIC KIDNEY DISEASE STAGING PER NKF: MALE [...] mL/min Normal 80 and above >32 mL/min NormalNORMAL RANGES Age WBC RBC HGB HCT MCV PLT Adult M 4.1-10.9 4.20-6.30 12.0-18.0 37.0-51.0 80-97 140-440 Adult F 4.1-10.9 4.04-5.48 12.0-18.0 37.0-51.0 80-97 140-440 0- 1 Yr 5.0-20.0 3.9-5.9 15-18 MV: 44 MV: 91 MV: 277 2-9 Yr. 6.0-17.0 3.8-5.4 11-13 MV: 37 MV: 78 MV: 300 10 Yrs. 5.0-13.0 3.8-5.4 12-15 MV: 39 MV: 80 MV: 250 NOTE: * FOR ADULT BLACK MALES AND FEMALES, NORMAL WBC IS 2.9-7.7 K/ML * FOR ADULT BLACK MALES AND FEMALES, NORMAL RBC,HGB, AND HCT IS 5% LESS SOURCE FOR DATA: [employer] 1800 OPERATION MANUAL( AUTOMATED BLOOD COUNTS AND DIFF.) APPENDIX B-3 RDW-CV 14.3 % 11.5-14.5 [facility] CLASSIFICATION CHOLESTEROL FO R ADULTS CHILDREN/ADOLESCENTS* DESIRABLE: <200 MG/DL <170 MG/DL BORDER-LINE HIGH RISK: 200-239 MG/DL 170-199 MG/DL HIGH RISK: >240 MG/DL >200 MG/DL CLASS. FOR PRIMARY LDL CHOL PREVENTION: LDL CHOL-CHILD/ADOLESCENTS* DESIRABLE: <130 MG/DL <110 MG/DL BORDERLINE-HIGH RISK: 130-159 MG/DL 110-129 MG/DL HIGH RISK: >160 MG/DL >130 MG/DL *CHILDREN AND ADOLESCENTS REPRESENTS INDIVIDUALA AGED 2-19 YEARS EXCLUSIVE. CHRONIC KIDNEY DISEASE STAGING PER NKF: MALE [...] mL/min Normal 80 and above >32 mL/min NormalNORMAL RANGES Age WBC RBC HGB HCT MCV PLT Adult M 4.1-10.9 4.20-6.30 12.0-18.0 37.0-51.0 80-97 140-440 Adult F 4.1-10.9 4.04-5.48 12.0-18.0 37.0-51.0 80-97 140-440 0- 1 Yr 5.0-20.0 3.9-5.9 15-18 MV: 44 MV: 91 MV: 277 2-9 Yr. 6.0-17.0 3.8-5.4 11-13 MV: 37 MV: 78 MV: 300 10 Yrs. 5.0-13.0 3.8-5.4 12-15 MV: 39 MV: 80 MV: 250 NOTE: * FOR ADULT BLACK MALES AND FEMALES, NORMAL WBC IS 2.9-7.7 K/ML * FOR ADULT BLACK MALES AND FEMALES, NORMAL RBC,HGB, AND HCT IS 5% LESS SOURCE FOR DATA: [employer] 1800 OPERATION MANUAL( AUTOMATED BLOOD COUNTS AND DIFF.) APPENDIX B-3 Lym% 25.6 % 10.0-58.5 [facility] ([facility] CLASSIFICATION CHOLESTEROL FO R ADULTS CHILDREN/ADOLESCENTS* DESIRABLE: <200 MG/DL <170 MG/DL BORDER-LINE HIGH RISK: 200-239 MG/DL 170-199 MG/DL HIGH RISK: >240 MG/DL >200 MG/DL CLASS. FOR PRIMARY LDL CHOL PREVENTION: LDL CHOL-CHILD/ADOLESCENTS* DESIRABLE: <130 MG/DL <110 MG/DL BORDERLINE-HIGH RISK: 130-159 MG/DL 110-129 MG/DL HIGH RISK: >160 MG/DL >130 MG/DL *CHILDREN AND ADOLESCENTS REPRESENTS INDIVIDUALA AGED 2-19 YEARS EXCLUSIVE. CHRONIC KIDNEY DISEASE STAGING PER NKF: MALE [...] mL/min Normal 80 and above >32 mL/min NormalNORMAL RANGES Age WBC RBC HGB HCT MCV PLT Adult M 4.1-10.9 4.20-6.30 12.0-18.0 37.0-51.0 80-97 140-440 Adult F 4.1-10.9 4.04-5.48 12.0-18.0 37.0-51.0 80-97 140-440 0- 1 Yr 5.0-20.0 3.9-5.9 15-18 MV: 44 MV: 91 MV: 277 2-9 Yr. 6.0-17.0 3.8-5.4 11-13 MV: 37 MV: 78 MV: 300 10 Yrs. 5.0-13.0 3.8-5.4 12-15 MV: 39 MV: 80 MV: 250 NOTE: * FOR ADULT BLACK MALES AND FEMALES, NORMAL WBC IS 2.9-7.7 K/ML * FOR ADULT BLACK MALES AND FEMALES, NORMAL RBC,HGB, AND HCT IS 5% LESS SOURCE FOR DATA: [employer] DYN 1800 OPERATION MANUAL( AUTOMATED BLOOD COUNTS AND DIFF.) APPENDIX B-3 Neut% 64.8 % 37.0-92.0 [facility] ([facility] CLASSIFICATION CHOLESTEROL FO R ADULTS CHILDREN/ADOLESCENTS* DESIRABLE: <200 MG/DL <170 MG/DL BORDER-LINE HIGH RISK: 200-239 MG/DL 170-199 MG/DL HIGH RISK: >240 MG/DL >200 MG/DL CLASS. FOR PRIMARY LDL CHOL PREVENTION: LDL CHOL-CHILD/ADOLESCENTS* DESIRABLE: <130 MG/DL <110 MG/DL BORDERLINE-HIGH RISK: 130-159 MG/DL 110-129 MG/DL HIGH RISK: >160 MG/DL >130 MG/DL *CHILDREN AND ADOLESCENTS REPRESENTS INDIVIDUALA AGED 2-19 YEARS EXCLUSIVE. CHRONIC KIDNEY DISEASE STAGING PER NKF: MALE [...] mL/min Normal 80 and above >32 mL/min NormalNORMAL RANGES Age WBC RBC HGB HCT MCV PLT Adult M 4.1-10.9 4.20-6.30 12.0-18.0 37.0-51.0 80-97 140-440 Adult F 4.1-10.9 4.04-5.48 12.0-18.0 37.0-51.0 80-97 140-440 0- 1 Yr 5.0-20.0 3.9-5.9 15-18 MV: 44 MV: 91 MV: 277 2-9 Yr. 6.0-17.0 3.8-5.4 11-13 MV: 37 MV: 78 MV: 300 10 Yrs. 5.0-13.0 3.8-5.4 12-15 MV: 39 MV: 80 MV: 250 NOTE: * FOR ADULT BLACK MALES AND FEMALES, NORMAL WBC IS 2.9-7.7 K/ML * FOR ADULT BLACK MALES AND FEMALES, NORMAL RBC,HGB, AND HCT IS 5% LESS SOURCE FOR DATA: [employer] 1800 OPERATION MANUAL( AUTOMATED BLOOD COUNTS AND DIFF.) APPENDIX B-3 Lym# 1.4 10E3/uL 0.6-4.1 [facility] ([facility] CLASSIFICATION CHOLESTEROL FO R ADULTS CHILDREN/ADOLESCENTS* DESIRABLE: <200 MG/DL <170 MG/DL BORDER-LINE HIGH RISK: 200-239 MG/DL 170-199 MG/DL HIGH RISK: >240 MG/DL >200 MG/DL CLASS. FOR PRIMARY LDL CHOL PREVENTION: LDL CHOL-CHILD/ADOLESCENTS* DESIRABLE: <130 MG/DL <110 MG/DL BORDERLINE-HIGH RISK: 130-159 MG/DL 110-129 MG/DL HIGH RISK: >160 MG/DL >130 MG/DL *CHILDREN AND ADOLESCENTS REPRESENTS INDIVIDUALA AGED 2-19 YEARS EXCLUSIVE. CHRONIC KIDNEY DISEASE STAGING PER NKF: MALE [...] mL/min Normal 80 and above >32 mL/min NormalNORMAL RANGES Age WBC RBC HGB HCT MCV PLT Adult M 4.1-10.9 4.20-6.30 12.0-18.0 37.0-51.0 80-97 140-440 Adult F 4.1-10.9 4.04-5.48 12.0-18.0 37.0-51.0 80-97 140-440 0- 1 Yr 5.0-20.0 3.9-5.9 15-18 MV: 44 MV: 91 MV: 277 2-9 Yr. 6.0-17.0 3.8-5.4 11-13 MV: 37 MV: 78 MV: 300 10 Yrs. 5.0-13.0 3.8-5.4 12-15 MV: 39 MV: 80 MV: 250 NOTE: * FOR ADULT BLACK MALES AND FEMALES, NORMAL WBC IS 2.9-7.7 K/ML * FOR ADULT BLACK MALES AND FEMALES, NORMAL RBC,HGB, AND HCT IS 5% LESS SOURCE FOR DATA: [employer] 1800 OPERATION MANUAL( AUTOMATED BLOOD COUNTS AND DIFF.) APPENDIX B-3 MXD% 9.6 % 0.1-24.0 [facility] ([facility] CLASSIFICATION CHOLESTEROL FO R ADULTS CHILDREN/ADOLESCENTS* DESIRABLE: <200 MG/DL <170 MG/DL BORDER-LINE HIGH RISK: 200-239 MG/DL 170-199 MG/DL HIGH RISK: >240 MG/DL >200 MG/DL CLASS. FOR PRIMARY LDL CHOL PREVENTION: LDL CHOL-CHILD/ADOLESCENTS* DESIRABLE: <130 MG/DL <110 MG/DL BORDERLINE-HIGH RISK: 130-159 MG/DL 110-129 MG/DL HIGH RISK: >160 MG/DL >130 MG/DL *CHILDREN AND ADOLESCENTS REPRESENTS INDIVIDUALA AGED 2-19 YEARS EXCLUSIVE. CHRONIC KIDNEY DISEASE STAGING PER NKF: MALE [...] mL/min Normal 80 and above >32 mL/min NormalNORMAL RANGES Age WBC RBC HGB HCT MCV PLT Adult M 4.1-10.9 4.20-6.30 12.0-18.0 37.0-51.0 80-97 140-440 Adult F 4.1-10.9 4.04-5.48 12.0-18.0 37.0-51.0 80-97 140-440 0- 1 Yr 5.0-20.0 3.9-5.9 15-18 MV: 44 MV: 91 MV: 277 2-9 Yr. 6.0-17.0 3.8-5.4 11-13 MV: 37 MV: 78 MV: 300 10 Yrs. 5.0-13.0 3.8-5.4 12-15 MV: 39 MV: 80 MV: 250 NOTE: * FOR ADULT BLACK MALES AND FEMALES, NORMAL WBC IS 2.9-7.7 K/ML * FOR ADULT BLACK MALES AND FEMALES, NORMAL RBC,HGB, AND HCT IS 5% LESS SOURCE FOR DATA: [employer] DYN 1800 OPERATION MANUAL( AUTOMATED BLOOD COUNTS AND DIFF.) APPENDIX B-3 Neut# 3.6 % 2.0-7.8 [facility] ([facility] CLASSIFICATION CHOLESTEROL FO R ADULTS CHILDREN/ADOLESCENTS* DESIRABLE: <200 MG/DL <170 MG/DL BORDER-LINE HIGH RISK: 200-239 MG/DL 170-199 MG/DL HIGH RISK: >240 MG/DL >200 MG/DL CLASS. FOR PRIMARY LDL CHOL PREVENTION: LDL CHOL-CHILD/ADOLESCENTS* DESIRABLE: <130 MG/DL <110 MG/DL BORDERLINE-HIGH RISK: 130-159 MG/DL 110-129 MG/DL HIGH RISK: >160 MG/DL >130 MG/DL *CHILDREN AND ADOLESCENTS REPRESENTS INDIVIDUALA AGED 2-19 YEARS EXCLUSIVE. CHRONIC KIDNEY DISEASE STAGING PER NKF: MALE [...] mL/min Normal 80 and above >32 mL/min NormalNORMAL RANGES Age WBC RBC HGB HCT MCV PLT Adult M 4.1-10.9 4.20-6.30 12.0-18.0 37.0-51.0 80-97 140-440 Adult F 4.1-10.9 4.04-5.48 12.0-18.0 37.0-51.0 80-97 140-440 0- 1 Yr 5.0-20.0 3.9-5.9 15-18 MV: 44 MV: 91 MV: 277 2-9 Yr. 6.0-17.0 3.8-5.4 11-13 MV: 37 MV: 78 MV: 300 10 Yrs. 5.0-13.0 3.8-5.4 12-15 MV: 39 MV: 80 MV: 250 NOTE: * FOR ADULT BLACK MALES AND FEMALES, NORMAL WBC IS 2.9-7.7 K/ML * FOR ADULT BLACK MALES AND FEMALES, NORMAL RBC,HGB, AND HCT IS 5% LESS SOURCE FOR DATA: [employer] DYN 1800 OPERATION MANUAL( AUTOMATED BLOOD COUNTS AND DIFF.) APPENDIX B-3 MPV 8.4 fL 9.0-13.0 Below low normal [facility] ( [facility] CLASSIFICATION CHOLESTEROL FO R ADULTS CHILDREN/ADOLESCENTS* DESIRABLE: <200 MG/DL <170 MG/DL BORDER-LINE HIGH RISK: 200-239 MG/DL 170-199 MG/DL HIGH RISK: >240 MG/DL >200 MG/DL CLASS. FOR PRIMARY LDL CHOL PREVENTION: LDL CHOL-CHILD/ADOLESCENTS* DESIRABLE: <130 MG/DL <110 MG/DL BORDERLINE-HIGH RISK: 130-159 MG/DL 110-129 MG/DL HIGH RISK: >160 MG/DL >130 MG/DL *CHILDREN AND ADOLESCENTS REPRESENTS INDIVIDUALA AGED 2-19 YEARS EXCLUSIVE. CHRONIC KIDNEY DISEASE STAGING PER NKF: MALE [...] mL/min Normal 80 and above >32 mL/min NormalNORMAL RANGES Age WBC RBC HGB HCT MCV PLT Adult M 4.1-10.9 4.20-6.30 12.0-18.0 37.0-51.0 80-97 140-440 Adult F 4.1-10.9 4.04-5.48 12.0-18.0 37.0-51.0 80-97 140-440 0- 1 Yr 5.0-20.0 3.9-5.9 15-18 MV: 44 MV: 91 MV: 277 2-9 Yr. 6.0-17.0 3.8-5.4 11-13 MV: 37 MV: 78 MV: 300 10 Yrs. 5.0-13.0 3.8-5.4 12-15 MV: 39 MV: 80 MV: 250 NOTE: * FOR ADULT BLACK MALES AND FEMALES, NORMAL WBC IS 2.9-7.7 K/ML * FOR ADULT BLACK MALES AND FEMALES, NORMAL RBC,HGB, AND HCT IS 5% LESS SOURCE FOR DATA: YARI DYN 1800 OPERATION MANUAL( AUTOMATED BLOOD COUNTS AND DIFF.) APPENDIX B-3 MXD# 0.5 10E3/uL 0.0-1.8 MEDENT ([facility] CLASSIFICATION CHOLESTEROL FO R ADULTS CHILDREN/ADOLESCENTS* DESIRABLE: <200 MG/DL <170 MG/DL BORDER-LINE HIGH RISK: 200-239 MG/DL 170-199 MG/DL HIGH RISK: >240 MG/DL >200 MG/DL CLASS. FOR PRIMARY LDL CHOL PREVENTION: LDL CHOL-CHILD/ADOLESCENTS* DESIRABLE: <130 MG/DL <110 MG/DL BORDERLINE-HIGH RISK: 130-159 MG/DL 110-129 MG/DL HIGH RISK: >160 MG/DL >130 MG/DL *CHILDREN AND ADOLESCENTS REPRESENTS INDIVIDUALA AGED 2-19 YEARS EXCLUSIVE. CHRONIC KIDNEY DISEASE STAGING PER NKF: MALE [...] mL/min Normal 80 and above >32 mL/min NormalNORMAL RANGES Age WBC RBC HGB HCT MCV PLT Adult M 4.1-10.9 4.20-6.30 12.0-18.0 37.0-51.0 80-97 140-440 Adult F 4.1-10.9 4.04-5.48 12.0-18.0 37.0-51.0 80-97 140-440 0- 1 Yr 5.0-20.0 3.9-5.9 15-18 MV: 44 MV: 91 MV: 277 2-9 Yr. 6.0-17.0 3.8-5.4 11-13 MV: 37 MV: 78 MV: 300 10 Yrs. 5.0-13.0 3.8-5.4 12-15 MV: 39 MV: 80 MV: 250 NOTE: * FOR ADULT BLACK MALES AND FEMALES, NORMAL WBC IS 2.9-7.7 K/ML * FOR ADULT BLACK MALES AND FEMALES, NORMAL RBC,HGB, AND HCT IS 5% LESS SOURCE FOR DATA: [employer] 1800 OPERATION MANUAL( AUTOMATED BLOOD COUNTS AND DIFF.) APPENDIX B-3 ID Date Data Source [id number] 01/11/2019 02:06:00 PM EST MEDENT ([facility] Name Value Range Interpretation Code Description Data Esperanza rce(s) Supporting Document(s) Sodium [Moles/volume] in Urine 84 mmol/L MEDENT ([facility] ID Date Data Source [id number] 01/11/2019 02:06:00 PM EST MEDENT ([facility] Name Value Range Interpretation Code Description Data Esperanza rce(s) Supporting Document(s) Glu 99 mg/dL 70-110 MEDENT ([facility] CHRONIC KIDNEY DISEASE STAGING PER NKF: MALE [...] mL/min Normal 80 and above >32 mL/min Normal BUN/Creatinine Ratio 20.4 CALC MEDENT ([facility] CHRONIC KIDNEY DISEASE STAGING PER NKF: MALE [...] mL/min Normal 80 and above >32 mL/min Normal BUN 23 mg/dL 8-23 MEDENT ([facility] CHRONIC KIDNEY DISEASE STAGING PER NKF: MALE [...] mL/min Normal 80 and above >32 mL/min Normal Creat 1.1 mg/dL 0.7-1.2 MEDENT ([facility] CHRONIC KIDNEY DISEASE STAGING PER NKF: MALE [...] mL/min Normal 80 and above >32 mL/min Normal Co2 21.5 mmol/L 22.0-29.0 Below low normal MEDENT ([facility] CHRONIC KIDNEY DISEASE STAGING PER NKF: MALE [...] mL/min Normal 80 and above >32 mL/min Normal Na 131 mmol/L 136-145 Below low normal MEDENT ( [facility] CHRONIC KIDNEY DISEASE STAGING PER NKF: MALE [...] mL/min Normal 80 and above >32 mL/min Normal CA 9.6 mg/dL 8.6-10.2 MEDENT ([facility] CHRONIC KIDNEY DISEASE STAGING PER NKF: MALE [...] mL/min Normal 80 and above >32 mL/min Normal CL 95.1 mmol/L 98.0-107.0 Below low normal MEDENT ([facility] CHRONIC KIDNEY DISEASE STAGING PER NKF: MALE [...] mL/min Normal 80 and above >32 mL/min Normal Anion Gap 19 mmol/L MEDENT ([facility] CHRONIC KIDNEY DISEASE STAGING PER NKF: MALE [...] mL/min Normal 80 and above >32 mL/min Normal K 5.1 mmol/L 3.5-5.1 TOM ([facility] CHRONIC KIDNEY DISEASE STAGING PER NKF: MALE [...] mL/min Normal 80 and above >32 mL/min Normal eGFR Non-Afr. Malagasy 60 # MEDMANFRED ([facility] CHRONIC KIDNEY DISEASE STAGING PER NKF: MALE [...] mL/min Normal 80 and above >32 mL/min Normal eGFR 69 # MEDMANFRED ( [facility] CHRONIC KIDNEY DISEASE STAGING PER NKF: MALE [...] mL/min Normal 80 and above >32 mL/min Normal Procedure Social History Code Duration Value Status Description Data Source(s ) Smoking 01/22/2020 12:00:00 AM EST Patient is a former smoker completed Patient is a former smoker TOM ([facility] ) Vital Signs ID Date Data Source UNK Name Value Range Interpretation Code Description Data Source(s) Diastolic blood pressure 74 mm[Hg] 74 mm[Hg] eCW1 ([facility]) Systolic blood pressure 118 mm[Hg] 118 mm[Hg] e CW1 ([facility]) Body temperature 97.1 [degF] 97.1 [degF] eCW1 ( [facility]) Respiratory rate 18 /min 18 /min eCW1 ([facility]) Heart rate 95 /min 95 /min eCW1 ([facility]) Body mass index (BMI) [Ratio] 23.56 kg/m2 23.56 kg/m2 eCW1 ([facility]) Body height 63 [in_i] 63 [in_i] eCW1 ([facility]) Body weight 133 [lb_av] 133 [lb_av] eCW1 ([facility]) Oxygen saturation in Arterial blood by Pulse oximetry 98 % 98 % TOM ([facility] Body mass index (BMI) [Ratio] 23.4 kg/m2 23.4 k g/m2 TOM ([facility] [place] body weight 124 [lb_av] 124 [lb_av] IVETTEEN T ([facility] Body weight 134.00 [lb_av] 134.00 [lb_av] MEDEN T ([facility] Body height 63.5 [in_i] 63.5 [in_i] MEDENT ([facility] 5'3.50" Respiratory rate 18 /min 18 /min MEDENT ( [facility] Heart rate 75 /min 75 /min MEDENT ([facility] Body temperature 97.8 [degF] 97.8 [degF] MEDENT ([facility] Diastolic blood pressure 80 mm[Hg] 80 mm[Hg] MEDENT ([facility] Systolic blood pressure 140 mm[Hg] 140 mm[Hg] M EDENT ([facility] Diastolic blood pressure 78 mm[Hg] 78 mm[Hg] eCW1 ([facility]) Systolic blood pressure 145 mm[Hg] 145 mm[Hg] e CW1 ([facility]) Body temperature 97.1 [degF] 97.1 [degF] eCW1 ( [facility]) Respiratory rate 18 /min 18 /min eCW1 ([facility]) Heart rate 91 /min 91 /min eCW1 ([facility]) Body mass index (BMI) [Ratio] 24.18 kg/m2 24.18 kg/m2 W1 ([facility]) Body height 63 [in_i] 63 [in_i] eCW1 ([facility]) Body weight 136.5 [lb_av] 136.5 [lb_av] eCW1 ([facility]) Oxygen saturation in Arterial blood by Pulse oximetry 98 % 98 % MEDENT ( [facility] ([place] ([facility]) Body mass index (BMI) [Ratio] 24.1 kg/m2 24.1 k g/m2 MEDENT ([facility] [place] body weight 124 [lb_av] 124 [lb_av] MEDEN T ([facility] Body weight 138.00 [lb_av] 138.00 [lb_av] MEDEN T ([facility] Body height 63.5 [in_i] 63.5 [in_i] MEDENT ([facility] 5'3.50" Heart rate 85 /min 85 /min MEDMANFRED ([facility] Body temperature 97.1 [degF] 97.1 [degF] MEDENT ([facility] Diastolic blood pressure 62 mm[Hg] 62 mm[Hg] MEDENT ([facility] Systolic blood pressure 138 mm[Hg] 138 mm[Hg] M EDENT ([facility] Diastolic blood pressure 72 mm[Hg] 72 mm[Hg] eCW1 ([facility]) Systolic blood pressure 128 mm[Hg] 128 mm[Hg] e CW1 ([facility]) Body temperature 96.2 [degF] 96.2 [degF] eCW1 ( [facility]) Respiratory rate 18 /min 18 /min eCW1 ([facility]) Heart rate 109 /min 109 /min eCW1 ([facility]) Body mass index (BMI) [Ratio] 24.27 kg/m2 24.27 kg/m2 eCW1 ([facility]) Body height 63 [in_i] 63 [in_i] eCW1 ([facility]) Body weight 137 [lb_av] 137 [lb_av] eCW1 ([facility]) Oxygen saturation in Arterial blood by Pulse oximetry 98 % 98 % MEDENT ([facility] Body mass index (BMI) [Ratio] 24.2 kg/m2 24.2 k g/m2 MEDENT ([facility] [place] body weight 124 [lb_av] 124 [lb_av] MEDEN T ([facility] Body weight 139.00 [lb_av] 139.00 [lb_av] MEDEN T ([facility] Body height 63.5 [in_i] 63.5 [in_i] MEDENT ([facility] 5'3.50" Respiratory rate 16 /min 16 /min MEDENT ( [facility] Heart rate 58 /min 58 /min MEDENT ([facility] Body temperature 97.9 [degF] 97.9 [degF] MEDENT ([facility] Diastolic blood pressure 74 mm[Hg] 74 mm[Hg] MEDENT ([facility] Systolic blood pressure 116 mm[Hg] 116 mm[Hg] M EDENT ([facility] Oxygen saturation in Arterial blood by Pulse oximetry 99 % 99 % MEDENT ([facility] Body mass index (BMI) [Ratio] 24.6 kg/m2 24.6 k g/m2 MEDENT ([facility] [place] body weight 124 [lb_av] 124 [lb_av] MEDEN T ([facility] Body weight 141.00 [lb_av] 141.00 [lb_av] MEDEN T ([facility] Body height 63.5 [in_i] 63.5 [in_i] MEDENT ([facility] 5'3.50" Respiratory rate 16 /min 16 /min MEDENT ( [facility] Heart rate 82 /min 82 /min MEDENT ([facility] Body temperature 97.6 [degF] 97.6 [degF] MEDENT ([facility] Diastolic blood pressure 78 mm[Hg] 78 mm[Hg] MEDENT ([facility] Systolic blood pressure 108 mm[Hg] 108 mm[Hg] M EDENT ([facility] Oxygen saturation in Arterial blood by Pulse oximetry 98 % 98 % IVETTEENT ([facility] ([place]), ([facility]) Body mass index (BMI) [Ratio] 24.9 kg/m2 24.9 k g/m2 MEDENT ([facility] [place] body weight 124 [lb_av] 124 [lb_av] MEDEN T ([facility] Body weight 143.00 [lb_av] 143.00 [lb_av] MEDEN T ([facility] Body height 63.5 [in_i] 63.5 [in_i] MEDENT ([facility] 5'3.50" Respiratory rate 16 /min 16 /min MEDENT ( [facility] Heart rate 93 /min 93 /min MEDENT ([facility] Body temperature 97.1 [degF] 97.1 [degF] MEDENT ([facility] Diastolic blood pressure 78 mm[Hg] 78 mm[Hg] MEDENT ([facility] Systolic blood pressure 130 mm[Hg] 130 mm[Hg] M MONTSE ([facility] Oxygen saturation in Arterial blood by Pulse oximetry 98 % 98 % TOM ([facility] Body mass index (BMI) [Ratio] 24.1 kg/m2 24.1 k g/m2 MEDENT ([facility] Body weight 138.00 [lb_av] 138.00 [lb_av] MEDEN T ([facility] Body height 63.5 [in_i] 63.5 [in_i] [facility] ([facility] 5'3.50" Respiratory rate 13 /min 13 /min MEDENT ( [facility] Heart rate 88 /min 88 /min MEDENT ([facility] Body temperature 98.0 [degF] 98.0 [degF] MEDENT ([facility] Diastolic blood pressure 78 mm[Hg] 78 mm[Hg] MEDENT ([facility] Systolic blood pressure 140 mm[Hg] 140 mm[Hg] M EDMANFRED ([facility] Patient Treatment Plan of Care Planned Activity Planned Date Details Description Data Source (s) Amoxicillin 500 MG Oral Capsule 03/10/2020 12:00:00 AM EST eCW1 ([facility]) Erythromycin 500 MG Delayed Release Oral Tablet 03/10/2020 12:00:00 AM EST eCW1 ([facility]) Amoxicillin 500 MG Oral Capsule 03/10/2020 12:00:00 AM EST eCW1 ([facility]) Erythromycin 500 MG Delayed Release Oral Tablet 03/10/2020 12:00:00 AM EST eCW1 ([facility]) Ciprofloxacin 250 MG Oral Tablet [Cipro] 02/04/2020 12:00:00 AM EST eCW1 ([facility]) Ciprofloxacin 250 MG Oral Tablet [Cipro] 02/04/2020 12:00:00 AM EST eCW1 ([facility])
[2020-03-12 08:01] LABS: INR 0.89; PROTHROMBIN TIME 12.3 SECONDS (12.5-14.3)
[2020-03-12 08:05] LABS: BLOOD UREA NITROGEN 35 MG/DL (7-18); CALCIUM LEVEL 9.5 MG/DL (8.8-10.2); CARBON DIOXIDE LEVEL 27 MEQ/L (21-32); CHLORIDE LEVEL 112 MEQ/L (98-107); CREATININE FOR GFR 1.09 MG/DL (0.70-1.30); GLOMERULAR FILTRATION RATE > 60.0 (>35); GLUCOSE, FASTING 129 MG/DL (70-100); POTASSIUM SERUM 4.8 MEQ/L (3.5-5.1); SODIUM LEVEL 142 MEQ/L (136-145)
[2020-03-12] MEDS ORDERED: GENTAMICIN/SOD CHL 80 MG/100 ML BAG (J1580) As Ordered ONE (08:48)
[2020-03-12] MEDS ORDERED: ONDANSETRON 4MG/2ML VIAL As Ordered ONE (08:49)
[2020-03-12] MEDS ORDERED: fentaNYL 100 MCG/2 ML INJECTION (J3010) As Ordered ONE ×2 (08:49→09:56)
[2020-03-12] MEDS ORDERED: VANCOMYCIN 1000MG/20ML VIAL As Ordered ONE (08:49)
[2020-03-12] MEDS ORDERED: LIDOCAINE 2% 100MG/5ML SDV (FOR ANES.) As Ordered ONE (08:49)
[2020-03-12] MEDS ORDERED: propofoL 200 MG/20 ML VIAL As Ordered ONE (08:49)
[2020-03-12] MEDS ORDERED: METOCLOPRAMIDE INJ 10MG/2ML VIAL (J2765 PER 1) As Ordered ONE (08:49)
[2020-03-12] MEDS ORDERED: GENTAMICIN/SOD CHL 80 MG/100 ML BAG (J1580) IV ONE (09:30)
[2020-03-12] MEDS ORDERED: VANCOMYCIN HCL 1,000 MG, VIAL MATE ADAPTER 1 EACH in D5W 250 ML IV ONE (09:30)
[2020-03-12] MEDS ORDERED: ACETAMINOPHEN 1000MG 100ML IV BTL (OFIRMEV) (J0131 PER 10MG) As Ordered ONE (10:42)
[2020-03-12] MEDS ORDERED: FUROSEMIDE 100MG/10ML VIAL (J1940) As Ordered ONE (11:26)
[2020-03-12] MEDS ORDERED: PHENYLephrine 500MCG 5ML (100MCG/ML) SYRINGE As Ordered ONE (11:26)
[2020-03-12] MEDS ORDERED: LR 1,000 ML IV SCH (12:30)
[2020-03-12] MEDS ORDERED: fentaNYL 100 MCG/2 ML INJECTION (J3010) IV PRN (12:30)
[2020-03-12] MEDS ORDERED: oxyCODONE 5MG TAB PO PRN (12:30)
[2020-03-12] MEDS ORDERED: ONDANSETRON 4MG/2ML VIAL IV PRN (12:30)
[2020-03-12] MEDS ORDERED: ePHEDrine SULFATE 25 MG/5 ML(5MG/ML) SYRINGE As Ordered ONE (12:37)
[2020-03-12 13:20] VITALS: BP 142/63
[2020-03-12] MEDS ORDERED: ACETAMINOPHEN TAB 650MG DOSE (2X325MG) PO PRN (13:30)
--- NOTE | 2020-03-12 15:32 | ROOPDOC ---
[facility] Report Of Operation Report of Operation DATE OF PROCEDURE: 03/12/20 PREPROCEDURE DIAGNOSIS: Benign prostatic hyperplasia with urinary retention. POSTPROCEDURE DIAGNOSIS: Benign prostatic hyperplasia with urinary retention. PROCEDURE: Cystoscopy, button transurethral electrovaporization of the prostate. SURGEON: Kylie Malcolm MD DETAILER FURNITURE: None. ANESTHESIA: General. OPERATIVE INDICATIONS: This is an 89-year-old male with benign prostatic hyperplasia and urinary retention who was brought to the operating room today for treatment. DESCRIPTION OF PROCEDURE: The patient was brought to the operating room and general anesthesia was induced. Prophylactic antibiotics were infused. He was placed in the dorsal lithotomy position and prepped and draped in the usual sterile fashion. At this point, I advanced the resectoscope into the urethra and into the bladder. Of note, the patient had bilobar benign prostatic hyperplasia. I made note of the location of both ureteral orifices, as well as the verumontanum. At this point, I began vaporizing hyperplastic tissue circumferentially at the bladder neck. I then vaporized hyperplastic tissue on both lateral lobes. I kept doing this until there was a clear channel established. Throughout the procedure I made sure not to vaporize close to the ureteral orifices or distal to the verumontanum. Once the re was a clear channel established, hemostasis was obtained using the coagulation current. Once satisfied with hemostasis, the resectoscope was removed and an 18-Divehi De Guzman catheter was inserted into the bladder. The balloon was filled with 15 mL of sterile water and then the catheter was connected to gravity drainage. This marked the conclusion of the procedure. The patient was taken out of the dorsal lithotomy position, awakened from anesthesia and transported to the recovery room in stable condition. Estimated blood loss: 25 mL. Complications: None. Specimens: None. PLAN: The patient will followup in the clinic in approximately 1 week for catheter removal and a voiding trial. KYLIE MALCOLM MD Mar 12, 2020 15:32
== END 2020-03-12 14:00 | disposition home or self-care (01) ==
LOC: M SDC 06:56
PROVIDERS: ATTEND Urology
DX: N40.1 Benign prostatic hyperplasia with lower urinary tract symptoms (principal); I10 Essential (primary) hypertension; E78.5 Hyperlipidemia, unspecified; E11.9 Type 2 diabetes mellitus without complications; Z86.73 Personal history of transient ischemic attack (TIA), and cerebral infarction without residual deficits; Z79.899 Other long term (current) drug therapy
CPT/HCPCS: 36415; 52601; 80048; 85610; J0131; J1580; J1940; J2370; J2405; J2765; J3010; J3370

== ENCOUNTER 2020-03-29 10:08 | Emergency (ER) | payer MEDICARE, OTHER ==
[~2020-03-29] VITALS: Ht 160 cm; Wt 60.5 kg
[~2020-03-29 10:08] MED LIST changes: -LR 1,000 ML IV ONE; -ceFAZolin SOD 2 GM in IV 1 EA IV ONE
--- OUTSIDE RECORDS SUMMARY | 2020-03-29 10:15 | CCD ---
Author Author [facility] Organization [facility] Address Unknown Phone Unavailable Care Team Providers Care Slip Operator Name Role Phone Ruma Aparicio Unavailable PROBLEMS Type Condition ICD9-CM Code [id number] Code Onset Dates Condition S tatus SNOMED Code Notes Problem Microscopic hematuria 599.72 Active 093537814 Problem Hypertrophy (benign) of pros krueger without urinary obstruction and other lower urinary tract symptoms [LUTS] 600.00 Active 352342820 Problem Preop testing Z01.818 Active 347023014 Problem UTI (urinary tract infection) N39.0 Active 68 161230 Problem Elevated PSA (prostate specific antigen) 790.93 Active 703777753 Problem Elevated prostate specific antigen [PSA] R97.20 Active 877433068 Problem Benign prostatic hyperplasia without lower urina ry tract symptoms N40.0 Active 506694644 Problem 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 Active 035085013 ALLERGIES No Known Allergies ENCOUNTERS from 1931 to 2020-03-21 Encounter Location Date Provider Diagnosis [facility] [address] [place] [address] Feb Ruma Aparicio 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 and Other retention of urine R33.8 IMMUNIZATIONS Vaccine Route Administration Date Status Influenza (6mo & up) Fluzone Unknown July 18, 2014 Ref used SOCIAL HISTORY Sex Assigned At : Social History Observation Description Sex Assigned At Unknown REASON FOR REFERRAL No Information VITAL SIGNS Weight 135.8 lbs Feb, Height 63 in Feb, BMI 24.05 kg/m2 Feb, Heart Rate 96 /min Feb, Respiratory Rate 18 /min Feb, Temperature 95.3 degrees Fahrenheit Feb, Oximetry 98 Feb, Blood pressure systolic 122 mm Hg Feb, Blood pressure diastolic 64 mm Hg Feb, MEDICATIONS Medication SIG (Take, Route, Frequency, Duration) Notes Start Da te End Date Status Omeprazole 20 MG 1 capsule Orally Once a day Active Glucophage 1000 MG 1 tablet with meals Orally Twice a day Active Amoxicillin 500 MG 1 capsule Orally every 12 hrs for 10 day(s) Feb, Not-Taking Lisinopril 30 MG 1 tablet Orally Once a day Active Flomax 0.4 MG 1 capsule 30 minutes after t he same meal each day Orally Once a day for 90 day(s) Not-Taking Alfuzosin HCl Active Dutasteride 0.5 MG 1 capsule Orally Once a day for 90 day(s) Active Cipro 250 MG 1 tablet Orally every 12 hrs for 10 day(s) Jan, Not-Taking Avodart 0.5 MG TAKE ONE CAPSULE BY MOUTH EVERY DAY for 90 Active CoQ-10 120 mg 1 tab(s) Orally daily Active Erythromycin 500 MG 1 tab Orally every 6 hours for 10 day(s) Feb, Active Oxybutynin Chloride 5 MG 1 tablet Orally Twice a day for 30 day( s) Feb, Active Aspir-81 81 MG 1 tablet Orally Once a day for 30 day(s) Active Lipitor 20 MG 1 tablet Orally Once a day for 30 day(s) Active Plavix 75 MG 1 tablet Orally Once a day Active Alfuzosin HCl ER 10 MG 1 tablet immediately after t he same meal Orally Once a day for 90 day(s) Feb, Active Singulair 10 MG 1 tablet in the evening Orally Once a day for 30 day( s) Active PROCEDURES from 1931 to 2020-03-21 Procedure Date Ordered Result Body Site Voiding Trial 2020-03-17 N/A RESULTS No Results REASON FOR VISIT s/p Button TURP. 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 Medical History diabetes Surgical History cataract lens implanted, bilateral 2009 Surgical History colonoscopy 2006 Hospitalization History No Hospitalization history informati on Goals Section No Information Health Concerns No Information MEDICAL EQUIPMENT No Information MENTAL STATUS No Information FUNCTIONAL STATUS No Information ASSESSMENTS Encounter Date Diagnosis Assessment Notes Treatment Notes Treatm ent Clinical Notes Feb, BPH (benign prostatic hypert rophy) with urinary retention (ICD-10 - N40.1) Feb, Other retention of urine (ICD-10 - R33.8) PLAN OF TREATMENT Medication Medication Name Sig Start Date Stop Date Alfuzosin HCl ER 10 MG 1 tablet immediately after t he same meal Orally Once a day for 90 day(s) Feb, Dutasteride 0.5 MG 1 capsule Orally Once a day for 90 day(s) Next Appt Details 3 Weeks Reason:PVR check, s/p TURP Provider Name:Ruma Aparicio, 2020-03-0 8 10:30:00 AM, [address], [place], [address], Follow Up:3 WeeksPVR check, s/p TURP Insurance Providers Payer Name Payer Address Payer Phone Insured Name Patient Relati onship to Insured Coverage Start Date Coverage End Date [employer] [address] [address] [place] [phone] [employer] self [employer] [address] [address] [facility] [phone] [employer] self
--- OUTSIDE RECORDS SUMMARY | 2020-03-29 10:16 | CCD ---
Author Author [facility] Organization [facility] Address Unknown Phone Unavailable Care Team Providers Care Commission Specialist Name Role Phone Ruma Aparicio Unavailable PROBLEMS Type Condition ICD9-CM Code [id number] Code Onset Dates Condition S tatus SNOMED Code Notes Problem Microscopic hematuria 599.72 Active 621692121 Problem Hypertrophy (benign) of pros krueger without urinary obstruction and other lower urinary tract symptoms [LUTS] 600.00 Active 107862113 Problem Preop testing Z01.818 Active 809305933 Problem UTI (urinary tract infection) N39.0 Active 68 449121 Problem Elevated PSA (prostate specific antigen) 790.93 Active 935922125 Problem Elevated prostate specific antigen [PSA] R97.20 Active 368918709 Problem Benign prostatic hyperplasia without lower urina ry tract symptoms N40.0 Active 217560540 Problem 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 Active 728087369 ALLERGIES No Known Allergies ENCOUNTERS from 1931 to 2020-03-19 Encounter Location Date Provider Diagnosis [facility] [address] [place] [address] Feb Ruma Aparicio 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 and Other retention of urine R33.8 IMMUNIZATIONS Vaccine Route Administration Date Status Influenza (6mo & up) Fluzone Unknown July 18, 2014 Ref used SOCIAL HISTORY Sex Assigned At : Social History Observation Description Sex Assigned At Unknown REASON FOR REFERRAL No Information VITAL SIGNS Weight 135 lbs Feb, Height 63 in Feb, BMI 23.91 kg/m2 Feb, Heart Rate 104 /min Feb, Respiratory Rate 18 /min Feb, Temperature 96.6 degrees Fahrenheit Feb, Oximetry 99% Feb, Blood pressure systolic 104 mm Hg Feb, Blood pressure diastolic 62 mm Hg Feb, MEDICATIONS Medication SIG (Take, [...] RESULTS No Results REASON FOR VISIT cath leaking MEDICAL (GENERAL) HISTORY Type Description Date Medical [...] day for 90 day(s) Next Appt Details Provider Name:Ruma Acevedo Alessandra, 2020-03-0 8 10:30:00 AM, [address], [place], [address], Insurance Providers Payer Name Payer Address Payer Phone Insured Name Patient Relati onship to Insured Coverage Start Date Coverage End Date [facility] [facility] [address] [address] [facility] [address] [phone] [employer] self [employer] [address] [address] [place] [phone] [employer] self
--- OUTSIDE RECORDS SUMMARY | 2020-03-29 10:16 | CCD ---
Author Author [facility] Organization [facility] Address Unknown Phone Unavailable Care Team Providers Care Candy Decorator Name Role Phone Valerio Marlon Unavailable PROBLEMS Type Condition ICD9-CM Code [id number] Code Onset Dates Condition S tatus SNOMED Code Notes Problem Microscopic hematuria 599.72 Active 636884667 Problem Hypertrophy (benign) of pros krueger without urinary obstruction and other lower urinary tract symptoms [LUTS] 600.00 Active 467702977 Problem Preop testing Z01.818 Active 250235016 Problem UTI (urinary tract infection) N39.0 Active 68 267001 Problem Elevated PSA (prostate specific antigen) 790.93 Active 483293999 Problem Elevated prostate specific antigen [PSA] R97.20 Active 393009875 Problem Benign prostatic hyperplasia without lower urina ry tract symptoms N40.0 Active 853647556 Problem 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 Active 491299215 ALLERGIES No Known Allergies ENCOUNTERS from 1931 to 2020-03-12 Encounter Location Date Provider Diagnosis [facility] Urology [address] [place] [address] Feb Marlon Luo IMMUNIZATIONS Vaccine Route Administration [...] Information RESULTS No Results REASON FOR VISIT Labs MEDICAL (GENERAL) HISTORY Type Description Date Medical [...] Provider Name:Ruma Aparicio, 2020-02-29 8 08:30:00 AM, [address], [place], [address], Insurance Providers Payer Name Payer Address Payer Phone Insured Name Patient Relati onship to Insured Coverage Start Date Coverage End Date [facility] [employer] PL[facility] [address] [address] [facility] [phone] [employer] self [employer] [address] [address] [facility] [phone] [employer] self
--- OUTSIDE RECORDS SUMMARY | 2020-03-29 10:18 | CCD ---
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 Name Role Phone Fish, J Nitin Unavailable [...] Unavailable Unavailable NORRIS, F SHRUTHI DO Unavailable Unavailable NORRIS, F SHRUTHI DO Unavailable Unavailable NORRIS, F SHRUTHI DO Unavailable Unavailable NORRIS, F SHRUTHI DO Unavailable Unavailable NORRIS, F SHRUTHI DO Unavailable Unavailable NORRIS, F SHRUTHI DO Unavailable Unavailable NORRIS, F SHRUTHI DO Unavailable Unavailable NORRIS, F SHRUTHI DO Unavailable Unavailable NORRIS, F SHRUTHI DO Unavailable Unavailable NORRIS, F SHRTUHI DO Unavailable Unavailable NORRIS, F SHRUTHI DO Unavailable Unavailable NORRIS, F SHRUTHI DO Unavailable Unavailable NORRIS, F SHRUTHI DO Unavailable Unavailable NORRIS, F SHRUTHI DO Unavailable Unavailable NORRIS, F SHRUTHI DO Unavailable Unavailable NORRIS, F SHRUTHI DO Unavailable Unavailable NORRIS, F SHRUTHI DO Unavailable Unavailable NORRIS, F SHRUTHI DO Unavailable Unavailable NORRIS, F SHRUTHI DO Unavailable Unavailable NORRIS, F SHRUTHI DO Unavailable Unavailable NORRIS, F SHRUTHI DO Unavailable Unavailable NORRIS, F SHRUTHI DO Unavailable Unavailable NORRIS, F SHRUTHI DO Unavailable Unavailable NORRIS, F SHRUTHI DO Unavailable Unavailable NORRIS, F SHRUTHI DO Unavailable Unavailable NORRIS, F SHRUTHI DO Unavailable Unavailable NORRIS, F SHRUTHI DO Unavailable Unavailable NORRIS, F SHRUTHI DO Unavailable Unavailable NORRIS, F SHRUTHI DO Unavailable Unavailable NORRIS, F SHRUTHI DO Unavailable Unavailable NORRIS, F SHRUTHI DO Unavailable Unavailable NORRIS, F SHRUTHI DO Unavailable Unavailable VENERUS, Jessica VALENCIA MD Unavailable [...] is protected by Article 27-F of the [facility] Public Health law. If you continue you may have access to information: Regarding HIV / AIDS; Provided by facilities licensed or operated by the [facility] Office of Mental Health; or Provided by the [facility] Office for People With Developmental Disabilities. If such information is present, then the following [facility] mandated warning applies: This information has [...] law may result in a fine or skilled nursing sentence or both. A general authorization for the release of medical or other information is NOT sufficient authorization for further disc losure. Allergies and Adverse Reactions Type Description Substance Reaction Status Data Source(s ) No Known Allergies No Known Allergies [facility] Family History Family Member Name Family Member Gender Family Member Status Date o f Status Description Data Source(s) Unknown Male Problem [facility] ([facility] Encounters Encounter Providers Location Date Indications Data Source(s ) Postop visit [address] [facility] [address] 03/17/2020 12:00:00 AM EST [facility] [address] [facility] [address] 03/14/2020 12:00:00 AM EST [facility]CW[facility] Unknown [address] [facility] [address] 03/11/2020 12:00:00 AM EST eCW1 [facility] Unknown [address] [facility] [place] [address] 03/10/2020 12:00:00 AM EST [facility]CW[facility] Unknown [address] [facility] [address] 03/10/2020 12:00:00 AM EST eCW1 [facility]) Outpatient [address] [facility] [address] 03/06/2020 12:00:00 AM EST eCW1 [facility] Unknown [address] [facility] [address] 03/05/2020 12:00:00 AM EST eCW1 [facility] Outpatient Attender: Nitin ChengConsultant: Nitin Cheng 03/03/2020 09:18:00 AM EST - 03/03/2020 10:18:00 AM EST [facility] Outpatient Attender: Nitin Cheng [place] [facility] 02/27/2020 09:00:0 0 AM EST [facility] ([facility] (Cysto1) Urology [address] [place] [address] 02/11/2020 12:00:00 AM EST eCW1 [facility] Outpatient Attender: Nitin Cheng [place] [facility] 02/05/2020 01:00:0 0 PM EST [facility] ([facility] Unknown [address] [facility] [address] 02/05/2020 12:00:00 AM EST eCW1 ([facility]) Outpatient [address] [facility] [place] [address] 02/04/2020 12:00:00 AM EST eCW1 ([facility]) Emergency Attender: SHAILESH LÓPEZ MDConsultant: Nitin [facility] 2020 09:37:00 PM EST - 2020 10:29:00 PM EST [facility] Patient discharged. Emergency Attender: SHRUTHI PISANO DOConsultant: Nitin [facility] 01/27/2020 06:37:00 AM EST - 01/27/2020 09:10:00 AM EST [facility] 09:30:0 0 AM EST [facility] ([facility] Outpatient Attender: [facility] 10/22/2019 10:15:0 0 AM EDT [facility] ([facility] Unknown [address] [facility] [address] 09/12/2019 12:00:00 AM EDT eCW1 ([facility]) [facility] 09:20:0 0 AM EDT [facility] ([facility] Outpatient Attender: [facility] 04/03/2019 08:00:0 0 AM EST [facility] ([facility] [address] [place] [address] 02/14/2019 12:00:00 AM EST eCW1 ([facility]) Immunizations Vaccine Date Status Description Data Source(s) New in 2012. IIV4 01/22/2020 09:37:00 AM EST completed [facility] ([facility] Medications Medication Brand Name Start Date Product Form Dose Route Admi nistrative Instructions Pharmacy Instructions Status Indications Reaction Description Data Source(s) 10 mg 03/19/2020 12:00:00 AM EST tablet extended release 24 hr 30 TAKE ONE TABLET BY MOUTH EVERY DAY AFTER THE SAME MEAL EACH DAY TAKE ONE TABLET BY MOUTH EVERY DAY AFTER THE SAME MEAL EACH DAY SOLD: 03/24/2020 [facility] 24 HR Alfuzosin hydrochloride 10 MG Exte nded Release Oral Tablet Alfuzosin HCl ER 10 MG Alfuzosin HCl ER 10 MG 03/17/2020 12:00:00 AM EST 1.0 {tablet_immediately_after_the_same_meal} active Alfuzosin HCl ER 10 MG eCW1 ([facility]) 24 HR Alfuzosin hydrochloride 10 MG Exte nded Release Oral Tablet Alfuzosin HCl ER 10 MG Alfuzosin HCl ER 10 MG 03/17/2020 12:00:00 AM EST 1.0 {tablet_immediately_after_the_same_meal} active Alfuzosin HCl ER 10 MG eCW1 ([facility]) Metformin hydrochloride 1000 MG Oral Tablet 1,000 mg METFORM IN HCL 03/16/2020 12:00:00 AM EST tablet 180 TAKE ONE TABLET BY MOUTH TWICE A DAY TAKE ONE TABLET BY MOUTH TWICE A DAY SOLD: 03/17/2020 [facility] 75 mg 03/16/2020 12:00:00 AM EST tablet 30 TAKE ONE TABLET BY MOUTH EVERY DAY TAKE ONE TABLET BY MOUTH EVERY DAY SOLD: 03/17/2020 [facility] 0.5 mg 03/16/2020 12:00:00 AM EST capsule 90 TAKE ONE CAPSULE BY MOUTH EVERY DAY TAKE ONE CAPSULE BY MOUTH EVERY DAY SOLD: 03/17/2020 [facility] 40 mg 03/16/2020 12:00:00 AM EST tablet 30 TAKE ONE TABLET BY MOUTH EVERY DAY TAKE ONE TABLET BY MOUTH EVERY DAY SOLD: 03/17/2020 [facility] Oxybutynin chloride 5 MG Oral Tablet Oxybutynin Chlori de 5 MG Oxybutynin Chloride 5 MG 03/14/2020 12:00:00 AM EST 1.0 {tablet} active Oxybutynin Chloride 5 MG eCW1 ([facility]) Oxybutynin chloride 5 MG Oral Tablet Oxybutynin Chlori de 5 MG Oxybutynin Chloride 5 MG 03/14/2020 12:00:00 AM EST 1.0 {tablet} active Oxybutynin Chloride 5 MG eCW1 ([facility]) 5 mg 03/14/2020 12:00:00 AM EST tablet 60 TAKE ONE TABLET BY MOUTH TWICE A DAY TAKE ONE TABLET BY MOUTH TWICE A DAY SOLD: 03/14/2020 [facility] 5 mg 03/12/2020 12:00:00 AM EST tablet 30 TAKE ONE TABLET BY MOUTH EVERY DAY TAKE ONE TABLET BY MOUTH EVERY DAY SOLD: 03/12/2020 [facility] Amoxicillin 500 MG Oral Capsule Amoxicillin 500 MG 03/10/2020 12:00 :00 AM EST 1.0 {capsule} active Amoxicillin 500 MG eCW1 ([facility]) Erythromycin 500 MG Delayed Release Oral Tablet Erythromycin 500 MG 03/10/2020 12:00:00 AM EST active Erythrom ycin 500 MG eCW1 ([facility]) Amoxicillin 500 MG Oral Capsule Amoxicillin 500 MG 03/10/2020 12:00 :00 AM EST 1.0 {capsule} active Amoxicillin 500 MG eCW1 ([facility]) Amoxicillin 500 MG Oral Capsule Amoxicillin 500 MG 03/10/2020 12:00 :00 AM EST 1.0 {capsule} active Amoxicillin 500 MG eCW1 ([facility]) Erythromycin 500 MG Delayed Release Oral Tablet Erythromycin 500 MG 03/10/2020 12:00:00 AM EST active Erythrom ycin 500 MG eCW1 ([facility]) Erythromycin 500 MG Delayed Release Oral Tablet Erythromycin 500 MG 03/10/2020 12:00:00 AM EST active Erythrom ycin 500 MG eCW1 ([facility]) 500 mg 03/10/2020 12:00:00 AM EST capsule 20 TAKE ONE CAPSULE BY MOUTH EVERY 12 HOURS FOR 10 DAYS TAKE ONE CAPSULE BY MOUTH EVERY 12 HOURS FOR 10 DAYS S OLD: 03/10/2020 [facility] Erythromycin 500 MG Delayed Release Oral Tablet Erythromycin 500 MG 03/10/2020 12:00:00 AM EST active Erythrom ycin 500 MG eCW1 ([facility]) Amoxicillin 500 MG Oral Capsule Amoxicillin 500 MG 03/10/2020 12:00 :00 AM EST 1.0 {capsule} suspended Amoxicillin 500 MG eCW1 ([facility]) Erythromycin 500 MG Delayed Release Oral Tablet Erythromycin 500 MG 03/10/2020 12:00:00 AM EST active Erythrom ycin 500 MG eCW1 ([facility]) Amoxicillin 500 MG Oral Capsule Amoxicillin 500 MG 03/10/2020 12:00 :00 AM EST 1.0 {capsule} suspended Amoxicillin 500 MG eCW1 ([facility]) Ciprofloxacin 250 MG Oral Tablet [Cipro] Cipro 250 MG Cipro 250 MG 02/04/2020 12:00:00 AM EST 1.0 {tablet} active Ci pro 250 MG eCW1 ([facility]) Ciprofloxacin 250 MG Oral Tablet [Cipro] Cipro 250 MG Cipro 250 MG 02/04/2020 12:00:00 AM EST 1.0 {tablet} active Ci pro 250 MG eCW1 ([facility]) Ciprofloxacin 250 MG Oral Tablet [Cipro] Cipro 250 MG Cipro 250 MG 02/04/2020 12:00:00 AM EST 1.0 {tablet} active Ci pro 250 MG eCW1 ([facility]) Ciprofloxacin 250 MG Oral Tablet [Cipro] Cipro 250 MG Cipro 250 MG 02/04/2020 12:00:00 AM EST 1.0 {tablet} active Ci pro 250 MG eCW1 ([facility]) Ciprofloxacin 250 MG Oral Tablet [Cipro] Cipro 250 MG Cipro 250 MG 02/04/2020 12:00:00 AM EST 1.0 {tablet} active Ci pro 250 MG eCW1 ([facility]) 250 mg 02/04/2020 12:00:00 AM EST tablet 20 TAKE ONE TABLET BY MOUTH EVERY 12 HOURS FOR 10 DAYS TAKE ONE TABLET BY MOUTH EVERY 12 HOURS FOR 10 DAYS SO LD: 02/04/2020 [facility] Ciprofloxacin 250 MG Oral Tablet [Cipro] Cipro 250 MG Cipro 250 MG 02/04/2020 12:00:00 AM EST 1.0 {tablet} active Ci pro 250 MG eCW1 ([facility]) Ciprofloxacin 250 MG Oral Tablet [Cipro] Cipro 250 MG Cipro 250 MG 02/04/2020 12:00:00 AM EST 1.0 {tablet} active Ci pro 250 MG eCW1 ([facility]) Ciprofloxacin 250 MG Oral Tablet [Cipro] Cipro 250 MG Cipro 250 MG 02/04/2020 12:00:00 AM EST 1.0 {tablet} suspended Cipro 250 MG eCW1 ([facility]) Ciprofloxacin 250 MG Oral Tablet [Cipro] Cipro 250 MG Cipro 250 MG 02/04/2020 12:00:00 AM EST 1.0 {tablet} suspended Cipro 250 MG eCW1 ([facility]) Ciprofloxacin 250 MG Oral Tablet [Cipro] Cipro 250 MG Cipro 250 MG 02/04/2020 12:00:00 AM EST 1.0 {tablet} active Ci pro 250 MG eCW1 ([facility]) montelukast 10 MG Oral Tablet MONTELUKAST SODIUM 01/14/2020 12:0 0:00 AM EST tablet 30 TAKE ONE TABLET BY MOUTH EVERY D AY TAKE ONE TABLET BY MOUTH EVERY DAY SOLD: 03/17/2020 [facility] montelukast 10 MG Oral [...] EVERY DAY SOLD: 01/19/2020 [facility] atorvastatin 20 MG Oral Tablet ATORVASTATIN CALCIUM 12/13/2019 1 2:00:00 AM EDT tablet 30 TAKE ONE TABLET BY MOUTH EVERY D AY TAKE ONE TABLET BY MOUTH EVERY DAY SOLD: 03/24/2020 [facility] 40 mg 12/13/2019 12:00:00 AM EDT tablet 30 TAKE ONE TABLET BY MOUTH EVERY DAY TAKE ONE TABLET BY MOUTH EVERY DAY SOLD: 12/15/2019 [facility] atorvastatin 20 MG Oral Tablet ATORVASTATIN CALCIUM 12/13/2019 1 2:00:00 AM EDT tablet 5 TAKE ONE TABLET BY MOUTH EVERY D AY TAKE ONE TABLET BY MOUTH EVERY DAY SOLD: 03/14/2020 [facility] 40 mg 12/13/2019 12:00:00 [...] TABLET BY MOUTH EVERY DAY SOLD: 01/19/2020 [facility] atorvastatin 20 MG Oral Tablet ATORVASTATIN CALCIUM 12/13/2019 1 2:00:00 AM EDT tablet 90 TAKE ONE TABLET BY MOUTH EVERY D AY TAKE ONE TABLET BY MOUTH EVERY DAY SOLD: 12/15/2019 [facility] 25 mg 12/13/2019 12:00:00 AM EDT tablet extended release 24 hr 5 TAKE ONE TABLET BY MOUTH EVERY DAY TAKE ONE TABLET BY MOUTH EVERY DAY SOLD: 03/14/2020 [facility] 40 mg 12/13/2019 12:00:00 AM EDT tablet 30 TAKE ONE TABLET BY MOUTH EVERY DAY TAKE ONE TABLET BY MOUTH EVERY DAY SOLD: 01/19/2020 [facility] 25 mg 12/13/2019 12:00:00 AM EDT tablet extended release 24 hr 30 TAKE ONE TABLET BY MOUTH EVERY DAY TAKE ONE TABLET BY MOUTH EVERY DAY SOLD: 03/24/2020 [facility] 5 mg 12/13/2019 12:00:00 AM [...] THE SAME MEAL ONCE DAILY SOLD: 01/19/2020 [facility] montelukast 10 MG Oral Tablet MONTELUKAST [...] ONE CAPSULE BY MOUTH EVERY DAY SOLD: 03/17/2020 [facility] 40 mg 10/12/2019 12:00:00 AM [...] EVERY DAY SOLD: 10/18/2019 [facility] 0.4 mg 10/12/2019 12:00:00 [...] AM EDT tablet extended release 24 hr 1 TAKE ONE TABLET BY MOUTH ONCE DAILY TAKE ONE TABLET BY MOUTH ONCE DAILY SOLD: 03/17/2020 [facility] 10 mg 10/03/2019 12:00:00 AM EDT tablet extended release 24 hr 30 TAKE ONE TABLET BY MOUTH ONCE DAILY TAKE ONE TABLET BY MOUTH ONCE DAILY SOLD: 12/15/2019 [facility] 10 mg 10/03/2019 12:00:00 AM EDT tablet extended release 24 hr 32 TAKE ONE TABLET BY MOUTH ONCE DAILY TAKE ONE TABLET BY MOUTH ONCE DAILY SOLD: 02/17/2020 [facility] Metformin hydrochloride 1000 MG Oral Tablet 1,000 mg METFORM IN HCL 09/19/2019 12:00:00 AM EDT tablet 60 TAKE ONE TABLET BY MOUTH TWICE A DAY TAKE ONE TABLET BY MOUTH TWICE A DAY SOLD: 01/19/2020 [facility] 1,000 mg 09/19/2019 12:00:00 AM EDT [...] MOUTH TWICE A DAY SOLD: 12/15/2019 [facility] Metformin hydrochloride 1000 MG Oral Tablet [...] BY MOUTH TWICE A DAY SOLD: 09/21/2019 [facility] Metformin hydrochloride 1000 MG Oral Tablet 1,000 mg METFORM IN HCL 09/19/2019 12:00:00 AM EDT tablet 60 TAKE ONE TABLET BY MOUTH TWICE A DAY TAKE ONE TABLET BY MOUTH TWICE A DAY SOLD: 11/16/2019 [facility] 75 mg 09/18/2019 12:00:00 AM [...] TABLET BY MOUTH EVERY DAY SOLD: 05/30/2019 [facility] 40 mg 04/23/2019 12:00:00 AM [...] EVERY DAY SOLD: 03/01/2019 [facility] atorvastatin 20 MG Oral [...] type / Coverage type Policy ID Covered republican ID Covered republican's relationship to reed Policy Reed Plan Information [employer] [id number] SP [id number] RET[employer] INSURANCE PLAN [id number] SP [id number] WELLCARE [id number] SP [id number] TODAYS OPTIONSDO NOT USE [id number] SP [id number] WELLCARE -O/P [id number] 18 [id number] MEDICARE PART A -O/P [id number] 18 [id number] Today's Options/Wellcare Commercial [id number] Self [id number] Today's Options/Wellcare Commercial [id number] Self [id number] Today's Options/Wellcare Commercial [id number] Self [id number] ANSI-Commercial [id number] ANSI-Medicare Part B [id number] ANSI-Health Maintenance Organization ( O) [id number] ANSI-Medicare Part B [id number] ANSI-Commercial [id number] Today's Options Commercial [id number] Self [id number] Today's Options Commercial [id number] Self [id number] TODAYS OPTION -O/P [id number] 18 [id number] Today's Options Commercial [id number] Self [id number] ANSI-Medicare Part B [id number] ANSI-Commercial [id number] Today's Options Commercial [id number] Self [id number] Today's Options Commercial [id number] Self [id number] TODAYS OPTIONS [id number] SP [id number] MEDICARE [id number] SP [id number] A MEDICARE -O/P [id number] 18 [id number] MEDICARE -O/P [id number] 18 [id number] Problems, Conditions, and Diagnoses Code Display Name Description Problem Type Effective Dates Data Source(s) 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 ) [id number] Decreased hearing Decreased hearing Problem 07/08 12:00:00 AM EDT [facility] ([facility] 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 rat exterminator (current) use of oral hypoglycemic drugs Diagnosis 2020 09:37:00 PM [facility] E785 Hyperlipidemia, unspecified Hyperlipidemia, unspecifie d Diagnosis 2020 09:37:00 PM [facility] I10 Essential (primary) hypertension Essential (primary) h ypertension Diagnosis 2020 09:37:00 PM [facility] E119 Type 2 diabetes mellitus without complic ations Type 2 diabetes mellitus without complications Diagnosis 2020 09:37:00 PM [facility] N401 Benign prostatic hyperplasia with lower urinary tract symptoms Benign prostatic hyperplasia with lower urinary tract symptoms Diagnosis 2020 09:37:00 PM [facility] R339 Retention of urine, unspecified Retention of urine, un specified Diagnosis 2020 09:37:00 PM [facility] Z7902 rat exterminator (current) use of antithromboti cs/antiplatelets rat exterminator (current) use of antithrombotics/antiplatelets Diagnosis 020 06:37:00 AM [facility] R338 Other retention of urine Other retention of urine Diag nosis 01/27/2020 06:37:00 AM [facility] Surgeries/Procedures Procedure Description Date Indications Data Source(s) Voiding Trial 03/17/2020 12:00:00 AM EST eCW1 ([facility]) Medication: Lidocaine HCl 2% Jelly 5mL Intravesically 03/06/2020 12:00:00 AM EST eCW1 ([facility]) Electrocardiogram Complete 02/27/2020 12:00:00 AM EST [facility] ([facility] Villalba Catheter Insertion 16F 02/04/2020 12:00:00 AM AMY Tamez eC1 ([facility]) Magnetic Resonance Angiogtaphy Head W/O Contrast Material(S) 09/22/2019 12:00:00 AM EDT [facility] ([facility] Magnetic Resonance Angiogtaphy Head W/O Contrast Material(S) 09/22/2019 12:00:00 AM EDT MED[facility] ([facility]) Magnetic Resonance Angiography Neck W/O Contrast Materials 09/22/2019 12:00:00 AM EDT MED[facility] ([facility]) Magnetic Resonance Angiography Neck W/O Contrast Materials 09/22/2019 12:00:00 AM EDT [facility] ([facility]) Results ID Date Data Source [id number] 03/07/2020 11:00:00 AM EST [facility] Name Value Range Interpretation Code Description Data Esperanza rce(s) Supporting Document(s) SARS coronavirus 2 RNA Not Detected [facility] [place] This lab was ordered by [facility] and reported by [facility]. ID Date Data Source [id number] 03/06/2020 10:42:00 AM [facility] [address] [place] [address] PHONE: [phone] FAX: [phone] Name .................. : CHARISSA GUTIERREZ Acct Number.................. : [id number] ROOM. ................. : MR Number ................... : [id number] Stay type ............. : O/P Discharge Date......... ... : 03/03/20 Admit Date ......... : 03/03/20 Admit Phys .................... : REVA WRIGHT Date of ....... : 1930 Family Phys ................... : REVA WRIGHT Phone .................. : [phone] Age ................................ : 89 Film# .................. .:[id number] Sex ................................. : M Unsigned transcriptions are preliminary reports and do not represent a medical or legal document CHEST 2 VIEWS 31610 COMPLETE:03/03/20 09:31 BEM 1391 (REASON FOR CHEST: [...] MD , 03/06/20 10:42, KGG Transcribe Initials: SSR, Transcribe Date: 03/03/20 11:21, Dictation Date: Copy for: REVA FISH via fax Copy for: 710 MED REC Page 1 of 1 Name Value Range Interpretation Code Description Data [facility] rce(s) Supporting Document(s) ID Date Data Source [id number] 02/27/2020 10:42:00 AM EST [facility] Name Value Range Interpretation Code Description Data [facility](s) Supporting Document(s) WBC 5.8 10E3/uL 4.1-10.9 [facility] ([facility] NORMAL RANGES Age WBC RBC [...] HCT IS 5% LESS SOURCE FOR DATA: [employer] 1800 OPERATION MANUAL( AUTOMATED BLOOD COUNTS AND DIFF.) APPENDIX B-3 RBC 3.51 10E6/uL 4.20-6.30 Below low normal MED[facility] ([facility] [...] HCT IS 5% LESS SOURCE FOR DATA: [employer] 1800 OPERATION MANUAL( AUTOMATED BLOOD COUNTS AND DIFF.) APPENDIX B-3 MCV 96.6 fL 80.0-97.0 [facility] NORMAL RANGES Age WBC RBC HGB HCT MCV PLT Adult M 4.1-10.9 4.20-6.30 12.0-18.0 37.0-51.0 80-97 140-440 Adult F 4.1-10.9 4.04-5.48 12.0-18.0 37.0-51.0 0 -1 Yr 5.0-20.0 3.9-5.9 15-18 MV: [...] HCT IS 5% LESS SOURCE FOR DATA: [employer] 1800 OPERATION MANUAL( AUTOMATED BLOOD COUNTS AND DIFF.) APPENDIX B-3 HCT 33.9 % 37.0-51.0 Below low normal [facility] ( [facility] NORMAL RANGES Age WBC RBC HGB HCT MCV PLT Adult M 4.1-10.9 4.20-6.30 12.0-18.0 37.0-51.0 440 Adult F 4.1-10.9 4.04-5.48 12.0-18.0 37.0-51.0 440 0 -1 Yr 5.0-20.0 3.9-5.9 15-18 MV: [...] HCT IS 5% LESS SOURCE FOR DATA: [employer] 1800 OPERATION MANUAL( AUTOMATED BLOOD COUNTS AND DIFF.) APPENDIX B-3 HGB 11.6 g/dL 12.0-18.0 Below low [facility] NORMAL RANGES Age WBC [...] MCH 33.0 pg 26.0-32.0 Above high normal [facility] NORMAL RANGES Age WBC [...] DIFF.) APPENDIX B-3 PLT 374 10E3/uL 140-440 [facility] NORMAL RANGES Age WBC RBC [...] IS 5% LESS SOURCE FOR DATA: YARI [employer] 1800 OPERATION MANUAL( AUTOMATED BLOOD COUNTS AND DIFF.) APPENDIX B-3 MCHC 34.2 g/dL 31.0-36.0 [facility] NORMAL RANGES Age WBC [...] HCT IS 5% LESS SOURCE FOR DATA: [employer]ytics 1800 OPERATION MANUAL( AUTOMATED BLOOD COUNTS AND DIFF.) APPENDIX B-3 Neut% 69.6 % 37.0-92.0 [facility] NORMAL RANGES Age WBC [...] HCT IS 5% LESS SOURCE FOR DATA: [employer] 1800 OPERATION MANUAL( AUTOMATED BLOOD COUNTS AND DIFF.) APPENDIX B-3 Lym% 18.9 % 10.0-58.5 [facility] ([facility] NORMAL RANGES Age WBC [...] HCT IS 5% LESS SOURCE FOR DATA: [employer] 1800 OPERATION MANUAL( AUTOMATED BLOOD COUNTS AND DIFF.) APPENDIX B-3 RDW-CV 14.8 % 11.5-14.5 Above high normal [facility] ([facility] NORMAL RANGES Age WBC [...] DIFF.) APPENDIX B-3 Lym# 1.1 10E3/uL 0.6-4.1 [facility] ([facility] NORMAL RANGES Age WBC RBC HGB [...] DIFF.) APPENDIX B-3 MXD% 11.5 % 0.1-24.0 [facility] ([facility] NORMAL RANGES Age WBC RBC HGB [...] HCT IS 5% LESS SOURCE FOR DATA: [employer] 1800 OPERATION MANUAL( AUTOMATED BLOOD COUNTS AND DIFF.) APPENDIX B-3 Neut# 4.0 % 2.0-7.8 [facility] NORMAL RANGES [...] HCT IS 5% LESS SOURCE FOR DATA: [employer] 1800 OPERATION MANUAL( AUTOMATED BLOOD COUNTS AND DIFF.) APPENDIX B-3 MPV 8.0 fL 9.0-13.0 Below low normal [facility] ( [facility] NORMAL RANGES Age WBC [...] HCT IS 5% LESS SOURCE FOR DATA: [employer] 1800 OPERATION MANUAL( AUTOMATED BLOOD COUNTS AND DIFF.) APPENDIX B-3 MXD# 0.7 10E3/uL 0.0-1.8 [facility] ([facility] NORMAL RANGES Age WBC RBC [...] HCT IS 5% LESS SOURCE FOR DATA: Hive[employer] DYN 1800 OPERATION MANUAL( AUTOMATED BLOOD COUNTS AND DIFF.) APPENDIX B-3 ID Date Data Source [id number] 2020 09:37:00 PM EST [facility] 1 OrderSheet [facility] Emergency Department [address] [place] [address] Phone #: ext- [phone] 21:35 Patient: [...] R.N. (22:55 2020)][Electronically signed by Shailesh López (01:16 01/31/2020)][Electronically locked by Lacey Ron R.N. (22:55 2020)] Name Value Range Interpretation Code Description Data Esperanza rce(s) Supporting Document(s) ID Date Data Source [id number] 2020 09:37:00 PM EST [facility] 1 Medication Reconciliation Report [facility] Emergency Department [address] [place] [address] Phone #: ext- [phone] 21:35 Patient: [...] to the patient:None. 2 Medication Reconciliation Report [facility] Emergency Department [address] [place] [address] Phone #: ext- [phone] 21:35 Patient: BRENDA CARRINGTON Sex: M : 1930 Age: 89y Name Value Range Interpretation Code Description Data Esperanza rce(s) Supporting Document(s) ID Date Data Source [id number] 2020 09:37:00 PM [facility] 1 Medication Administration Record [facility] Emergency Department [address] [place] [address] Phone #: ext- [phone] 03/2019 21:35 Patient: BRENDA CARRINGTON Sex: M : 1930 Age: 89yWeight: 62.5 kgHeight/Length: 62 inBMI: 25.2ALLERGIES: No Known Drug AllergyDate/Time Medication Administered Medication Ordered Name Value Range Interpretation Code Description Data Esperanza rce(s) Supporting Document(s) ID Date Data Source [id number] 2020 09:37:00 PM [facility] 1 General Instructions [facility] Emergency Department [address] [place] [address] Phone #: ext [phone] 21:35 Patient: BRENDA CARRINGTON Sex: M : 1930 Age: 89yUrinary retention with enlarged prostate.INSTRUCTIONSDrink plenty of fluids.(Continue prostate meds.).Warnings: Further evaluation is necessary.GENERAL WARNINGS: Return or contact your physician immediately if your condition worsens orchanges unexpectedly, if not improving as expected, or if other problems arise.Follow-up:Follow up with a urologist [facility] Urology - . Call for an appointment. Reason for referral:evaluation, treatment and Urinary retention / Villalba placement.Understanding of the discharge instructions verbalized by patient.Follow-up with: Leonard Moseley M.D., Urology, , [address] [place] [address], [facility] Follow up if not better. Call for [...] as men get older. 2 General Instructions [facility] Emergency Department [address] [place] [address] Phone #: ext- [phone] 21:35 Patient: BRENDA CARRINGTON Sex: M [...] bottom of the bag. 3 General Instructions [facility] Emergency Department [address] [place] [address] Phone #: ext- [phone] 21:35 Patient: [...] o Catheter stops draining for 6 hours 2755-4603 [employer]. [address] [place] [address], [place] [address]. All rights reserved. This information is not [...] bladder from emptying fully. 4 General Instructions [facility] Emergency Department [address] [place] [address] Phone #: ext- [phone] 21:35 Patient: [...] up in the bladder. 5 General Instructions [facility] Emergency Department [address] [place] [address] Phone #: ext- [phone] 21:35 Patient: [...] increase the risk of prostate cancer include beingAfrican-East Timorese or having a father or brother who had prostate cancer. A high-fat diet may alsoincrease the risk of prostate cancer. Talk to your healthcare provider to see whether you should bescreened for prostate cancer.Follow-up careFollow up with your healthcare provider, or as advisedTo learn more, go to: National Kidney Urologic Diseases Information Clearinghouse kidney.niddk.nih.gov, 513-7136181Ruyd to seek medical adviceCall your healthcare provider [...] urinate, burning when passing urine, foul-smelling urine) 3238-9208 [employer]. [address] [place] [address]. All rights reserved. This information is not intended as asubstitute for professional medical care. Always follow your healthcare professional's instructions. You have been given the following additional information: 6 General Instructions [facility] Emergency Department [address] [place] [address] Phone #: ext- [phone] 21:35 Patient: BRENDA CARRINGTON Sex: M : 1930 Age: 89yUrinary Retention, MaleBPH (Enlarged Prostate)(Electronically signed by Shailesh López, Physician 01/31/2020 01:16) Name Value Range Interpretation Code Description Data Esperanza rce(s) Supporting Document(s) ID Date Data Source [id number] 2020 09:37:00 PM EST [facility] 1 Clinical Report - Nurses [facility] Emergency Department [address] [place] [address] Phone #: ext- [phone] 21:35 Patient: [...] to see him, pt catheterbegan leaking tonight).Treatment SWITCHBOARD OPERATOR ASSISTANT:None.SEPSIS SCREEN: SIRS Screen negative. Sepsis Screen negative. [...] 01/30/20 Giovanny Monroy RN.AllergiesNo Known Drug Allergy. --:43 01/30/20 Giovanny Monroy RN.ADDITIONAL SURGERIES: 2 Clinical Report - Nurses [facility] Emergency Department [address] [place] [address] Phone #: [phone] xjf- [phone] 21:35 Patient: BRENDA CARRINGTON Sex: M [...] assessment completed. No skin integrity risk identified. --:01/30/20 Giovanny Monroy RN. Interventions To treatment room. --:01/30/20 Giovanny Monroy RN.PHYSICAL [id number] 01/30/20. Ambulatory to room.GENERAL / NEURO / [...] Brakes of bed on. --22:28 01/30/20 Lacey Mckeon R.N. 3 Clinical Report - Nurses [facility] Emergency Department [address] [place] [address] Phone #: ext- [phone] 21:35 Patient: BRENDA CARRINGTON Sex: M : 1930 Age: 89yDISPOSITION / DISCHARGE Departure time: 22:28 2020. Condition at departure: stable. Follow up contact number Urology, Pt provided contact info for Both Dr Moseley and [facility] Urology. Patient verbalized understanding. Written instructions provided in Namibian. The patient was discharged by the physician. [...] rce(s) Supporting Document(s) ID Date Data Source [id number] 2020 09:37:00 PM [facility] 1 Clinical Report - Physicians/Mid Levels [facility] Emergency Department [address] [place] [address] Phone #: ext- [phone] 21:35 Patient: [...] normal. 2 Clinical Report - Physicians/Mid Levels [facility] Emergency Department [address] [place] [address] Phone #: ext- [phone] 21:35 Patient: BRENDA CARRINGTON Sex: M : 1930 Age: 89y Neck: [...] Discharged home in good and improved condition (22:14 2020). Condition: good.CLINICAL IMPRESSION Urinary retention with enlarged prostate. 3 Clinical Report - Physicians/Mid Levels [facility] Emergency Department [address] [place] [address] Phone #: ext- [phone] 21:35 Patient: BRENDA CARRINGTON Sex: M : 1930 Age: 89yINSTRUCTIONS Drink plenty of fluids. (Continue prostate meds.). Warnings: Fur ther evaluation is necessary. GENERAL WARNINGS: Return or contact your physician immediately if your condition worsens or changes unexpectedly, if not improving as expected, or if other problems arise. Follow-up: Follow up with a urologist [facility] Urology - . Call for an appointment. Reason for referral: evaluation, treatment and Urinary retention / Villalba placement. Understanding of the discharge instructions verbalized by patient. Follow-up with: Leonard Moseley M.D., Urology, , [address] [place] [address], [facility] Follow up if not better. Call for an appointment. Reason for referral: evaluation, treatment and Urinary retention / villalba catheter placement.(Electronically signed by Shailesh López, Physician 01/31/2020 01:16) Name Value Range Interpretation Code Description Data [facility] rce(s) Supporting Document(s) ID Date Data Source [id number] 2020 09:58:00 PM EST [facility] ([facility] Name Value Range Interpretation Code Description Data [facility] rce(s) Supporting Document(s) Source Laboratory test result [facility] ([facility] SOURCE: Clean Catch Urinalysis Laboratory test result [facility] ([facility] SOURCE: Clean Catch Clarity Laboratory test result [facility] ([facility] SOURCE: Clean Catch Color Laboratory test result [facility] ([facility] SOURCE: Clean Catch Spec [place] 1.020 1.001-1.030 [facility] ([facility] SOURCE: Clean Catch Glucose Laboratory test result [facility] ([facility] SOURCE: Clean Catch pH 5 5-9 [facility] ([facility] SOURCE: Clean Catch Bilirubin Laboratory test result [facility] ([facility] SOURCE: Clean Catch Protein 100 Abnormal (applies to non-numeric res ults) [facility] ([facility] SOURCE: Clean Catch Ketone 5 Abnormal (applies to non-numeric res ults) [facility] ([facility] SOURCE: Clean Catch Nitrite Laboratory test result [facility] ([facility] SOURCE: Clean Catch Leuk Est 25 [facility] ([facility] SOURCE: Clean Catch Urobilinogen Laboratory test result [facility] ([facility] SOURCE: Clean Catch Blood 250 Abnormal (applies to non-numeric res ults) [facility] ([facility] SOURCE: Clean Catch RBC Laboratory test result Abnormal (applies to non -numeric results) [facility] ([facility] SOURCE: Clean Catch Microscopic Laboratory test result [facility] ([facility] SOURCE: Clean Catch WBC Laboratory test result [facility] ([facility] SOURCE: Clean Catch Epithelial Laboratory test result [facility] ([facility] SOURCE: Clean Catch ID Date Data Source [id number] 2020 10:08:00 PM EST [facility] Name Value Range Interpretation Code Description Data Esperanza rce(s) Supporting Document(s) [facility] S[facility] R [facility] COLOR yellow NORMAL: Yellow [facility] CLARITY clear NORMAL: Clear [facility] Specific gravity of Urine by Test strip 1.020 1.001 - 1.030 [facility] pH 5 5 - 9 [facility] Glucose [Mass/volume] in Urine by Test strip NORM NORMAL: Negat jb [facility] Bilirubin.total [Presence] in Urine by Test strip NEG NORMAL: Negative [facility] Ketones [Presence] in Urine by Test strip 5 NORMAL: Negative [facility] Protein [Mass/volume] in Urine by Test strip 100 NORMAL: Negat jb [facility] Nitrite [Presence] in Urine by Test strip NEG NORMAL: Negative [facility] BLOOD 250 NORMAL: Negative [facility] Leukocyte esterase [Presence] in Urine by Test strip 25 MARSHA L: Negative [facility] Urobilinogen [Mass/volume] in Urine by Test strip NOR less steven n 1.0 mg/dL [facility] MICROSCOPIC See Below [facility] WBC 1 - 3 NORMAL: NONE SEEN [facility] Erythrocytes [#/volume] in Urine by Test strip 20 - 30 NORMAL: NON E SEEN A [facility] EPITHELIAL FEW NORMAL: NONE SEEN [facility] Hospital ID Date Data Source [id number] 2020 09:57:00 PM EST [facility] ([facility] Name Value Range Interpretation Code Description Data Esperanza rce(s) Supporting Document(s) Bacteria identified in Urine by Culture Laboratory test result [facility] ([facility] SOURCE: Urine, Catheter ID Date Data Source [id number] 02/05/2020 07:35:00 AM EST [facility] Name Value Range Interpretation Code Description Data Esperanza rce(s) Supporting Document(s) CULTURE URINE [facility] _CULTURE URINE_$$[id number]$$[id number]$$169035$$[id number]$$[id number]$$365821$$568043$$339135$$211680$$ 025571$$575415$$351210$$780335$$299120$$026227$$794233$$120943$$123936$$720846$$ 297913$$612496$$550519$$166509$$634400$$962196$$869648$$276681 -- Continued on next page --Patient: MOROMISATO SHINTETSU Order: Page 2Culture: CULTURE URINE Status: Final ==== -- Continued on next page --Patient: MOROMISATO SHINTETSU Order: [id number] Page 2Culture: CULTURE URINE Status: Prelim =====$$[id number]$$[id number] DATE/TIME: 02/04/2020 16:06Culture: CULTURE URINE Status: FinalUrine Culture,Comprehensive: P1No growth in 36 - 48 hours. Previous result entered on 02/03/2020 06:45 ET No growth after 18-24 hours.P1 Test performed by: [facility] VERNON #: [id number] [address] [id number] [facility] [address]Medical Director : Omkar Park MD NPI #:Lab Di sameera : 02/04/20.0709.XMT.SENT REF 02/05/20.0735.XMT.SENT REF ID Date Data Source [id number] 2020 09:39:00 [place] [address] PHONE: [phone] FAX: [phone] Name .................. : CHARISSA GUTIERREZ Acct Number.................. : [id number] ROOM. ................. : TR-06 MR Number ................... : [id number] Stay type ............. : E/R Discharge Date......... ... : 01/27/20 Admit Date ......... : 01/27/20 Admit Phys .................... : NORRIS ARBOLEDA Date of ....... : 1930 Family Phys ................... : REVA WRIGHT Phone .................. : [phone] Age ................................ : 89 Film# .................. .:[id number] Sex ................................. : M Unsigned transcriptions are preliminary reports and do not represent a medical or legal document RENAL COMPLETE [id number] COMPLETE:01/27/20 08:38 MCM 52934 Reason(s): urinary retention COMPLETE RENAL ULTRASOUND: HISTORY: [...] REVA FISH via fax Copy for: [facility] REC DISCHARGED Page 1 of 1 Name Value Range Interpretation Code Description Data Esperanza rce(s) Supporting Document(s) ID Date Data Source [id number] 01/27/2020 06:37:00 AM EST [facility] 1 OrderSheet [facility] Emergency Department [address] [place] [address] Phone #: ext- [phone] 01/27/2020 06:30 Patient: BRENDA CARRINGTON Sex: M [...] Marsha Persaud MD; Cancelled: Physician Order 07:57 Hung(IV?(No)) Marsha TOBIN Reason for Study: post residual [...] rce(s) Supporting Document(s) ID Date Data Source [id number] 01/27/2020 06:37:00 AM EST [facility] 1 Medication Reconciliation Report [facility] Emergency Department [address] [place] [address] Phone #: ext- [phone] 01/27/2020 06:30 Patient: [...] to the patient:None. 2 Medication Reconciliation Report [facility] Emergency Department [address] [place] [address] Phone #: ext- [phone] 01/27/2020 06:30 Patient: BRENDA CARRINGTON Sex: M : 1930 Age: 89y Name Value Range Interpretation Code Description Data Esperanza rce(s) Supporting Document(s) ID Date Data Source [id number] 01/27/2020 06:37:00 AM EST [facility] 1 Medication Administration Record [facility] Emergency Department [address] [place] [address] Phone #: ext- [phone] 06:30 Patient: BRENDA CARRINGTON Sex: M : 1930 Age: 89yWeight: 62.5 kgHeight/Length: 62 inBMI: 25.2ALLERGIES: No Known Drug AllergyDate/Time Medication Administered Medication Ordered Name Value Range Interpretation Code Description Data Esperanza rce(s) Supporting Document(s) ID Date Data Source [id number] 01/27/2020 06:37:00 AM EST [facility] 1 General Instructions [facility] Emergency Department [address] [place] [address] Phone #: ext- [phone] 01/27/2020 06:30 Patient: [...] patient.Follow-up with: Leonard Moseley M.D., Urology, , [address] [place] [address], [id number] Follow up Tuesday even if well. Call for an appointment. Reason for referral: evaluation. Summary ofcare provided to patient via paper. ADDITIONAL INFORMATION 2 General Instructions [facility] Emergency Department [address] [place] [address] Phone #: ext- [phone] 01/27/2020 06:30 Patient: [...] catheter from falling out. 3 General Instructions [facility] Emergency Department [address] [place] [address] Phone #: ext- [phone] 01/27/2020 06:30 Patient: [...] o Catheter stops draining for 6 hours [id number] [employer]. [address] [place] [address]. All rights reserved. This information is not intended as a 4 General Instructions [facility] Emergency Department [address] [place], [place] [address] Phone #: ext- [phone] 01/27/2020 06:30 Patient: [...] provider will discuss treatment 5 General Instructions [facility] Emergency Department [address] [place] [address] Phone #: ext- [phone] 01/27/2020 06:30 Patient: [...] increase the risk of prostate cancer include beingAfrican-East Timorese or having a father or brother who had prostate cancer. A high-fat diet may alsoincrease the risk of prostate cancer. Talk to your healthcare provider to see whether you should bescreened for prostate cancer.Follow-up careFollow up with your healthcare provider, or as advisedTo learn more, go to: National Kidney Urologic Diseases Information Clearinghouse kidney.niddk.nih.gov, 820-331385071Dttm to seek medical a dviceCall your healthcare provider right away if any of these occur: Fever of 100.4F (38.0C) or higher, or as advised Unable to pass urine for 8 hours Increasing pressure or pain in your bladder (lower abdomen) Blood in the urine 6 General Instructions [facility] Emergency Department [address] [place] [address] Phone #: ext- [phone] 01/27/2020 06:30 Patient: BRENDA CARRINGTON Sex: M : 1930 Age: 89y Increasing low back pain, not related to injury Symptoms of urinary infection (increased urge to urinate, burning when passing urine, foul-smelling urine) 3802-0078 [employer]. [address] [place] [address], [place] [address]. All rights reserved. This information is not intended as asubstitute for professional medical care. Always follow your healthcare professional's instructions. You have been given the following additional information: Urinary Retention, Male BPH (Enlarged Prostate)(El ectronically signed by Marsha Persaud MD 01/28/2020 01:59) Name Value Range Interpretation Code Description Data Esperanza rce(s) Supporting Document(s) ID Date Data Source [id number] 01/27/2020 06:37:00 AM EST [facility] 1 Clinical Report - Nurses [facility] Emergency Department [address] [place] [address] Phone #: [phone] doq- [phone] 01/27/2020 06:30 Patient: BRENDA CARRINGTON Sex: M : 1930 Age: 89yTRIAGEArrived by private vehicle. Historian: patient.Triage time: 06:34 01/27/2020. Acuity: LEVEL 4.Chief Complaint: (unable to control urine).This started yesterday. ( States has been dribbling urine since yesterday and has been wearing a diaperor using paper towel).Treatment SWITCHBOARD OPERATOR ASSISTANT:None.SEPSIS SCREEN: SIRS Screen negative. Sepsis Screen negative. [...] Mckeon RN.PROBLEMS: 2 Clinical Report - Nurses [facility] Emergency Department [address] [place] [address] Phone #: ext- [phone] 01/27/2020 06:30 Patient: [...] Jackson R.N. 3 Clinical Report - Nurses [facility] Emergency Department [address] [place] [address] Phone #: ext- [phone] 01/27/2020 06:30 Patient: BRENDA CARRINGTON Sex: M [...] Jackson R.N. 08:40 01/27/20. [facility] chemical engineering technician. --09:12 01/27/20 Debbie Prasad, TONY Charted On Wrong Patient --09:13 01/27/20 Debbie Prasad, TONY 08:45 01/27/20. 16 fr villalba catheter placed in ED. Reason for indwelling catheter: retention. During procedure hand hygiene observed and sterile equipment and aseptic technique used. Return of 1000 mL bucky-colored clear urine; attached to bedside drainage bag positioned below the bladder and secured with stabilization device. He tolerated procedure well. Patient returned from sonogram by wheelchair with chemical engineering technician. --09:14 01/27/20 Debbie Prasad RN 09:00 01/27/20. [...] Patient verbalized understanding. Written instructions provided in Namibian. The patient was discharged by the physician. He was discharged home and unaccompanied at time of discharge. He left ambulatory and via private vehicle. Patient driving. --09:19 01/27/20 Debbie Prasad RN 09:00 01/27/20. BP: 155/89. MAP: 111. HR: 89. RR: 16. O2 saturation: 99%. Temp: 98.5 F. Pain level now: 0/10. --09:20 01/27/20 Debbie Prasad RN.Locked/Released at 01/27/2020 09:20 by Debbie Prasad RN Name Value Range Interpretation Code Description Data Esperanza rce(s) Supporting Document(s) ID Date Data Source [id number] 01/27/2020 06:37:00 AM [facility] 1 Clinical Report - Physicians/Mid Levels [facility] Department [address] [place] [address] Phone #: [phone] 01/27/2020 06:30 Patient: [...] daily. 2 Clinical Report - Physicians/Mid Levels [facility] [address] [place] [address] Phone #: [phone] 01/27/2020 06:30 Patient: BRENDA CARRINGTON Sex: M [...] US RENAL COMPLETE Reason(s): urinary retention TRANSPORTATION: WC IV? IV?(No) O2? Oxygen?(No) Kayla US RENAL LIMITED: (MARIETTA: 01/27/2020 07:54) ( MsgRcvd 01/27/2020 07:58) Canceled Reason(s): post residual void bladder scan Reason(s): post residual void bladder scan 3 Clinical Report - Physicians/Mid Levels [facility] [address] [place] [address] Phone #: [phone] 01/27/2020 06:30 Patient: BRENDA CARRINGTON Sex: M : 1930 Age: 89y TRANSPORTATION: WC IV? IV?(No) O2? Oxygen?(No) Kayla Urinalysis: (MARIETTA: [...] previously instructed.). 4 Clinical Report - Physicians/Mid Levels [facility] Department [address] [place] [address] Phone #: [phone] 01/27/2020 06:30 Patient: [...] Follow-up with: Leonard Moseley M.D., Urology, , [address] [place] [address], [phone] Follow up Tuesday even if well. Call for an appointment. Reason for referral: evaluation. Summary of care provided to patient via paper.(Electronically signed by Marsha Persaud MD 01/28/2020 01:59) Name Value Range Interpretation Code Description Data Esperanza rce(s) Supporting Document(s) ID Date Data Source [id number] 01/27/2020 07:10:00 AM EST [facility] ([facility] Name Value Range Interpretation Code Description Data Esperanza rce(s) Supporting Document(s) Source Laboratory test result [facility] ([facility] SOURCE: Clean Catch Urinalysis Laboratory test result ME DENT ([facility] SOURCE: Clean Catch Spec [place] 1.020 1.001-1.030 [facility] ([facility] SOURCE: Clean Catch Color Laboratory test result [facility] ([facility] SOURCE: Clean Catch Clarity Laboratory test result [facility] ([facility] SOURCE: Clean Catch pH 5 5-9 [facility] ([facility] SOURCE: Clean Catch Bilirubin Laboratory test result ME DENT ([facility] SOURCE: Clean Catch Glucose Laboratory test result [facility] ([facility] SOURCE: Clean Catch Ketone Laboratory test result [facility] ([facility] SOURCE: Clean Catch Protein 15 [facility] ([facility] SOURCE: Clean Catch Nitrite Laboratory test result [facility] ([facility] SOURCE: Clean Catch Leuk Est Laboratory test result [facility] ([facility] SOURCE: Clean Catch Blood Laboratory test result [facility] ([facility] SOURCE: Clean Catch Urobilinogen Laboratory test result [facility] ([facility] SOURCE: Clean Catch Microscopic Laboratory test result M EDENT ([facility] SOURCE: Clean Catch WBC Laboratory test result [facility] ([facility] SOURCE: Clean Catch RBC Laboratory test result [facility] ([facility] SOURCE: Clean Catch Epithelial Laboratory test result ME DENT ([facility] SOURCE: Clean Catch Bacteria Laboratory test result [facility] ([facility] SOURCE: Clean Catch ID Date Data Source [id number] 01/27/2020 07:42:00 AM EST [facility] Name Value Range Interpretation Code Description Data Esperanza rce(s) Supporting Document(s) [facility] R [facility] COLOR yellow NORMAL: Yellow [facility] CLARITY Clear NORMAL: Clear [facility] Specific gravity of Urine by Test strip 1.020 1.001 - 1.030 [facility] pH 5 5 - 9 [facility] al Glucose [Mass/volume] in Urine by Test strip NORM NORMAL: Negat [facility] Bilirubin.total [Presence] in Urine by Test strip NEG NORMAL: Negative [facility] Ketones [Presence] in Urine by Test strip NEG NORMAL: Negative [facility] Protein [Mass/volume] in Urine by Test strip 15 NORMAL: Negat [facility] Nitrite [Presence] in Urine by Test strip NEG NORMAL: Negative [facility] BLOOD NEG NORMAL: Negative [facility] Leukocyte esterase [Presence] in Urine by Test strip NEG MARSHA L: Negative [facility] Urobilinogen [Mass/volume] in Urine by Test strip NOR less steven n 1.0 mg/dL [facility] MICROSCOPIC See Below [facility] ital WBC 0 - 1 NORMAL: NONE SEEN [facility] Erythrocytes [#/volume] in Urine by Test strip 0 - 1 NORMAL: NON E SEEN [facility] EPITHELIAL FEW NORMAL: NONE SEEN [facility] Bacteria [Presence] in Urine sediment by Light microscopy Tr mora NORMAL: NONE SEEN [facility] ID Date Data Source [id number] 01/16/2020 08:43:00 AM EST [facility] ([facility] Name Value Range Interpretation Code Description Data Esperanza rce(s) Supporting Document(s) WBC 6.0 10E3/uL 4.1-10.9 [facility] ([facility] NORMAL RANGES Age WBC RBC [...] HCT IS 5% LESS SOURCE FOR DATA: [employer] 1800 OPERATION MANUAL( AUTOMATED BLOOD COUNTS AND [...] HCT 35.6 % 37.0-51.0 Below low normal [facility] ( [facility] NORMAL RANGES [...] HCT IS 5% LESS SOURCE FOR DATA: [employer] 1800 OPERATION MANUAL( AUTOMATED BLOOD COUNTS AND [...] RBC 3.78 10E6/uL 4.20-6.30 Below low normal [facility] ([facility] NORMAL RANGES Age [...] HCT IS 5% LESS SOURCE FOR DATA: [employer]ytics 1800 OPERATION MANUAL( AUTOMATED BLOOD COUNTS AND [...] 2-19 YEARS EXCLUSIVE. HGB 12.4 g/dL 12.0-18.0 [facility] ([facility] [...] HCT IS 5% LESS SOURCE FOR DATA: [employer] 1800 OPERATION MANUAL( AUTOMATED BLOOD COUNTS AND [...] 2-19 YEARS EXCLUSIVE. MCHC 34.8 g/dL 31.0-36.0 [facility] NORMAL RANGES [...] HCT IS 5% LESS SOURCE FOR DATA: Hive[employer] DYN 1800 OPERATION MANUAL( AUTOMATED BLOOD COUNTS [...] MCH 32.8 pg 26.0-32.0 Above high normal [facility] ([facility] NORMAL RANGES Age [...] HCT IS 5% LESS SOURCE FOR DATA: [employer]ytics 1800 OPERATION MANUAL( AUTOMATED BLOOD COUNTS AND [...] 2-19 YEARS EXCLUSIVE. MCV 94.2 fL 80.0-97.0 [facility] ([facility] NORMAL RANGES Age WBC [...] HCT IS 5% LESS SOURCE FOR DATA: [employer] 1800 OPERATION MANUAL( AUTOMATED BLOOD COUNTS AND [...] 2-19 YEARS EXCLUSIVE. Lym% 27.0 % 10.0-58.5 [facility] ([facility] [...] HCT IS 5% LESS SOURCE FOR DATA: [employer] 1800 OPERATION MANUAL( AUTOMATED BLOOD COUNTS AND [...] 2-19 YEARS EXCLUSIVE. PLT 346 10E3/uL 140-440 [facility] ([facility] NORMAL RANGES Age WBC RBC [...] HCT IS 5% LESS SOURCE FOR DATA: [employer] 1800 OPERATION MANUAL( AUTOMATED BLOOD COUNTS AND [...] 2-19 YEARS EXCLUSIVE. RDW-CV 14.2 % 11.5-14.5 [facility] NORMAL RANGES Age WBC [...] HCT IS 5% LESS SOURCE FOR DATA: [employer]ytics 1800 OPERATION MANUAL( AUTOMATED BLOOD COUNTS AND [...] 2-19 YEARS EXCLUSIVE. Neut% 66.6 % 37.0-92.0 [facility] NORMAL RANGES [...] HCT IS 5% LESS SOURCE FOR DATA: [employer]ytics 1800 OPERATION MANUAL( AUTOMATED BLOOD COUNTS AND [...] 2-19 YEARS EXCLUSIVE. MXD% 6.4 % 0.1-24.0 [facility] ([facility] NORMAL [...] HCT IS 5% LESS SOURCE FOR DATA: Lytics 1800 OPERATION MANUAL( AUTOMATED BLOOD COUNTS AND [...] 2-19 YEARS EXCLUSIVE. Lym# 1.6 10E3/uL 0.6-4.1 TOM ([facility] NORMAL RANGES Age WBC RBC [...] HCT IS 5% LESS SOURCE FOR DATA: [employer] 1800 OPERATION MANUAL( AUTOMATED BLOOD COUNTS AND [...] 2-19 YEARS EXCLUSIVE. Neut# 4.0 % 2.0-7.8 [facility] ([facility] [...] HCT IS 5% LESS SOURCE FOR DATA: [employer]ytics 1800 OPERATION MANUAL( AUTOMATED BLOOD COUNTS AND [...] 2-19 YEARS EXCLUSIVE. MXD# 0.4 10E3/uL 0.0-1.8 [facility] ([facility] NORMAL RANGES Age WBC RBC [...] HCT IS 5% LESS SOURCE FOR DATA: [employer]ytics 1800 OPERATION MANUAL( AUTOMATED BLOOD COUNTS AND [...] MPV 8.0 fL 9.0-13.0 Below low normal [facility] ( [facility] NORMAL RANGES Age WBC [...] HCT IS 5% LESS SOURCE FOR DATA: [employer]ytics 1800 OPERATION MANUAL( AUTOMATED BLOOD COUNTS AND [...] 2-19 YEARS EXCLUSIVE. ID Date Data Source [id number] 01/16/2020 08:43:00 AM EST [facility] ([facility] Name Value Range Interpretation Code Description Data Esperanza rce(s) Supporting Document(s) Glu 130 mg/dL 70-110 Above high normal [facility] ([facility] NORMAL RANGES Age WBC [...] HCT IS 5% LESS SOURCE FOR DATA: [employer] 1800 OPERATION MANUAL( AUTOMATED BLOOD COUNTS AND [...] 2-19 YEARS EXCLUSIVE. BUN 19 mg/dL 8-23 [facility] ([facility] NORMAL [...] HCT IS 5% LESS SOURCE FOR DATA: Lytics 1800 OPERATION MANUAL( AUTOMATED BLOOD COUNTS AND [...] HCT IS 5% LESS SOURCE FOR DATA: Lytics 1800 OPERATION MANUAL( AUTOMATED BLOOD COUNTS AND [...] 2-19 YEARS EXCLUSIVE. BUN/Creatinine Ratio 20.1 CALC [facility] ([facility] NORMAL RANGES Age [...] HCT IS 5% LESS SOURCE FOR DATA: Lytics 1800 OPERATION MANUAL( AUTOMATED BLOOD COUNTS AND [...] 2-19 YEARS EXCLUSIVE. CA 10.2 mg/dL 8.6-10.2 [facility] NORMAL RANGES Age WBC RBC [...] HCT IS 5% LESS SOURCE FOR DATA: Lytics 1800 OPERATION MANUAL( AUTOMATED BLOOD COUNTS AND [...] HCT IS 5% LESS SOURCE FOR DATA: Hive7 DYN 1800 OPERATION MANUAL( AUTOMATED BLOOD COUNTS [...] 2-19 YEARS EXCLUSIVE. Co2 24.7 mmol/L 22.0-29.0 [facility] ([facility] NORMAL RANGES Age WBC RBC HGB [...] HCT IS 5% LESS SOURCE FOR DATA: Lytics 1800 OPERATION MANUAL( AUTOMATED BLOOD COUNTS AND [...] HCT IS 5% LESS SOURCE FOR DATA: Hive7 DYN 1800 OPERATION MANUAL( AUTOMATED BLOOD COUNTS [...] 2-19 YEARS EXCLUSIVE. TP 6.7 g/dL 6.6-8.7 [facility] ([facility] NORMAL [...] HCT IS 5% LESS SOURCE FOR DATA: [employer]ytics 1800 OPERATION MANUAL( AUTOMATED BLOOD COUNTS AND [...] 2-19 YEARS EXCLUSIVE. A/G Ratio 2.3 [facility]C [facility] NORMAL RANGES Age WBC [...] HCT IS 5% LESS SOURCE FOR DATA: Lytics 1800 OPERATION MANUAL( AUTOMATED BLOOD COUNTS AND [...] 2-19 YEARS EXCLUSIVE. Alb 4.6 g/dL 3.5-5.2 [facility] ([facility] NORMAL RANGES [...] HCT IS 5% LESS SOURCE FOR DATA: Lytics 1800 OPERATION MANUAL( AUTOMATED BLOOD COUNTS AND [...] HCT IS 5% LESS SOURCE FOR DATA: Lytics 1800 OPERATION MANUAL( AUTOMATED BLOOD COUNTS AND [...] YEARS EXCLUSIVE. Alt (SGPT) 16 U/L 0-41 [facility] ([facility] NORMAL RANGES Age WBC RBC [...] HCT IS 5% LESS SOURCE FOR DATA: [employer]ytics 1800 OPERATION MANUAL( AUTOMATED BLOOD COUNTS AND [...] 2-19 YEARS EXCLUSIVE. Alp 68.1 U/L 40-129 [facility] NORMAL RANGES [...] HCT IS 5% LESS SOURCE FOR DATA: Lytics 1800 OPERATION MANUAL( AUTOMATED BLOOD COUNTS AND [...] YEARS EXCLUSIVE. Ast (Sgot) 18 U/L 0-40 [facility] ([facility] [...] HCT IS 5% LESS SOURCE FOR DATA: Lytics 1800 OPERATION MANUAL( AUTOMATED BLOOD COUNTS AND [...] 2-19 YEARS EXCLUSIVE. Tbili 0.36 mg/dL 0.0-1.2 [facility] ([facility] NORMAL RANGES Age WBC RBC [...] HCT IS 5% LESS SOURCE FOR DATA: Hive7 DYN 1800 OPERATION MANUAL( AUTOMATED BLOOD COUNTS [...] HCT IS 5% LESS SOURCE FOR DATA: Lytics 1800 OPERATION MANUAL( AUTOMATED BLOOD COUNTS AND [...] # [facility] ( [facility] NORMAL [...] HCT IS 5% LESS SOURCE FOR DATA: Lytics 1800 OPERATION MANUAL( AUTOMATED BLOOD COUNTS AND [...] INDIVIDUALA AGED 2-19 YEARS EXCLUSIVE. eGFR Non-Afr. [place] 66 # [facility] ([facility] [...] HCT IS 5% LESS SOURCE FOR DATA: Hive7 DYN 1800 OPERATION MANUAL( AUTOMATED BLOOD COUNTS [...] 2-19 YEARS EXCLUSIVE. Anion Gap 17 mmol/L [facility] NORMAL RANGES [...] HCT IS 5% LESS SOURCE FOR DATA: Lytics 1800 OPERATION MANUAL( AUTOMATED BLOOD COUNTS AND [...] 2-19 YEARS EXCLUSIVE. ID Date Data Source [id number] 01/16/2020 08:43:00 AM EST [facility] ([facility] Name Value Range Interpretation Code Description Data Esperanza rce(s) Supporting Document(s) Trig 181 mg/dL 35-200 [facility] NORMAL RANGES Age WBC [...] HCT IS 5% LESS SOURCE FOR DATA: Lytics 1800 OPERATION MANUAL( AUTOMATED BLOOD COUNTS AND [...] 2-19 YEARS EXCLUSIVE. Chol 146 mg/dL 0-200 [facility] NORMAL RANGES [...] HCT IS 5% LESS SOURCE FOR DATA: Lytics 1800 OPERATION MANUAL( AUTOMATED BLOOD COUNTS AND [...] HCT IS 5% LESS SOURCE FOR DATA: Lytics 1800 OPERATION MANUAL( AUTOMATED BLOOD COUNTS AND [...] 2-19 YEARS EXCLUSIVE. Cho/HDL Ratio 3.1 CALC [facility] ([facility] NORMAL RANGES Age WBC RBC [...] HCT IS 5% LESS SOURCE FOR DATA: Lytics 1800 OPERATION MANUAL( AUTOMATED BLOOD COUNTS AND [...] in Serum or Plasma 47 mg/dL 35-55 [facility] NORMAL RANGES Age [...] HCT IS 5% LESS SOURCE FOR DATA: Lytics 1800 OPERATION MANUAL( AUTOMATED BLOOD COUNTS AND [...] 2-19 YEARS EXCLUSIVE. ID Date Data Source [id number] 01/16/2020 08:43:00 AM EST [facility] ([facility] Name Value Range Interpretation Code Description Data Esperanza rce(s) Supporting Document(s) Creatine kinase [Enzymatic activity/volume] in Serum or Plasma 62 U /L 39-308 [facility] ([facility] NORMAL RANGES Age WBC [...] HCT IS 5% LESS SOURCE FOR DATA: Lytics 1800 OPERATION MANUAL( AUTOMATED BLOOD COUNTS AND [...] Hemoglobin A1c/Hemoglobin.total in Blood 5.9 % 4.40-6.10 [facility] NORMAL RANGES Age [...] HCT IS 5% LESS SOURCE FOR DATA: Lytics 1800 OPERATION MANUAL( AUTOMATED BLOOD COUNTS AND [...] 2-19 YEARS EXCLUSIVE. ID Date Data Source [id number] 01/16/2020 08:43:00 AM RAZIA SANTOS ([facility] Name Value Range Interpretation Code Description Data Esperanza rce(s) Supporting Document(s) Color Laboratory test result TOM ([facility] NORMAL RANGES Age WBC [...] HCT IS 5% LESS SOURCE FOR DATA: Lytics 1800 OPERATION MANUAL( AUTOMATED BLOOD COUNTS AND [...] 2-19 YEARS EXCLUSIVE. Clarity Laboratory test result [employer] ([facility] NORMAL RANGES Age [...] HCT IS 5% LESS SOURCE FOR DATA: Lytics 1800 OPERATION MANUAL( AUTOMATED BLOOD COUNTS AND [...] HCT IS 5% LESS SOURCE FOR DATA: Lytics 1800 OPERATION MANUAL( AUTOMATED BLOOD COUNTS AND [...] 2-19 YEARS EXCLUSIVE. Bilirubin,Urine Laboratory test result [facility] NORMAL RANGES Age [...] HCT IS 5% LESS SOURCE FOR DATA: Lytics 1800 OPERATION MANUAL( AUTOMATED BLOOD COUNTS AND [...] 2-19 YEARS EXCLUSIVE. pH 5.5 # 5.0-8.0 [facility] ([facility] NORMAL RANGES Age WBC [...] HCT IS 5% LESS SOURCE FOR DATA: Lytics 1800 OPERATION MANUAL( AUTOMATED BLOOD COUNTS AND [...] HCT IS 5% LESS SOURCE FOR DATA: Lytics 1800 OPERATION MANUAL( AUTOMATED BLOOD COUNTS AND [...] 2-19 YEARS EXCLUSIVE. Ketone Laboratory test result [facility] NORMAL RANGES Age [...] HCT IS 5% LESS SOURCE FOR DATA: Lytics 1800 OPERATION MANUAL( AUTOMATED BLOOD COUNTS AND [...] YEARS EXCLUSIVE. Urobilinogen 0.2 NA 0.2-1.0 [facility] ([facility] NORMAL RANGES Age WBC RBC [...] HCT IS 5% LESS SOURCE FOR DATA: Hive7 DYN 1800 OPERATION MANUAL( AUTOMATED BLOOD COUNTS [...] 2-19 YEARS EXCLUSIVE. Protein [facility] NORMAL RANGES Age [...] HCT IS 5% LESS SOURCE FOR DATA: Lytics 1800 OPERATION MANUAL( AUTOMATED BLOOD COUNTS AND [...] 2-19 YEARS EXCLUSIVE. Nitrite Laboratory test result [facility] NORMAL RANGES Age [...] HCT IS 5% LESS SOURCE FOR DATA: Lytics 1800 OPERATION MANUAL( AUTOMATED BLOOD COUNTS AND [...] EXCLUSIVE. Leukocyte Laboratory test result ME DICKINSON ([facility] NORMAL RANGES Age WBC [...] HCT IS 5% LESS SOURCE FOR DATA: Lytics 1800 OPERATION MANUAL( AUTOMATED BLOOD COUNTS AND [...] 2-19 YEARS EXCLUSIVE. ID Date Data Source [id number] 01/16/2020 08:43:00 AM EST [facility] ([facility] Name Value Range Interpretation Code Description Data Esperanza rce(s) Supporting Document(s) Alb 30 mg/L 1-30 [facility] ([facility] A/C Ratio Laboratory test result ME DENT ([facility] Creatinine, Urine 100 mg/dL 10-300 [facility] ([facility] ID Date Data Source [id number] 10/09/2019 10:53:00 AM EDT [facility] ([facility] Name Value Range Interpretation Code Description Data Esperanza rce(s) Supporting Document(s) Color Laboratory test result [facility] ([facility] Glucose-Ua Laboratory test result ME DENT ([facility] Clarity Laboratory test result [facility] ([facility] Bilirubin,Urine Laboratory test result [facility] ([facility] Ketone Laboratory test result Abnormal (applies to non -numeric results) [facility] ([facility] Blood - Ua Laboratory test result ME DENT ([facility] Creatine kinase [Enzymatic activity/volume] in Serum o r Plasma Laboratory test result 1.000-1.030 Abnormal (applies to non-numeric results) [facility] ([facility] pH 5.0 # 5.0-8.0 [facility] ([facility] Urobilinogen 0.2 NA 0.2-1.0 [facility] ([facility] Nitrite Laboratory test result [facility] ([facility] Protein Laboratory test result Abnormal (applies to non -numeric results) [facility] ([facility] Leukocyte Laboratory test result ME DENT ([facility] ID Date Data Source [id number] 10/09/2019 08:41:00 AM EDT [facility] ([facility] Name Value Range Interpretation Code Description Data Esperanza rce(s) Supporting Document(s) Creatine kinase [Enzymatic activity/volume] in Serum or Plasma 76 U /L 39-308 [facility] ([facility] NORMAL RANGES Age WBC [...] HCT IS 5% LESS SOURCE FOR DATA: Lytics 1800 OPERATION MANUAL( AUTOMATED BLOOD COUNTS AND [...] HCT IS 5% LESS SOURCE FOR DATA: Lytics 1800 OPERATION MANUAL( AUTOMATED BLOOD COUNTS AND [...] 2-19 YEARS EXCLUSIVE. ID Date Data Source [id number] 10/09/2019 08:41:00 AM TORRES SANTOS ([facility] Name Value Range Interpretation Code Description Data Esperanza rce(s) Supporting Document(s) Trig 181 mg/dL 35-200 [facility] ([facility] NORMAL RANGES Age [...] HCT IS 5% LESS SOURCE FOR DATA: Lytics 1800 OPERATION MANUAL( AUTOMATED BLOOD COUNTS AND [...] 2-19 YEARS EXCLUSIVE. Chol 156 mg/dL 0-200 [facility] NORMAL RANGES [...] HCT IS 5% LESS SOURCE FOR DATA: Lytics 1800 OPERATION MANUAL( AUTOMATED BLOOD COUNTS AND [...] in Serum or Plasma 49 mg/dL 35-55 [facility] ([facility] [...] HCT IS 5% LESS SOURCE FOR DATA: Lytics 1800 OPERATION MANUAL( AUTOMATED BLOOD COUNTS AND [...] LDL_C 71 Calc 75-129 Below low normal [facility] ( [facility] NORMAL RANGES [...] 2-19 YEARS EXCLUSIVE. Cho/HDL Ratio 3.2 CALC [employer] ([facility] NORMAL RANGES Age WBC RBC [...] HCT IS 5% LESS SOURCE FOR DATA: [employer]ytics 1800 OPERATION MANUAL( AUTOMATED BLOOD COUNTS AND [...] 2-19 YEARS EXCLUSIVE. ID Date Data Source [id number] 10/09/2019 08:41:00 AM EDT [facility] ([facility] Name Value Range Interpretation Code Description Data Esperanza rce(s) Supporting Document(s) Glu 143 mg/dL 70-110 Above high normal [facility] ([facility] NORMAL RANGES Age WBC [...] HCT IS 5% LESS SOURCE FOR DATA: [employer] 1800 OPERATION MANUAL( AUTOMATED BLOOD COUNTS AND [...] AGED 2-19 YEARS EXCLUSIVE. BUN 18 mg/dL 8- [facility] ([facility] [...] HCT IS 5% LESS SOURCE FOR DATA: [employer] 1800 OPERATION MANUAL( AUTOMATED BLOOD COUNTS AND [...] HCT IS 5% LESS SOURCE FOR DATA: Lytics 1800 OPERATION MANUAL( AUTOMATED BLOOD COUNTS AND [...] AGED 2-19 YEARS EXCLUSIVE. BUN/Creatinine Ratio 17.9 [facility] ([facility] NORMAL RANGES Age [...] HCT IS 5% LESS SOURCE FOR DATA: [employer] 1800 OPERATION MANUAL( AUTOMATED BLOOD COUNTS AND [...] 2-19 YEARS EXCLUSIVE. K 4.8 mmol/L 3.5-5.1 [facility] NORMAL RANGES Age WBC RBC [...] HCT IS 5% LESS SOURCE FOR DATA: [employer]ytics 1800 OPERATION MANUAL( AUTOMATED BLOOD COUNTS AND [...] HCT IS 5% LESS SOURCE FOR DATA: [employer]ytics 1800 OPERATION MANUAL( AUTOMATED BLOOD COUNTS AND [...] 2-19 YEARS EXCLUSIVE. Co2 26.3 mmol/L 22.0-29.0 [facility] ([facility] NORMAL RANGES Age WBC RBC HGB [...] HCT IS 5% LESS SOURCE FOR DATA: [employer] 1800 OPERATION MANUAL( AUTOMATED BLOOD COUNTS AND [...] 2-19 YEARS EXCLUSIVE. CL 99.1 mmol/L 98.0-107.0 [employer] ([facility] NORMAL RANGES [...] HCT IS 5% LESS SOURCE FOR DATA: [employer] 1800 OPERATION MANUAL( AUTOMATED BLOOD COUNTS AND [...] 2-19 YEARS EXCLUSIVE. TP 6.8 g/dL 6.6-8.7 [facility] ([facility] NORMAL [...] HCT IS 5% LESS SOURCE FOR DATA: [employer] 1800 OPERATION MANUAL( AUTOMATED BLOOD COUNTS AND [...] 2-19 YEARS EXCLUSIVE. CA 9.9 mg/dL 8.6-10.2 [facility] NORMAL RANGES Age WBC [...] HCT IS 5% LESS SOURCE FOR DATA: [employer] 1800 OPERATION MANUAL( AUTOMATED BLOOD COUNTS AND [...] 2-19 YEARS EXCLUSIVE. Alb 4.8 g/dL 3.5-5.2 [facility] ([facility] NORMAL RANGES [...] HCT IS 5% LESS SOURCE FOR DATA: [employer] 1800 OPERATION MANUAL( AUTOMATED BLOOD COUNTS AND [...] 2-19 YEARS EXCLUSIVE. A/G Ratio 2.3 CALC [facility] ([facility] [...] HCT IS 5% LESS SOURCE FOR DATA: [employer] 1800 OPERATION MANUAL( AUTOMATED BLOOD COUNTS AND [...] HCT IS 5% LESS SOURCE FOR DATA: [employer] 1800 OPERATION MANUAL( AUTOMATED BLOOD COUNTS AND [...] HCT IS 5% LESS SOURCE FOR DATA: [employer] 1800 OPERATION MANUAL( AUTOMATED BLOOD COUNTS AND [...] YEARS EXCLUSIVE. Ast (Sgot) 20 U/L 0-40 [facility] ([facility] [...] HCT IS 5% LESS SOURCE FOR DATA: [employer] 1800 OPERATION MANUAL( AUTOMATED BLOOD COUNTS AND [...] YEARS EXCLUSIVE. Alt (SGPT) 20 U/L 0-41 [facility] NORMAL RANGES Age WBC RBC [...] 2-19 YEARS EXCLUSIVE. Tbili 0.49 mg/dL 0.0-1.2 [facility] ([facility] NORMAL RANGES [...] HCT IS 5% LESS SOURCE FOR DATA: [employer] 1800 OPERATION MANUAL( AUTOMATED BLOOD COUNTS AND [...] HCT IS 5% LESS SOURCE FOR DATA: [employer]ytics 1800 OPERATION MANUAL( AUTOMATED BLOOD COUNTS AND [...] HCT IS 5% LESS SOURCE FOR DATA: [employer] 1800 OPERATION MANUAL( AUTOMATED BLOOD COUNTS AND [...] INDIVIDUALA AGED 2-19 YEARS EXCLUSIVE. eGFR Non-Afr. [place] 66 # [facility] ([facility] CKD-EPI ID Date Data Source [id number] 10/09/2019 08:41:00 AM EDT [facility] ([facility] Name Value Range Interpretation Code Description Data Esperanza rce(s) Supporting Document(s) WBC 5.7 10E3/uL 4.1-10.9 [facility] ([facility] NORMAL RANGES Age WBC RBC [...] HCT IS 5% LESS SOURCE FOR DATA: [employer] 1800 OPERATION MANUAL( AUTOMATED BLOOD COUNTS AND [...] 2-19 YEARS EXCLUSIVE. HGB 12.8 g/dL 12.0-18.0 [facility] NORMAL RANGES Age WBC [...] IS 5% LESS SOURCE FOR DATA: YARI [employer] 1800 OPERATION MANUAL( AUTOMATED BLOOD COUNTS AND [...] RBC 3.89 10E6/uL 4.20-6.30 Below low normal [facility] ([facility] NORMAL RANGES Age [...] HCT IS 5% LESS SOURCE FOR DATA: [employer] 1800 OPERATION MANUAL( AUTOMATED BLOOD COUNTS AND [...] HCT 36.8 % 37.0-51.0 Below low normal [facility] ( [facility] [...] HCT IS 5% LESS SOURCE FOR DATA: [employer]ytics 1800 OPERATION MANUAL( AUTOMATED BLOOD COUNTS AND [...] 2-19 YEARS EXCLUSIVE. MCV 94.6 fL 80.0-97.0 [facility] ([facility] [...] 2-19 YEARS EXCLUSIVE. MCHC 34.8 g/dL 31.0-36.0 [facility] ([facility] NORMAL RANGES [...] HCT IS 5% LESS SOURCE FOR DATA: [employer]ytics 1800 OPERATION MANUAL( AUTOMATED BLOOD COUNTS AND [...] MCH 32.9 pg 26.0-32.0 Above high normal [facility] ([facility] [...] HCT IS 5% LESS SOURCE FOR DATA: [employer]ytics 1800 OPERATION MANUAL( AUTOMATED BLOOD COUNTS AND [...] 2-19 YEARS EXCLUSIVE. PLT 367 10E3/uL 140-440 [employer] ([facility] NORMAL RANGES Age WBC RBC [...] HCT IS 5% LESS SOURCE FOR DATA: Hive[employer] DYN 1800 OPERATION MANUAL( AUTOMATED BLOOD COUNTS [...] 2-19 YEARS EXCLUSIVE. RDW-CV 13.9 % 11.5-14.5 [facility] ([facility] NORMAL RANGES [...] HCT IS 5% LESS SOURCE FOR DATA: [employer] 1800 OPERATION MANUAL( AUTOMATED BLOOD COUNTS AND [...] 2-19 YEARS EXCLUSIVE. Lym% 22.5 % 10.0-58.5 [facility] ([facility] NORMAL RANGES Age WBC [...] HCT IS 5% LESS SOURCE FOR DATA: [employer] 1800 OPERATION MANUAL( AUTOMATED BLOOD COUNTS AND [...] 2-19 YEARS EXCLUSIVE. Neut% 68.3 % 37.0-92.0 [facility] ([facility] [...] HCT IS 5% LESS SOURCE FOR DATA: [employer] 1800 OPERATION MANUAL( AUTOMATED BLOOD COUNTS AND [...] 2-19 YEARS EXCLUSIVE. Lym# 1.3 10E3/uL 0.6-4.1 [facility] ([facility] NORMAL RANGES Age WBC RBC [...] HCT IS 5% LESS SOURCE FOR DATA: [employer] 1800 OPERATION MANUAL( AUTOMATED BLOOD COUNTS AND [...] 2-19 YEARS EXCLUSIVE. MXD% 9.2 % 0.1-24.0 [facility] ([facility] NORMAL [...] HCT IS 5% LESS SOURCE FOR DATA: [employer] 1800 OPERATION MANUAL( AUTOMATED BLOOD COUNTS AND [...] 2-19 YEARS EXCLUSIVE. Neut# 3.9 % 2.0-7.8 [facility] ([facility] [...] HCT IS 5% LESS SOURCE FOR DATA: [employer] 1800 OPERATION MANUAL( AUTOMATED BLOOD COUNTS AND [...] 2-19 YEARS EXCLUSIVE. MXD# 0.5 10E3/uL 0.0-1.8 [facility] ([facility] NORMAL RANGES Age WBC RBC [...] HCT IS 5% LESS SOURCE FOR DATA: [employer] 1800 OPERATION MANUAL( AUTOMATED BLOOD COUNTS AND [...] MPV 8.1 fL 9.0-13.0 Below low normal [facility] ( [facility] NORMAL RANGES Age WBC [...] HCT IS 5% LESS SOURCE FOR DATA: [employer] 1800 OPERATION MANUAL( AUTOMATED BLOOD COUNTS AND [...] 2-19 YEARS EXCLUSIVE. ID Date Data Source [id number] 07/02/2019 08:54:00 AM EDT [facility] ([facility] Name Value Range Interpretation Code Description Data Esperanza rce(s) Supporting Document(s) Creatinine, Urine 200 mg/dL 10-300 [facility] ([facility] Alb 80 mg/L [facility] ([facility] A/C Ratio Laboratory test result Abnormal (applies to non -numeric results) [facility] ([facility] ID Date Data Source [id number] 07/02/2019 08:54:00 AM EDT [facility] ([facility] Name Value Range Interpretation Code Description Data Esperanza rce(s) Supporting Document(s) Creatine kinase [Enzymatic activity/volume] in Serum o r Plasma Laboratory test result [facility] ([facility] NORMAL RANGES Age WBC RBC HGB [...] HCT IS 5% LESS SOURCE FOR DATA: [employer] 1800 OPERATION MANUAL( AUTOMATED BLOOD COUNTS AND [...] 2-19 YEARS EXCLUSIVE. Clarity Laboratory test result [facility] ([facility] NORMAL RANGES Age WBC [...] HCT IS 5% LESS SOURCE FOR DATA: [employer] 1800 OPERATION MANUAL( AUTOMATED BLOOD COUNTS AND [...] 2-19 YEARS EXCLUSIVE. Color Laboratory test result [facility] ([facility] NORMAL RANGES Age [...] HCT IS 5% LESS SOURCE FOR DATA: [employer] 1800 OPERATION MANUAL( AUTOMATED BLOOD COUNTS AND [...] -numeric results) [facility] ([facility] NORMAL RANGES [...] HCT IS 5% LESS SOURCE FOR DATA: [employer] 1800 OPERATION MANUAL( AUTOMATED BLOOD COUNTS AND [...] 2-19 YEARS EXCLUSIVE. Bilirubin,Urine Laboratory test result [facility] ([facility] NORMAL RANGES Age WBC [...] 2-19 YEARS EXCLUSIVE. Glucose-Ua Laboratory test result [place] [facility] ([facility] NORMAL RANGES [...] HCT IS 5% LESS SOURCE FOR DATA: [employer] 1800 OPERATION MANUAL( AUTOMATED BLOOD COUNTS AND [...] HCT IS 5% LESS SOURCE FOR DATA: [employer] 1800 OPERATION MANUAL( AUTOMATED BLOOD COUNTS AND [...] 2-19 YEARS EXCLUSIVE. pH 6.5 # 5.0-8.0 [facility] ([facility] NORMAL RANGES Age WBC [...] HCT IS 5% LESS SOURCE FOR DATA: [employer] 1800 OPERATION MANUAL( AUTOMATED BLOOD COUNTS AND [...] HCT IS 5% LESS SOURCE FOR DATA: [employer] 1800 OPERATION MANUAL( AUTOMATED BLOOD COUNTS AND [...] YEARS EXCLUSIVE. Urobilinogen 0.2 NA 0.2-1.0 [facility] ([facility] NORMAL [...] HCT IS 5% LESS SOURCE FOR DATA: [employer] 1800 OPERATION MANUAL( AUTOMATED BLOOD COUNTS AND [...] 2-19 YEARS EXCLUSIVE. Nitrite Laboratory test result [employer] ([facility] NORMAL RANGES Age WBC [...] HCT IS 5% LESS SOURCE FOR DATA: [employer] 1800 OPERATION MANUAL( AUTOMATED BLOOD COUNTS AND [...] 2-19 YEARS EXCLUSIVE. ID Date Data Source [id number] 07/02/2019 08:54:00 AM EDT [facility] ([facility] Name Value Range Interpretation Code Description Data Esperanza rce(s) Supporting Document(s) Creatine kinase [Enzymatic activity/volume] in Serum or Plasma 77 U /L 39-308 [facility] ([facility] NORMAL RANGES Age WBC [...] HCT IS 5% LESS SOURCE FOR DATA: [employer] 1800 OPERATION MANUAL( AUTOMATED BLOOD COUNTS AND [...] Blood 6.6 % 4.40-6.10 Above high normal [facility] ([facility] NORMAL RANGES Age [...] HCT IS 5% LESS SOURCE FOR DATA: [employer] 1800 OPERATION MANUAL( AUTOMATED BLOOD COUNTS AND [...] 2-19 YEARS EXCLUSIVE. ID Date Data Source [id number] 07/02/2019 08:54:00 AM EDT [facility] ([facility] Name Value Range Interpretation Code Description Data Esperanza rce(s) Supporting Document(s) Trig 254 mg/dL 35-200 Above high normal [facility] ([facility] [...] HCT IS 5% LESS SOURCE FOR DATA: [employer] 1800 OPERATION MANUAL( AUTOMATED BLOOD COUNTS AND [...] 2-19 YEARS EXCLUSIVE. Chol 178 mg/dL 0-200 [facility] ([facility] NORMAL RANGES Age WBC [...] HCT IS 5% LESS SOURCE FOR DATA: [employer] 1800 OPERATION MANUAL( AUTOMATED BLOOD COUNTS AND [...] HCT IS 5% LESS SOURCE FOR DATA: [employer] 1800 OPERATION MANUAL( AUTOMATED BLOOD COUNTS AND [...] 2-19 YEARS EXCLUSIVE. Cho/HDL Ratio 3.7 CALC [facility] ([facility] NORMAL RANGES Age WBC [...] HCT IS 5% LESS SOURCE FOR DATA: [employer] 1800 OPERATION MANUAL( AUTOMATED BLOOD COUNTS AND [...] 2-19 YEARS EXCLUSIVE. LDL_C 79 Calc 75-129 [facility] ([facility] NORMAL RANGES [...] 2-19 YEARS EXCLUSIVE. ID Date Data Source [id number] 07/02/2019 08:54:00 AM EDT [facility] ([facility] Name Value Range Interpretation Code Description Data Esperanza rce(s) Supporting Document(s) Glu 149 mg/dL 70-110 Above high normal [facility] ([facility] NORMAL RANGES Age WBC [...] HCT IS 5% LESS SOURCE FOR DATA: [employer] 1800 OPERATION MANUAL( AUTOMATED BLOOD COUNTS AND [...] 2-19 YEARS EXCLUSIVE. BUN 14 mg/dL 8-23 [facility] NORMAL RANGES Age WBC [...] HCT IS 5% LESS SOURCE FOR DATA: [employer] 1800 OPERATION MANUAL( AUTOMATED BLOOD COUNTS AND [...] YEARS EXCLUSIVE. BUN/Creatinine Ratio 15.5 Calc [facility] ([facility] NORMAL RANGES [...] HCT IS 5% LESS SOURCE FOR DATA: [employer]ytics 1800 OPERATION MANUAL( AUTOMATED BLOOD COUNTS AND [...] HCT IS 5% LESS SOURCE FOR DATA: Hive7 DYN 1800 OPERATION MANUAL( AUTOMATED BLOOD COUNTS [...] 2-19 YEARS EXCLUSIVE. K 4.8 mmol/L 3.5-5.1 [facility] NORMAL RANGES Age WBC RBC [...] HCT IS 5% LESS SOURCE FOR DATA: [employer] 1800 OPERATION MANUAL( AUTOMATED BLOOD COUNTS AND [...] HCT IS 5% LESS SOURCE FOR DATA: Hive[employer] DYN 1800 OPERATION MANUAL( AUTOMATED BLOOD COUNTS [...] Na 132 mmol/L 136-145 Below low normal [facility] ( [...] HCT IS 5% LESS SOURCE FOR DATA: [employer] 1800 OPERATION MANUAL( AUTOMATED BLOOD COUNTS AND [...] 2-19 YEARS EXCLUSIVE. CA 9.7 mg/dL 8.6-10.2 [facility] NORMAL RANGES Age WBC [...] HCT IS 5% LESS SOURCE FOR DATA: [employer] 1800 OPERATION MANUAL( AUTOMATED BLOOD COUNTS AND [...] 2-19 YEARS EXCLUSIVE. Co2 25.0 mmol/L 22.0-29.0 [employer] ([facility] NORMAL RANGES Age WBC RBC [...] HCT IS 5% LESS SOURCE FOR DATA: [employer] 1800 OPERATION MANUAL( AUTOMATED BLOOD COUNTS AND [...] 2-19 YEARS EXCLUSIVE. TP 6.6 g/dL 6.6-8.7 [facility] ([facility] NORMAL [...] HCT IS 5% LESS SOURCE FOR DATA: [employer] 1800 OPERATION MANUAL( AUTOMATED BLOOD COUNTS AND [...] 2-19 YEARS EXCLUSIVE. Alb 4.6 g/dL 3.5-5.2 [facility] ([facility] NORMAL RANGES Age [...] HCT IS 5% LESS SOURCE FOR DATA: [employer] 1800 OPERATION MANUAL( AUTOMATED BLOOD COUNTS AND [...] 2-19 YEARS EXCLUSIVE. Alp 67.1 U/L 40-129 [facility] ([facility] NORMAL RANGES [...] HCT IS 5% LESS SOURCE FOR DATA: [employer] 1800 OPERATION MANUAL( AUTOMATED BLOOD COUNTS AND [...] HCT IS 5% LESS SOURCE FOR DATA: [employer] 1800 OPERATION MANUAL( AUTOMATED BLOOD COUNTS AND [...] 2-19 YEARS EXCLUSIVE. A/G Ratio 2.3 Calc [facility] ([facility] NORMAL RANGES [...] YEARS EXCLUSIVE. Ast (Sgot) 26 U/L 0-40 [facility] ([facility] [...] HCT IS 5% LESS SOURCE FOR DATA: [employer] 1800 OPERATION MANUAL( AUTOMATED BLOOD COUNTS AND [...] YEARS EXCLUSIVE. Alt (SGPT) 28 U/L 0-41 [facility] ([facility] NORMAL RANGES Age WBC RBC [...] HCT IS 5% LESS SOURCE FOR DATA: [employer] 1800 OPERATION MANUAL( AUTOMATED BLOOD COUNTS AND [...] 2-19 YEARS EXCLUSIVE. Tbili 0.42 mg/dL 0.0-1.2 [facility] ([facility] NORMAL RANGES Age WBC RBC [...] HCT IS 5% LESS SOURCE FOR DATA: [employer] 1800 OPERATION MANUAL( AUTOMATED BLOOD COUNTS AND [...] HCT IS 5% LESS SOURCE FOR DATA: [employer] 1800 OPERATION MANUAL( AUTOMATED BLOOD COUNTS AND [...] INDIVIDUALA AGED 2-19 YEARS EXCLUSIVE. eGFR Non-Afr. [place] 75 # [facility] ([facility] CKD-EPI eGFR 87 # [facility] ( [facility] CKD-EPI ID Date Data Source [id number] 07/02/2019 08:54:00 AM EDT [facility] ([facility] Name Value Range Interpretation Code Description Data Esperanza rce(s) Supporting Document(s) RBC 3.94 10E6/uL 4.20-6.30 Below low normal [facility] ([employer] [facility] NORMAL RANGES Age WBC [...] HCT IS 5% LESS SOURCE FOR DATA: [employer] 1800 OPERATION MANUAL( AUTOMATED BLOOD COUNTS AND [...] 2-19 YEARS EXCLUSIVE. WBC 5.9 10E3/uL 4.1-10.9 [facility] ([facility] NORMAL RANGES Age WBC RBC [...] HCT IS 5% LESS SOURCE FOR DATA: [employer] 1800 OPERATION MANUAL( AUTOMATED BLOOD COUNTS AND [...] 2-19 YEARS EXCLUSIVE. HCT 37.5 % 37.0-51.0 [facility] ([facility] NORMAL RANGES Age [...] 2-19 YEARS EXCLUSIVE. HGB 12.9 g/dL 12.0-18.0 [facility] ([facility] NORMAL RANGES [...] HCT IS 5% LESS SOURCE FOR DATA: [employer] 1800 OPERATION MANUAL( AUTOMATED BLOOD COUNTS AND [...] 2-19 YEARS EXCLUSIVE. MCV 95.2 fL 80.0-97.0 [facility] ([facility] NORMAL [...] HCT IS 5% LESS SOURCE FOR DATA: [employer] 1800 OPERATION MANUAL( AUTOMATED BLOOD COUNTS AND [...] MCH 32.7 pg 26.0-32.0 Above high normal [facility] (Family [...] HCT IS 5% LESS SOURCE FOR DATA: Hive[employer] DYN 1800 OPERATION MANUAL( AUTOMATED BLOOD COUNTS [...] 2-19 YEARS EXCLUSIVE. RDW-CV 13.8 % 11.5-14.5 [facility] ([facility] [...] HCT IS 5% LESS SOURCE FOR DATA: [employer] 1800 OPERATION MANUAL( AUTOMATED BLOOD COUNTS AND [...] 2-19 YEARS EXCLUSIVE. MCHC 34.4 g/dL 31.0-36.0 [facility] ([facility] [...] HCT IS 5% LESS SOURCE FOR DATA: Hive[employer] DYN 1800 OPERATION MANUAL( AUTOMATED BLOOD COUNTS [...] 2-19 YEARS EXCLUSIVE. PLT 362 10E3/uL 140-440 [facility] ([facility] NORMAL RANGES Age WBC RBC [...] HCT IS 5% LESS SOURCE FOR DATA: [employer] 1800 OPERATION MANUAL( AUTOMATED BLOOD COUNTS AND [...] 2-19 YEARS EXCLUSIVE. Lym% 22.1 % 10.0-58.5 [facility] ([facility] NORMAL RANGES [...] HCT IS 5% LESS SOURCE FOR DATA: [employer] 1800 OPERATION MANUAL( AUTOMATED BLOOD COUNTS AND [...] 2-19 YEARS EXCLUSIVE. Neut% 68.1 % 37.0-92.0 [facility] NORMAL RANGES Age WBC [...] HCT IS 5% LESS SOURCE FOR DATA: [employer] 1800 OPERATION MANUAL( AUTOMATED BLOOD COUNTS AND [...] 2-19 YEARS EXCLUSIVE. MXD% 9.8 % 0.1-24.0 [facility] ([facility] NORMAL RANGES [...] HCT IS 5% LESS SOURCE FOR DATA: Hive[employer] DYN 1800 OPERATION MANUAL( AUTOMATED BLOOD COUNTS [...] 2-19 YEARS EXCLUSIVE. Neut# 4.0 % 2.0-7.8 [facility] ([facility] NORMAL RANGES [...] HCT IS 5% LESS SOURCE FOR DATA: [employer] 1800 OPERATION MANUAL( AUTOMATED BLOOD COUNTS AND [...] 2-19 YEARS EXCLUSIVE. Lym# 1.3 10E3/uL 0.6-4.1 [facility] ([facility] NORMAL RANGES Age WBC RBC [...] HCT IS 5% LESS SOURCE FOR DATA: [employer] 1800 OPERATION MANUAL( AUTOMATED BLOOD COUNTS AND [...] MPV 7.8 fL 9.0-13.0 Below low normal [facility] ( [facility] NORMAL RANGES [...] HCT IS 5% LESS SOURCE FOR DATA: [employer] 1800 OPERATION MANUAL( AUTOMATED BLOOD COUNTS AND [...] 2-19 YEARS EXCLUSIVE. MXD# 0.6 10E3/uL 0.0-1.8 [facility] ([facility] NORMAL RANGES Age WBC RBC [...] HCT IS 5% LESS SOURCE FOR DATA: [employer] 1800 OPERATION MANUAL( AUTOMATED BLOOD COUNTS AND [...] 2-19 YEARS EXCLUSIVE. ID Date Data Source [id number] 03/26/2019 09:05:00 AM EST [facility] ([facility] Name Value Range Interpretation Code Description Data Esperanza rce(s) Supporting Document(s) Clarity Laboratory test result [facility] ([facility] CLASSIFICATION CHOLESTEROL FO R [...] HCT IS 5% LESS SOURCE FOR DATA: [employer] 1800 OPERATION MANUAL( AUTOMATED BLOOD COUNTS AND DIFF.) APPENDIX B-3 Color Laboratory test result [facility] ([facility] CLASSIFICATION CHOLESTEROL FO [...] HCT IS 5% LESS SOURCE FOR DATA: Hive[employer] DYN 1800 OPERATION MANUAL( AUTOMATED BLOOD COUNTS AND DIFF.) APPENDIX B-3 Glucose-Ua Laboratory test result [facility] (Family [...] HCT IS 5% LESS SOURCE FOR DATA: Hive7 DYN 1800 OPERATION MANUAL( AUTOMATED BLOOD COUNTS AND DIFF.) APPENDIX B-3 Ketone Laboratory test result [facility] ([facility] CLASSIFICATION CHOLESTEROL FO R [...] HCT IS 5% LESS SOURCE FOR DATA: Hive7 DYN 1800 OPERATION MANUAL( AUTOMATED BLOOD COUNTS [...] HCT IS 5% LESS SOURCE FOR DATA: [employer] 1800 OPERATION MANUAL( AUTOMATED BLOOD COUNTS AND DIFF.) APPENDIX B-3 Bilirubin,Urine Laboratory test result [facility] ([facility] CLASSIFICATION CHOLESTEROL [...] HCT IS 5% LESS SOURCE FOR DATA: Hive7 DYN 1800 OPERATION MANUAL( AUTOMATED BLOOD COUNTS AND DIFF.) APPENDIX B-3 pH 5.5 # 5.0-8.0 [facility] CLASSIFICATION CHOLESTEROL FO R [...] mg/dL Abnormal (applies to non-numeric res ults) [facility] ([facility] CLASSIFICATION [...] HCT IS 5% LESS SOURCE FOR DATA: [employer] 1800 OPERATION MANUAL( AUTOMATED BLOOD COUNTS AND DIFF.) APPENDIX B-3 Urobilinogen 0.2 NA 0.2-1.0 [facility] ([facility] CLASSIFICATION CHOLESTEROL FO R [...] HCT IS 5% LESS SOURCE FOR DATA: [employer] 1800 OPERATION MANUAL( AUTOMATED BLOOD COUNTS AND DIFF.) APPENDIX B-3 Nitrite Laboratory test result [facility] ([facility] CLASSIFICATION CHOLESTEROL FO R [...] HCT IS 5% LESS SOURCE FOR DATA: [employer] 1800 OPERATION MANUAL( AUTOMATED BLOOD COUNTS AND [...] IS 5% LESS SOURCE FOR DATA: YARI [employer] 1800 OPERATION MANUAL( AUTOMATED BLOOD COUNTS AND DIFF.) APPENDIX B-3 ID Date Data Source [id number] 03/26/2019 09:05:00 AM EST TOM ([facility] Name Value Range Interpretation Code Description Data Esperanza rce(s) Supporting Document(s) Hemoglobin A1c/Hemoglobin.total in Blood 6.1 % 4.40-6.10 [facility] ([facility] CLASSIFICATION CHOLESTEROL FO [...] HCT IS 5% LESS SOURCE FOR DATA: Hive[employer] DYN 1800 OPERATION MANUAL( AUTOMATED BLOOD COUNTS AND DIFF.) APPENDIX B-3 Creatine kinase [Enzymatic activity/volume] in Serum or Plasma 61 U /L 39-308 [facility] ([facility] CLASSIFICATION [...] DIFF.) APPENDIX B-3 ID Date Data Source [id number] 03/26/2019 09:05:00 AM EST [facility] ([facility] Name Value Range Interpretation Code Description Data Esperanza rce(s) Supporting Document(s) Trig 203 mg/dL 35-200 Above high normal [facility] ([facility] CLASSIFICATION CHOLESTEROL FO R [...] HCT IS 5% LESS SOURCE FOR DATA: [employer] 1800 OPERATION MANUAL( AUTOMATED BLOOD COUNTS AND DIFF.) APPENDIX B-3 Chol 192 mg/dL 0-200 [facility] CLASSIFICATION CHOLESTEROL FO [...] HCT IS 5% LESS SOURCE FOR DATA: Hive7 DYN 1800 OPERATION MANUAL( AUTOMATED BLOOD COUNTS AND DIFF.) APPENDIX B-3 Prostate specific Ag [Mass/volume] in Serum or Plasma 55 mg/dL 35-5 5 [facility] ([facility] CLASSIFICATION CHOLESTEROL FO [...] IS 5% LESS SOURCE FOR DATA: YARI [employer] 1800 OPERATION MANUAL( AUTOMATED BLOOD COUNTS AND DIFF.) APPENDIX B-3 LDL_C 96 Calc 75-129 [facility] ([facility] [...] HCT IS 5% LESS SOURCE FOR DATA: [employer] 1800 OPERATION MANUAL( AUTOMATED BLOOD COUNTS AND DIFF.) APPENDIX B-3 Cho/HDL Ratio 3.5 CALC [facility] ([facility] CLASSIFICATION CHOLESTEROL FO R ADULTS CHILDREN/ADOLESCENTS* [...] HCT IS 5% LESS SOURCE FOR DATA: [employer] 1800 OPERATION MANUAL( AUTOMATED BLOOD COUNTS AND DIFF.) APPENDIX B-3 ID Date Data Source [id number] 03/26/2019 09:05:00 AM EST [facility] ([facility] Name Value Range Interpretation Code Description Data Esperanza rce(s) Supporting Document(s) Glu 142 mg/dL 70-110 Above high normal [facility] ([facility] CLASSIFICATION CHOLESTEROL FO R [...] AND DIFF.) APPENDIX B-3 BUN 19 mg/dL 8-23 [facility] CLASSIFICATION CHOLESTEROL FO R [...] HCT IS 5% LESS SOURCE FOR DATA: [employer] 1800 OPERATION MANUAL( AUTOMATED BLOOD COUNTS AND [...] normal [facility] ( [facility] CLASSIFICATION [...] DIFF.) APPENDIX B-3 BUN/Creatinine Ratio 18.9 CALC [facility] ([facility] CLASSIFICATION CHOLESTEROL [...] HCT IS 5% LESS SOURCE FOR DATA: [employer] 1800 OPERATION MANUAL( AUTOMATED BLOOD COUNTS AND DIFF.) APPENDIX B-3 K 5.1 mmol/L 3.5-5.1 [facility] ([facility] CLASSIFICATION CHOLESTEROL FO R ADULTS [...] APPENDIX B-3 Co2 25.2 mmol/L 22.0-29.0 [facility] ([facility] CLASSIFICATION CHOLESTEROL FO R ADULTS [...] HCT IS 5% LESS SOURCE FOR DATA: H[employer] DYN 1800 OPERATION MANUAL( AUTOMATED BLOOD COUNTS AND DIFF.) APPENDIX B-3 CA 9.9 mg/dL 8.6-10.2 [facility] CLASSIFICATION CHOLESTEROL FO [...] HCT IS 5% LESS SOURCE FOR DATA: [employer] 1800 OPERATION MANUAL( AUTOMATED BLOOD COUNTS AND DIFF.) APPENDIX B-3 A/G Ratio 2.1 CALC [facility] CLASSIFICATION CHOLESTEROL FO [...] HCT IS 5% LESS SOURCE FOR DATA: Hive7 DYN 1800 OPERATION MANUAL( AUTOMATED BLOOD COUNTS AND DIFF.) APPENDIX B-3 TP 7.0 g/dL 6.6-8.7 [facility] CLASSIFICATION CHOLESTEROL [...] DIFF.) APPENDIX B-3 Globulin 2.3 CALC [facility] ([facility] CLASSIFICATION CHOLESTEROL FO [...] APPENDIX B-3 Alt (SGPT) 18 U/L 0-41 [facility] ([facility] [place] CLASSIFICATION CHOLESTEROL FO R ADULTS [...] DIFF.) APPENDIX B-3 Alp 64.1 U/L 40-129 [facility] ([facility] CLASSIFICATION [...] HCT IS 5% LESS SOURCE FOR DATA: [employer] 1800 OPERATION MANUAL( AUTOMATED BLOOD COUNTS AND DIFF.) APPENDIX B-3 Tbili 0.33 mg/dL 0.0-1.2 [facility] ([facility] [place] CLASSIFICATION CHOLESTEROL FO R ADULTS [...] B-3 Ast (Sgot) 20 U/L 0-40 [facility] ([facility] CLASSIFICATION CHOLESTEROL FO R ADULTS [...] COUNTS AND DIFF.) APPENDIX B-3 eGFR Non-Afr. [place] 66 # [facility] ([facility] CLASSIFICATION CHOLESTEROL FO R [...] DIFF.) APPENDIX B-3 Anion Gap 17 mmol/L [facility] CLASSIFICATION CHOLESTEROL FO [...] HCT IS 5% LESS SOURCE FOR DATA: [employer] 1800 OPERATION MANUAL( AUTOMATED BLOOD COUNTS AND [...] HCT IS 5% LESS SOURCE FOR DATA: H[employer] DYN 1800 OPERATION MANUAL( AUTOMATED BLOOD COUNTS AND DIFF.) APPENDIX B-3 ID Date Data Source [id number] 03/26/2019 09:05:00 AM EST [facility] ([facility] Name Value Range Interpretation Code Description Data Esperanza rce(s) Supporting Document(s) WBC 5.5 10E3/uL 4.1-10.9 [facility] ([facility] CLASSIFICATION CHOLESTEROL FO R ADULTS [...] HCT IS 5% LESS SOURCE FOR DATA: [employer] 1800 OPERATION MANUAL( AUTOMATED BLOOD COUNTS AND DIFF.) APPENDIX B-3 RBC 3.86 10E6/uL 4.20-6.30 Below low normal [facility] ([facility] CLASSIFICATION [...] DIFF.) APPENDIX B-3 HGB 12.8 g/dL 12.0-18.0 [facility] ([facility] [...] DIFF.) APPENDIX B-3 HCT 37.4 % 37.0-51.0 [facility] CLASSIFICATION CHOLESTEROL [...] HCT IS 5% LESS SOURCE FOR DATA: Hive7 DYN 1800 OPERATION MANUAL( AUTOMATED BLOOD COUNTS AND DIFF.) APPENDIX B-3 MCV 96.9 fL 80.0-97.0 [facility] ([facility] [...] MCH 33.2 pg 26.0-32.0 Above high normal [facility] ([facility] CLASSIFICATION CHOLESTEROL FO [...] HCT IS 5% LESS SOURCE FOR DATA: [employer] 1800 OPERATION MANUAL( AUTOMATED BLOOD COUNTS AND [...] HCT IS 5% LESS SOURCE FOR DATA: [employer] 1800 OPERATION MANUAL( AUTOMATED BLOOD COUNTS AND DIFF.) APPENDIX B-3 PLT 384 10E3/uL 140-440 [facility] ([facility] CLASSIFICATION CHOLESTEROL FO R ADULTS [...] DIFF.) APPENDIX B-3 RDW-CV 14.3 % 11.5-14.5 [facility] CLASSIFICATION CHOLESTEROL FO R [...] HCT IS 5% LESS SOURCE FOR DATA: [employer] 1800 OPERATION MANUAL( AUTOMATED BLOOD COUNTS AND [...] HCT IS 5% LESS SOURCE FOR DATA: Hive7 DYN 1800 OPERATION MANUAL( AUTOMATED BLOOD COUNTS AND DIFF.) APPENDIX B-3 Neut% 64.8 % 37.0-92.0 [facility] ([facility] CLASSIFICATION [...] HCT IS 5% LESS SOURCE FOR DATA: Hive7 DYN 1800 OPERATION MANUAL( AUTOMATED BLOOD COUNTS AND DIFF.) APPENDIX B-3 Lym# 1.4 10E3/uL 0.6-4.1 [facility] ([facility] CLASSIFICATION CHOLESTEROL FO R ADULTS [...] HCT IS 5% LESS SOURCE FOR DATA: [employer] 1800 OPERATION MANUAL( AUTOMATED BLOOD COUNTS AND [...] HCT IS 5% LESS SOURCE FOR DATA: [employer] 1800 OPERATION MANUAL( AUTOMATED BLOOD COUNTS AND DIFF.) APPENDIX B-3 Neut# 3.6 % 2.0-7.8 [facility] ([facility] CLASSIFICATION [...] HCT IS 5% LESS SOURCE FOR DATA: Hive7 DYN 1800 OPERATION MANUAL( AUTOMATED BLOOD COUNTS AND DIFF.) APPENDIX B-3 MPV 8.4 fL 9.0-13.0 Below low normal [facility] ( [facility] CLASSIFICATION CHOLESTEROL [...] HCT IS 5% LESS SOURCE FOR DATA: [employer] 1800 OPERATION MANUAL( AUTOMATED BLOOD COUNTS AND DIFF.) APPENDIX B-3 MXD# 0.5 10E3/uL 0.0-1.8 [facility] ([facility] CLASSIFICATION CHOLESTEROL FO R ADULTS [...] IS 5% LESS SOURCE FOR DATA: YARI [employer] 1800 OPERATION MANUAL( AUTOMATED BLOOD COUNTS AND DIFF.) APPENDIX B-3 Procedure Social History Code Duration Value Status Description Data Source(s ) Smoking 01/22/2020 12:00:00 AM EST Patient is a former smoker completed Patient is a former smoker TOM ([facility] ) Vital Signs ID Date Data Source UNK Name Value Range Interpretation Code Description Data Source(s) Diastolic blood pressure 64 mm[Hg] 64 mm[Hg] eCW1 ([facility]) Systolic blood pressure 122 mm[Hg] 122 mm[Hg] e CW1 ([facility]) Body temperature 95.3 [degF] 95.3 [degF] eCW1 ( [facility]) Respiratory rate 18 /min 18 /min eCW1 ([facility]) Heart rate 96 /min 96 /min eCW1 ([facility]) Body mass index (BMI) [Ratio] 24.05 kg/m2 24.05 kg/m2 eCW1 ([facility]) Body height 63 [in_i] 63 [in_i] eCW1 ([facility]) Body weight 135.8 [lb_av] 135.8 [lb_av] eCW1 ([facility]) Diastolic blood pressure 62 mm[Hg] 62 mm[Hg] eCW1 ([facility]) Systolic blood pressure 104 mm[Hg] 104 mm[Hg] e CW1 ([facility]) Body temperature 96.6 [degF] 96.6 [degF] eCW1 ( [facility]) Respiratory rate 18 /min 18 /min eCW1 ([facility]) Heart rate 104 /min 104 /min eCW1 ([facility]) Body mass index (BMI) [Ratio] 23.91 kg/m2 23.91 kg/m2 eCW1 ([facility]) Body height 63 [in_i] 63 [in_i] eCW1 ([facility]) Body weight 135 [lb_av] 135 [lb_av] eCW1 ([facility]) Diastolic blood pressure 74 mm[Hg] 74 mm[Hg] eCW1 ([facility]) Systolic blood pressure 118 mm[Hg] 118 mm[Hg] e CW1 ([facility]) Body temperature 97.1 [degF] 97.1 [degF] eCW1 ( [facility]) Respiratory rate 18 /min 18 /min eCW1 ([facility]) Heart rate 95 /min 95 /min eCW1 ([facility]) Body mass index (BMI) [Ratio] 23.56 kg/m2 23.56 kg/m2 eCW1 ([facility]) Body height 63 [in_i] 63 [in_i] eCW1 ([facility]) Body weight 133 [lb_av] 133 [lb_av] eCW1 ([facility]) Oxygen saturation in Arterial blood by Pulse oximetry 98 % 98 % [facility] ([facility] Body mass index (BMI) [Ratio] 23.4 kg/m2 23.4 k g/m2 [facility] ([facility] [place] body weight 124 [lb_av] 124 [lb_av] MEDEN T ([facility] Body weight 134.00 [lb_av] 134.00 [lb_av] MEDEN T ([facility] Body height 63.5 [in_i] 63.5 [in_i] [facility] ([facility] 5'3.50" Respiratory rate 18 /min 18 /min [facility] ( [facility] Heart rate 75 /min 75 /min [facility] ([facility] Body temperature 97.8 [degF] 97.8 [degF] [facility] ([facility] Diastolic blood pressure 80 mm[Hg] 80 mm[Hg] [facility] ([facility] Systolic blood pressure 140 mm[Hg] 140 mm[Hg] M EDENT ([facility] Diastolic blood pressure 78 mm[Hg] 78 mm[Hg] eCW1 ([facility]) Systolic blood pressure 145 mm[Hg] 145 mm[Hg] e CW1 ([facility]) Body temperature 97.1 [degF] 97.1 [degF] eCW1 ( [facility]) Respiratory rate 18 /min 18 /min eCW1 ([facility]) Heart rate 91 /min 91 /min eCW1 ([facility]) Body mass index (BMI) [Ratio] 24.18 kg/m2 24.18 kg/m2 eCW1 ([facility]) Body height 63 [in_i] 63 [in_i] eCW1 ([facility]) Body weight 136.5 [lb_av] 136.5 [lb_av] eCW1 ([facility]) Oxygen saturation in Arterial blood by Pulse oximetry 98 % 98 % [facility] ([facility] ([place]), ([employer]) Body mass index (BMI) [Ratio] 24.1 kg/m2 24.1 k g/m2 [facility] ([facility] [place] body weight 124 [lb_av] 124 [lb_av] MEDEN T ([facility] Body weight 138.00 [lb_av] 138.00 [lb_av] MEDEN T ([facility] Body height 63.5 [in_i] 63.5 [in_i] MED[facility] ([facility] 5'3.50" Heart rate 85 /min 85 /min [facility] ([facility] Body temperature 97.1 [degF] 97.1 [degF] [facility] ([facility] Diastolic blood pressure 62 mm[Hg] 62 mm[Hg] [facility] ([facility] Systolic blood pressure 138 mm[Hg] 138 mm[Hg] M EDENT ([facility] Diastolic blood pressure 72 mm[Hg] 72 mm[Hg] eCW1 ([facility]) Systolic blood pressure 128 mm[Hg] 128 mm[Hg] e CW1 ([facility]) Body temperature 96.2 [degF] 96.2 [degF] eCW1 ( [facility]) Respiratory rate 18 /min 18 /min eCW1 ([facility]) Heart rate 109 /min 109 /min eCW1 ([facility]) Body mass index (BMI) [Ratio] 24.27 kg/m2 24.27 kg/m2 eCW1 ([facility]) Body height 63 [in_i] 63 [in_i] eCW1 ([facility]) Body weight 137 [lb_av] 137 [lb_av] eCW1 ([facility]) Oxygen saturation in Arterial blood by Pulse oximetry 98 % 98 % [facility] ([facility] Body mass index (BMI) [Ratio] 24.2 kg/m2 24.2 k g/m2 [facility] ([facility] [place] body weight 124 [lb_av] 124 [lb_av] MEDEN T ([facility] Body weight 139.00 [lb_av] 139.00 [lb_av] MEDEN T ([facility] Body height 63.5 [in_i] 63.5 [in_i] [facility] ([facility] 5'3.50" Respiratory rate 16 /min 16 /min [facility] ( [facility] Heart rate 58 /min 58 /min [facility] ([facility] Body temperature 97.9 [degF] 97.9 [degF] [facility] ([facility] Diastolic blood pressure 74 mm[Hg] 74 mm[Hg] [facility] ([facility] Systolic blood pressure 116 mm[Hg] 116 mm[Hg] M EDENT ([facility] Oxygen saturation in Arterial blood by Pulse oximetry 99 % 99 % [facility] ([facility] Body mass index (BMI) [Ratio] 24.6 kg/m2 24.6 k g/m2 [facility] ([facility] [place] body weight 124 [lb_av] 124 [lb_av] MEDEN T ([facility] Body weight 141.00 [lb_av] 141.00 [lb_av] MEDEN T ([facility] Body height 63.5 [in_i] 63.5 [in_i] [facility] 5'3.50" Respiratory rate 16 /min 16 /min [facility] ( [facility] Heart rate 82 /min 82 /min [facility] ([facility] Body temperature 97.6 [degF] 97.6 [degF] [facility] ([facility] Diastolic blood pressure 78 mm[Hg] 78 mm[Hg] [facility] ([facility] Systolic blood pressure 108 mm[Hg] 108 mm[Hg] M EDENT ([facility] Oxygen saturation in Arterial blood by Pulse oximetry 98 % 98 % [facility] ([facility] ([place]), ([employer]) Body mass index (BMI) [Ratio] 24.9 kg/m2 24.9 k g/m2 [facility] ([facility] [place] body weight 124 [lb_av] 124 [lb_av] MEDEN T ([facility] Body weight 143.00 [lb_av] 143.00 [lb_av] MEDEN T ([facility] Body height 63.5 [in_i] 63.5 [in_i] [facility] 5'3.50" Respiratory rate 16 /min 16 /min [facility] ( [facility] Heart rate 93 /min 93 /min [facility] ([facility] Body temperature 97.1 [degF] 97.1 [degF] [facility] ([facility] Diastolic blood pressure 78 mm[Hg] 78 mm[Hg] [facility] ([facility] Systolic blood pressure 130 mm[Hg] 130 mm[Hg] M EDENT ([facility] Oxygen saturation in Arterial blood by Pulse oximetry 98 % 98 % [facility] ([facility] Body mass index (BMI) [Ratio] 24.1 kg/m2 24.1 k g/m2 [facility] ([facility] Body weight 138.00 [lb_av] 138.00 [lb_av] MEDEN T ([facility] Body height 63.5 [in_i] 63.5 [in_i] MED[facility] ([facility] 5'3.50" Respiratory rate 13 /min 13 /min [facility] ( [facility] Heart rate 88 /min 88 /min [facility] ([facility] Body temperature 98.0 [degF] 98.0 [degF] [facility] ([facility] Diastolic blood pressure 78 mm[Hg] 78 mm[Hg] [facility] ([facility] Systolic blood pressure 140 mm[Hg] 140 mm[Hg] M EDENT ([facility] Patient Treatment Plan of Care Planned Activity Planned Date Details Description Data Source (s) 24 HR Alfuzosin hydrochloride 10 MG Extended Release O ral Tablet 03/17/2020 12:00:00 AM EST eCW1 ([facility]) 24 HR Alfuzosin hydrochloride 10 MG Extended Release O ral Tablet 03/17/2020 12:00:00 AM EST eCW1 ([facility]) Amoxicillin 500 MG Oral Capsule 03/10/2020 12:00:00 AM EST eCW1 ([facility]) Erythromycin 500 MG Delayed Release Oral Tablet 03/10/2020 12:00:00 AM EST eCW1 ([facility]) Amoxicillin 500 MG Oral Capsule 03/10/2020 12:00:00 AM EST eCW1 ([facility]) Erythromycin 500 MG Delayed Release Oral Tablet 03/10/2020 12:00:00 AM EST eCW1 ([facility]) Amoxicillin 500 MG Oral Capsule 03/10/2020 12:00:00 AM EST eCW1 ([facility]) Erythromycin 500 MG Delayed Release Oral Tablet 03/10/2020 12:00:00 AM EST eCW1 ([facility]) Ciprofloxacin 250 MG Oral Tablet [Cipro] 02/04/2020 12:00:00 AM EST eCW1 ([facility]) Ciprofloxacin 250 MG Oral Tablet [Cipro] 02/04/2020 12:00:00 AM EST eCW1 ([facility])
--- OUTSIDE RECORDS SUMMARY | 2020-03-29 10:55 | CCD ---
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 If you continue you may have access to information: Regarding HIV / AIDS; Provided by facilities licensed or operated by the [facility] Office of Mental Health; or Provided by the [facility] Office for People With Developmental Disabilities. If such information is present, then the following [facility] mandated warning applies: This information [...] law may result in a fine or custodial sentence or both. A general authorization for the release of medical or other information is NOT sufficient authorization for further disc losure. Allergies and Adverse Reactions Type Description Substance Reaction Status Data Source(s ) No Known Allergies No Known Allergies [facility] Family History Family Member Name Family Member Gender Family Member Status Date o f Status Description Data Source(s) Unknown Male Problem [facility] ([facility] Encounters Encounter Providers Location Date Indications Data Source(s ) [place]op [place] [address] [facility] [address] 03/17/2020 12:00:00 AM EST [facility]CW1 [facility] [address] [facility] [address] 03/14/2020 12:00:00 AM EST [facility]CW1 [facility] Unknown [address] [facility] [address] 03/11/2020 12:00:00 AM EST eCW1 ([facility]) Unknown [address] [facility] [place] [address] 03/10/2020 12:00:00 AM EST [facility] Unknown [address] [facility] [address] 03/10/2020 12:00:00 AM EST eCW1 ([facility]) Outpatient [address] [facility] [address] 03/06/2020 12:00:00 AM EST eCW1 ([facility]) Unknown [address] [facility] [address] 03/05/2020 12:00:00 AM EST eCW1 ([facility]) Outpatient Attender: Nitin ChengConsultant: Nitin Cheng 03/03/2020 09:18:00 AM EST - 03/03/2020 10:18:00 AM EST [facility] Outpatient Attender: Nitin Cheng [place] Office 02/27/2020 09:00:0 0 AM EST [facility] ([facility] (Cysto1) Urology [address] [place] [address] 02/11/2020 12:00:00 AM EST eCW1 ([facility]) Outpatient Attender: Nitin Cheng [place] [facility] 02/05/2020 01:00:0 0 PM EST [facility] ([facility] Unknown [address] [facility] [address] 02/05/2020 12:00:00 AM EST eCW1 ([facility]) Outpatient [address] [facility] [place] [address] 02/04/2020 12:00:00 AM EST eCW1 ([facility]) Emergency Attender: SHAILESH LÓPEZ MDConsultant: Nitin [facility] 2020 09:37:00 PM EST - 2020 10:29:00 PM EST [facility] Patient discharged. Emergency Attender: SHRUTHI PISANO DOConsultant: Nitin [facility] h 01/27/2020 06:37:00 AM EST - 01/27/2020 09:10:00 AM EST [facility] Patient discharged. [facility]2020 09:30:0 0 AM EST [facility] ([facility] Outpatient Attender: [facility] 10/22/2019 10:15:0 0 AM EDT [facility] ([facility] Unknown [address] [facility] [address] 09/12/2019 12:00:00 AM EDT eCW1 ([facility]) [facility] 07/09/2019 09:20:0 0 AM EDT [facility] ([facility] Outpatient Attender: [facility] Office 04/03/2019 08:00:0 0 AM EST [facility] ([facility] [address] [place] [address] 02/14/2019 12:00:00 AM EST eCW1 ([facility]) Immunizations Vaccine Date Status Description Data Source(s) [...] active Alfuzosin HCl ER 10 MG eCW1 ([facility]) 24 HR Alfuzosin hydrochloride 10 MG Exte nded Release Oral Tablet Alfuzosin HCl ER 10 MG Alfuzosin HCl ER 10 MG 03/17/2020 12:00:00 AM EST 1.0 {tablet_immediately_after_the_same_meal} active Alfuzosin HCl ER 10 MG eCW1 ([facility]) Metformin hydrochloride 1000 MG Oral Tablet 1,000 [...] {tablet} active Oxybutynin Chloride 5 MG eCW1 ([facility]) Oxybutynin chloride 5 MG Oral Tablet Oxybutynin Chlori de 5 MG Oxybutynin Chloride 5 MG 03/14/2020 12:00:00 AM EST 1.0 {tablet} active Oxybutynin Chloride 5 MG eCW1 ([facility]) 5 mg 03/14/2020 12:00:00 AM EST tablet [...] 1.0 {capsule} active Amoxicillin 500 MG eCW1 ([facility]) Erythromycin 500 MG Delayed Release Oral Tablet Erythromycin 500 MG 03/10/2020 12:00:00 AM EST active Erythrom ycin 500 MG eCW1 ([facility]) Amoxicillin 500 MG Oral Capsule Amoxicillin 500 MG 03/10/2020 12:00 :00 AM EST 1.0 {capsule} active Amoxicillin 500 MG eCW1 ([facility]) Amoxicillin 500 MG Oral Capsule Amoxicillin 500 MG 03/10/2020 12:00 :00 AM EST 1.0 {capsule} active Amoxicillin 500 MG eCW1 ([facility]) Erythromycin 500 MG Delayed Release Oral Tablet Erythromycin 500 MG 03/10/2020 12:00:00 AM EST active Erythrom ycin 500 MG eCW1 ([facility]) Erythromycin 500 MG Delayed Release Oral Tablet Erythromycin 500 MG 03/10/2020 12:00:00 AM EST active Erythrom ycin 500 MG eCW1 ([facility]) 500 mg 03/10/2020 12:00:00 AM EST capsule 20 TAKE ONE CAPSULE BY MOUTH EVERY 12 HOURS FOR 10 DAYS TAKE ONE CAPSULE BY MOUTH EVERY 12 HOURS FOR 10 DAYS S OLD: 03/10/2020 [facility] Erythromycin 500 MG Delayed Release Oral Tablet Erythromycin 500 MG 03/10/2020 12:00:00 AM EST active Erythrom ycin 500 MG eCW1 ([facility]) Amoxicillin 500 MG Oral Capsule Amoxicillin 500 MG 03/10/2020 12:00 :00 AM EST 1.0 {capsule} suspended Amoxicillin 500 MG eCW1 ([facility]) Erythromycin 500 MG Delayed Release Oral Tablet Erythromycin 500 MG 03/10/2020 12:00:00 AM EST active Erythrom ycin 500 MG eCW1 ([facility]) Amoxicillin 500 MG Oral Capsule Amoxicillin 500 MG 03/10/2020 12:00 :00 AM EST 1.0 {capsule} suspended Amoxicillin 500 MG eCW1 ([facility]) Ciprofloxacin 250 MG Oral Tablet [Cipro] Cipro 250 MG Cipro 250 MG 02/04/2020 12:00:00 AM EST 1.0 {tablet} active Ci pro 250 MG eCW1 ([facility]) Ciprofloxacin 250 MG Oral Tablet [Cipro] Cipro 250 MG Cipro 250 MG 02/04/2020 12:00:00 AM EST 1.0 {tablet} active Ci pro 250 MG eCW1 ([facility]) Ciprofloxacin 250 MG Oral Tablet [Cipro] Cipro 250 MG Cipro 250 MG 02/04/2020 12:00:00 AM EST 1.0 {tablet} active Ci pro 250 MG eCW1 ([facility]) Ciprofloxacin 250 MG Oral Tablet [Cipro] Cipro 250 MG Cipro 250 MG 02/04/2020 12:00:00 AM EST 1.0 {tablet} active Ci pro 250 MG eCW1 ([facility]) Ciprofloxacin 250 MG Oral Tablet [Cipro] Cipro 250 MG Cipro 250 MG 02/04/2020 12:00:00 AM EST 1.0 {tablet} active Ci pro 250 MG eCW1 ([facility]) 250 mg 02/04/2020 12:00:00 AM EST tablet 20 TAKE ONE TABLET BY MOUTH EVERY 12 HOURS FOR 10 DAYS TAKE ONE TABLET BY MOUTH EVERY 12 HOURS FOR 10 DAYS SO LD: 02/04/2020 [facility] Ciprofloxacin 250 MG Oral Tablet [Cipro] Cipro 250 MG Cipro 250 MG 02/04/2020 12:00:00 AM EST 1.0 {tablet} active Ci pro 250 MG eCW1 ([facility]) Ciprofloxacin 250 MG Oral Tablet [Cipro] Cipro 250 MG Cipro 250 MG 02/04/2020 12:00:00 AM EST 1.0 {tablet} active Ci pro 250 MG eCW1 ([facility]) Ciprofloxacin 250 MG Oral Tablet [Cipro] Cipro 250 MG Cipro 250 MG 02/04/2020 12:00:00 AM EST 1.0 {tablet} suspended Cipro 250 MG eCW1 ([facility]) Ciprofloxacin 250 MG Oral Tablet [Cipro] Cipro 250 MG Cipro 250 MG 02/04/2020 12:00:00 AM EST 1.0 {tablet} suspended Cipro 250 MG eCW1 ([facility]) Ciprofloxacin 250 MG Oral Tablet [Cipro] Cipro 250 MG Cipro 250 MG 02/04/2020 12:00:00 AM EST 1.0 {tablet} active Ci pro 250 MG eCW1 ([facility]) montelukast 10 MG Oral Tablet MONTELUKAST SODIUM [...] TABLET BY MOUTH ONCE DAILY SOLD: 03/17/2020 [facility] 10 mg 10/03/2019 12:00:00 AM EDT [...] to reed Policy Reed Plan Information WELLCARE [id number] SP [id number] RETIREE MEDICAL INSURANCE PLAN [id number] SP [id number] WELLCARE [id number] SP [id number] TODAYS OPTIONSDO NOT USE [id number] SP [id number] WELLCARE -O/P [id number] 18 [id number] MEDICARE PART A -O/P [id number] 18 [id number] Today's Options/Wellcare Commercial [id number] Self [id number] Today's Options/Wellcare Commercial [id number] Self [id number] Today's Options/Wellcare Commercial [id number] Self [id number] ANSI-Commercial [id number] ANSI-Medicare Part B [id number] ANSI-Health Maintenance Organization ( O) [id number] ANSI-Medicare Part B [id number] ANSI-Commercial [id number] Today's Options Commercial [id number] Self [id number] Today's Options Commercial [id number] Self [id number] TODAYS OPTION -O/P [id number] 18 [id number] Today's Options Commercial [id number] Self [id number] ANSI-Medicare Part B [id number] ANSI-Commercial [id number] Today's Options Commercial [id number] Self [id number] Today's Options Commercial [id number] Self [id number] TODAYS OPTIONS [id number] SP [id number] MEDICARE [id number] SP [id number] A MEDICARE -O/P [id number] 18 [id number] MEDICARE -O/P [id number] 18 [id number] Problems, Conditions, and Diagnoses Code Display Name Description Problem Type Effective Dates Data Source(s) 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 ) [id number] Decreased hearing Decreased hearing Problem 07/08 12:00:00 AM EDT [facility] ([facility] 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 of antithrombotics/antiplatelets Diagnosis 020 06:37:00 AM [facility] R338 Other retention of urine Other retention of urine Diag nosis 01/27/2020 06:37:00 AM [facility] Surgeries/Procedures Procedure Description Date Indications Data Source(s) Voiding Trial 03/17/2020 12:00:00 AM EST eCW1 ([facility]) Medication: Lidocaine HCl 2% Jelly 5mL Intravesically 03/06/2020 12:00:00 AM EST eCW1 ([facility]) Electrocardiogram Complete 02/27/2020 12:00:00 AM EST [facility] ([facility] Villalba Catheter Insertion 16F 02/04/2020 12:00:00 AM AMY Tamez eC1 ([facility]) Magnetic Resonance Angiogtaphy Head W/O Contrast Material(S) 09/22/2019 12:00:00 AM EDT [facility] ([facility] Magnetic Resonance Angiogtaphy Head W/O Contrast Material(S) 09/22/2019 12:00:00 AM EDT [facility] ([facility]) Magnetic Resonance Angiography Neck W/O Contrast Materials 09/22/2019 12:00:00 AM EDT [facility] ([facility]) Magnetic Resonance Angiography Neck W/O Contrast Materials 09/22/2019 12:00:00 AM EDT [facility] ([facility]) Results ID Date Data Source [id number] 03/07/2020 11:00:00 AM EST [facility] Name Value Range Interpretation Code Description Data Esperanza rce(s) Supporting Document(s) SARS coronavirus 2 RNA Not Detected [facility] [place] This lab was ordered by [facility] and reported by [facility]. ID Date Data Source [id number] 03/06/2020 10:42:[address] [facility] [address] [place] [address] PHONE: [phone] FAX: [phone] Name .................. : CHARISSA GUTIERREZ Acct Number.................. : [id number] ROOM. ................. : MR Number ................... : [id number] Stay type ............. : O/P Discharge Date......... ... : 03/03/20 Admit Date ......... : 03/03/20 Admit Phys .................... : REVA WRIGHT Date of ....... : 1930 Family Phys ................... : REVA WRIGHT Phone .................. : [phone] Age ................................ : 89 Film# .................. .:[id number] Sex ................................. : M Unsigned transcriptions are preliminary reports and do not represent a medical or legal document CHEST 2 VIEWS [id number] COMPLETE:03/03/20 09:31 BEM 1391 (REASON FOR CHEST: [...] Name Value Range Interpretation Code Description Data [facility] rce(s) Supporting Document(s) ID Date Data Source [id number] 02/27/2020 10:42:00 AM EST [facility] ([facility] Name Value Range Interpretation Code Description Data [facility](s) Supporting Document(s) WBC 5.8 10E3/uL 4.1-10.9 [facility] [...] HCT IS 5% LESS SOURCE FOR DATA: [employer] 1800 OPERATION MANUAL( AUTOMATED BLOOD COUNTS AND [...] HCT IS 5% LESS SOURCE FOR DATA: [employer] 1800 OPERATION MANUAL( AUTOMATED BLOOD COUNTS AND DIFF.) APPENDIX B-3 MCV 96.6 fL 80.0-97.0 [facility] NORMAL RANGES Age [...] HCT IS 5% LESS SOURCE FOR DATA: [employer] 1800 OPERATION MANUAL( AUTOMATED BLOOD COUNTS AND DIFF.) APPENDIX B-3 HCT 33.9 % 37.0-51.0 Below low normal [facility] ( [facility] NORMAL RANGES [...] HCT IS 5% LESS SOURCE FOR DATA: [employer] 1800 OPERATION MANUAL( AUTOMATED BLOOD COUNTS AND DIFF.) APPENDIX B-3 HGB 11.6 g/dL 12.0-18.0 Below low normal [facility] ( [facility] NORMAL RANGES [...] MCH 33.0 pg 26.0-32.0 Above high normal [facility] ([facility] NORMAL RANGES Age [...] DIFF.) APPENDIX B-3 PLT 374 10E3/uL 140-440 [facility] ([facility] NORMAL RANGES Age WBC RBC [...] IS 5% LESS SOURCE FOR DATA: YARI Sticher 1800 OPERATION MANUAL( AUTOMATED BLOOD COUNTS AND DIFF.) APPENDIX B-3 MCHC 34.2 g/dL 31.0-36.0 [facility] ([facility] NORMAL RANGES Age WBC [...] HCT IS 5% LESS SOURCE FOR DATA: [employer] 1800 OPERATION MANUAL( AUTOMATED BLOOD COUNTS AND DIFF.) APPENDIX B-3 Neut% 69.6 % 37.0-92.0 [facility] NORMAL RANGES Age [...] HCT IS 5% LESS SOURCE FOR DATA: [employer] 1800 OPERATION MANUAL( AUTOMATED BLOOD COUNTS AND DIFF.) APPENDIX B-3 Lym% 18.9 % 10.0-58.5 [facility] ([facility] NORMAL RANGES Age WBC [...] HCT IS 5% LESS SOURCE FOR DATA: [employer] 1800 OPERATION MANUAL( AUTOMATED BLOOD COUNTS AND DIFF.) APPENDIX B-3 RDW-CV 14.8 % 11.5-14.5 Above high normal [facility] ([facility] NORMAL RANGES [...] DIFF.) APPENDIX B-3 Lym# 1.1 10E3/uL 0.6-4.1 [facility] ([facility] NORMAL RANGES Age WBC RBC HGB [...] DIFF.) APPENDIX B-3 MXD% 11.5 % 0.1-24.0 [facility] ([facility] NORMAL RANGES Age WBC RBC [...] HCT IS 5% LESS SOURCE FOR DATA: [employer] 1800 OPERATION MANUAL( AUTOMATED BLOOD COUNTS AND DIFF.) APPENDIX B-3 Neut# 4.0 % 2.0-7.8 [facility] ([facility] NORMAL RANGES [...] HCT IS 5% LESS SOURCE FOR DATA: [employer] 1800 OPERATION MANUAL( AUTOMATED BLOOD COUNTS AND DIFF.) APPENDIX B-3 MPV 8.0 fL 9.0-13.0 Below low normal [facility] ( [facility] NORMAL RANGES [...] HCT IS 5% LESS SOURCE FOR DATA: [employer] 1800 OPERATION MANUAL( AUTOMATED BLOOD COUNTS AND DIFF.) APPENDIX B-3 MXD# 0.7 10E3/uL 0.0-1.8 [facility] ([facility] NORMAL RANGES Age WBC RBC [...] HCT IS 5% LESS SOURCE FOR DATA: [employer] DYN 1800 OPERATION MANUAL( AUTOMATED BLOOD COUNTS AND DIFF.) APPENDIX B-3 ID Date Data Source [id number] 2020 09:37:00 PM EST [facility] 1 OrderSheet [facility] Emergency Department [address] [place] [address] Phone #: ext- [phone] 21:35 Patient: [...] rce(s) Supporting Document(s) ID Date Data Source [id number] 2020 09:37:00 PM EST [facility] 1 Medication Reconciliation Report [facility] Emergency Department [address] [place] [address] Phone #: ext- [phone] 21:35 Patient: [...] to the patient:None. 2 Medication Reconciliation Report [facility] Emergency Department [address] [place] [address] Phone #: ext- [phone] 21:35 Patient: BRENDA CARRINGTON Sex: M : 1930 Age: 89y Name Value Range Interpretation Code Description Data Esperanza rce(s) Supporting Document(s) ID Date Data Source [id number] 2020 09:37:00 PM [facility] 1 Medication Administration Record [facility] Emergency Department [address] [place] [address] Phone #: ext- [phone] 03/2019 21:35 Patient: BRENDA CARRINGTON Sex: M : 1930 Age: 89yWeight: 62.5 kgHeight/Length: 62 inBMI: 25.2ALLERGIES: No Known Drug AllergyDate/Time Medication Administered Medication Ordered Name Value Range Interpretation Code Description Data Esperanza rce(s) Supporting Document(s) ID Date Data Source [id number] 2020 09:37:00 PM [facility] 1 General Instructions [facility] Emergency Department [address] [place] [address] Phone #: ext [phone] 21:35 Patient: BRENDA CARRINGTON Sex: M : 1930 Age: 89yUrinary retention with enlarged prostate.INSTRUCTIONSDrink plenty of fluids.(Continue prostate meds.).Warnings: Further evaluation is necessary.GENERAL WARNINGS: Return or contact your physician immediately if your condition worsens orchanges unexpectedly, if not improving as expected, or if other problems arise.Follow-up:Follow up with a urologist [facility] Urology - . Call for an appointment. Reason for referral:evaluation, treatment and Urinary retention / Villalba placement.Understanding of the discharge instructions verbalized by patient.Follow-up with: Leonard Moseley M.D., Urology, , [address] [place] [address], Critical access hospital Follow up if not better. Call for [...] as men get older. 2 General Instructions [facility] Emergency Department [address] [place] [address] Phone #: ext- [phone] 21:35 Patient: BRENDA CARRINGTON Sex: M [...] bottom of the bag. 3 General Instructions [facility] Emergency Department [address] [place] [address] Phone #: ext- [phone] 21:35 Patient: [...] o Catheter stops draining for 6 hours [id number] [employer]. [address] [place] [address], [place] [address]. All rights reserved. This information is not [...] bladder from emptying fully. 4 General Instructions [facility] Emergency Department [address] [place] [address] Phone #: ext- [phone] 21:35 Patient: [...] up in the bladder. 5 General Instructions [facility] Emergency Department [address] [place] [address] Phone #: ext- [phone] 21:35 Patient: [...] increase the risk of prostate cancer include beingAfrican-Danish or having a father or brother who had prostate cancer. A high-fat diet may alsoincrease the risk of prostate cancer. Talk to your healthcare provider to see whether you should bescreened for prostate cancer.Follow-up careFollow up with your healthcare provider, or as advisedTo learn more, go to: National Kidney Urologic Diseases Information Clearinghouse kidney.niddk.nih.gov, 510-1449956Zxkv to seek medical adviceCall your healthcare provider [...] urinate, burning when passing urine, foul-smelling urine) 3748-7389 [employer]. [address] [place] [address]. All rights reserved. This information is not intended as asubstitute for professional medical care. Always follow your healthcare professional's instructions. You have been given the following additional information: 6 General Instructions [facility] Emergency Department [address] [place] [address] Phone #: ext- [phone] 21:35 Patient: BRENDA CARRINGTON Sex: M : 1930 Age: 89yUrinary Retention, MaleBPH (Enlarged Prostate)(Electronically signed by Shailesh López, Physician 01/31/2020 01:16) Name Value Range Interpretation Code Description Data Esperanza rce(s) Supporting Document(s) ID Date Data Source [id number] 2020 09:37:00 PM EST [facility] 1 Clinical Report - Nurses [facility] Emergency Department [address] [place] [address] Phone #: ext- [phone] 21:35 Patient: [...] to see him, pt catheterbegan leaking tonight).Treatment CLIMBING GUIDE:None.SEPSIS SCREEN: SIRS Screen negative. Sepsis Screen negative. [...] RN.ADDITIONAL SURGERIES: 2 Clinical Report - Nurses [facility] Emergency Department [address] [place] [address] Phone #: [phone] 2020 21:35 Patient: BRENDA CARRINGTON Sex: M [...] To treatment room. --:01/30/20 Giovanny Monroy RN.PHYSICAL [id number] 01/30/20. Ambulatory to room.GENERAL / NEURO / [...] Mckeon R.N. 3 Clinical Report - Nurses [facility] Emergency Department [address] [place] [address] Phone #: ext- [phone] 21:35 Patient: BRENDA CARRINGTON Sex: M : 1930 Age: 89yDISPOSITION / DISCHARGE Departure time: 22:28 2020. Condition at departure: stable. Follow up contact number Urology, Pt provided contact info for Both Dr Moseley and [facility] Urology. Patient verbalized understanding. Written instructions provided in Sudanese. The patient was discharged by the physician. [...] rce(s) Supporting Document(s) ID Date Data Source [id number] 2020 09:37:00 PM [facility] 1 Clinical Report - Physicians/Mid Levels [facility] Emergency Department [address] [place] [address] Phone #: ext- [phone] 21:35 Patient: [...] normal. 2 Clinical Report - Physicians/Mid Levels [facility] Emergency Department [address] [place] [address] Phone #: ext- [phone] 21:35 Patient: BRENDA CARRINGTON Sex: M [...] prostate. 3 Clinical Report - Physicians/Mid Levels [facility] Emergency Department [address] [place] [address] Phone #: ext- [phone] 21:35 Patient: BRENDA CARRINGTON Sex: M : 1930 Age: 89yINSTRUCTIONS Drink plenty of fluids. (Continue prostate meds.). Warnings: Fur ther evaluation is necessary. GENERAL WARNINGS: Return or contact your physician immediately if your condition worsens or changes unexpectedly, if not improving as expected, or if other problems arise. Follow-up: Follow up with a urologist [facility] Urology - . Call for an appointment. Reason for referral: evaluation, treatment and Urinary retention / Villalba placement. Understanding of the discharge instructions verbalized by patient. Follow-up with: Leonard Moseley M.D., Urology, , [address] [place] [address], Critical access hospital Follow up if not better. Call for an appointment. Reason for referral: evaluation, treatment and Urinary retention / villalba catheter placement.(Electronically signed by Shailesh López, Physician 01/31/2020 01:16) Name Value Range Interpretation Code Description Data [facility] rce(s) Supporting Document(s) ID Date Data Source [id number] 2020 09:58:00 PM EST [facility] ([facility] Name Value Range Interpretation Code Description Data [facility] rce(s) Supporting Document(s) Source Laboratory test result [facility] ([facility] SOURCE: Clean Catch Urinalysis Laboratory test result ME [facility] ([facility] SOURCE: Clean Catch Clarity Laboratory test result [facility] ([facility] SOURCE: Clean Catch Color Laboratory test result [facility] ([facility] SOURCE: Clean Catch Spec Valencia 1.020 1.001-1.030 [facility] ([facility] SOURCE: Clean Catch Glucose Laboratory test result [facility] ([facility] SOURCE: Clean Catch pH 5 5-9 [facility] ([facility] SOURCE: Clean Catch Bilirubin Laboratory test result ME D[facility] ([facility] SOURCE: Clean Catch Protein 100 Abnormal (applies to non-numeric res ults) [facility] ([facility] SOURCE: Clean Catch Ketone 5 Abnormal (applies to non-numeric res ults) [facility] ([facility] SOURCE: Clean Catch Nitrite Laboratory test result [facility] ([facility] SOURCE: Clean Catch Leuk Est 25 [facility] ([facility] SOURCE: Clean Catch Urobilinogen Laboratory test result [facility] ([facility] SOURCE: Clean Catch Blood 250 Abnormal (applies to non-numeric res ults) [facility] ([facility] SOURCE: Clean Catch RBC Laboratory test result Abnormal (applies to non -numeric results) [facility] ([facility] SOURCE: Clean Catch Microscopic Laboratory test result M EDENT ([facility] SOURCE: Clean Catch WBC Laboratory test result [facility] ([facility] SOURCE: Clean Catch Epithelial Laboratory test result [facility] ([facility] SOURCE: Clean Catch ID Date Data Source [id number] 2020 10:08:00 PM EST [facility] Name Value Range Interpretation Code Description Data [facility] rce(s) Supporting Document(s) [facility] R [facility] COLOR yellow NORMAL: Yellow [facility] CLARITY clear NORMAL: Clear [facility] Specific gravity of Urine by Test strip 1.020 1.001 - 1.030 [facility] pH 5 5 - 9 [facility] Glucose [Mass/volume] in Urine by Test strip NORM NORMAL: Negat jb [facility] Bilirubin.total [Presence] in Urine by Test strip NEG NORMAL: Negative [facility] Ketones [Presence] in Urine by Test strip 5 NORMAL: Negative [facility] Protein [Mass/volume] in Urine by Test strip 100 NORMAL: Negat jb [facility] Nitrite [Presence] in Urine by Test strip NEG NORMAL: Negative [facility] BLOOD 250 NORMAL: Negative [facility] Leukocyte esterase [Presence] in Urine by Test strip 25 MARSHA L: Negative [facility] Urobilinogen [Mass/volume] in Urine by Test strip NOR less steven n 1.0 mg/dL [facility] MICROSCOPIC See Below [facility] WBC 1 - 3 NORMAL: NONE SEEN [facility] Erythrocytes [#/volume] in Urine by Test strip 20 - 30 NORMAL: NON E SEEN A [facility] EPITHELIAL FEW NORMAL: NONE SEEN [facility] ID Date Data Source [id number] 2020 09:57:00 PM EST [facility] ([facility] Name Value Range Interpretation Code Description Data [facility] rce(s) Supporting Document(s) Bacteria identified in Urine by Culture Laboratory test result [facility] ([facility] SOURCE: Urine, Catheter ID Date Data Source [id number] 02/05/2020 07:35:00 AM EST [facility] Name Value Range Interpretation Code Description Data [facility] rce(s) Supporting Document(s) CULTURE URINE [facility] _CULTURE URINE_$$[id number]$$[id number]$$[id number]$$697793$$330184$$098414$$535536$$694754$$271643$$ 611563$$045174$$581609$$703938$$849146$$637729$$431431$$405594$$116233$$213629$$ 664233$$327176$$590049$$199186$$894794$$073443$$152838$$[id number] -- Continued on next page --Patient: MOROMISATO SHINTETSU Order: Page 2Culture: CULTURE URINE Status: Final ==== -- Continued on next page --Patient: MOROMISATO SHINTETSU Order: [id number] Page 2Culture: CULTURE URINE Status: Prelim =====$$[id number]$$[id number] DATE/TIME: 02/04/2020 16:06Culture: CULTURE URINE Status: FinalUrine Culture,Comprehensive: P1No growth in 36 - 48 hours. Previous result entered on 02/03/2020 06:45 ET No growth after 18-24 hours.P1 Test performed by: [facility] VERNON #: [id number] [address] [id number] [facility] [address]Medical Director : Omkar Park MD NPI #:Lab Di sameera : 02/04/20.0709.XMT.SENT REF 02/05/20.0735.XMT.SENT REF ID Date Data Source [id number] 2020 09:39:00 [place] [address] PHONE: [phone] FAX: [phone] Name .................. : CHARISSA GUTIERREZ Acct Number.................. : [id number] ROOM. ................. : TR-06 MR Number ................... : [id number] Stay type ............. : E/R Discharge Date......... ... : 01/27/20 Admit Date ......... : 01/27/20 Admit Phys .................... : NORRIS ARBOLEDA Date of ....... : 1930 Family Phys ................... : REVA WRIGHT Phone .................. : [phone] Age ................................ : 89 Film# .................. .:[id number] Sex ................................. : M Unsigned transcriptions are preliminary reports and do not represent a medical or legal document RENAL COMPLETE [id number] COMPLETE:01/27/20 08:38 MCM [id number] Reason(s): urinary retention COMPLETE RENAL ULTRASOUND: HISTORY: [...] REVA FISH via fax Copy for: [facility] REC DISCHARGED Page 1 of 1 Name Value Range Interpretation Code Description Data [facility] rce(s) Supporting Document(s) ID Date Data Source [id number] 01/27/2020 06:37:00 AM EST [facility] 1 OrderSheet [facility] Emergency Department [address] [place] [address] Phone #: ext- [phone] 01/27/2020 06:30 Patient: BRENDA CARRINGTON Sex: M [...] rce(s) Supporting Document(s) ID Date Data Source [id number] 01/27/2020 06:37:00 AM EST [facility] 1 Medication Reconciliation Report [facility] Emergency Department [address] [place] [address] Phone #: ext- [phone] 01/27/2020 06:30 Patient: [...] to the patient:None. 2 Medication Reconciliation Report [facility] Emergency Department [address] [place] [address] Phone #: ext- [phone] 01/27/2020 06:30 Patient: BRENDA CARRINGTON Sex: M : 1930 Age: 89y Name Value Range Interpretation Code Description Data [facility] rce(s) Supporting Document(s) ID Date Data Source [id number] 01/27/2020 06:37:00 AM EST [facility] 1 Medication Administration Record [facility] Emergency Department [address] [place] [address] Phone #: ext- [phone] 06:30 Patient: BRENDA CARRINGTON Sex: M : 1930 Age: 89yWeight: 62.5 kgHeight/Length: 62 inBMI: 25.2ALLERGIES: No Known Drug AllergyDate/Time Medication Administered Medication Ordered Name Value Range Interpretation Code Description Data [facility] rce(s) Supporting Document(s) ID Date Data Source [id number] 01/27/2020 06:37:00 AM EST [facility] 1 General Instructions [facility] Emergency Department [address] [place] [address] Phone #: ext- [phone] 01/27/2020 06:30 Patient: [...] patient.Follow-up with: Leonard Moseley M.D., Urology, , [address] [place] [address], [phone] Follow up Tuesday even if well. Call for an appointment. Reason for referral: evaluation. Summary ofcare provided to patient via paper. ADDITIONAL INFORMATION 2 General Instructions [facility] Emergency Department [address] [place] [address] Phone #: ext- [phone] 01/27/2020 06:30 Patient: [...] catheter from falling out. 3 General Instructions [facility] Emergency Department [address] [place] [address] Phone #: ext- [phone] 01/27/2020 06:30 Patient: [...] o Catheter stops draining for 6 hours [id number] [employer]. [address] [place] [address]. All rights reserved. This information is not intended as a 4 General Instructions [facility] Emergency Department [address] [place], [place] [id number] Phone #: ext- [phone] 01/27/2020 06:30 Patient: [...] provider will discuss treatment 5 General Instructions [facility] Emergency Department [address] [place] [address] Phone #: ext- [phone] 01/27/2020 06:30 Patient: [...] increase the risk of prostate cancer include beingAfrican-Danish or having a father or brother who had prostate cancer. A high-fat diet may alsoincrease the risk of prostate cancer. Talk to your healthcare provider to see whether you should bescreened for prostate cancer.Follow-up careFollow up with your healthcare provider, or as advisedTo learn more, go to: National Kidney Urologic Diseases Information Clearinghouse kidney.niddk.nih.gov, 601-993731291Vdxs to seek medical a dviceCall your healthcare provider right away if any of these occur: Fever of 100.4F (38.0C) or higher, or as advised Unable to pass urine for 8 hours Increasing pressure or pain in your bladder (lower abdomen) Blood in the urine 6 General Instructions [facility] Emergency Department [address] [place] [address] Phone #: ext- [phone] 01/27/2020 06:30 Patient: BRENDA CARRINGTON Sex: M : 1930 Age: 89y Increasing low back pain, not related to injury Symptoms of urinary infection (increased urge to urinate, burning when passing urine, foul-smelling urine) [id number] [employer]. [address] [place] [address], [place] [address]. All rights reserved. This information is not intended as asubstitute for professional medical care. Always follow your healthcare professional's instructions. You have been given the following additional information: Urinary Retention, Male BPH (Enlarged Prostate)(El ectronically signed by Marsha Persaud MD 01/28/2020 01:59) Name Value Range Interpretation Code Description Data [facility] rce(s) Supporting Document(s) ID Date Data Source [id number] 01/27/2020 06:37:00 AM EST [facility] 1 Clinical Report - Nurses [facility] Emergency Department [address] [place] [address] Phone #: eoy- [phone] 01/27/2020 06:30 Patient: BRENDA CARRINGTON Sex: M : 1930 Age: 89yTRIAGEArrived by private vehicle. Historian: patient.Triage time: 06:34 01/27/2020. Acuity: LEVEL 4.Chief Complaint: (unable to control urine).This started yesterday. ( States has been dribbling urine since yesterday and has been wearing a diaperor using paper towel).Treatment CLIMBING GUIDE:None.SEPSIS SCREEN: SIRS Screen negative. Sepsis Screen negative. [...] Mckeon RN.PROBLEMS: 2 Clinical Report - Nurses [facility] Emergency Department [address] [place] [address] Phone #: ext- [phone] 01/27/2020 06:30 Patient: [...] Jackson R.N. 3 Clinical Report - Nurses [facility] Emergency Department [address] [place] [address] Phone #: ext- [phone] 01/27/2020 06:30 Patient: BRENDA CARRINGTON Sex: M [...] Jackson R.N. 08:40 01/27/20. [facility] r[facility]. --09:12 01/27/20 Dbebie Prasad, TONY Charted On Wrong Patient --09:13 [...] Patient returned from sonogram by wheelchair with interventional radiology rn. --09:14 01/27/20 Debbie Prasad RN 09:00 01/27/20. [...] Patient verbalized understanding. Written instructions provided in Sudanese. The patient was discharged by the physician. [...] rce(s) Supporting Document(s) ID Date Data Source [id number] 01/27/2020 06:37:00 AM [facility] 1 Clinical Report - Physicians/Mid Levels [facility] Emergency Department [address] [place] [address] Phone #: ext- [phone] 01/27/2020 06:30 Patient: [...] daily. 2 Clinical Report - Physicians/Mid Levels [facility] Emergency Department [address] [place] [address] Phone #: ext- [phone] 01/27/2020 06:30 Patient: BRENDA CARRINGTON Sex: M [...] scan 3 Clinical Report - Physicians/Mid Levels [facility] Emergency Department [address] [place] [address] Phone #: yoy- [phone] 01/27/2020 06:30 Patient: BRENDA CARRINGTON Sex: M [...] instructed.). 4 Clinical Report - Physicians/Mid Levels [facility] Emergency Department [address] [place] [address] Phone #: ext- [phone] 01/27/2020 06:30 Patient: [...] Follow-up with: Leonard Moseley M.D., Urology, , [address] [place] [address], [phone] Follow up Tuesday even if well. Call for an appointment. Reason for referral: evaluation. Summary of care provided to patient via paper.(Electronically signed by Marsha Persaud MD 01/28/2020 01:59) Name Value Range Interpretation Code Description Data [facility] rce(s) Supporting Document(s) ID Date Data Source [id number] 01/27/2020 07:10:00 AM EST [facility] ([facility] Name Value Range Interpretation Code Description Data [facility] rce(s) Supporting Document(s) Source Laboratory test result [facility] ([facility] SOURCE: Clean Catch Urinalysis Laboratory test result [facility] ([facility] SOURCE: Clean Catch Spec Valencia 1.020 1.001-1.030 [facility] ([facility] SOURCE: Clean Catch Color Laboratory test result [facility] ([facility] SOURCE: Clean Catch Clarity Laboratory test result [facility] ([facility] SOURCE: Clean Catch pH 5 5-9 [facility] ([facility] SOURCE: Clean Catch Bilirubin Laboratory test result [facility] ([facility] SOURCE: Clean Catch Glucose Laboratory test result [facility] ([facility] SOURCE: Clean Catch Ketone Laboratory test result [facility] ([facility] SOURCE: Clean Catch Protein 15 [facility] ([facility] SOURCE: Clean Catch Nitrite Laboratory test result [facility] ([facility] SOURCE: Clean Catch Leuk Est Laboratory test result [facility] ([facility] SOURCE: Clean Catch Blood Laboratory test result [facility] ([facility] SOURCE: Clean Catch Urobilinogen Laboratory test result [facility] ([facility] SOURCE: Clean Catch Microscopic Laboratory test result M [facility] ([facility] SOURCE: Clean Catch WBC Laboratory test result [facility] ([facility] SOURCE: Clean Catch RBC Laboratory test result [facility] ([facility] SOURCE: Clean Catch Epithelial Laboratory test result [facility] ([facility] SOURCE: Clean Catch Bacteria Laboratory test result [facility] ([facility] SOURCE: Clean Catch ID Date Data Source [id number] 01/27/2020 07:42:00 AM EST [facility] Name Value Range Interpretation Code Description Data [facility] rce(s) Supporting Document(s) [facility] COL[facility] yellow NORMAL: Yellow [facility] CLARITY Clear NORMAL: Clear [facility] Specific gravity of Urine by Test strip 1.020 1.001 - 1.030 [facility] pH 5 5 - 9 [facility] al Glucose [Mass/volume] in Urine by Test strip NORM NORMAL: Negat [facility] Bilirubin.total [Presence] in Urine by Test strip NEG NORMAL: Negative [facility] Ketones [Presence] in Urine by Test strip NEG NORMAL: Negative [facility] Protein [Mass/volume] in Urine by Test strip 15 NORMAL: Negat [facility] Nitrite [Presence] in Urine by Test strip NEG NORMAL: Negative [facility] BLOOD NEG NORMAL: Negative [facility] Leukocyte esterase [Presence] in Urine by Test strip NEG MARSHA L: Negative [facility] Urobilinogen [Mass/volume] in Urine by Test strip NOR less steven n 1.0 mg/dL [facility] MICROSCOPIC See Below [facility] ital WBC 0 - 1 NORMAL: NONE SEEN [facility] Erythrocytes [#/volume] in Urine by Test strip 0 - 1 NORMAL: NON E SEEN [facility] EPITHELIAL FEW NORMAL: NONE SEEN [facility] Bacteria [Presence] in Urine sediment by Light microscopy Tr mora NORMAL: NONE SEEN [facility] ID Date Data Source [id number] 01/16/2020 08:43:00 AM EST [facility] ([facility]amil y [...] HCT IS 5% LESS SOURCE FOR DATA: [employer] 1800 OPERATION MANUAL( AUTOMATED BLOOD COUNTS AND [...] HCT 35.6 % 37.0-51.0 Below low normal [facility] ( [facility] NORMAL RANGES [...] HCT IS 5% LESS SOURCE FOR DATA: [employer] 1800 OPERATION MANUAL( AUTOMATED BLOOD COUNTS AND [...] RBC 3.78 10E6/uL 4.20-6.30 Below low normal [facility] ([facility] NORMAL RANGES Age [...] HCT IS 5% LESS SOURCE FOR DATA: [employer] 1800 OPERATION MANUAL( AUTOMATED BLOOD COUNTS AND [...] HCT IS 5% LESS SOURCE FOR DATA: [employer] 1800 OPERATION MANUAL( AUTOMATED BLOOD COUNTS AND [...] 2-19 YEARS EXCLUSIVE. MCHC 34.8 g/dL 31.0-36.0 [facility] ([facility] NORMAL RANGES [...] HCT IS 5% LESS SOURCE FOR DATA: [employer] DYN 1800 OPERATION MANUAL( AUTOMATED BLOOD COUNTS [...] MCH 32.8 pg 26.0-32.0 Above high normal [facility] ([facility] NORMAL RANGES Age [...] HCT IS 5% LESS SOURCE FOR DATA: [employer] 1800 OPERATION MANUAL( AUTOMATED BLOOD COUNTS AND [...] MCV 94.2 fL 80.0-97.0 [facility] ([facility] NORMAL RANGES Age WBC [...] HCT IS 5% LESS SOURCE FOR DATA: [employer] 1800 OPERATION MANUAL( AUTOMATED BLOOD COUNTS AND [...] 2-19 YEARS EXCLUSIVE. Lym% 27.0 % 10.0-58.5 [facility] ([facility] [...] HCT IS 5% LESS SOURCE FOR DATA: [employer] 1800 OPERATION MANUAL( AUTOMATED BLOOD COUNTS AND [...] 2-19 YEARS EXCLUSIVE. PLT 346 10E3/uL 140-440 [facility] ([facility] NORMAL RANGES Age WBC RBC [...] HCT IS 5% LESS SOURCE FOR DATA: [employer] 1800 OPERATION MANUAL( AUTOMATED BLOOD COUNTS AND [...] 2-19 YEARS EXCLUSIVE. RDW-CV 14.2 % 11.5-14.5 [facility] NORMAL RANGES Age [...] HCT IS 5% LESS SOURCE FOR DATA: [employer] 1800 OPERATION MANUAL( AUTOMATED BLOOD COUNTS AND [...] 2-19 YEARS EXCLUSIVE. Neut% 66.6 % 37.0-92.0 [facility] ([facility] NORMAL RANGES [...] HCT IS 5% LESS SOURCE FOR DATA: [employer] 1800 OPERATION MANUAL( AUTOMATED BLOOD COUNTS AND [...] HCT IS 5% LESS SOURCE FOR DATA: [employer] 1800 OPERATION MANUAL( AUTOMATED BLOOD COUNTS AND [...] YEARS EXCLUSIVE. Lym# 1.6 10E3/uL 0.6-4.1 [facility] ([facility] NORMAL RANGES Age WBC RBC [...] HCT IS 5% LESS SOURCE FOR DATA: [employer] 1800 OPERATION MANUAL( AUTOMATED BLOOD COUNTS AND [...] 2-19 YEARS EXCLUSIVE. Neut# 4.0 % 2.0-7.8 [facility] ([facility] [...] HCT IS 5% LESS SOURCE FOR DATA: [employer] 1800 OPERATION MANUAL( AUTOMATED BLOOD COUNTS AND [...] YEARS EXCLUSIVE. MXD# 0.4 10E3/uL 0.0-1.8 [facility] ([facility] NORMAL RANGES Age WBC RBC [...] HCT IS 5% LESS SOURCE FOR DATA: [employer] 1800 OPERATION MANUAL( AUTOMATED BLOOD COUNTS AND [...] MPV 8.0 fL 9.0-13.0 Below low normal [facility] ( [facility] NORMAL RANGES [...] HCT IS 5% LESS SOURCE FOR DATA: [employer] 1800 OPERATION MANUAL( AUTOMATED BLOOD COUNTS AND [...] 2-19 YEARS EXCLUSIVE. ID Date Data Source [id number] 01/16/2020 08:43:00 AM EST [facility] ([facility] Name Value Range Interpretation Code Description Data [facility] rce(s) Supporting Document(s) Glu 130 mg/dL 70-110 Above high normal [facility] ([facility] NORMAL RANGES [...] HCT IS 5% LESS SOURCE FOR DATA: [employer] 1800 OPERATION MANUAL( AUTOMATED BLOOD COUNTS AND [...] HCT IS 5% LESS SOURCE FOR DATA: [employer] 1800 OPERATION MANUAL( AUTOMATED BLOOD COUNTS AND [...] HCT IS 5% LESS SOURCE FOR DATA: [employer] 1800 OPERATION MANUAL( AUTOMATED BLOOD COUNTS AND [...] 2-19 YEARS EXCLUSIVE. BUN/Creatinine Ratio 20.1 CALC [facility] ([facility] NORMAL RANGES Age WBC [...] HCT IS 5% LESS SOURCE FOR DATA: [employer] 1800 OPERATION MANUAL( AUTOMATED BLOOD COUNTS AND [...] 2-19 YEARS EXCLUSIVE. CA 10.2 mg/dL 8.6-10.2 [facility] [facility] NORMAL RANGES Age WBC RBC [...] HCT IS 5% LESS SOURCE FOR DATA: Pontis 1800 OPERATION MANUAL( AUTOMATED BLOOD COUNTS AND [...] HCT IS 5% LESS SOURCE FOR DATA: Buys[employer] DYN 1800 OPERATION MANUAL( AUTOMATED BLOOD COUNTS [...] 2-19 YEARS EXCLUSIVE. Co2 24.7 mmol/L 22.0-29.0 [facility] ([facility] NORMAL RANGES Age WBC RBC HGB [...] HCT IS 5% LESS SOURCE FOR DATA: Pontis 1800 OPERATION MANUAL( AUTOMATED BLOOD COUNTS AND [...] HCT IS 5% LESS SOURCE FOR DATA: [employer] DYN 1800 OPERATION MANUAL( AUTOMATED BLOOD COUNTS [...] HCT IS 5% LESS SOURCE FOR DATA: Pontis 1800 OPERATION MANUAL( AUTOMATED BLOOD COUNTS AND [...] 2-19 YEARS EXCLUSIVE. A/G Ratio 2.3 [facility] NORMAL RANGES Age WBC [...] HCT IS 5% LESS SOURCE FOR DATA: Pontis 1800 OPERATION MANUAL( AUTOMATED BLOOD COUNTS AND [...] 2-19 YEARS EXCLUSIVE. Alb 4.6 g/dL 3.5-5.2 [facility] ([facility] NORMAL RANGES [...] HCT IS 5% LESS SOURCE FOR DATA: Pontis 1800 OPERATION MANUAL( AUTOMATED BLOOD COUNTS AND [...] HCT IS 5% LESS SOURCE FOR DATA: Pontis 1800 OPERATION MANUAL( AUTOMATED BLOOD COUNTS AND [...] YEARS EXCLUSIVE. Alt (SGPT) 16 U/L 0-41 [facility] ([facility], [...] HCT IS 5% LESS SOURCE FOR DATA: Pontis 1800 OPERATION MANUAL( AUTOMATED BLOOD COUNTS AND [...] 2-19 YEARS EXCLUSIVE. Alp 68.1 U/L 40-129 [facility] ([facility] NORMAL RANGES [...] HCT IS 5% LESS SOURCE FOR DATA: Pontis 1800 OPERATION MANUAL( AUTOMATED BLOOD COUNTS AND [...] HCT IS 5% LESS SOURCE FOR DATA: Pontis 1800 OPERATION MANUAL( AUTOMATED BLOOD COUNTS AND [...] 2-19 YEARS EXCLUSIVE. Tbili 0.36 mg/dL 0.0-1.2 [facility] ([facility], [...] HCT IS 5% LESS SOURCE FOR DATA: [employer] DYN 1800 OPERATION MANUAL( AUTOMATED BLOOD COUNTS [...] HCT IS 5% LESS SOURCE FOR DATA: Pontis 1800 OPERATION MANUAL( AUTOMATED BLOOD COUNTS AND [...] HCT IS 5% LESS SOURCE FOR DATA: Pontis 1800 OPERATION MANUAL( AUTOMATED BLOOD COUNTS AND [...] INDIVIDUALA AGED 2-19 YEARS EXCLUSIVE. eGFR Non-Afr. Danish 66 # [facility] ([facility] [...] HCT IS 5% LESS SOURCE FOR DATA: [employer] DYN 1800 OPERATION MANUAL( AUTOMATED BLOOD COUNTS [...] 2-19 YEARS EXCLUSIVE. Anion Gap 17 mmol/L [facility] ([facility] NORMAL RANGES [...] HCT IS 5% LESS SOURCE FOR DATA: Pontis 1800 OPERATION MANUAL( AUTOMATED BLOOD COUNTS AND [...] 2-19 YEARS EXCLUSIVE. ID Date Data Source [id number] 01/16/2020 08:43:00 AM EST [facility] ([facility] Name Value Range Interpretation Code Description Data Esperanza rce(s) Supporting Document(s) Trig 181 mg/dL 35-200 [facility] NORMAL RANGES Age WBC [...] HCT IS 5% LESS SOURCE FOR DATA: Pontis 1800 OPERATION MANUAL( AUTOMATED BLOOD COUNTS AND [...] 2-19 YEARS EXCLUSIVE. Chol 146 mg/dL 0-200 [facility] ([facility] NORMAL RANGES [...] HCT IS 5% LESS SOURCE FOR DATA: Pontis 1800 OPERATION MANUAL( AUTOMATED BLOOD COUNTS AND [...] HCT IS 5% LESS SOURCE FOR DATA: Pontis 1800 OPERATION MANUAL( AUTOMATED BLOOD COUNTS AND [...] HCT IS 5% LESS SOURCE FOR DATA: Pontis 1800 OPERATION MANUAL( AUTOMATED BLOOD COUNTS AND [...] in Serum or Plasma 47 mg/dL 35-55 [facility] ([facility] NORMAL RANGES Age [...] HCT IS 5% LESS SOURCE FOR DATA: Pontis 1800 OPERATION MANUAL( AUTOMATED BLOOD COUNTS AND [...] 2-19 YEARS EXCLUSIVE. ID Date Data Source [id number] 01/16/2020 08:43:00 AM EST [facility] ([facility] Name Value Range Interpretation Code Description Data Esperanza rce(s) Supporting Document(s) Creatine kinase [Enzymatic activity/volume] in Serum or Plasma 62 U /L 39-308 [facility] ([facility] NORMAL RANGES [...] HCT IS 5% LESS SOURCE FOR DATA: Pontis 1800 OPERATION MANUAL( AUTOMATED BLOOD COUNTS AND [...] Hemoglobin A1c/Hemoglobin.total in Blood 5.9 % 4.40-6.10 [facility] ([facility] NORMAL RANGES Age [...] HCT IS 5% LESS SOURCE FOR DATA: Pontis 1800 OPERATION MANUAL( AUTOMATED BLOOD COUNTS AND [...] 2-19 YEARS EXCLUSIVE. ID Date Data Source [id number] 01/16/2020 08:43:00 AM RAZIA SANTOS ([facility] Name Value Range Interpretation Code Description Data Esperanza rce(s) Supporting Document(s) Color Laboratory test result TOM ([facility] NORMAL RANGES [...] HCT IS 5% LESS SOURCE FOR DATA: Pontis 1800 OPERATION MANUAL( AUTOMATED BLOOD COUNTS AND [...] 2-19 YEARS EXCLUSIVE. Clarity Laboratory test result [employer] ([facility] NORMAL RANGES Age [...] HCT IS 5% LESS SOURCE FOR DATA: Pontis 1800 OPERATION MANUAL( AUTOMATED BLOOD COUNTS AND [...] HCT IS 5% LESS SOURCE FOR DATA: Pontis 1800 OPERATION MANUAL( AUTOMATED BLOOD COUNTS AND [...] 2-19 YEARS EXCLUSIVE. Bilirubin,Urine Laboratory test result [facility] ([facility] NORMAL RANGES Age [...] HCT IS 5% LESS SOURCE FOR DATA: Pontis 1800 OPERATION MANUAL( AUTOMATED BLOOD COUNTS AND [...] 2-19 YEARS EXCLUSIVE. pH 5.5 # 5.0-8.0 [facility] ([facility] NORMAL RANGES Age WBC [...] HCT IS 5% LESS SOURCE FOR DATA: Pontis 1800 OPERATION MANUAL( AUTOMATED BLOOD COUNTS AND [...] HCT IS 5% LESS SOURCE FOR DATA: Pontis 1800 OPERATION MANUAL( AUTOMATED BLOOD COUNTS AND [...] 2-19 YEARS EXCLUSIVE. Ketone Laboratory test result [facility] ([facility] NORMAL RANGES Age [...] HCT IS 5% LESS SOURCE FOR DATA: Pontis 1800 OPERATION MANUAL( AUTOMATED BLOOD COUNTS AND [...] Urobilinogen 0.2 NA 0.2-1.0 [facility] ([facility] NORMAL RANGES Age WBC RBC [...] HCT IS 5% LESS SOURCE FOR DATA: Bu[employer] DYN 1800 OPERATION MANUAL( AUTOMATED BLOOD COUNTS [...] 2-19 YEARS EXCLUSIVE. Protein Laboratory test [facility] NORMAL RANGES Age [...] HCT IS 5% LESS SOURCE FOR DATA: Pontis 1800 OPERATION MANUAL( AUTOMATED BLOOD COUNTS AND [...] 2-19 YEARS EXCLUSIVE. Nitrite Laboratory test result [facility] ([facility] NORMAL RANGES Age [...] HCT IS 5% LESS SOURCE FOR DATA: Pontis 1800 OPERATION MANUAL( AUTOMATED BLOOD COUNTS AND [...] EXCLUSIVE. Leukocyte Laboratory test result ME DICKINSON ([facility] NORMAL RANGES Age [...] HCT IS 5% LESS SOURCE FOR DATA: Pontis 1800 OPERATION MANUAL( AUTOMATED BLOOD COUNTS AND [...] 2-19 YEARS EXCLUSIVE. ID Date Data Source [id number] 01/16/2020 08:43:00 AM EST [facility] ([facility] Name Value Range Interpretation Code Description Data Esperanza rce(s) Supporting Document(s) Alb 30 mg/L 1-30 [facility] ([facility] A/C Ratio Laboratory test result ME DENT ([facility] Creatinine, Urine 100 mg/dL 10-300 [facility] ([facility] ID Date Data Source [id number] 10/09/2019 10:53:00 AM EDT [facility] ([facility] Name Value [...] [facility] pH 5.0 # 5.0-8.0 [facility] ([facility] Urobilinogen 0.2 NA 0.2-1.0 [facility] ([facility] Nitrite Laboratory test result [facility] ([facility] Protein Laboratory test result Abnormal (applies to non -numeric results) [facility] ([facility] Leukocyte Laboratory test result ME DENT ([facility] ID Date Data Source [id number] 10/09/2019 08:41:00 AM EDT [facility] ([facility] Name Value Range Interpretation Code Description Data Esperanza rce(s) Supporting Document(s) Creatine kinase [Enzymatic activity/volume] in Serum or Plasma 76 U /L 39-308 [facility] ([facility] NORMAL RANGES [...] HCT IS 5% LESS SOURCE FOR DATA: Pontis 1800 OPERATION MANUAL( AUTOMATED BLOOD COUNTS AND [...] HCT IS 5% LESS SOURCE FOR DATA: Pontis 1800 OPERATION MANUAL( AUTOMATED BLOOD COUNTS AND [...] 2-19 YEARS EXCLUSIVE. ID Date Data Source [id number] 10/09/2019 08:41:00 AM TORRES SANTOS ([facility] Name Value Range Interpretation Code Description Data Esperanza rce(s) Supporting Document(s) Trig 181 mg/dL 35-200 [facility] ([facility] NORMAL [...] HCT IS 5% LESS SOURCE FOR DATA: Pontis 1800 OPERATION MANUAL( AUTOMATED BLOOD COUNTS AND [...] 2-19 YEARS EXCLUSIVE. Chol 156 mg/dL 0-200 [facility] ([facility] NORMAL RANGES [...] HCT IS 5% LESS SOURCE FOR DATA: Pontis 1800 OPERATION MANUAL( AUTOMATED BLOOD COUNTS AND [...] HCT IS 5% LESS SOURCE FOR DATA: Pontis 1800 OPERATION MANUAL( AUTOMATED BLOOD COUNTS AND [...] LDL_C 71 Calc 75-129 Below low normal [facility] ( [facility] NORMAL RANGES [...] 2-19 YEARS EXCLUSIVE. Cho/HDL Ratio 3.2 CALC [facility] NORMAL RANGES Age WBC RBC [...] HCT IS 5% LESS SOURCE FOR DATA: Pontis 1800 OPERATION MANUAL( AUTOMATED BLOOD COUNTS AND [...] 2-19 YEARS EXCLUSIVE. ID Date Data Source [id number] 10/09/2019 08:41:00 AM EDT [facility] ([facility] Name Value Range Interpretation Code Description Data Esperanza rce(s) Supporting Document(s) Glu 143 mg/dL 70-110 Above high normal [facility] ([facility] NORMAL RANGES Age [...] HCT IS 5% LESS SOURCE FOR DATA: Pontis 1800 OPERATION MANUAL( AUTOMATED BLOOD COUNTS AND [...] 2-19 YEARS EXCLUSIVE. BUN 18 mg/dL 8- [facility] ([facility] [...] HCT IS 5% LESS SOURCE FOR DATA: Pontis 1800 OPERATION MANUAL( AUTOMATED BLOOD COUNTS AND [...] HCT IS 5% LESS SOURCE FOR DATA: Pontis 1800 OPERATION MANUAL( AUTOMATED BLOOD COUNTS AND [...] AGED 2-19 YEARS EXCLUSIVE. BUN/Creatinine Ratio 17.9 [facility] ([facility] NORMAL RANGES Age WBC [...] HCT IS 5% LESS SOURCE FOR DATA: Pontis 1800 OPERATION MANUAL( AUTOMATED BLOOD COUNTS AND [...] 2-19 YEARS EXCLUSIVE. K 4.8 mmol/L 3.5-5.1 [facility] NORMAL RANGES Age WBC RBC [...] HCT IS 5% LESS SOURCE FOR DATA: Pontis 1800 OPERATION MANUAL( AUTOMATED BLOOD COUNTS AND [...] HCT IS 5% LESS SOURCE FOR DATA: Pontis 1800 OPERATION MANUAL( AUTOMATED BLOOD COUNTS AND [...] 2-19 YEARS EXCLUSIVE. Co2 26.3 mmol/L 22.0-29.0 [facility] ([facility] NORMAL RANGES Age WBC RBC HGB [...] HCT IS 5% LESS SOURCE FOR DATA: Pontis 1800 OPERATION MANUAL( AUTOMATED BLOOD COUNTS AND [...] 2-19 YEARS EXCLUSIVE. CL 99.1 mmol/L 98.0-107.0 [facility] ([facility] NORMAL RANGES [...] HCT IS 5% LESS SOURCE FOR DATA: Pontis 1800 OPERATION MANUAL( AUTOMATED BLOOD COUNTS AND [...] HCT IS 5% LESS SOURCE FOR DATA: Pontis 1800 OPERATION MANUAL( AUTOMATED BLOOD COUNTS AND [...] 2-19 YEARS EXCLUSIVE. CA 9.9 mg/dL 8.6-10.2 [facility] ([facility] NORMAL RANGES Age WBC [...] HCT IS 5% LESS SOURCE FOR DATA: Pontis 1800 OPERATION MANUAL( AUTOMATED BLOOD COUNTS AND [...] 2-19 YEARS EXCLUSIVE. Alb 4.8 g/dL 3.5-5.2 [facility] ([facility] NORMAL RANGES [...] HCT IS 5% LESS SOURCE FOR DATA: Pontis 1800 OPERATION MANUAL( AUTOMATED BLOOD COUNTS AND [...] HCT IS 5% LESS SOURCE FOR DATA: Pontis 1800 OPERATION MANUAL( AUTOMATED BLOOD COUNTS AND [...] HCT IS 5% LESS SOURCE FOR DATA: Pontis 1800 OPERATION MANUAL( AUTOMATED BLOOD COUNTS AND [...] HCT IS 5% LESS SOURCE FOR DATA: Pontis 1800 OPERATION MANUAL( AUTOMATED BLOOD COUNTS AND [...] HCT IS 5% LESS SOURCE FOR DATA: Pontis 1800 OPERATION MANUAL( AUTOMATED BLOOD COUNTS AND [...] YEARS EXCLUSIVE. Alt (SGPT) 20 U/L 0-41 [facility] NORMAL RANGES Age WBC RBC [...] 2-19 YEARS EXCLUSIVE. Tbili 0.49 mg/dL 0.0-1.2 [facility] ([facility] NORMAL RANGES [...] HCT IS 5% LESS SOURCE FOR DATA: Pontis 1800 OPERATION MANUAL( AUTOMATED BLOOD COUNTS AND [...] HCT IS 5% LESS SOURCE FOR DATA: Pontis 1800 OPERATION MANUAL( AUTOMATED BLOOD COUNTS AND [...] HCT IS 5% LESS SOURCE FOR DATA: Pontis 1800 OPERATION MANUAL( AUTOMATED BLOOD COUNTS AND [...] INDIVIDUALA AGED 2-19 YEARS EXCLUSIVE. eGFR Non-Afr. Danish 66 # [facility] ([facility] CKD-EPI ID Date Data Source [id number] 10/09/2019 08:41:00 AM EDT [facility] ([facility] Name Value Range Interpretation Code Description Data Esperanza rce(s) Supporting Document(s) WBC 5.7 10E3/uL 4.1-10.9 [facility] ([facility] NORMAL RANGES Age WBC RBC [...] HCT IS 5% LESS SOURCE FOR DATA: Pontis 1800 OPERATION MANUAL( AUTOMATED BLOOD COUNTS AND [...] 2-19 YEARS EXCLUSIVE. HGB 12.8 g/dL 12.0-18.0 [facility] ([facility] NORMAL RANGES Age WBC [...] IS 5% LESS SOURCE FOR DATA: YARI Sticher 1800 OPERATION MANUAL( AUTOMATED BLOOD COUNTS AND [...] RBC 3.89 10E6/uL 4.20-6.30 Below low normal [facility] ([facility] NORMAL RANGES Age [...] HCT IS 5% LESS SOURCE FOR DATA: Pontis 1800 OPERATION MANUAL( AUTOMATED BLOOD COUNTS AND [...] HCT IS 5% LESS SOURCE FOR DATA: Pontis 1800 OPERATION MANUAL( AUTOMATED BLOOD COUNTS AND [...] 2-19 YEARS EXCLUSIVE. MCV 94.6 fL 80.0-97.0 [facility] ([facility] [...] 2-19 YEARS EXCLUSIVE. MCHC 34.8 g/dL 31.0-36.0 [facility] ([facility] NORMAL RANGES [...] HCT IS 5% LESS SOURCE FOR DATA: Pontis 1800 OPERATION MANUAL( AUTOMATED BLOOD COUNTS AND [...] HCT IS 5% LESS SOURCE FOR DATA: Pontis 1800 OPERATION MANUAL( AUTOMATED BLOOD COUNTS AND [...] 2-19 YEARS EXCLUSIVE. PLT 367 10E3/uL 140-440 [employer] ([facility] NORMAL RANGES Age WBC RBC [...] HCT IS 5% LESS SOURCE FOR DATA: Bu[employer] DYN 1800 OPERATION MANUAL( AUTOMATED BLOOD COUNTS [...] 2-19 YEARS EXCLUSIVE. RDW-CV 13.9 % 11.5-14.5 [facility] ([facility] NORMAL RANGES [...] HCT IS 5% LESS SOURCE FOR DATA: Pontis 1800 OPERATION MANUAL( AUTOMATED BLOOD COUNTS AND [...] Lym% 22.5 % 10.0-58.5 [facility] ([facility] NORMAL RANGES Age WBC [...] HCT IS 5% LESS SOURCE FOR DATA: Pontis 1800 OPERATION MANUAL( AUTOMATED BLOOD COUNTS AND [...] 2-19 YEARS EXCLUSIVE. Neut% 68.3 % 37.0-92.0 [facility] ([facility] [...] HCT IS 5% LESS SOURCE FOR DATA: Pontis 1800 OPERATION MANUAL( AUTOMATED BLOOD COUNTS AND [...] 2-19 YEARS EXCLUSIVE. Lym# 1.3 10E3/uL 0.6-4.1 [facility] ([facility] NORMAL RANGES Age WBC RBC [...] HCT IS 5% LESS SOURCE FOR DATA: Pontis 1800 OPERATION MANUAL( AUTOMATED BLOOD COUNTS AND [...] HCT IS 5% LESS SOURCE FOR DATA: Pontis 1800 OPERATION MANUAL( AUTOMATED BLOOD COUNTS AND [...] 2-19 YEARS EXCLUSIVE. Neut# 3.9 % 2.0-7.8 [facility] ([facility] [...] HCT IS 5% LESS SOURCE FOR DATA: Pontis 1800 OPERATION MANUAL( AUTOMATED BLOOD COUNTS AND [...] 2-19 YEARS EXCLUSIVE. MXD# 0.5 10E3/uL 0.0-1.8 [facility] ([facility] NORMAL RANGES Age WBC RBC [...] HCT IS 5% LESS SOURCE FOR DATA: Pontis 1800 OPERATION MANUAL( AUTOMATED BLOOD COUNTS AND [...] MPV 8.1 fL 9.0-13.0 Below low normal [facility] ( [facility] NORMAL RANGES [...] HCT IS 5% LESS SOURCE FOR DATA: Pontis 1800 OPERATION MANUAL( AUTOMATED BLOOD COUNTS AND [...] 2-19 YEARS EXCLUSIVE. ID Date Data Source [id number] 07/02/2019 08:54:00 AM EDT [facility] ([facility] Name Value Range Interpretation Code Description Data Esperanza rce(s) Supporting Document(s) Creatinine, Urine 200 mg/dL 10-300 [facility] ([facility] Alb 80 mg/L [facility] ([facility] A/C Ratio Laboratory test result Abnormal (applies to non -numeric results) [facility] ([facility] ID Date Data Source [id number] 07/02/2019 08:54:00 AM EDT [facility] ([facility] Name Value Range Interpretation Code Description Data Esperanza rce(s) Supporting Document(s) Creatine kinase [Enzymatic activity/volume] in Serum o r Plasma Laboratory test result [facility] ([facility] NORMAL RANGES Age WBC [...] HCT IS 5% LESS SOURCE FOR DATA: Pontis 1800 OPERATION MANUAL( AUTOMATED BLOOD COUNTS AND [...] 2-19 YEARS EXCLUSIVE. Clarity Laboratory test result [facility] ([facility] NORMAL RANGES [...] HCT IS 5% LESS SOURCE FOR DATA: Pontis 1800 OPERATION MANUAL( AUTOMATED BLOOD COUNTS AND [...] 2-19 YEARS EXCLUSIVE. Color Laboratory test result [facility] ([facility] NORMAL RANGES Age [...] HCT IS 5% LESS SOURCE FOR DATA: Pontis 1800 OPERATION MANUAL( AUTOMATED BLOOD COUNTS AND [...] HCT IS 5% LESS SOURCE FOR DATA: Pontis 1800 OPERATION MANUAL( AUTOMATED BLOOD COUNTS AND [...] 2-19 YEARS EXCLUSIVE. Bilirubin,Urine Laboratory test result [facility] ([facility] NORMAL RANGES [...] 2-19 YEARS EXCLUSIVE. Glucose-Ua Laboratory test result [place] [facility] ([facility] NORMAL RANGES [...] HCT IS 5% LESS SOURCE FOR DATA: Pontis 1800 OPERATION MANUAL( AUTOMATED BLOOD COUNTS AND [...] HCT IS 5% LESS SOURCE FOR DATA: Pontis 1800 OPERATION MANUAL( AUTOMATED BLOOD COUNTS AND [...] 2-19 YEARS EXCLUSIVE. pH 6.5 # 5.0-8.0 [facility] ([facility] NORMAL RANGES Age WBC [...] HCT IS 5% LESS SOURCE FOR DATA: Pontis 1800 OPERATION MANUAL( AUTOMATED BLOOD COUNTS AND [...] HCT IS 5% LESS SOURCE FOR DATA: Pontis 1800 OPERATION MANUAL( AUTOMATED BLOOD COUNTS AND [...] HCT IS 5% LESS SOURCE FOR DATA: Pontis 1800 OPERATION MANUAL( AUTOMATED BLOOD COUNTS AND [...] 2-19 YEARS EXCLUSIVE. Nitrite Laboratory test result [employer] ([facility] NORMAL RANGES [...] HCT IS 5% LESS SOURCE FOR DATA: Pontis 1800 OPERATION MANUAL( AUTOMATED BLOOD COUNTS AND [...] 2-19 YEARS EXCLUSIVE. ID Date Data Source [id number] 07/02/2019 08:54:00 AM EDT [facility] ([facility] Name Value Range Interpretation Code Description Data Esperanza rce(s) Supporting Document(s) Creatine kinase [Enzymatic activity/volume] in Serum or Plasma 77 U /L 39-308 [facility] ([facility] NORMAL RANGES Age [...] HCT IS 5% LESS SOURCE FOR DATA: Pontis 1800 OPERATION MANUAL( AUTOMATED BLOOD COUNTS AND [...] Blood 6.6 % 4.40-6.10 Above high normal [facility] ([facility] NORMAL RANGES Age [...] HCT IS 5% LESS SOURCE FOR DATA: Pontis 1800 OPERATION MANUAL( AUTOMATED BLOOD COUNTS AND [...] 2-19 YEARS EXCLUSIVE. ID Date Data Source [id number] 07/02/2019 08:54:00 AM EDT [facility] ([facility] Name Value Range [...] HCT IS 5% LESS SOURCE FOR DATA: Pontis 1800 OPERATION MANUAL( AUTOMATED BLOOD COUNTS AND [...] 2-19 YEARS EXCLUSIVE. Chol 178 mg/dL 0-200 [facility] ([facility] NORMAL RANGES Age WBC [...] HCT IS 5% LESS SOURCE FOR DATA: Pontis 1800 OPERATION MANUAL( AUTOMATED BLOOD COUNTS AND [...] HCT IS 5% LESS SOURCE FOR DATA: Pontis 1800 OPERATION MANUAL( AUTOMATED BLOOD COUNTS AND [...] 2-19 YEARS EXCLUSIVE. Cho/HDL Ratio 3.7 CALC [facility] ([facility] NORMAL RANGES Age WBC RBC [...] HCT IS 5% LESS SOURCE FOR DATA: Pontis 1800 OPERATION MANUAL( AUTOMATED BLOOD COUNTS AND [...] 2-19 YEARS EXCLUSIVE. LDL_C 79 Calc 75-129 [facility] ([facility] NORMAL RANGES [...] 2-19 YEARS EXCLUSIVE. ID Date Data Source [id number] 07/02/2019 08:54:00 AM EDT [facility] ([facility] Name Value Range Interpretation Code Description Data Esperanza rce(s) Supporting Document(s) Glu 149 mg/dL 70-110 Above high normal [facility] ([facility] NORMAL RANGES [...] HCT IS 5% LESS SOURCE FOR DATA: [employer]is 1800 OPERATION MANUAL( AUTOMATED BLOOD COUNTS AND [...] 2-19 YEARS EXCLUSIVE. BUN 14 mg/dL 8-23 [facility] NORMAL RANGES Age WBC [...] HCT IS 5% LESS SOURCE FOR DATA: [employer]is 1800 OPERATION MANUAL( AUTOMATED BLOOD COUNTS AND [...] YEARS EXCLUSIVE. BUN/Creatinine Ratio 15.5 Calc [facility] ([facility] NORMAL RANGES Age WBC [...] HCT IS 5% LESS SOURCE FOR DATA: Pontis 1800 OPERATION MANUAL( AUTOMATED BLOOD COUNTS AND [...] HCT IS 5% LESS SOURCE FOR DATA: [employer] DYN 1800 OPERATION MANUAL( AUTOMATED BLOOD COUNTS [...] 2-19 YEARS EXCLUSIVE. K 4.8 mmol/L 3.5-5.1 [facility] NORMAL RANGES Age WBC RBC [...] HCT IS 5% LESS SOURCE FOR DATA: Pontis 1800 OPERATION MANUAL( AUTOMATED BLOOD COUNTS AND [...] HCT IS 5% LESS SOURCE FOR DATA: [employer] DYN 1800 OPERATION MANUAL( AUTOMATED BLOOD COUNTS [...] HCT IS 5% LESS SOURCE FOR DATA: Pontis 1800 OPERATION MANUAL( AUTOMATED BLOOD COUNTS AND [...] 2-19 YEARS EXCLUSIVE. CA 9.7 mg/dL 8.6-10.2 [facility] NORMAL RANGES Age WBC [...] HCT IS 5% LESS SOURCE FOR DATA: [employer]is 1800 OPERATION MANUAL( AUTOMATED BLOOD COUNTS AND [...] 2-19 YEARS EXCLUSIVE. Co2 25.0 mmol/L 22.0-29.0 [facility] ([facility] NORMAL RANGES Age WBC RBC [...] HCT IS 5% LESS SOURCE FOR DATA: [employer]is 1800 OPERATION MANUAL( AUTOMATED BLOOD COUNTS AND [...] HCT IS 5% LESS SOURCE FOR DATA: Pontis 1800 OPERATION MANUAL( AUTOMATED BLOOD COUNTS AND [...] 2-19 YEARS EXCLUSIVE. Alb 4.6 g/dL 3.5-5.2 [facility] ([facility] NORMAL [...] HCT IS 5% LESS SOURCE FOR DATA: [employer]is 1800 OPERATION MANUAL( AUTOMATED BLOOD COUNTS AND [...] 2-19 YEARS EXCLUSIVE. Alp 67.1 U/L 40-129 [facility] ([facility] NORMAL RANGES [...] HCT IS 5% LESS SOURCE FOR DATA: [employer]is 1800 OPERATION MANUAL( AUTOMATED BLOOD COUNTS AND [...] HCT IS 5% LESS SOURCE FOR DATA: [employer]is 1800 OPERATION MANUAL( AUTOMATED BLOOD COUNTS AND [...] 2-19 YEARS EXCLUSIVE. A/G Ratio 2.3 Calc [facility] ([facility] NORMAL RANGES [...] YEARS EXCLUSIVE. Ast (Sgot) 26 U/L 0-40 [facility] ([facility] [...] HCT IS 5% LESS SOURCE FOR DATA: Pontis 1800 OPERATION MANUAL( AUTOMATED BLOOD COUNTS AND [...] EXCLUSIVE. Alt (SGPT) 28 U/L 0-41 [facility] NORMAL RANGES Age WBC RBC [...] HCT IS 5% LESS SOURCE FOR DATA: Pontis 1800 OPERATION MANUAL( AUTOMATED BLOOD COUNTS AND [...] 2-19 YEARS EXCLUSIVE. Tbili 0.42 mg/dL 0.0-1.2 [facility] NORMAL RANGES Age WBC RBC [...] HCT IS 5% LESS SOURCE FOR DATA: Pontis 1800 OPERATION MANUAL( AUTOMATED BLOOD COUNTS AND [...] HCT IS 5% LESS SOURCE FOR DATA: [employer]is 1800 OPERATION MANUAL( AUTOMATED BLOOD COUNTS AND [...] INDIVIDUALA AGED 2-19 YEARS EXCLUSIVE. eGFR Non-Afr. Danish 75 # [facility] ([facility] CKD-EPI eGFR 87 # [facility] ( [facility] CKD-EPI ID Date Data Source [id number] 07/02/2019 08:54:00 AM EDT [facility] ([facility] Name Value Range Interpretation Code Description Data Esperanza rce(s) Supporting Document(s) RBC 3.94 10E6/uL 4.20-6.30 Below low normal [facility] ([facility] [facility] NORMAL RANGES Age WBC [...] HCT IS 5% LESS SOURCE FOR DATA: Pontis 1800 OPERATION MANUAL( AUTOMATED BLOOD COUNTS AND [...] 2-19 YEARS EXCLUSIVE. WBC 5.9 10E3/uL 4.1-10.9 [facility] ([facility] NORMAL RANGES Age WBC RBC [...] HCT IS 5% LESS SOURCE FOR DATA: Pontis 1800 OPERATION MANUAL( AUTOMATED BLOOD COUNTS AND [...] 2-19 YEARS EXCLUSIVE. HCT 37.5 % 37.0-51.0 [facility] ([facility] NORMAL [...] 2-19 YEARS EXCLUSIVE. HGB 12.9 g/dL 12.0-18.0 [facility] ([facility] NORMAL RANGES [...] HCT IS 5% LESS SOURCE FOR DATA: Pontis 1800 OPERATION MANUAL( AUTOMATED BLOOD COUNTS AND [...] HCT IS 5% LESS SOURCE FOR DATA: Pontis 1800 OPERATION MANUAL( AUTOMATED BLOOD COUNTS AND [...] HCT IS 5% LESS SOURCE FOR DATA: [employer] DYN 1800 OPERATION MANUAL( AUTOMATED BLOOD COUNTS [...] 2-19 YEARS EXCLUSIVE. RDW-CV 13.8 % 11.5-14.5 [facility] ([facility] [...] HCT IS 5% LESS SOURCE FOR DATA: Pontis 1800 OPERATION MANUAL( AUTOMATED BLOOD COUNTS AND [...] HCT IS 5% LESS SOURCE FOR DATA: [employer] DYN 1800 OPERATION MANUAL( AUTOMATED BLOOD COUNTS [...] 2-19 YEARS EXCLUSIVE. PLT 362 10E3/uL 140-440 [facility] ([facility] NORMAL RANGES Age WBC RBC [...] HCT IS 5% LESS SOURCE FOR DATA: Pontis 1800 OPERATION MANUAL( AUTOMATED BLOOD COUNTS AND [...] 2-19 YEARS EXCLUSIVE. Lym% 22.1 % 10.0-58.5 [facility] ([facility] NORMAL RANGES [...] HCT IS 5% LESS SOURCE FOR DATA: Pontis 1800 OPERATION MANUAL( AUTOMATED BLOOD COUNTS AND [...] 2-19 YEARS EXCLUSIVE. Neut% 68.1 % 37.0-92.0 [facility] NORMAL RANGES Age [...] HCT IS 5% LESS SOURCE FOR DATA: Pontis 1800 OPERATION MANUAL( AUTOMATED BLOOD COUNTS AND [...] 2-19 YEARS EXCLUSIVE. MXD% 9.8 % 0.1-24.0 [facility] ([facility] NORMAL RANGES [...] HCT IS 5% LESS SOURCE FOR DATA: [employer] DYN 1800 OPERATION MANUAL( AUTOMATED BLOOD COUNTS [...] 2-19 YEARS EXCLUSIVE. Neut# 4.0 % 2.0-7.8 [facility] ([facility] NORMAL RANGES [...] HCT IS 5% LESS SOURCE FOR DATA: Pontis 1800 OPERATION MANUAL( AUTOMATED BLOOD COUNTS AND [...] YEARS EXCLUSIVE. Lym# 1.3 10E3/uL 0.6-4.1 [facility] ([facility] NORMAL RANGES Age WBC RBC [...] HCT IS 5% LESS SOURCE FOR DATA: Pontis 1800 OPERATION MANUAL( AUTOMATED BLOOD COUNTS AND [...] MPV 7.8 fL 9.0-13.0 Below low normal [facility] ( [facility] NORMAL RANGES [...] HCT IS 5% LESS SOURCE FOR DATA: Pontis 1800 OPERATION MANUAL( AUTOMATED BLOOD COUNTS AND [...] 2-19 YEARS EXCLUSIVE. MXD# 0.6 10E3/uL 0.0-1.8 [facility] ([facility] NORMAL RANGES Age WBC RBC [...] HCT IS 5% LESS SOURCE FOR DATA: Pontis 1800 OPERATION MANUAL( AUTOMATED BLOOD COUNTS AND [...] 2-19 YEARS EXCLUSIVE. ID Date Data Source [id number] 03/26/2019 09:05:00 AM EST [facility] ([facility] Name Value Range Interpretation Code Description Data Esperanza rce(s) Supporting Document(s) Clarity Laboratory test result [facility] ([facility] CLASSIFICATION CHOLESTEROL [...] HCT IS 5% LESS SOURCE FOR DATA: Pontis 1800 OPERATION MANUAL( AUTOMATED BLOOD COUNTS AND DIFF.) APPENDIX B-3 Color Laboratory test result [facility] ([facility] CLASSIFICATION CHOLESTEROL FO [...] HCT IS 5% LESS SOURCE FOR DATA: [employer] DYN 1800 OPERATION MANUAL( AUTOMATED BLOOD COUNTS [...] HCT IS 5% LESS SOURCE FOR DATA: [employer] DYN 1800 OPERATION MANUAL( AUTOMATED BLOOD COUNTS AND DIFF.) APPENDIX B-3 Ketone Laboratory test result [facility] ([facility] CLASSIFICATION CHOLESTEROL [...] HCT IS 5% LESS SOURCE FOR DATA: [employer] DYN 1800 OPERATION MANUAL( AUTOMATED BLOOD COUNTS [...] HCT IS 5% LESS SOURCE FOR DATA: Pontis 1800 OPERATION MANUAL( AUTOMATED BLOOD COUNTS AND [...] HCT IS 5% LESS SOURCE FOR DATA: [employer] DYN 1800 OPERATION MANUAL( AUTOMATED BLOOD COUNTS AND DIFF.) APPENDIX B-3 pH 5.5 # 5.0-8.0 [facility] ([facility] CLASSIFICATION CHOLESTEROL FO R [...] mg/dL Abnormal (applies to non-numeric res ults) [facility] ([facility] CLASSIFICATION [...] HCT IS 5% LESS SOURCE FOR DATA: Pontis 1800 OPERATION MANUAL( AUTOMATED BLOOD COUNTS AND [...] HCT IS 5% LESS SOURCE FOR DATA: Pontis 1800 OPERATION MANUAL( AUTOMATED BLOOD COUNTS AND DIFF.) APPENDIX B-3 Nitrite Laboratory test result [facility] ([facility] CLASSIFICATION CHOLESTEROL [...] HCT IS 5% LESS SOURCE FOR DATA: Pontis 1800 OPERATION MANUAL( AUTOMATED BLOOD COUNTS AND [...] IS 5% LESS SOURCE FOR DATA: YARI Sticher 1800 OPERATION MANUAL( AUTOMATED BLOOD COUNTS AND DIFF.) APPENDIX B-3 ID Date Data Source [id number] 03/26/2019 09:05:00 AM EST [facility] ([facility] Name Value Range Interpretation Code Description Data Esperanza rce(s) Supporting Document(s) Hemoglobin A1c/Hemoglobin.total in Blood 6.1 % 4.40-6.10 [facility] ([facility] CLASSIFICATION CHOLESTEROL FO [...] HCT IS 5% LESS SOURCE FOR DATA: [employer] DYN 1800 OPERATION MANUAL( AUTOMATED BLOOD COUNTS AND DIFF.) APPENDIX B-3 Creatine kinase [Enzymatic activity/volume] in Serum or Plasma 61 U /L 39-308 [facility] ([facility] CLASSIFICATION [...] DIFF.) APPENDIX B-3 ID Date Data Source [id number] 03/26/2019 09:05:00 AM EST [facility] ([facility] Name Value Range Interpretation Code Description Data Esperanza rce(s) Supporting Document(s) Trig 203 mg/dL 35-200 Above high normal [facility] ([facility] CLASSIFICATION CHOLESTEROL [...] HCT IS 5% LESS SOURCE FOR DATA: Pontis 1800 OPERATION MANUAL( AUTOMATED BLOOD COUNTS AND DIFF.) APPENDIX B-3 Chol 192 mg/dL 0-200 [facility] CLASSIFICATION CHOLESTEROL FO [...] HCT IS 5% LESS SOURCE FOR DATA: [employer] DYN 1800 OPERATION MANUAL( AUTOMATED BLOOD COUNTS AND DIFF.) APPENDIX B-3 Prostate specific Ag [Mass/volume] in Serum or Plasma 55 mg/dL 35-5 5 [facility] ([facility] CLASSIFICATION CHOLESTEROL FO [...] IS 5% LESS SOURCE FOR DATA: YARI Sticher 1800 OPERATION MANUAL( AUTOMATED BLOOD COUNTS AND DIFF.) APPENDIX B-3 LDL_C 96 Calc 75-129 [facility] ([facility] [...] HCT IS 5% LESS SOURCE FOR DATA: Pontis 1800 OPERATION MANUAL( AUTOMATED BLOOD COUNTS AND DIFF.) APPENDIX B-3 Cho/HDL Ratio 3.5 CALC [facility] ([facility] CLASSIFICATION CHOLESTEROL FO R ADULTS CHILDREN/ADOLESCENTS* [...] HCT IS 5% LESS SOURCE FOR DATA: Pontis 1800 OPERATION MANUAL( AUTOMATED BLOOD COUNTS AND DIFF.) APPENDIX B-3 ID Date Data Source [id number] 03/26/2019 09:05:00 AM EST [facility] ([facility] Name Value Range Interpretation Code Description Data Esperanza rce(s) Supporting Document(s) Glu 142 mg/dL 70-110 Above high normal [facility] ([facility] CLASSIFICATION CHOLESTEROL [...] DIFF.) APPENDIX B-3 BUN 19 mg/dL 8-23 [facility] ([facility] CLASSIFICATION CHOLESTEROL FO R [...] HCT IS 5% LESS SOURCE FOR DATA: Pontis 1800 OPERATION MANUAL( AUTOMATED BLOOD COUNTS AND [...] DIFF.) APPENDIX B-3 BUN/Creatinine Ratio 18.9 CALC [facility] ([facility] CLASSIFICATION CHOLESTEROL FO R [...] HCT IS 5% LESS SOURCE FOR DATA: Pontis 1800 OPERATION MANUAL( AUTOMATED BLOOD COUNTS AND DIFF.) APPENDIX B-3 K 5.1 mmol/L 3.5-5.1 [facility] ([facility] CLASSIFICATION CHOLESTEROL FO R ADULTS [...] APPENDIX B-3 Co2 25.2 mmol/L 22.0-29.0 [facility] ([facility] CLASSIFICATION CHOLESTEROL FO R ADULTS [...] HCT IS 5% LESS SOURCE FOR DATA: [employer] DYN 1800 OPERATION MANUAL( AUTOMATED BLOOD COUNTS AND DIFF.) APPENDIX B-3 CA 9.9 mg/dL 8.6-10.2 [facility] CLASSIFICATION CHOLESTEROL FO [...] HCT IS 5% LESS SOURCE FOR DATA: Pontis 1800 OPERATION MANUAL( AUTOMATED BLOOD COUNTS AND DIFF.) APPENDIX B-3 A/G Ratio 2.1 CALC [facility] ([facility] CLASSIFICATION CHOLESTEROL FO [...] HCT IS 5% LESS SOURCE FOR DATA: [employer] DYN 1800 OPERATION MANUAL( AUTOMATED BLOOD COUNTS AND DIFF.) APPENDIX B-3 TP 7.0 g/dL 6.6-8.7 [facility] ([facility] CLASSIFICATION CHOLESTEROL [...] DIFF.) APPENDIX B-3 Globulin 2.3 CALC [facility] ([facility] CLASSIFICATION CHOLESTEROL FO [...] APPENDIX B-3 Alt (SGPT) 18 U/L 0-41 [facility] ([facility], [...] HCT IS 5% LESS SOURCE FOR DATA: Pontis 1800 OPERATION MANUAL( AUTOMATED BLOOD COUNTS AND DIFF.) APPENDIX B-3 Tbili 0.33 mg/dL 0.0-1.2 [facility] ([facility] CLASSIFICATION [...] Ast (Sgot) 20 U/L 0-40 [facility] ([facility] CLASSIFICATION CHOLESTEROL FO R [...] COUNTS AND DIFF.) APPENDIX B-3 eGFR Non-Afr. Danish 66 # [facility] ([facility] CLASSIFICATION CHOLESTEROL [...] DIFF.) APPENDIX B-3 Anion Gap 17 mmol/L [facility] CLASSIFICATION CHOLESTEROL FO [...] HCT IS 5% LESS SOURCE FOR DATA: Pontis 1800 OPERATION MANUAL( AUTOMATED BLOOD COUNTS AND [...] HCT IS 5% LESS SOURCE FOR DATA: [employer] DYN 1800 OPERATION MANUAL( AUTOMATED BLOOD COUNTS AND DIFF.) APPENDIX B-3 ID Date Data Source [id number] 03/26/2019 09:05:00 AM EST [facility] ([facility] Name Value Range Interpretation Code Description Data Esperanza rce(s) Supporting Document(s) WBC 5.5 10E3/uL 4.1-10.9 [facility] ([facility] CLASSIFICATION CHOLESTEROL FO R ADULTS [...] HCT IS 5% LESS SOURCE FOR DATA: Pontis 1800 OPERATION MANUAL( AUTOMATED BLOOD COUNTS AND DIFF.) APPENDIX B-3 RBC 3.86 10E6/uL 4.20-6.30 Below low normal [facility] ([facility] CLASSIFICATION [...] DIFF.) APPENDIX B-3 HGB 12.8 g/dL 12.0-18.0 [facility] ([facility] [...] HCT IS 5% LESS SOURCE FOR DATA: [employer] DYN 1800 OPERATION MANUAL( AUTOMATED BLOOD COUNTS AND DIFF.) APPENDIX B-3 HCT 37.4 % 37.0-51.0 [facility] ([facility] CLASSIFICATION CHOLESTEROL [...] HCT IS 5% LESS SOURCE FOR DATA: [employer] DYN 1800 OPERATION MANUAL( AUTOMATED BLOOD COUNTS AND DIFF.) APPENDIX B-3 MCV 96.9 fL 80.0-97.0 [facility] ([facility] [...] MCH 33.2 pg 26.0-32.0 Above high normal [facility] ([facility] CLASSIFICATION CHOLESTEROL FO [...] HCT IS 5% LESS SOURCE FOR DATA: Pontis 1800 OPERATION MANUAL( AUTOMATED BLOOD COUNTS AND [...] HCT IS 5% LESS SOURCE FOR DATA: Pontis 1800 OPERATION MANUAL( AUTOMATED BLOOD COUNTS AND DIFF.) APPENDIX B-3 PLT 384 10E3/uL 140-440 [facility] ([facility] CLASSIFICATION CHOLESTEROL FO R ADULTS [...] DIFF.) APPENDIX B-3 RDW-CV 14.3 % 11.5-14.5 [facility] ([facility] CLASSIFICATION CHOLESTEROL FO R [...] HCT IS 5% LESS SOURCE FOR DATA: Pontis 1800 OPERATION MANUAL( AUTOMATED BLOOD COUNTS AND [...] HCT IS 5% LESS SOURCE FOR DATA: [employer] DYN 1800 OPERATION MANUAL( AUTOMATED BLOOD COUNTS [...] HCT IS 5% LESS SOURCE FOR DATA: [employer] DYN 1800 OPERATION MANUAL( AUTOMATED BLOOD COUNTS AND DIFF.) APPENDIX B-3 Lym# 1.4 10E3/uL 0.6-4.1 [facility] ([facility] CLASSIFICATION CHOLESTEROL FO R ADULTS [...] HCT IS 5% LESS SOURCE FOR DATA: Pontis 1800 OPERATION MANUAL( AUTOMATED BLOOD COUNTS AND [...] HCT IS 5% LESS SOURCE FOR DATA: Pontis 1800 OPERATION MANUAL( AUTOMATED BLOOD COUNTS AND [...] HCT IS 5% LESS SOURCE FOR DATA: [employer] DYN 1800 OPERATION MANUAL( AUTOMATED BLOOD COUNTS AND DIFF.) APPENDIX B-3 MPV 8.4 fL 9.0-13.0 Below low normal [facility] ( [facility] CLASSIFICATION CHOLESTEROL [...] HCT IS 5% LESS SOURCE FOR DATA: Pontis 1800 OPERATION MANUAL( AUTOMATED BLOOD COUNTS AND DIFF.) APPENDIX B-3 MXD# 0.5 10E3/uL 0.0-1.8 [facility] ([facility] CLASSIFICATION CHOLESTEROL FO R ADULTS [...] IS 5% LESS SOURCE FOR DATA: YARI Sticher 1800 OPERATION MANUAL( AUTOMATED BLOOD COUNTS AND DIFF.) APPENDIX B-3 Procedure Social History Code Duration Value Status Description Data Source(s ) Smoking 01/22/2020 12:00:00 AM EST Patient is a former smoker completed Patient is a former smoker [facility] ([facility] ) Vital Signs ID Date Data Source UNK Name Value Range Interpretation Code Description Data Source(s) Diastolic blood pressure 64 mm[Hg] 64 mm[Hg] eCW1 ([facility]) Systolic blood pressure 122 mm[Hg] 122 mm[Hg] e CW1 ([facility]) Body temperature 95.3 [degF] 95.3 [degF] eCW1 ( [facility]) Respiratory rate 18 /min 18 /min eCW1 ([facility]) Heart rate 96 /min 96 /min eCW1 ([facility]) Body mass index (BMI) [Ratio] 24.05 kg/m2 24.05 kg/m2 eCW1 ([facility]) Body height 63 [in_i] 63 [in_i] eCW1 ([facility]) Body weight 135.8 [lb_av] 135.8 [lb_av] eCW1 ([facility]) Diastolic blood pressure 62 mm[Hg] 62 mm[Hg] eCW1 ([facility]) Systolic blood pressure 104 mm[Hg] 104 mm[Hg] e CW1 ([facility]) Body temperature 96.6 [degF] 96.6 [degF] eCW1 ( [facility]) Respiratory rate 18 /min 18 /min eCW1 ([facility]) Heart rate 104 /min 104 /min eCW1 ([facility]) Body mass index (BMI) [Ratio] 23.91 kg/m2 23.91 kg/m2 eCW1 ([facility]) Body height 63 [in_i] 63 [in_i] eCW1 ([facility]) Body weight 135 [lb_av] 135 [lb_av] eCW1 ([facility]) Diastolic blood pressure 74 mm[Hg] 74 mm[Hg] eCW1 ([facility]) Systolic blood pressure 118 mm[Hg] 118 mm[Hg] e CW1 ([facility]) Body temperature 97.1 [degF] 97.1 [degF] eCW1 ( [facility]) Respiratory rate 18 /min 18 /min eCW1 ([facility]) Heart rate 95 /min 95 /min eCW1 ([facility]) Body mass index (BMI) [Ratio] 23.56 kg/m2 23.56 kg/m2 eCW1 ([facility]) Body height 63 [in_i] 63 [in_i] eCW1 ([facility]) Body weight 133 [lb_av] 133 [lb_av] eCW1 ([facility]) Oxygen saturation in Arterial blood by Pulse oximetry 98 % 98 % [facility] ([facility] Body mass index (BMI) [Ratio] 23.4 kg/m2 23.4 k g/m2 [facility] ([facility] [place] body weight 124 [lb_av] 124 [lb_av] MEDEN T ([facility] Body weight 134.00 [lb_av] 134.00 [lb_av] [facility] T ([facility] Body height 63.5 [in_i] 63.5 [in_i] [facility] ([facility] 5'3.50" Respiratory rate 18 [...] blood pressure 78 mm[Hg] 78 mm[Hg] eCW1 ([facility]) Systolic blood pressure 145 mm[Hg] 145 mm[Hg] e CW1 ([facility]) Body temperature 97.1 [degF] 97.1 [degF] eCW1 ( [facility]) Respiratory rate 18 /min 18 /min eCW1 ([facility]) Heart rate 91 /min 91 /min eCW1 ([facility]) Body mass index (BMI) [Ratio] 24.18 kg/m2 24.18 kg/m2 eCW1 ([facility]) Body height 63 [in_i] 63 [in_i] eCW1 ([facility]) Body weight 136.5 [lb_av] 136.5 [lb_av] eCW1 ([facility]) Oxygen saturation in Arterial blood by Pulse oximetry 98 % 98 % [facility] ([facility] ([place]), ([place]) Body mass index (BMI) [Ratio] 24.1 kg/m2 24.1 k g/m2 [facility] ([facility] [place] body weight 124 [lb_av] 124 [lb_av] MED[facility] T ([facility] Body weight 138.00 [lb_av] 138.00 [lb_av] MED[facility] T ([facility] Body height 63.5 [in_i] 63.5 [in_i] [facility] ([facility] 5'3.50" Heart rate 85 /min 85 /min [facility] ([facility] Body temperature 97.1 [degF] 97.1 [degF] [facility] ([facility] Diastolic blood pressure 62 mm[Hg] 62 mm[Hg] [facility] ([facility] Systolic blood pressure 138 mm[Hg] 138 mm[Hg] M EDENT ([facility] Diastolic blood pressure 72 mm[Hg] 72 mm[Hg] eCW1 ([facility]) Systolic blood pressure 128 mm[Hg] 128 mm[Hg] e CW1 ([facility]) Body temperature 96.2 [degF] 96.2 [degF] eCW1 ( [facility]) Respiratory rate 18 /min 18 /min eCW1 ([facility]) Heart rate 109 /min 109 /min eCW1 ([facility]) Body mass index (BMI) [Ratio] 24.27 kg/m2 24.27 kg/m2 eCW1 ([facility]) Body height 63 [in_i] 63 [in_i] eCW1 ([facility]) Body weight 137 [lb_av] 137 [lb_av] eCW1 ([facility]) Oxygen saturation in Arterial blood by Pulse oximetry 98 % 98 % [facility] ([facility] Body mass index (BMI) [Ratio] 24.2 kg/m2 24.2 k g/m2 [facility] ([facility] [place] body weight 124 [lb_av] 124 [lb_av] MEDEN T ([facility] Body weight 139.00 [lb_av] 139.00 [lb_av] MED[facility] T ([facility] Body height 63.5 [in_i] 63.5 [in_i] [facility] ([facility] 5'3.50" Respiratory rate 16 [...] k g/m2 [facility] ([facility] [place] body weight 124 [lb_av] 124 [lb_av] MEDEN T ([facility] Body weight 141.00 [lb_av] 141.00 [lb_av] MEDEN T ([facility] Body height 63.5 [in_i] 63.5 [in_i] [facility] 5'3.50" Respiratory rate [...] k g/m2 [facility] ([facility] [place] body weight 124 [lb_av] 124 [lb_av] MEDEN T ([facility] Body weight 143.00 [lb_av] 143.00 [lb_av] MED[facility] T ([facility] Body height 63.5 [in_i] 63.5 [in_i] [facility] 5'3.50" Respiratory rate [...] weight 138.00 [lb_av] 138.00 [lb_av] MEDEN T ([facility] Body height 63.5 [in_i] 63.5 [in_i] [facility] ([facility] 5'3.50" Respiratory rate 13 /min 13 /min [facility] ( [facility] Heart rate 88 /min 88 /min [facility] ([facility] Body temperature 98.0 [degF] 98.0 [degF] [facility] ([facility] Diastolic blood pressure 78 mm[Hg] 78 mm[Hg] [facility] ([facility] Systolic blood pressure 140 mm[Hg] 140 mm[Hg] M EDENT ([facility] Patient Treatment Plan of Care Planned Activity Planned Date Details Description Data Source (s) 24 HR Alfuzosin hydrochloride 10 MG Extended Release O ral Tablet 03/17/2020 12:00:00 AM EST eCW1 ([facility]) 24 HR Alfuzosin hydrochloride 10 MG Extended Release O ral Tablet 03/17/2020 12:00:00 AM EST eCW1 ([facility]) Amoxicillin 500 MG Oral Capsule 03/10/2020 12:00:00 AM EST eCW1 ([facility]) Erythromycin 500 MG Delayed Release Oral Tablet 03/10/2020 12:00:00 AM EST eCW1 ([facility]) Amoxicillin 500 MG Oral Capsule 03/10/2020 12:00:00 AM EST eCW1 ([facility]) Erythromycin 500 MG Delayed Release Oral Tablet 03/10/2020 12:00:00 AM EST eCW1 ([facility]) Amoxicillin 500 MG Oral Capsule 03/10/2020 12:00:00 AM EST eCW1 ([facility]) Erythromycin 500 MG Delayed Release Oral Tablet 03/10/2020 12:00:00 AM EST eCW1 ([facility]) Ciprofloxacin 250 MG Oral Tablet [Cipro] 02/04/2020 12:00:00 AM EST eCW1 ([facility]) Ciprofloxacin 250 MG Oral Tablet [Cipro] 02/04/2020 12:00:00 AM EST eCW1 ([facility])
[2020-03-29 11:00] LABS: BASO # 0.1 10^3/uL (0.0-0.2); BASO % 0.8 % (0.0-1.0); EOS # 0.4 10^3/uL (0.0-0.5); EOS % 4.8 % (0.0-3.0); HEMATOCRIT 28.7 % (42.0-52.0); HEMOGLOBIN 9.4 g/dl (13.5-17.5); LYMPH # 0.9 10^3/uL (1.5-5.0); LYMPH % 11.7 % (24.0-44.0); MEAN CORPUSCULAR HEMOGLOBIN 32.4 pg (27.0-33.0); MEAN CORPUSCULAR HGB CONC 32.8 g/dl (32.0-36.5); MONO # 0.5 10^3/uL (0.0-0.8); MONO % 6.1 % (0.0-5.0); NEUTROPHILS # 5.8 10^3/uL (1.5-8.5); NEUTROPHILS % 76.2 % (36.0-66.0); PLATELET COUNT, AUTOMATED 471 10^3/uL (150-450); WHITE BLOOD COUNT 7.5 10^3/uL (4.0-10.0)
[2020-03-29 11:30] LABS: ALBUMIN 3.6 GM/DL (3.2-5.2); ALT/SGPT 25 U/L (12-78); BILIRUBIN,TOTAL 0.3 MG/DL (0.2-1.0); BLOOD UREA NITROGEN 19 MG/DL (7-18); CARBON DIOXIDE LEVEL 25 MEQ/L (21-32); CHLORIDE LEVEL 104 MEQ/L (98-107); CREATININE FOR GFR 0.93 MG/DL (0.70-1.30); GLOMERULAR FILTRATION RATE > 60.0 (>35); GLUCOSE, FASTING 125 MG/DL (70-100); POTASSIUM SERUM 5.3 MEQ/L (3.5-5.1); SODIUM LEVEL 135 MEQ/L (136-145); TOTAL PROTEIN 6.7 GM/DL (6.4-8.2)
--- NOTE | 2020-03-29 11:41 | REP ---
INDICATION: Hematuria. COMPARISON: Comparison CT study April 18, 2014.. TECHNIQUE: Pelvic sonography bladder evaluation. FINDINGS: Enlarged prostate is noted as seen on CT study measuring 5.6 x 4.3 x 5.9 cm. BPH changes are noted. Bladder cardoza are somewhat thickened diffusely and trabeculated in appearance. Prevoid bladder volume is 181 mL. Postvoid bladder volume is 71.9 mL. 39% postvoid residual. The interior of the bladder contains hypoechoic echoes consistent with proteinaceous debris in the bladder lumen. No mass lesion is observed. IMPRESSION: Moderately enlarged prostate gland as on CT study April 18, 2014. Trabeculated bladder cardoza. Hypoechoic cellular or proteinaceous debris in the urine. No mass lesion seen. 39% postvoid bladder residual. <Electronically signed by Zhen Ngo > 03/29/20 2300
[2020-03-29 12:26] LABS: BILIRUBIN, URINE MANUAL NEGATIVE (NEGATIVE); GLUCOSE, URINE (UA) MANUAL NEGATIVE (NEGATIVE); KETONE, URINE MANUAL NEGATIVE (NEGATIVE); UROBILINOGEN, URINE MANUAL NORMAL (NORMAL)
[2020-03-29 12:29] LABS: BACTERIA, URINE MOD AMOUNT; RBC, URINE TNTC /hpf (0-3); TRANSITIONAL EPI CELLS, URINE SMALL AMOUNT /hpf
[2020-03-29 13:19] VITALS: BP 140/59
== END 2020-03-29 13:23 | disposition home or self-care (01) ==
LOC: M ED 10:08
DX: N40.0 Benign prostatic hyperplasia without lower urinary tract symptoms (principal); E11.9 Type 2 diabetes mellitus without complications; K21.9 Gastro-esophageal reflux disease without esophagitis; I10 Essential (primary) hypertension; I25.10 Atherosclerotic heart disease of native coronary artery without angina pectoris; J45.909 Unspecified asthma, uncomplicated; Z79.82 Long term (current) use of aspirin; Z79.84 Long term (current) use of oral hypoglycemic drugs; Z79.899 Other long term (current) drug therapy